=== PATIENT | male | born 1965 | race African-American/Black ===

== ENCOUNTER → 2017-01-02 | Outpatient (CLI) | payer OTHER ==
[~2017-01-02] MED LIST: FISHOIL PO; MULTTAB58 PO; NAPROXEN PO
[2017-01-02 13:12] LABS: BASO % 0.3 %; BASO ABS # 0.03 K/uL (0-0.2); COMPLETE YES; EOS % 1.4 %; HEMATOCRIT 44.7 % (42-52); IG% 0.3 %; LYMPH % 25.9 %; LYMPH ABS # 2.37 K/uL (1.2-3.4); MEAN CELL VOLUME 81.6 fL (80-100); MEAN CORPUSCULAR HEMOGLOBIN 28.8 pg (25-34); MEAN CORPUSCULAR HGB CONC 35.3 g/dl (32-36); MEAN PLATELET VOLUME 10.7 fL (7.4-10.4); MONO % 6.2 %; NEUT % 65.9 %; PLATELET COUNT 380 K/uL (130-400); RED BLOOD COUNT 5.48 M/uL (4.7-6.1); WHITE BLOOD COUNT 9.16 K/uL (4.8-10.8)
[2017-01-02 13:56] LABS: FERRITIN 31.4 ng/ml (8.0-388.0); RATIO 16.6 mcg/mg (0-30.0); THYROID STIMULATING HORMONE 1.12 uIu/ml (0.300-4.500)
[2017-01-06 18:17] LABS: ILGF1 Z SCORE MALE -1.5 SD (-2.0 - +2.0)
== END | disposition home or self-care (01) ==
LOC: C.LAB1850 12:05
PROVIDERS: ATTEND Internal Medicine Endocrinology, Diabetes & Metabolism
DX: R73.03 Prediabetes (principal); M79.1 Myalgia; R20.2 Paresthesia of skin

== ENCOUNTER → 2017-02-13 | Outpatient (CLI) | payer OTHER ==
[2017-02-13 10:38] LABS: ESTIMATED AVERAGE GLUCOSE 123 mg/dl; HA1C FLAG Normal (Normal)
== END | disposition home or self-care (01) ==
LOC: C.LAB1850 09:29
PROVIDERS: ATTEND Internal Medicine Endocrinology, Diabetes & Metabolism
DX: R73.03 Prediabetes (principal)

== ENCOUNTER → 2017-02-16 | Outpatient (CLI) | payer OTHER ==
[~2017-02-16] VITALS: Ht 190.5 cm; Wt 140.1 kg
[2017-02-16 17:29] VITALS: BP 149/91; PULSE 92; Ht 190.5 cm; Wt 140.1 kg
== END | disposition home or self-care (01) ==
LOC: C.NEUR 15:16
PROVIDERS: ATTEND Internal Medicine Pulmonary Disease
DX: R06.83 Snoring (principal); R06.81 Apnea, not elsewhere classified; R53.83 Other fatigue; E66.9 Obesity, unspecified

== ENCOUNTER → 2017-03-06 | Outpatient (CLI) | payer OTHER ==
--- NOTE | 2017-03-07 05:40 | SPLIT NIGHT TECHNICIAN REPORT ---
[facility] Split Night Polysomnogram - Production Grader Report Study date: 03/06/2017 Referring Physician: Shravan Shay M.D. Name: BARRIE PRAJAPATI Production Grader: LORI Raymond. Date of : 1965 Height: 51 years, Height 6' 3" Sex: Male Weight: 308 lbs Age: 51 Neck Circum: 17 inches BMI: Medications: 38.49 Celebrex 100 mg, Metformin 1000 mg, Trulicity 0.75 mg/0.5 ml,Victoza 18mg/3ml Patient History 51 yr. old male here for a modified split night sleep study if AHI >15. Patient complains of apneas and snoring, non-refreshing sleep, and falls asleep at inappropriate times. Parameters Monitored NPSG: E1-M2, E2-M1, Fp1-M2, Fp2-M1, F3-M2, F4-M2, F4-M1, C3-M2, C4-M2, C4-M1, O1-M2, O2-M2, O2-M1, T3-M2, T4-M1, P3-M2, P4-M1, CHIN1, CHIN2, HR, EKG, Legs, PFLOW, SNOR, FLOW, CFLOW, Tidal Volume, THOR, ABDO, SpO2, PLTH, CPRESS, ETCO2 Wave, ETCO2, pH SLEEP SUMMARY DATA DIAGNOSTIC TREATMENT Lights Out: 10:33:37 PM 1:29:37 AM Lights On: 1:26:07 AM 5:28:07 AM Total Recording Time (TRT): 172.5 min. 238.0 min. Total Sleep Time (TST): 124.5 min. 189.0 min. NREM Time: 104.0 min. 139.0 min. REM Time: 20.5 min. 50.0 min. Sleep Period Time (SPT): 128.5 min. 230.0 min. Sleep Efficiency (SE): 72 % 79 % Sleep Latency: 44.0 min. 8.5 min. Arousal Index: 7.2 2.9 PAP Treatment Levels: 5, 6, 7, 8 * Optimal Pressure(s) SLEEP STAGING DATA DIAGNOSTIC TREATMENT Duration (min) TST % Duration (min) TST % Stage Wake: 48.0 min. -- 49.0 min. -- WASO: 4.0 min. -- 41.0 min. -- NREM: 104.0 min. 84 % 139.0 min. 74 % Stage N1: 10.0 min. 8 % 6.5 min. 3 % Stage N2: 80.0 min. 64 % 112.5 min. 60 % Stage N3: 14.0 min. 11 % 20.0 min. 11 % REM: 20.5 min. 16 % 50.0 min. 26 % POSITIONAL DATA Event Count Index Event Count Index Supine: 0 0.0 0 0.0 Supine NREM: 0 0.0 0 0.0 Supine REM: N/A N/A N/A N/A Non-Supine: 65 31.5 13 4.6 Non-Supine NREM: 45 26.1 11 5.5 Non-Supine REM: 20 58.5 2 2.4 AROUSAL SUMMARY DATA: Event Count Index Event Count Index Apnea Arousals: 0 0.0 0 0.0 Hypopnea Arousals: 3 1.4 2 0.6 Snore Arousals: 4 1.9 3 1.0 PLM Arousals: 4 1.9 0 0.0 Non-Specific Arousals: 3 1.4 1 0.3 Total Arousals: 15 7.2 9 2.9 MYOCLONUS (PLM) Event Count Index Event Count Index PLM: 17 8.2 9 2.9 PLM AROUSAL: 4 1.9 0 0.0 PLM W/O AROUSAL 17 8.2 9 2.9 PLM W/RESP EVENT 0 0.0 1 0.0 MYOCLONUS (PLM) Event Count Index Event Count Index LM: 1 14.9 28 8.9 LM AROUSAL: 1 0.5 4 1.3 LM W/O AROUSAL LM W/RESP EVENT LM NON SPECIFIC 35 16.9 30 9.5 HEART RATE DATA DIAGNOSTIC TREATMENT Sleep (bpm): 84 72 REM (bpm): 87 91 NREM (bpm): 88 91 Tachycardia Count: 0 0 Tachycardia Duration: 0.00 0 Bradycardia Count: 0 0 Bradycardia Duration: 0.00 0 DIAGNOSTIC PORTION TREATMENT PORTION RESPIRATORY DATA Event Count Index Event Count Index AHI: -- 31.3 -- 4.1 RDI: -- 31.3 -- 4 Obstructive Apnea: 0 0.0 0 0.0 Central Apnea: 0 0.0 0 0.0 Mixed Apnea: 0 0.0 0 0.0 Hypopnea: 65 31.3 13 4.1 RERA: 0 0.0 0 0.0 Total Apneas: 0 0.0 0 0.0 RESPIRATORY DATA REM NREM SLEEP REM NREM SLEEP Supine Position: Obstructive Apneas: N/A 0 0 N/A 0 0 Central Apneas: N/A 0 0 N/A 0 0 Mixed Apneas: N/A 0 0 N/A 0 0 Hypopneas: N/A 0 0 N/A 0 0 RERA N/A 0 0 N/A 0 0 Total Supine Events: N/A 0 0 N/A 0 0 Supine AHI: N/A 0.0 0.0 N/A 0.0 0.0 Supine RDI: N/A 0.0 0.0 N/A 0.0 0.0 REM NREM SLEEP REM NREM SLEEP Non-Supine Position: Obstructive Apneas: 0 0 0 0 0 0 Central Apneas: 0 0 0 0 0 0 Mixed Apneas: 0 0 0 0 0 0 Hypopneas: 20 45 65 2 11 13 RERA 0 0 0 0 0 0 Total Supine Events: 20 45 65 2 11 13 Supine AHI: 58.5 26.1 31.5 2.4 5.5 4.6 Supine RDI: 58.5 26.1 31.5 2.4 5.5 4.6 OXYGEN DESTAURATION DATA: Event Count Index Event Count Index REM Desaturations: 15 43.9 2 2.4 NREM Desaturations: 49 28.3 11 4.7 SNORE DATA DIAGNOSTIC TREATMENT Snore Time: 42.7 1:38:07 AM Snore TST%: 17 18 Snore Arousal Count: 4 3 Snore Arousal Index: 1.9 1.0 Desaturation Event Summary: Minimum %SpO2 Event Count Mean/Min/Max Duration(sec.) Desaturation Index % Time In Bed > 90 94 25.0 / 6.5 / 60.0 25.6 53.6 86 - 90 59 25.2 / 8.0 / 59.3 20.3 42.4 81 - 85 2 14.9 / 11.0 / 18.8 7.7 3.8 76 - 80 0 N/A 0.0 0.2 71 - 75 0 N/A 0.0 0.0 66 - 70 0 N/A 0.0 0.0 61 - 65 0 N/A 0.0 0.0 56 - 60 0 N/A 0.0 0.0 51 - 55 0 N/A 0.0 0.0 < 50 0 N/A 0.0 0.0 OXYGEN SATURATION DATA DIAGNOSTIC TREATMENT SpO2 Mean Sleep: 88 % 91 % SpO2 Mean REM: 87 % 91 % SpO2 Mean NREM: 88 % 91 % SpO2 Minimum Sleep: 79 % 86 % SpO2 Minimum REM: 79 % 87 % SpO2 Minimum NREM: 79 % 86 % Time Below 90% (TST): 93.5 18.2 Time Below 88% (TST): 42.6 0.3 Total REM NREM Awake <50% 0.0 min. 0.0 min. 0.0 min. 0.0 min. 51 - 60% 0.0 min. 0.0 min. 0.0 min. 0.0 min. 61 - 70% 0.0 min. 0.0 min. 0.0 min. 0.0 min. 71 - 80% 0.7 min. 0.3 min. 0.4 min. 0.0 min. 81 - 90% 189.8 min. 30.7 min. 130.4 min. 28.7 min. 91 - 100% 219.9 min. 39.4 min. 112.3 min. 68.3 min. Average 90 90 90 92 Minimum SpO2 79 79 79 84 Desaturation Event Index 18.0 14.5 14.8 28.5 # Desat. Events below 89% 83 15 52 16 Time(%) with Saturation below 89% 18.3 3.2 14.0 1.0 Time(min.) with Saturation below 89% 75.1 13.2 57.6 4.2 Recording Production Grader Comments: Mr. Prajapati slept in the right, left, and supine positions. Cardiac arrhythmia and PLMs noted. No bruxism noted. Snoring was noted and scored as a 5 on a scale of 0 through 5. (0=no snoring, 5=snoring loud enough to be heard through a closed door or down the [address]) At 1;29 am, Mr. Prajapati met specific Split-Night criteria during the diagnostic portion of this study. CPAP was initiated at +5 CMH2O and up-titrated to an optimal level of +8 CMH2O Cflex 2 , which nearly eliminated all respiratory events and snoring. A large quattro air, was used during titration. Mr. Prajapati did not wake to use the restroom during the night. Mr. Prajapati stated, "I think I sleot better with the mask, it just took some time to get used to it". The final report will be interpreted and signed by a sleep physician. The completed physician report will then be placed in the patient medical record. Therapy Event: Therapy (cm H20) 0 5 6 7 8 Total Time at Pressure (min.) 172.5 66.1 97.2 27.3 47.4 TST at Pressure (min.) 124.5 19.1 95.7 26.8 47.4 # Periods 1 1 1 1 1 Sleep Onset (min.) 44.0 8.5 0.0 0.0 0.0 REM Onset (min.) 118.5 N/A 6.9 18.7 0.0 Sleep Efficiency % 72 28 98 98 100 Wakefulness (%) 27.8 71.1 1.5 1.8 0.0 Wakefulness (min.) 48.0 47.0 1.5 0.5 0.0 NREM 1 (%) 5.8 3.8 2.1 5.5 1.1 NREM 1 (min.) 10.0 2.5 2.0 1.5 0.5 NREM 2 (%) 46.4 25.1 56.8 59.4 51.7 NREM 2 (min.) 80.0 16.6 55.2 16.2 24.5 NREM 3 (%) 8.1 0.0 11.3 0.0 19.0 NREM 3 (min.) 14.0 0.0 11.0 0.0 9.0 REM (%) 11.9 0.0 28.3 33.3 28.3 REM (min.) 20.5 0.0 27.5 9.1 13.4 # Arousals 15 1 4 3 1 Arousal Index 7.2 3.1 2.5 6.7 1.3 # Snore 1,375 96 605 204 206 Snore Index 662.7 301.5 379.5 456.2 260.7 AHI 31.3 9.4 3.1 11.2 0.0 AHI Supine 0.0 N/A 0.0 0.0 N/A AHI Non-Supine 31.5 9.4 3.7 13.6 0.0 NREM AHI 26.0 9.4 4.4 10.1 0.0 REM AHI 58.5 N/A 0.0 13.2 0.0 RDI 31.3 9.4 3.1 11.2 0.0 # Obstructive 0 0 0 0 0 # Central Ap 0 0 0 0 0 # Mixed 0 0 0 0 0 # Hypopneas 65 3 5 5 0 RERAS 0 0 0 0 0 Total Respiratory Events 65 3 5 5 0 Time Below SpO2 89.00% (min.) 66.6 0.2 3.6 0.5 0.0 Mean NREM SpO2 (%) 88 91 91 91 93 Mean REM SpO2 (%) 87 N/A 91 91 92 Mean Sleep SpO2 (%) 88 91 91 91 93 Min NREM SpO2 (%) 79 88 86 89 92 Min REM SpO2 (%) 79 N/A 88 87 91 Position Supine (min.) 0.6 0.0 14.1 4.7 0.0 Position Non-supine (min.) 123.9 19.1 81.5 22.1 47.4 LM Index Sleep 23.1 15.7 10.7 24.6 5.1 LM Index NREM 20.8 15.7 9.7 27.1 5.3 LM Index REM 35.1 N/A 13.1 19.8 4.5 Mean Heart Rate (bpm) 84 72 74 70 70 Min Heart Rate (bpm) 51 65 62 62 62
--- NOTE | 2017-03-08 09:18 | POLYSOMNOGRAPH REPORT ---
CLINICAL DATA: A 51-year-old male with BMI of 38.5 referred by myself and Dr. Brennan with complaints of apnea, snoring, nonrefreshing sleep and falling asleep at inappropriate times. This was a split night sleep study. SLEEP ARCHITECTURE: For the diagnostic portion of the study, total sleep period was 128.5 minutes. Total sleep time was 124.5 minutes divided between 104 minutes of non-REM sleep and 20.5 minutes of REM sleep. Sleep latency was delayed at 44 minutes. Sleep efficiency was 72%. Arousal index was 7.2. Sleep consisted of stage N1 8%, N2 64%, N3 11%, REM 16%. For the treatment portion of the study, total sleep period was 230 minutes. Total sleep time was 189 minutes divided between 139 minutes of non-REM sleep and 50 minutes of REM sleep. Sleep latency was 8.5 minutes. Sleep efficiency was 79%. Arousal index was 2.9. Sleep consisted of stage N1 3%, N2 60%, N3 11%, REM 26%. AROUSAL DATA: Prior to treatment 15 arousals were recorded for an index of 7.2 per hour. During treatment, 9 arousals recorded for an index 2.9 per hour. PLM DATA: Prior to treatment, 35 limb movements during sleep were noted for an index of 16.9 per hour. During treatment, 30 limb movements during sleep were noted for an index of 9.5 per hour. EKG: Heart rates ranged from 72 to 91 beats per minute. Occasional PVCs were noted. RESPIRATORY DATA: Severe sleep apnea was documented prior to treatment. The diagnostic AHI was 31.3. There were 65 hypopneic episodes recorded. The mean AHI during treatment was 4.1. There were 13 hypopneic episodes recorded. OXIMETRY DATA: Oxygen adam prior to treatment was 79%. Mean saturation for the treatment was 91%. SHIPS EQUIPMENT ENGINEER'S COMMENTS AND TREATMENT SUMMARY: The patient slept in the right, left, and supine positions. Snoring was severe, rated 5 on a scale of 1-5. At 1:29 a.m., patient met split night criteria. The patient used a large Quattro Air face mask. He was started on CPAP and titrated up to an optimal level of 8 cm of water pressure, C-Flex 2. At this final pressure setting the patient slept for 47.4 minutes with an AHI of 0. IMPRESSION: Severe obstructive sleep apnea/hypopnea with diagnostic AHI of 31.5 with nocturnal hypoxemia corrected with CPAP 8 cm of water pressure, C-Flex setting 2, large Quattro Air facemask. RECOMMENDATIONS: The patient should be started on the above noted treatment regimen and seen back in followup to document efficacy and compliance. MTDD
== END | disposition home or self-care (01) ==
LOC: C.NEUR 21:00
PROVIDERS: ATTEND Internal Medicine Pulmonary Disease
DX: G47.33 Obstructive sleep apnea (adult) (pediatric) (principal)

== ENCOUNTER → 2017-03-27 | Outpatient (CLI) | payer OTHER ==
[~2017-03-27] VITALS: Ht 190.5 cm; Wt 138.8 kg
[2017-03-27 16:05] VITALS: BP 116/82; PULSE 112; BMI 38.2
[2017-03-27 16:06] VITALS: BP 116/82; PULSE 112; Ht 190.5 cm; Wt 138.8 kg
== END | disposition home or self-care (01) ==
LOC: C.NEUR 15:42
PROVIDERS: ATTEND Internal Medicine Pulmonary Disease
DX: G47.30 Sleep apnea, unspecified (principal)

== ENCOUNTER → 2017-06-19 | Outpatient (CLI) | payer OTHER ==
--- NOTE | 2017-06-19 11:09 | DIAGNOSTIC IMAGING REPORT ---
CHEST 2 VIEWS ROUTINE CLINICAL HISTORY: 51 years-old Male presenting with anterior chest wall pain. TECHNIQUE: PA and lateral views of the chest were obtained. COMPARISON: 11/14/2012. FINDINGS: Cardiomediastinal silhouette normal. Persistent elevation of the right hemidiaphragm. Minimal bandlike opacity at the right lung base. No other focal infiltrate. No large effusion or pneumothorax. Osseous structures normal. Upper abdomen normal. IMPRESSION: 1. Persistent elevation of the right hemidiaphragm with minimal right basilar subsegmental atelectasis. Otherwise no acute cardiopulmonary disease. Electronically signed by: Humphrey Kimball M.D. 06/19/2017 11:08 AM Dictated Date/Time: 06/19/2017 11:06 AM
== END | disposition home or self-care (01) ==
LOC: C.RAD1850 10:21
PROVIDERS: ATTEND Family Medicine
DX: R07.89 Other chest pain (principal); J98.6 Disorders of diaphragm

== ENCOUNTER → 2017-06-19 | Outpatient (CLI) | payer OTHER ==
[~2017-06-19] VITALS: Ht 190.5 cm; Wt 134.4 kg
[2017-06-19 14:39] VITALS: BP 126/89; PULSE 88; Ht 190.5 cm; Wt 134.4 kg
== END | disposition home or self-care (01) ==
LOC: C.NEUR 12:46
PROVIDERS: ATTEND Physician Assistant Medical
DX: G47.30 Sleep apnea, unspecified (principal); R53.83 Other fatigue; E66.9 Obesity, unspecified

== ENCOUNTER → 2017-06-25 | Outpatient (CLI) | payer OTHER ==
--- NOTE | 2017-06-25 16:11 | DIAGNOSTIC IMAGING REPORT ---
LEFT KNEE 3 VIEWS, RIGHT KNEE 3 VIEWS CLINICAL HISTORY: CHRONIC KNEE PAIN COMPARISON STUDY: Bilateral knees 06/07/2006. FINDINGS: No fracture or dislocation within the right or left knee. No significant knee effusions. There are severe bilateral tricompartmental osteoarthritis. This is demonstrated by cartilage space narrowing and large marginal osteophytes. No significant soft tissue swelling. No radiopaque foreign bodies. IMPRESSION: Progression of the bilateral severe tricompartmental osteoarthritis. No fractures. Electronically signed by: Leno Bradley M.D. 06/25/2017 4:09 PM Dictated Date/Time: 06/25/2017 4:07 PM
== END | disposition home or self-care (01) ==
LOC: C.RAD1850 15:49
PROVIDERS: ATTEND Internal Medicine
DX: M17.0 Bilateral primary osteoarthritis of knee (principal)

== ENCOUNTER → 2017-06-27 | Outpatient (CLI) | payer OTHER ==
[2017-06-27 17:24] LABS: ALT/SGPT 30 U/L (12-78); BLOOD UREA NITROGEN 14 mg/dl (7-18); BUN/CREATININE RATIO 15.4 (10-20); CARBON DIOXIDE 27 mmol/L (21-32); CHLORIDE 110 mmol/L (98-107); CREATININE 0.89 mg/dl (0.60-1.40); GLUCOSE 87 mg/dl (70-99); SODIUM 141 mmol/L (136-145)
[2017-06-27 17:26] LABS: ALB/GLOB RATIO 0.9 (0.9-2); ALKALINE PHOSPHATASE 107 U/L (45-117); AST/SGOT 16 U/L (15-37); CHOLESTEROL 141 mg/dl (0-200); CHOLESTEROL/HDL RATIO 2.8; HDL CHOLESTEROL 50 mg/dl; LDL CHOLESTEROL CALCULATED 75 mg/dl; TRIGLYCERIDES 80 mg/dl (0-150); VERY LOW DENSITY LIPOPROT CALC 16 mg/dl
[2017-06-28 07:12] LABS: ESTIMATED AVERAGE GLUCOSE 114 mg/dl; HA1C FLAG Normal (Normal)
== END ==
LOC: C.LAB1850 15:35
PROVIDERS: ATTEND Internal Medicine
DX: Z00.00 Encounter for general adult medical examination without abnormal findings (principal); R73.03 Prediabetes

== ENCOUNTER → 2017-10-02 | Outpatient (CLI) | payer OTHER ==
[~2017-10-02] VITALS: Ht 190.5 cm; Wt 134.7 kg
[2017-10-02 15:46] VITALS: BP 134/80; PULSE 51; Ht 190.5 cm; Wt 134.7 kg
== END | disposition home or self-care (01) ==
LOC: C.NEUR 15:23
PROVIDERS: ATTEND Physician Assistant Medical
DX: G47.30 Sleep apnea, unspecified (principal); E66.9 Obesity, unspecified

== ENCOUNTER 2017-12-04 11:04 | Emergency (ER) | payer SELFPAY ==
[~2017-12-04] VITALS: Ht 190.5 cm; Wt 136.7 kg
[2017-12-04 11:08] VITALS: TEMP 37; Ht 190.5 cm; Wt 136.7 kg
[2017-12-04] MEDS ORDERED: METF-384 PO (11:40)
[2017-12-04] MEDS ORDERED: DULA1INJ INJ (11:40)
--- NOTE | 2017-12-04 11:58 | EMERGENCY ROOM VISIT NOTE ---
History First contact with patient: 11:27 Chief Complaint: FLU LIKE SX Stated Complaint: COUGHING AND ACHE History of Present Illness The patient is a 52 year old male who presents to the Emergency Room with complaints of cold-like symptoms. The patient states he has been sick for 8-9 days, and has been using OTC medications including Tylenol, ibuprofen, DayQuil, and NyQuil. He states he was feeling better after the first few days, then began feeling worse. He complains of cough, fatigue, weakness, runny nose, subjective fever. He denies any sore throat, abdominal pain, nausea, vomiting, dyspnea, wheezing, productive cough, diarrhea, constipation, decreased appetite. He denies any hemoptysis. He states his symptoms now are better than they were when he was initially sick. He did not receive an influenza vaccination this year. He denies any objective fever, but states he has felt feverish intermittently. Review of Systems A complete 10 point review of systems was reviewed with the patient with pertinent positives and negatives as per history of present illness. All else were negative. Past Medical/Surgical History Diabetes Social History Smoking Status: Never Smoker Alcohol Use: none Drug Use: none Housing Status: lives with roommate Occupation Status: employed Current/Historical Medications Scheduled Dulaglutide (Trulicity), 1 DOSE INJ WK Metformin Hcl (Glucophage), 1,000 MG PO BID Scheduled PRN Benzonatate (Tessalon Perles), 200 MG PO TID PRN for wh Physical Exam Vital Signs Date Time Temp Pulse Resp B/P (MAP) Pulse Ox O2 Delivery O2 Flow Rate FiO2 12/04/17 12:37 70 22 142/89 94 12/04/17 11:08 37.0 83 18 161/113 96 Room Air Physical Exam VITALS: Vitals are noted on the nurse's note and reviewed by myself. Vital signs stable. GENERAL: This is an obese male, in no acute distress, nondiaphoretic, well- developed well-nourished. SKIN: The skin was without rashes, erythema, edema, or bruising. There is no tenting of the skin. Capillary reflex less than 2 seconds. HEAD: Normocephalic atraumatic. EARS: External auditory canals clear, tympanic membranes pearly pandya without erythema or effusion bilaterally. EYES: Pupils equal round and reactive to light and accommodation. Conjunctivae without injection, sclerae without icterus. Extraocular movements intact. NOSE: Patent, turbinates without inflammation or discharge. No sinus tenderness. MOUTH: Mucous membranes moist. Tonsils are not enlarged. Pharynx without erythema or exudate. Uvula midline. Airway patent. Tongue does not deviate. NECK: Supple without nuchal rigidity. No lymphadenopathy. No thyromegaly. Cervical spine is nontender. No JVD. HEART: Regular rate and rhythm without murmurs gallops or rubs. LUNGS: Clear to auscultation bilaterally without wheezes, rales or rhonchi. No dullness to percussion. No retractions or accessory muscle use. ABDOMEN: Positive bowel sounds x 4. Normal tympanic percussion. Soft, nontender, without masses or organomegaly. Corea sign negative. No guarding or rebound tenderness. MUSCULOSKELETAL: No muscle atrophy, erythema, or edema noted. Full range of motion without joint tenderness in all extremities. No tenderness to palpation. Normal gait. Strength 5/5 throughout. NEURO: Patient was alert and oriented to person place and time. Normal sensation to light and sharp touch. Deep tendon reflexes 2+ throughout. No focal neurological deficits. Medical Decision & Procedures ER Provider Diagnostic Interpretation: CHEST 2 VIEWS ROUTINE CLINICAL HISTORY: Cough. COMPARISON STUDY: Chest radiograph June 19, 2017. FINDINGS: Moderate elevation of the right hemidiaphragm is unchanged. There is no pneumothorax or pleural effusion. There is no consolidation. Pulmonary vascularity is normal. Cardiac size is normal. Mediastinal contours are unremarkable. IMPRESSION: 1. No acute cardiopulmonary findings. 2. No change in moderate elevation of the right hemidiaphragm. Electronically signed by: Segundo Stuart M.D. 12/04/2017 12:09 PM Dictated Date/Time: 12/04/2017 12:08 PM ED Course The patient was seen and evaluated as above. Chest x-ray performed and reviewed by myself and radiologist. Discharge instructions reviewed, the patient was discharged home in good condition. Medical Decision This is a 52-year-old male patient presents to the emergency department complaining of 8-9 days of cough. He states overall, he was initially complaining of cold-like symptoms, but states they have improved significantly. He does not have a documented fever, but has complained of fatigue, weakness, and runny nose. His symptoms are consistent with influenza-like illness, however given the history of 8-9 days, I suspect he is on the tail end of the illness. He states his biggest complaint is the lingering cough. Chest x-ray was performed due to the ongoing cough, and was negative for pneumonia. The patient will be given Tessalon Perles for the coughing. I encouraged him to continue to use outpatient treatment for his symptoms, return to the emergency department for worsening complaints. The patient was in agreement assessment and plan, and all questions were answered to the patient's satisfaction. Differential diagnosis includes influenza, bronchitis, pneumonia, upper respiratory infection, tracheobronchitis, gastroenteritis, strep pharyngitis, acute pharyngitis, Lyme disease, malignancy, and others Medication Reconcilliation Current Medication List: was personally reviewed by me Blood Pressure Screening Patient's blood pressure: Elevated blood pressure Blood pressure disposition: Elevated BP felt to be situational Impression Primary Impression: Influenza-like symptoms Departure Information Dispostion Home / Self-Care Condition GOOD Prescriptions Benzonatate (Tessalon Perles) 200 Mg Cap 200 MG PO TID Y for wh for 10 Days, #30 CAP Prov: Zakia Montilla PA-C 12/04/17 Referrals Feliciano Sunshine M.D. (PCP) Patient Instructions ED URI Viral, My [facility] Additional Instructions You were seen and evaluated in the emergency department today for an upper respiratory infection. I do feel that based on your symptoms, and the duration of illness, this is likely viral in nature. As discussed, antibiotics will not treat viral illness. You have been given benzonatate (Tessalon Pearles) to be used for coughing. These should be taken 1 capsule up to 3 times per day as needed for coughing. Do not take this medication more than prescribed. You may use this medication in addition to OTC cough medications. Drink warm tea with honey and lemon, as this will also help to soothe the throat. Gargle with salt water frequently. As discussed, you should take OTC Mucinex and/or Sudafed for your symptoms. Please do not exceed the recommended daily dosages. Ibuprofen(Motrin, Advil) may be used for fever or pain. Use 600mg every six hours as needed. Take with food. Avoid using more than 2400mg in a 24 hour period. Do not use 2400mg per day for more than three consecutive days without physician direction. Prolonged inappropriate use can lead to stomach upset or ulcers. This medication will help with the swelling in your sinuses. (AND/OR) Acetaminophen(Tylenol) may be used for fever or pain. Use 1000mg every six hours as needed. Avoid using more than 3000mg in a 24 hour period. For congestion, you may use Flonase OTC. You may want to consider zinc, echinacea, and vitamin C to help boost your immunity. Please get plenty of rest and drink plenty of fluids. Please return or follow-up with your PCP in 1 week if you are not experiencing any improvement in your symptoms. Return to the emergency department for coughing up blood, difficulty breathing, chest pain, worsening symptoms, or for other concerns.
--- NOTE | 2017-12-04 12:10 | DIAGNOSTIC IMAGING REPORT ---
CHEST 2 VIEWS ROUTINE CLINICAL HISTORY: Cough. COMPARISON STUDY: Chest radiograph June 19, 2017. FINDINGS: Moderate elevation of the right hemidiaphragm is unchanged. There is no pneumothorax or pleural effusion. There is no consolidation. Pulmonary vascularity is normal. Cardiac size is normal. Mediastinal contours are unremarkable. IMPRESSION: 1. No acute cardiopulmonary findings. 2. No change in moderate elevation of the right hemidiaphragm. Electronically signed by: Segundo Stuart M.D. 12/04/2017 12:09 PM Dictated Date/Time: 12/04/2017 12:08 PM
[2017-12-04] MEDS ORDERED: BENZ1CAP90 PO (12:14)
[2017-12-04 12:37] VITALS: BP 142/89; PULSE 70; O2SAT 94
== END 2017-12-04 12:38 | disposition home or self-care (01) ==
LOC: C.EDB 11:04
DX: R05 Cough (principal); R53.83 Other fatigue; R53.1 Weakness; R50.9 Fever, unspecified; R09.89 Other specified symptoms and signs involving the circulatory and respiratory systems; E11.9 Type 2 diabetes mellitus without complications; Z79.84 Long term (current) use of oral hypoglycemic drugs; Z79.899 Other long term (current) drug therapy

== ENCOUNTER → 2018-01-01 | Outpatient (CLI) | payer OTHER ==
[~2018-01-01] VITALS: Ht 190.5 cm; Wt 140.6 kg
[~2018-01-01] MED LIST changes: +DULA1INJ INJ; -FISHOIL PO; +LIRA18IN SC; +MECL-91 PO; +METF-384 PO; -MULTTAB58 PO; -NAPROXEN PO
[2018-01-01 15:41] VITALS: BP 151/91; PULSE 81; Ht 190.5 cm; Wt 140.6 kg
== END ==
LOC: C.NEUR 15:13
PROVIDERS: ATTEND Internal Medicine Pulmonary Disease
DX: G47.30 Sleep apnea, unspecified (principal); R53.83 Other fatigue; E66.9 Obesity, unspecified

== ENCOUNTER 2018-03-03 19:45 | Emergency (ER) | payer OTHER ==
[~2018-03-03] VITALS: Ht 190.5 cm; Wt 137.6 kg
[~2018-03-03 19:45] MED LIST changes: -LIRA18IN SC; -MECL-91 PO
[2018-03-03 19:55] VITALS: TEMP 36.8
[2018-03-03] MEDS ORDERED: LIRA18IN SC (20:17)
[2018-03-03] MEDS ORDERED: MECLIZINE HCL 25 MG TAB PO STA (20:23)
[2018-03-03 20:29] VITALS: Ht 190.5 cm; Wt 137.6 kg
[2018-03-03 20:38] VITALS: O2SAT 97
[2018-03-03 20:51] LABS: BASO % 0.3 %; BASO ABS # 0.02 K/uL (0-0.2); EOS % 3.7 %; EOS ABS # 0.28 K/uL (0-0.5); HEMATOCRIT 44.2 % (42-52); HEMOGLOBIN 15.7 g/dL (14.0-18.0); IG# 0.02 K/uL (0.00-0.02); LYMPH % 29.9 %; LYMPH ABS # 2.26 K/uL (1.2-3.4); MEAN CELL VOLUME 82.2 fL (80-100); MEAN CORPUSCULAR HEMOGLOBIN 29.2 pg (25-34); MEAN CORPUSCULAR HGB CONC 35.5 g/dl (32-36); MEAN PLATELET VOLUME 10.2 fL (7.4-10.4); MONO % 4.6 %; MONO ABS # 0.35 K/uL (0.11-0.59); NEUT % 61.2 %; NEUT ABS # 4.64 K/uL (1.4-6.5); PLATELET COUNT 363 K/uL (130-400); RED CELL DISTRIBUTION WIDTH CV 13.9 % (11.5-14.5); RED CELL DISTRIBUTION WIDTH SD 41.7 fL (36.4-46.3); WHITE BLOOD COUNT 7.57 K/uL (4.8-10.8)
[2018-03-03 21:07] LABS: ALBUMIN 3.5 gm/dl (3.4-5.0); ALT/SGPT 38 U/L (12-78); AST/SGOT 21 U/L (15-37); BLOOD UREA NITROGEN 10 mg/dl (7-18); CALCIUM 8.8 mg/dl (8.5-10.1); CARBON DIOXIDE 28 mmol/L (21-32); CREATININE 0.82 mg/dl (0.60-1.40); GLUCOSE 85 mg/dl (70-99); POTASSIUM 4.1 mmol/L (3.5-5.1); SODIUM 139 mmol/L (136-145)
[2018-03-03 21:17] LABS: ALKALINE PHOSPHATASE 108 U/L (45-117); TOTAL PROTEIN 7.8 gm/dl (6.4-8.2)
--- NOTE | 2018-03-03 21:17 | DIAGNOSTIC IMAGING REPORT ---
SINGLE VIEW CHEST CLINICAL HISTORY: Generalized weakness. FINDINGS: An AP, portable, upright chest radiograph is compared to study dated 12/04/2017. The cardiomediastinal silhouette is unremarkable. There is chronic elevation of the right hemidiaphragm with right basilar atelectasis. The lungs are otherwise clear. No large pleural effusion or pneumothorax is seen. The bony thorax is grossly intact. IMPRESSION: No acute cardiopulmonary abnormality. Electronically signed by: Chuck Davis M.D. 03/03/2018 9:16 PM Dictated Date/Time: 03/03/2018 9:15 PM
--- NOTE | 2018-03-03 21:26 | DIAGNOSTIC IMAGING REPORT ---
CT SCAN OF THE BRAIN WITHOUT IV CONTRAST CLINICAL HISTORY: Generalized weakness. COMPARISON STUDY: CT of the brain dated 12/03/2007. TECHNIQUE: Unenhanced axial CT scan of the brain is performed from the vertex to the skull base. A dose lowering technique was utilized adhering to the principles of ALARA. CT DOSE: 614.27 mGy.cm FINDINGS: Brain parenchyma: A 3.9 x 2.3 cm arachnoid cyst is again seen in the anterior left temporal fossa. This causes minimal mass effect on the left temporal lobe. The brain parenchyma is otherwise normal in appearance. There is no hemorrhage, midline shift, or evidence of acute territorial ischemia by CT criteria. Willard-white matter is preserved. No extra-axial fluid collection is seen. Ventricles, sulci, cisterns: Normal in configuration. Intracranial vasculature: The visualized intracranial vasculature at the skull base is normal in appearance. Calvarium: Unremarkable. Sinuses and mastoids: The visualized paranasal sinuses are clear. The mastoid air cells are well pneumatized. Orbits: The bony orbits are grossly intact. IMPRESSION: 1. There is no hemorrhage, mass effect, or evidence of acute territorial ischemia by CT criteria. 2. An arachnoid cyst is again noted in the left temporal fossa, similar in appearance to the 2007 examination. Electronically signed by: Chuck Davis M.D. 03/03/2018 9:24 PM Dictated Date/Time: 03/03/2018 9:21 PM
[2018-03-03] MEDS ORDERED: MECL-91 PO (22:57)
[2018-03-03 23:52] VITALS: BP 134/90; PULSE 66; O2SAT 98
--- NOTE | 2018-03-04 00:19 | EMERGENCY ROOM VISIT NOTE ---
History Report prepared by All: Lupillo Mcclain Under the Supervision of: Dr. Chris Sun D.O. First contact with patient: 20:17 Chief Complaint: DIZZY Stated Complaint: DIZZY Nursing Triage Summary: Dizzy x 2 days. Pt denies any other sx. History of Present Illness The patient is a 52 year old male who presents to the Emergency Room with complaints of persistent dizziness that began yesterday. The patient states that his dizziness is improved by laying still, and worsened by moving his head. He is nauseous, but has not vomited. The patient denies any weakness in his arms/legs, ringing in his ears, or recorded fevers. Patient denies any exertional chest pain or shortness of breath. He also denies change in vision, chest pain, shortness of breath, diarrhea, pain with urination, and melena. The patient is a pre-diabetic, but has no stroke history. Source of History: patient Onset: Yesterday Position: head Quality: other (Dizziness) Timing: other (Persistent) Modifying Factors (Worsening): movement (ofhead) Modifying Factors (Relieving): other (Laying still) Associated Symptoms: + nausea, No headache, No vomiting Review of Systems See HPI for pertinent positives & negatives. A total of 10 systems reviewed and were otherwise negative. Past Medical & Surgical Patient is pre-diabetic Family History Patient reports no known family medical history. Social History Smoking Status: Never Smoker Alcohol Use: none Drug Use: none Housing Status: lives with roommate Occupation Status: employed Current/Historical Medications Scheduled Liraglutide (Victoza), 1.8 ML SC DAILY Meclizine HCl (Meclizine 25), 25 MG PO TID Metformin Hcl (Glucophage), 1,000 MG PO BID Allergies Coded Allergies: No Known Allergies (Unverified , 03/03/18) Physical Exam Vital Signs Date Time Temp Pulse Resp B/P (MAP) Pulse Ox O2 Delivery O2 Flow Rate FiO2 03/03/18 23:52 66 134/90 98 Room Air 03/03/18 21:58 75 16 145/96 98 Room Air 03/03/18 20:38 70 16 153/113 99 Room Air 73 162/116 82 157/114 03/03/18 20:38 97 Room Air 03/03/18 20:30 Room Air 03/03/18 20:14 78 03/03/18 19:55 36.8 76 20 154/102 97 Room Air Physical Exam GENERAL: Sitting up in bed, alert, well appearing, well nourished, no distress, non-toxic EYE EXAM: normal conjunctiva. PERRL and EOM's intact. OROPHARYNX: no exudate, no erythema, lips, buccal mucosa, and tongue normal and mucous membranes are moist NECK: supple, no nuchal rigidity, no adenopathy, non-tender LUNGS: Clear to auscultation. Normal chest wall mechanics HEART: no murmurs, S1 normal and S2 normal ABDOMEN: abdomen soft, non-tender, normo-active bowel sounds, no masses, no rebound or guarding. BACK: Back is symmetrical on inspection and there is no deformity, no midline tenderness, no CVA tenderness. SKIN: no rashes and no bruising UPPER EXTREMITIES: upper extremities are grossly normal. LOWER EXTREMITIES: No pitting edema. NEURO EXAM: Normal sensorium, cranial nerves II-XII intact, normal speech, no weakness of arms, no weakness of legs. No drift. Finger to nose intact. Gross sensation intact. Medical Decision & Procedures ER Provider Diagnostic Interpretation: Radiology results as stated below per my review and the radiologist's interpretation: SINGLE VIEW CHEST CLINICAL HISTORY: Generalized weakness. FINDINGS: An AP, portable, upright chest radiograph is compared to study dated 12/04/2017. The cardiomediastinal silhouette is unremarkable. There is chronic elevation of the right hemidiaphragm with right basilar atelectasis. The lungs are otherwise clear. No large pleural effusion or pneumothorax is seen. The bony thorax is grossly intact. IMPRESSION: No acute cardiopulmonary abnormality. Electronically signed by: Chuck Davis M.D. 03/03/2018 9:16 PM Dictated Date/Time: 03/03/2018 9:[address] SCAN OF THE BRAIN WITHOUT IV CONTRAST CLINICAL HISTORY: Generalized weakness. COMPARISON STUDY: CT of the brain dated 12/03/2007. TECHNIQUE: Unenhanced axial CT scan of the brain is performed from the vertex to the skull base. A dose lowering technique was utilized adhering to the principles of ALARA. CT DOSE: 614.27 mGy.cm FINDINGS: Brain parenchyma: A 3.9 x 2.3 cm arachnoid cyst is again seen in the anterior left temporal fossa. This causes minimal mass effect on the left temporal lobe. The brain parenchyma is otherwise normal in appearance. There is no hemorrhage, midline shift, or evidence of acute territorial ischemia by CT criteria. Willard-white matter is preserved. No extra-axial fluid collection is seen. Ventricles, sulci, cisterns: Normal in configuration. Intracranial vasculature: The visualized intracranial vasculature at the skull base is normal in appearance. Calvarium: Unremarkable. Sinuses and mastoids: The visualized paranasal sinuses are clear. The mastoid air cells are well pneumatized. Orbits: The bony orbits are grossly intact. IMPRESSION: 1. There is no hemorrhage, mass effect, or evidence of acute territorial ischemia by CT criteria. 2. An arachnoid cyst is again noted in the left temporal fossa, similar in appearance to the 2008 examination. Electronically signed by: Chuck Davis M.D. 03/03/2018 9:24 PM Dictated Date/Time: 03/03/2018 9:21 PM Laboratory Results 03/03/18 20:37 Red Blood Count 5.38, Mean Corpuscular Volume 82.2, Mean Corpuscular Hemoglobin 29.2, Mean Corpuscular Hemoglobin Concent 35.5, Mean Platelet Volume 10.2, Neutrophils (%) (Auto) 61.2, Lymphocytes (%) (Auto) 29.9, Monocytes (%) (Auto) 4.6, Eosinophils (%) (Auto) 3.7, Basophils (%) (Auto) 0.3, Neutrophils # (Auto) 4.64, Lymphocytes # (Auto) 2.26, Monocytes # (Auto) 0.35, Eosinophils # (Auto) 0.28, Basophils # (Auto) 0.02 03/03/18 20:37 Test 03/03/18 20:34 03/03/18 20:37 03/03/18 21:57 Bedside Glucose 83 mg/dl (70-99) White Blood Count 7.57 K/uL (4.8-10.8) Red Blood Count 5.38 M/uL (4.7-6.1) Hemoglobin 15.7 g/dL (14.0-18.0) Hematocrit 44.2 % (42-52) Mean Corpuscular Volume 82.2 fL (80-100) Mean Corpuscular Hemoglobin 29.2 pg (25-34) Mean Corpuscular Hemoglobin Concent 35.5 g/dl (32-36) Platelet Count 363 K/uL (130-400) Mean Platelet Volume 10.2 fL (7.4-10.4) Neutrophils (%) (Auto) 61.2 % Lymphocytes (%) (Auto) 29.9 % Monocytes (%) (Auto) 4.6 % Eosinophils (%) (Auto) 3.7 % Basophils (%) (Auto) 0.3 % Neutrophils # (Auto) 4.64 K/uL (1.4-6.5) Lymphocytes # (Auto) 2.26 K/uL (1.2-3.4) Monocytes # (Auto) 0.35 K/uL (0.11-0.59) Eosinophils # (Auto) 0.28 K/uL (0-0.5) Basophils # (Auto) 0.02 K/uL (0-0.2) RDW Standard Deviation 41.7 fL (36.4-46.3) RDW Coefficient of Variation 13.9 % (11.5-14.5) Immature Granulocyte % (Auto) 0.3 % Immature Granulocyte # (Auto) 0.02 K/uL (0.00-0.02) Anion Gap 5.0 mmol/L (3-11) Est Creatinine Clear Calc Drug Dose 161.2 ml/min Estimated GFR () 119.5 Estimated GFR (Non- 103.1 BUN/Creatinine Ratio 12.0 (10-20) Calcium Level 8.8 mg/dl (8.5-10.1) Total Bilirubin 0.5 mg/dl (0.2-1) Direct Bilirubin 0.2 mg/dl (0-0.2) Aspartate Amino Transf (AST/SGOT) 21 U/L (15-37) Alanine Aminotransferase (ALT/SGPT) 38 U/L (12-78) Alkaline Phosphatase 108 U/L (45-117) Troponin I < 0.015 ng/ml (0-0.045) Total Protein 7.8 gm/dl (6.4-8.2) Albumin 3.5 gm/dl (3.4-5.0) Thyroid Stimulating Hormone (TSH) 0.763 uIu/ml (0.300-4.500) Urine Color YELLOW Urine Appearance CLEAR (CLEAR) Urine pH 7.5 (4.5-7.5) Urine Specific [place] 1.015 (1.000-1.030) Urine Protein NEG (NEG) Urine Glucose (UA) NEG (NEG) Urine Ketones NEG (NEG) Urine Occult Blood NEG (NEG) Urine Nitrite NEG (NEG) Urine Bilirubin NEG (NEG) Urine Urobilinogen NEG (NEG) Urine Leukocyte Esterase NEG (NEG) Laboratory results per my review. Medications Administered Medications (Trade) Dose Ordered Sig/Celi Route Start Time Stop Time Status Last Admin Dose Admin Meclizine HCl (Antivert Tab) 25 mg NOW STAT PO 03/03/18 20:23 03/03/18 20:25 DC 03/03/18 20:36 25 MG ECG Per My Interpretation Indication: other Rate (beats per minute): 65 Rhythm: sinus rhythm Findings: ST depression (Lateral and inferior ), other (brianne axis) Comparison ECG Date: 11/14/2012 Change: ST Depressions are worsened. ED Course ED COURSE: Vital signs were reviewed and showed hypertensive vitals. The patients medical record was reviewed The above diagnostic studies were performed and reviewed. ED treatments and interventions as stated above. 2018: The patient was evaluated in room B9. A complete history and physical examination was performed. 2022: Ordered Antivert 25 mg PO. 2252: I discussed the case with Dr. Franco - Cardiology. 2305: Upon reevaluation, the patient is resting in bed.I discussed my findings with the patient and he understands and agrees with the treatment plan. Based on the patients age, coexisting illnesses, exam and lab findings the decision to treat as an outpatient was made. The patient remained stable while under my care. The patient appeared well at the time of discharge. Medical Decision Differential diagnosis includes etiologies such as benign positional vertigo, dehydration, hypovolemia, anemia, tumor, infection, hypoglycemia, electrolyte abnormalities, cardiac sources, intracerebral event, toxicologic, neurologic, as well as others were entertained. Patient is a 52-year-old male who presents the ER for dizziness. He notes it has been present for the past 24 hours. It is only present with movement and twisting turning of his head and changing positions. He denies any history of exertional chest pain or shortness of breath. CBC along with BMP, LFTs, bilirubin and troponin were negative. TSH is normal. UA was negative. Patient is completely neurologically intact with a negative CT head. He was given Antivert and his symptoms improved significantly. His EKG did show new and worsening ST depressions in the inferior and lateral. His troponin was negative. He has no exertional chest pain or shortness of breath. Last EKG to compare to was 2012. I discussed with cardiology. They recommended discharging him and having him follow-up as an outpatient. Medication Reconcilliation Current Medication List: was personally reviewed by me Blood Pressure Screening Patient's blood pressure: Elevated blood pressure Blood pressure disposition: Elevated BP felt to be situational Consults Time Called: 2249 Consulting Physician: Dr. Franco - Cardiology Returned Call: 2252 I discussed the case with Dr. Franco - Cardiology. Impression Primary Impression: Vertigo Additional Impression: Acute electrocardiogram changes Scribe Attestation The scribe's documentation has been prepared under my direction and personally reviewed by me in its entirety. I confirm that the note above accurately reflects all work, treatment, procedures, and medical decision making performed by me. Departure Information Dispostion Home / Self-Care Prescriptions Meclizine HCl (Meclizine 25) 25 Mg Tab 25 MG PO TID for dizzy for 7 Days Prov: Chris Sun, DO 03/03/18 Referrals No Doctor, Assigned (PCP) Forms HOME CARE DOCUMENTATION FORM, IMPORTANT VISIT INFORMATION Patient Instructions My [facility] Additional Instructions Please follow up with your primary care doctor with in the next 24 hours. Any worsening of your symptoms, please return to the ED immediately. This includes any fevers greater than 100.4, worsening pain, chest pain, shortness breath, persistent nausea, vomiting, unable to eat or drink, or any other concerning signs or symptoms from your standpoint. Please take Antivert as prescribed. Please follow-up with cardiology as listed below. Please give their office a call first thing tomorrow morning to set up appointment as your EKG did have new changes from your previous. If you have any exertional chest pain or shortness of breath you need to return immediately to the ER. Problem Qualifiers
== END 2018-03-04 00:06 | disposition home or self-care (01) ==
LOC: C.EDB 19:47
DX: R42 Dizziness and giddiness (principal); R73.03 Prediabetes; Z79.84 Long term (current) use of oral hypoglycemic drugs; Z79.899 Other long term (current) drug therapy

== ENCOUNTER → 2018-03-26 | Outpatient (CLI) | payer OTHER ==
[~2018-03-26] VITALS: Ht 190.5 cm; Wt 135.9 kg
[~2018-03-26] MED LIST changes: -DULA1INJ INJ; +LIRA18IN SC; +MECL-91 PO
[2018-03-26 12:22] VITALS: BP 131/91; PULSE 83; Ht 190.5 cm; Wt 135.9 kg
== END | disposition home or self-care (01) ==
LOC: C.NEUR 11:51
PROVIDERS: ATTEND Physician Assistant Medical
DX: G47.30 Sleep apnea, unspecified (principal); F51.12 Insufficient sleep syndrome; E66.9 Obesity, unspecified; R53.83 Other fatigue

== ENCOUNTER 2024-06-26 15:32 | Inpatient (IN) ==
--- NOTE | 2024-06-26 16:30 | Emergency Department Note ---
Impression & Plan NSTEMI (non-ST elevated myocardial infarction), Chest pain ED Provider Note NAME: BARRIE CAMPOVERDE AGE: 58 SEX: M : 1965 ARRIVES VIA: Ambulance INFORMANT: Patient, ED PROVIDER(S): Viridiana Camarena MD CHIEF COMPLAINT: Chest pain HPI: This is a 58-year-old male presenting for chest pain. Patient notes he began having midsternal chest pain at 1 PM at work. He notes it was a crushing sensation. He complained of shortness of breath. He then was given aspirin which improved his symptoms but he began having right-sided neck pain. He was given nitroglycerin as well. He then had headache as well. He notes that the symptoms are much more mild now. His chest pain is coming down now is a 4/10. Still comfortable but not as crushing. He is not diaphoretic. No shortness of breath currently. No pleurisy. No leg swelling. ROS: See above HPI for pertinent positives & negatives. A total of 10 systems reviewed and were otherwise negative. PAST MEDICAL HISTORY: See Below PAST SURGICAL HISTORY: See Below FAMILY HISTORY: See Below SOCIAL HISTORY: See Below HOME MEDICATIONS: See Below ALLERGIES: See Below VITALS: See Below PHYSICAL EXAMINATION: General: resting comfortably in no acute distress Head: Normocephalic and atraumatic Eyes: Normal inspection, extraocular muscles intact Ear, nose, throat: Normal external exam Neck: Normal range of motion Respiratory: lungs clear to auscultation bilaterally Cardiovascular: Regular rate/rhythm, no murmur GI: soft, nontender, no guarding or rebound Extremities: nontender, moves all extremities Neuro: The patient awake and alert, appropriately conversive, no focal deficits, symmetric faces Skin: Warm, dry, and intact MEDICAL DECISION MAKING: This is a 58-year-old male presenting for chest pain. Consider ACS, PE, dissection. Patient has normal physical/neurologic exam. -ECG independently interpreted by me with normal sinus rhythm, rate of 65, normal axis, normal CT, normal QRS, normal QTc, no ST segment elevations consistent with STEMI criteria -With patient story, high concern for ACS clinically. -Blood work is revealing of a mildly elevated troponin to 23. Otherwise no significant abnormalities noted on blood work. -Chest Xray independently interpreted by me showing an elevated right hemidiaphragm, no pneumothorax, focal opacity, or pleural effusions. -Patient will require admission for NSTEMI at this time. Patient was given aspirin previously. Differential diagnosis: ACS, PE, dissection, gastritis ER treatment provided: See below Diagnostics interpreted by me: ECG: See above Cardiac Monitoring: An order was placed for continuous cardiac monitoring. The monitor shows a rate of 64 with sinus rhythm. Laboratory studies: As stated above and show below. Imaging studies: See below. Past Med/Surg History Problem List (Updated 06/26/24 @ 21:41 by Viridiana Camarena MD) NSTEMI (non-ST elevated myocardial infarction) (Acute) Chest pain (Acute) Medical History BPH (benign prostatic hyperplasia) CAD (coronary artery disease) LINDA (obstructive sleep apnea) Abnormal stress echocardiogram Hypercholesterolemia PVCs (premature ventricular contractions) MDD (major depressive disorder) HTN (hypertension) Nocturnal hypoxemia Obesity Severe obstructive sleep apnea DM (diabetes mellitus), type 2 Nasal polyposis Arthritis Surgical History History of tonsillectomy History of knee surgery Family History Mother Arthritis Rheumatoid arthritis Aunt Breast cancer Family/Other Obstructive sleep apnea Social History Smoking Status: Never smoker Hx Alcohol Use: No marital status: Single Current Living Situation: Alone current occupational status: employed Feels Safe at Home: Yes Dental Care, Regularly: No Physical Activity Frequency: 3-4 Times per Week Allergies Allergies Allergy/AdvReac Type Severity Reaction Status Date / Time No Known Allergies Allergy Verified 12/10/23 14:36 Home Meds Home Medications Medication Instructions Recorded Confirmed aspirin 81 mg tablet,delayed 81 mg PO HS 08/31/18 06/26/24 release atorvastatin 40 mg tablet (Lipitor) 40 mg PO HS 08/31/18 06/26/24 meloxicam 15 mg tablet 15 mg PO HS 08/31/18 06/26/24 metformin 1,000 mg tablet 1,000 mg PO BID 08/31/18 06/26/24 metoprolol succinate 25 mg 25 mg PO HS 08/31/18 06/26/24 tablet,extended release 24 hr omega 9-wdu-dwu-fish oil 1,000 mg 1,000 mg PO HS 08/31/18 06/26/24 (120 mg-180 mg) capsule (Fish Oil) ezetimibe 10 mg tablet 10 mg PO DAILY 06/26/24 06/26/24 fluticasone propionate 50 2 spray intranasal DAILY PRN 06/26/24 06/26/24 mcg/actuation nasal allergies spray,suspension lisinopril 5 mg tablet 5 mg PO DAILY 06/26/24 06/26/24 tirzepatide 10 mg/0.5 mL 10 mg subcut WK 06/26/24 06/26/24 subcutaneous pen injector (Rocky) tizanidine 4 mg tablet 4 mg PO Q6H PRN Muscle Spasm 06/26/24 06/26/24 trazodone 50 mg tablet 50 mg PO HS 06/26/24 06/26/24 Previous Rx's Medication Instructions Recorded CPAP Machine #1 ea 11/03/19 lidocaine 5 % topical patch 1 patch topical DAILY PRN pain #15 06/13/20 (Lidoderm) ea Results & Data (ED) Vital Signs Vital Signs - 24 hr 06/26/24 15:32 06/26/24 15:45 06/26/24 15:51 Temperature 36.8 C Temperature Source Oral Pulse Rate 68 75 60 Pulse Rate from SpO2 Sensor 62 Pulse Rhythm Regular Respiratory Rate 15 26 H Respiratory Effort / Characteristics Non-Labored Respiratory Depth Normal Respiratory Pattern Regular Blood Pressure 147/89 H Blood Pressure Mean 108 Pulse Oximetry 97 94 Oxygen Delivery Method Room Air Sepsis Recent Fever Within 48 Hours No Sepsis New/Unexplained Change in Mental Status N/A Sepsis Action Taken by Nursing No Action Required 06/26/24 16:06 06/26/24 16:13 06/26/24 16:30 Temperature Temperature Source Pulse Rate 73 68 67 Pulse Rate from SpO2 Sensor 68 Pulse Rhythm Regular Respiratory Rate 18 15 17 Respiratory Effort / Characteristics Respiratory Depth Respiratory Pattern Blood Pressure 128/100 Blood Pressure Mean 108 Pulse Oximetry 97 95 Oxygen Delivery Method Room Air Sepsis Recent Fever Within 48 Hours Sepsis New/Unexplained Change in Mental Status Sepsis Action Taken by Nursing 06/26/24 17:30 Temperature Temperature Source Pulse Rate 65 Pulse Rate from SpO2 Sensor 65 Pulse Rhythm Respiratory Rate 20 Respiratory Effort / Characteristics Respiratory Depth Respiratory Pattern Blood Pressure 132/98 Blood Pressure Mean 107 Pulse Oximetry 96 Oxygen Delivery Method Sepsis Recent Fever Within 48 Hours Sepsis New/Unexplained Change in Mental Status Sepsis Action Taken by Nursing Laboratory Data 06/26/24 15:50 06/26/24 15:50 Lab Results 06/26/24 Range/Units 15:50 WBC 7.18 (4.8-10.8) K/ul RBC 5.34 (4.70-6.10) M/uL Hgb 15.4 (14.0-18.0) g/dl Hct 44.4 (42.0-52.0) % MCV 83.1 (80.0-100.0) fL MCH 28.8 (25.0-34.0) pg MCHC 34.7 (32.0-36.0) g/dL RDW Std Deviation 40.0 (36.4-46.3) fL RDW Coeff of Georgina 13.2 (11.5-14.5) % Plt Count 311 (130-400) K/uL MPV 10.3 (9.4-12.4) fL Immature Gran % (Auto) 0.6 % Neut % (Auto) 63.5 % Lymph % (Auto) 23.7 % [place] % (Auto) 6.8 % Eos % (Auto) 4.6 % Baso % (Auto) 0.8 % Neut # (Auto) 4.56 (1.40-6.50) K/uL Lymph # (Auto) 1.70 (1.20-3.40) K/uL [place] # (Auto) 0.49 (0.11-0.59) K/uL Eos # (Auto) 0.33 (0.00-0.50) K/uL Baso # (Auto) 0.06 (0.00-0.20) K/uL Immature Gran # (Auto) 0.04 (0.01-0.20) K/uL APTT 26 (21-31) Seconds PTT Ratio 1.0 Sodium 134 L (136-145) mmol/L Potassium 4.1 (3.5-5.1) mmol/L Chloride 103 (98-107) mmol/L Carbon Dioxide 24 (21-32) mmol/L Anion Gap 7 (3-11) BUN 20 (6-23) mg/dl Creatinine 0.67 (0.6-1.4) mg/dl Est Cr Clr Drug Dosing 175.5 ml/min Est GFR ( Amer) 124.5 ml/min Est GFR (Non-Af Amer) 107.4 ml/min BUN/Creatinine Ratio 29.9 H (10-20) Glucose 99 (70-99(Fasting)) mg/dl Calcium 9.2 (8.6-10.3) mg/dl Total Bilirubin 0.3 (0.2-1.0) mg/dl AST 22 (13-39) U/L ALT 26 (7-52) U/L Alkaline Phosphatase 76 (34-104) U/L Troponin I High Sens 23.1 H (0-20) pg/ml Total Protein 7.3 (6.0-8.3) gm/dl Albumin 4.3 (3.4-5.0) gm/dl Globulin 3.0 (2.5-4.0) gm/dl Albumin/Globulin Ratio 1.4 (0.9-2) Lipase 44 (11-82) U/L Administered Medications Heparin Sodium/Dextrose (Heparin Sodium/Dextrose) 25,000 units in 500 mls @ 20 mls/hr IV .Q24H [facility]; Protocol Stop: 07/26/24 19:59 Last Admin: 06/26/24 20:45 Dose: 1,000 units/hr, 20 mls/hr Documented By: ANGELES Co-signed By: KAVITHA Imaging Data Radiologist's Impression: Chest X-Ray 06/26/24 16:13 XR chest 1V portable HISTORY: Chest pain, nonspecific COMPARISON: Chest 06/13/2020. FINDINGS: No pneumothorax. No pleural effusions. There is chronic elevation of the right hemidiaphragm with a few right basilar linear densities favoring subsegmental atelectasis. This is similar to the prior study. Otherwise, the lungs are clear. The heart is normal in size. No evidence for pulmonary edema. No acute fractures. IMPRESSION: No significant change compared to the prior study. No acute process. ACT 112: Negative or not required by law. Electronically signed by: Leno Bradley M.D. 06/26/2024 4:58 PM Discharge Plan Visit Data Chief Complaint: Chest Pain Stated Complaint: Chest Pain ED Provider: Viridiana Camarena Discharge Problem: NSTEMI (non-ST elevated myocardial infarction), Chest pain Patient Disposition: Admitted As Inpatient Discharge Instructions Interventions: ED Discharge Assessment Last Done: 06/26/24 20:47
[2024-06-26 16:32] LABS: Basophils # (auto) 0.06 K/uL (0.00-0.20); Basophils % (auto) 0.8 %; Eosinophils # (auto) 0.33 K/uL (0.00-0.50); Eosinophils % (auto) 4.6 %; Hematocrit (blood only) 44.4 % (42.0-52.0); Hemoglobin 15.4 g/dl (14.0-18.0); Immature Granulocytes # (auto) 0.04 K/uL (0.01-0.20); Immature Granulocytes % (auto) 0.6 %; Lymphocytes % (auto) 23.7 %; Mean Corpuscular Hemoglobin 28.8 pg (25.0-34.0); Mean Corpuscular Hgb Conc 34.7 g/dL (32.0-36.0); Mean Corpuscular Volume 83.1 fL (80.0-100.0); Mean Platelet Volume 10.3 fL (9.4-12.4); Monocytes # (auto) 0.49 K/uL (0.11-0.59); Monocytes % (auto) 6.8 %; Neutrophils # (auto) 4.56 K/uL (1.40-6.50); Neutrophils % (auto) 63.5 %; Platelet Count 311 K/uL (130-400); RDW Coefficient of Variation 13.2 % (11.5-14.5); Red Blood Count 5.34 M/uL (4.70-6.10); White Blood Count 7.18 K/ul (4.8-10.8)
[2024-06-26 16:50] LABS: Albumin Globulin Ratio 1.4 (0.9-2); Albumin Level 4.3 gm/dl (3.4-5.0); BUN Creatinine Ratio 29.9 (10-20); Bilirubin,Total 0.3 mg/dl (0.2-1.0); Calcium 9.2 mg/dl (8.6-10.3); Creatinine Clr Calc Pharmacy 175.5 ml/min; Est GFR (African American) 124.5 ml/min; Est GFR (Non-African American) 107.4 ml/min; Potassium 4.1 mmol/L (3.5-5.1); Total Protein 7.3 gm/dl (6.0-8.3)
[2024-06-26 16:56] LABS: Troponin I High Sensitivity 23.1 pg/ml (0-20)
--- NOTE | 2024-06-26 17:00 | XRay Report ---
XR chest 1V portable HISTORY: Chest pain, nonspecific COMPARISON: Chest 06/13/2020. FINDINGS: No pneumothorax. No pleural effusions. There is chronic elevation of the right hemidiaphrag m with a few right basilar linear densities favoring subsegmental atelectasis. This is similar to the prior study. Otherwise, the lungs are clear. The heart is normal in size. No evidence for pulmonary edema. No acute fractures. IMPRESSION: No significant change compared to the prior study. No acute process. ACT 112: Negative or not required by law. Electronically signed by: Leno Bradley M.D. 06/26/2024 4:58 PM
--- NOTE | 2024-06-26 17:17 | Electrocardiogram Report ---
Test Reason : Blood Pressure : */* mmHG Vent. Rate : 65 BPM Atrial Rate : 65 BPM P-R Int : 184 ms QRS Dur : 96 ms QT Int : 374 ms P-R-T Axes : 69 -27 -8 degrees QTcB Int : 388 ms Normal sinus rhythm with sinus arrhythmia Diffuse Minor Nonspecific T wave abnormality Abnormal ECG When compared with ECG of 13-Jun-2020 20:01, QT has shortened Confirmed by Prashant Gonzalez ([id number]) on 06/26/2024 5:16:34 PM Referred By: Confirmed By: Prashant Gonzalez
--- NOTE | 2024-06-26 17:46 | History & Physical Report ---
Date of Service June 26, 2024 Assessment & Plan (1) NSTEMI (non-ST elevated myocardial infarction): Plan: This is a 58-year-old male with PMH of non-obstructive CAD, type 2 diabetes, hypertension, obesity, depression, anxiety, HLD, generalized anxiety disorder, LINDA, BPH and other medical problems listed below who presents from home after developing sudden onset chest pain this afternoon. Risk factors include DM II, HTN, obesity, HLD H/o abnormal stress in 2018 with diagnostic cardiac cath demonstrating moderate non obstructive CAD within the LAD, medically managed recommended EKG with normal sinus rhythm with sinus arrhythmia. Diffuse minor nonspecific T wave abnormality CXR with no significant change compared to the prior study. No acute process Initial troponin 23.1 -> 64.3 Check 2D echo Started on low dose IV heparin Continue aspirin, beta [place], statin NPO @ midnight, repeat EKG in am, trend troponin Cardiology consulted (2) DM (diabetes mellitus), type 2: Plan: A1c 5.9 in 04/28 Hold home metformin SSI while in-patient BSG AC HS (3) HTN (hypertension): Plan: Normotensive. Continue Toprol (4) Severe obstructive sleep apnea: Plan: CPAP HS DVT Ppx: SQ heparin Code status: FULL PCP: Jerardo Dispo: observation telemetry Patient seen in collaboration with Dr. Paige. Please see addendum. I spent a total of 75 minutes coordinating, documenting, and providing care for this patient excluding time spent in the performance of separately billed services. History of Present Illness Chief Complaint: Chest pain Primary Care Provider: Humphrey Kurtz MD This is a 58-year-old male with PMH of non-obstructive CAD, type 2 diabetes, hypertension, obesity, depression, anxiety, HLD, generalized anxiety disorder, LINDA, BPH and other medical problems listed below who presents from home after developing sudden onset chest pain this afternoon. Woke up in normal state of health and went to work as usual. Ate lunch inside the facility and then walked out to his car without issue. When walking back from your car to the building, developed sudden, severe "grabbing" chest pressure that was substernal and radiated up right side of neck with an associated headache, SOB. No nausea. Pain lasted for 30 minutes. Was given aspirin and brought in per EMS. By the time of arrival here, pain is a 3-4/10. No history of recent chest pain. Per outpatient cards note, does have history of an abnormal stress echo (03/21/18) leading to diagnostic cardiac catheterization (05/07/18, [facility], Dr. Stark) demonstrating moderate non obstructive CAD within the LAD. Medical management and risk factor optimization therefore recommended. Allergies Allergy/AdvReac Type Severity Reaction Status Date / Time No Known Allergies Allergy Verified 12/10/23 14:36 Home Medications Medication Instructions Recorded Confirmed Type aspirin 81 mg tablet,delayed 81 mg PO HS 08/31/18 06/26/24 History release atorvastatin 40 mg tablet (Lipitor) 40 mg PO HS 08/31/18 06/26/24 History meloxicam 15 mg tablet 15 mg PO HS 08/31/18 06/26/24 History metformin 1,000 mg tablet 1,000 mg PO BID 08/31/18 06/26/24 History metoprolol succinate 25 mg 25 mg PO HS 08/31/18 06/26/24 History tablet,extended release 24 hr omega 7-bck-nqf-fish oil 1,000 mg 1,000 mg PO HS 08/31/18 06/26/24 History (120 mg-180 mg) capsule (Fish Oil) CPAP Machine #1 ea 11/03/19 06/26/24 Rx lidocaine 5 % topical patch 1 patch topical DAILY PRN pain #15 06/13/20 06/26/24 Rx (Lidoderm) ea ezetimibe 10 mg tablet 10 mg PO DAILY 06/26/24 06/26/24 History fluticasone propionate 50 2 spray intranasal DAILY PRN 06/26/24 06/26/24 History mcg/actuation nasal allergies spray,suspension lisinopril 5 mg tablet 5 mg PO DAILY 06/26/24 06/26/24 History tirzepatide 10 mg/0.5 mL 10 mg subcut WK 06/26/24 06/26/24 History subcutaneous pen injector (Mounjaro) tizanidine 4 mg tablet 4 mg PO Q6H PRN Muscle Spasm 06/26/24 06/26/24 History trazodone 50 mg tablet 50 mg PO HS 06/26/24 06/26/24 History Past Med/Surg History Problem List (Updated 06/26/24 @ 19:47 by Val Schreiber PA-C) NSTEMI (non-ST elevated myocardial infarction) Chest pain Medical History BPH (benign prostatic hyperplasia) CAD (coronary artery disease) LINDA (obstructive sleep apnea) Abnormal stress echocardiogram Hypercholesterolemia PVCs (premature ventricular contractions) MDD (major depressive disorder) HTN (hypertension) Nocturnal hypoxemia Obesity Severe obstructive sleep apnea DM (diabetes mellitus), type 2 Nasal polyposis Arthritis Surgical History History of tonsillectomy History of knee surgery Family History Mother Arthritis Rheumatoid arthritis Aunt Breast cancer Family/Other Obstructive sleep apnea Social History Smoking Status: Never smoker Hx Alcohol Use: No marital status: Single Current Living Situation: Alone current occupational status: employed Feels Safe at Home: Yes Dental Care, Regularly: No Physical Activity Frequency: 3-4 Times per Week Review of Systems Review of Systems: At least ten systems reviewed and negative except as noted in the HPI. Physical Exam Physical Exam: General Appearance: WD/WN, vitals as above, NAD, sitting up in bed, pleasant, conversing easily, obese Head: normocephalic, atraumatic Eyes: normal inspection, PERRL, conjunctivae normal, anicteric sclerae ENT: external ear and nose normal, oropharynx normal Neck: normal visual inspection, trachea midline, no thyromegaly Respiratory: normal respiratory effort, lungs clear to auscultation, no wheeze, rales, rhonchi. No accessory muscle use Cardiovascular: regular rate, rhythm, normal peripheral pulses, no BLE edema. Vessels: no JVD Chest: normal inspection of chest Abdomen/GI: normal bowel sounds, soft, nontender, no hepatosplenomegaly Extremities/Musculoskeletal: no cyanosis or clubbing, extremities motor strength 5/5 Neurologic: PERRL, EOMI, accommodation nl, no face palsy, no dysarthria, CN's II-XI intact bilaterally and moves all extremities Psychiatric: A+Ox3, euthymic affect Skin: no rashes, normal color, warm/dry Results & Data Results & Data Vital Signs (Past 12 Hours) Vital Signs Temp Pulse Resp BP Pulse Ox O2 Del Method 06/26/24 16:30 67 17 128/100 95 06/26/24 16:13 68 15 97 Room Air 06/26/24 16:06 73 18 06/26/24 15:51 60 26 H 94 06/26/24 15:45 75 06/26/24 15:32 36.8 C 68 15 147/89 H 97 Room Air Laboratory Results Short CBC 06/26/24 Range/Units 15:50 WBC 7.18 (4.8-10.8) K/ul Hgb 15.4 (14.0-18.0) g/dl Hct 44.4 (42.0-52.0) % Plt Count 311 (130-400) K/uL BMP 06/26/24 15:50 Sodium 134 L Potassium 4.1 Chloride 103 Carbon Dioxide 24 BUN 20 Creatinine 0.67 Glucose 99 Calcium 9.2 Liver Function 06/26/24 Range/Units 15:50 Total Bilirubin 0.3 (0.2-1.0) mg/dl AST 22 (13-39) U/L ALT 26 (7-52) U/L Alkaline Phosphatase 76 (34-104) U/L Albumin 4.3 (3.4-5.0) gm/dl Diagnostic Findings Chest X-Ray 06/26/24 16:13 XR chest 1V portable HISTORY: Chest pain, nonspecific COMPARISON: Chest 06/13/2020. FINDINGS: No pneumothorax. No pleural effusions. There is chronic elevation of the right hemidiaphragm with a few right basilar linear densities favoring subsegmental atelectasis. This is similar to the prior study. Otherwise, the lungs are clear. The heart is normal in size. No evidence for pulmonary edema. No acute fractures. IMPRESSION: No significant change compared to the prior study. No acute process. ACT 112: Negative or not required by law. Electronically signed by: Leno Bradley M.D. 06/26/2024 4:58 PM Code Status & VTE Plan VTE Prophylaxis Plan VTE Prophylaxis will be ordered: Yes Supervising Physician Co-Signing Physician Notes 58-year-old male with PMH of nonobstructive CAD, T2DM, HTN, obesity, depression, anxiety, HLD, general anxiety disorder, LINDA, BPH presented to the ED after an episode of chest pain at work. Patient reports having lunch and while returning back to work/he was walking, he developed crushing chest pain/pressure-like sensation. 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 Then he was sent to the ED for further evaluation. Patient did note some discomfort radiating back to neck and head and also noted associated shortness of breath during the event. Patient still have some chest pain at bedside examination. But it has been much more improved. Patient denies any retrosternal burning sensation, denies use of N SAIDs. Does have h/o GERD but reports under control. Patient denies fever, sore throat, cough, palpitation, acute changes in bowel or bladder or appetite habit. Patient denies family history of ID or stroke. Labs fairly WNL, troponin minimally elevated, second troponin up trended. Chest x-ray with no acute finding. EKG with normal sinus rhythm, no acute ST or T changes eloped noted. Chest pain rule out ACS, trend troponin, get echo, cardiology consult, telemetry monitoring, low-dose heparin drip. NPO midnight. On examination: GENERAL: Alert and oriented x3. NAD, on RA. HEENT: No pallor, no icterus. Pupils equal, round and reactive to light. Oral mucosa moist. NECK: No JVD, no neck masses. HEART: S1 and S2 heard. Regular rate and rhythm. No murmur, no gallop. RESPIRATORY SYSTEM: Normal AP diameter. No accessory muscle use. No wheezing, no crackles. ABDOMEN: Soft, bowel sounds present, nontender, no distention. CENTRAL NERVOUS SYSTEM: No facial droop. Speech is clear. Obeys simple commands. Moves extremities. EXTREMITIES: No edema, no erythema seen. I have seen and examined the patient and have discussed the case with the provider above. I agree with the assessment and plan as stated.
[2024-06-26] MEDS ORDERED: NITROGLYCERIN SL 0.4 MG/TAB TAB SL PRN (18:29)
[2024-06-26] MEDS ORDERED: GLUCOSE 10 TAB/TUBE PO PRN (18:30)
[2024-06-26] MEDS ORDERED: DEXTROSE 50% 50 ML SYRINGE IV PRN (18:30)
[2024-06-26] MEDS ORDERED: GLUCAGON FOR INJ 1 MG VIAL SQ PRN (18:30)
[2024-06-26] MEDS ORDERED: CARBOHYDRATES FOR HYPOGLYCEMIA PO PRN (18:30)
[2024-06-26] MEDS ORDERED: GLUCOSE 40% GEL 15 GM TUBE PO PRN (18:30)
[2024-06-26] MEDS ORDERED: LIDOCAINE 5% 1 PATCH TD PRN (18:33)
[2024-06-26] MEDS ORDERED: FLUTICASONE PROPIONATE NA SPR 16 GM BTL NAE PRN (18:33)
[2024-06-26] MEDS ORDERED: tiZANidine HCL 4 MG TABLET PO PRN (18:33)
[2024-06-26] MEDS ORDERED: Heparin IV Adult Wt-Based Low-Dose *NO* INITIAL Bolus Protocol IV STA (19:31)
[2024-06-26 20:12] LABS: Partial Thromboplastin Time 26 Seconds (21-31)
[2024-06-26] MEDS: HEPARIN SODIUM/DEXTROSE 25,000 UNITS/500 ML BAG IV SCH (20:45)
[2024-06-26] MEDS: INSULIN ASPART PER UNIT CHARGE SC SCH (21:43)
[2024-06-26] MEDS: ATORVASTATIN 40 MG TAB PO SCH (22:29)
[2024-06-26] MEDS: METOPROLOL SUCC 25MG EXT REL TAB PO SCH (22:30)
[2024-06-26] MEDS: traZODone HCL 50 MG TAB PO SCH (22:30)
[2024-06-27] MEDS ORDERED: ONDANSETRON INJ 2 MG/ML 2 ML VIAL IV PRN (00:09)
[2024-06-27] MEDS ORDERED: POLYETHYLENE (MIRALAX) 17 GM PACK PO PRN (00:09)
[2024-06-27] MEDS: HEPARIN SOD 5,000 UNIT/0.5 ML VIAL SQ SCH (00:53)
--- OUTSIDE RECORDS SUMMARY | 2024-06-27 02:59 | External Medical Summary | Summary of Care ---
Author Name Unknown Organization [facility] Address [address] [place] [address] Phone [phone] Care Team Providers Care Tap Grinder Name Role Phone Humphrey Kurtz MD Primary Care Provider + Reason for Visit * Reason Onset Date Comments Order Request 06/04/2024 Encounter Details Date Type Department Care Team (Late st Contact Info) Description 06/04/2024 Telephone Family Practice [facility] [address] [facility] [address] Humphrey Kurtz MD [address] [place] [address] Order Request Allergies No known active allergiesdocumented as of this encounter (statuses as of 06/17/2024) Medications Medication Sig Dispensed Refills Start Date End Date Status Blood Glucose Monitoring Suppl (D-CARE GLUCOMETER) w/Device KITIndications:Type 2 diabetes mellitus with hemoglobin A1c goal of less than 7.0% ([facility]) Use as directed. 1 Kit 9 Active Blood Pressure KITIndications:HTN, goal below 130/80 Use daily for blood pressure readings 1 Kit 9 Active Indomethacin 50 MG CapsuleIndications:Pain of toe of right foot Take 1 Cap by mouth 3 times a day as needed for Pain. with food 40 Cap 1 0 Active meclizine (ANTIVERT) 25 MG TabletIndications:Benign paroxysmal positional vertigo, unspecified laterality Take 1 Tab by mouth 3 times a day as needed for Dizziness. 30 Tab 2 0 Active Refresh 1.4-0.6 % Ophthalmic Solution (polyvinyl alcohol-povidone PF) 1 Drop as needed. Active OneTouch Delica Lancets FineIndications:Type 2 diabetes mellitus with hemoglobin A1c goal of less than 7.0% ([facility]) CHECK BLOOD SUGAR 3 TIMES DAILY. 100 Each 6 1 Active Insulin Pen Needle 32G X 6 MMIndications:Type 2 diabetes mellitus with hemoglobin A1c goal of less than 7.0% ([facility]) Use with Victoza once daily. 100 Each 3 2 Active Aspirin Low Dose 81 MG Oral Tablet Delayed Release (aspirin enteric coated)Indications:DM type 2 nursing care encounter ([facility]) TAKE 1 TABLET BY MOUTH EVERY DAY 90 Tablet 3 2 Active Magnesium Oxide 400 MG Oral Capsule Take by mouth 1 Capsule in the morning. 30 Capsule 6 2 Active Riboflavin 400 MG Oral Tablet Take by mouth 1 Tablet in the morning. 30 Tablet 6 2 Active Ibuprofen 800 MG Oral Tablet (Motrin)Indications:Bila teral occipital neuralgia Take by mouth 1 Tablet in the morning AND 1 Tablet at noon AND 1 Tablet before bedtime. with food for pain. 30 Tablet 1 2 Active Additional Information Patient taking differently:800 mg [id number] PRN, Pain, Breakthrough, Fever >38C(100.5F), with food for pain, Reported on 11/28/2023 Levalbuterol Tartrate 45 MCG/ACT Inhalation Aerosol (Xopenex HFA)Indications:Mild intermittent asthma without complication Inhale 1 Puff by mouth every 4 hours as needed for Wheezing. 15 g 12 3 Active FreeStyle Yuval 3 SensorIndications:Type 2 diabetes mellitus with hemoglobin A1c goal of less than 7.0% ([facility]) Use as directed. Change every 14 days. Use to read blood glucose. DX: E11.9. 6 Each 3 3 Active Metoprolol Succinate ER 25 MG Oral Tablet Extended Release 24 Hour (toPROL XL)Indications:PVC's (premature ventricular contractions) Take 1 Tablet by mouth in the morning. 90 Tablet 3 3 Active traZODone HCl 50 MG Oral Tablet (Desyrel)Indications:Ins omnia, unspecified type TAKE 1 TABLET BY MOUTH EVERYDAY AT BEDTIME 90 Tablet 3 3 Active Mounjaro 10 MG/0.5ML Subcutaneous Solution Pen-injector (Tirzepatide)Indications :Type 2 diabetes mellitus with hemoglobin A1c goal of less than 7.0% (HCC),Type 2 diabetes mellitus with diabetic cataract, unspecified whether care home insulin use (HCC) Inject 10 mg under the skin once a week. 2 mL 11 4 025 Active Ezetimibe 10 MG Oral Tablet (Zetia)Indications:Pure hypercholesterolemia TAKE 1 TABLET BY MOUTH EVERY DAY IN THE MORNING 90 Tablet 3 4 Active tiZANidine HCl 4 MG Oral Tablet (Zanaflex)Indications:Sp asm of muscle Take 1 Tablet by mouth every 6 hours as needed for Muscle spasms. 30 Tablet 3 4 Active Lastacaft 0.25 % Ophthalmic Solution (Alcaftadine)Indications :Allergic conjunctivitis, bilateral Instill 1 Drop into eye in the morning. 3 mL 3 4 Active Clotrimazole-Betamethaso ne 1-0.05 % External Cream (Lotrisone)Indications:T inea pedis, unspecified laterality APPLY TO AFFECTED AREA TOPICALLY TWICE A DAY FOR 28 DAYS (4 WEEKS) OR UNTIL HEALED 45 g 1 4 Active Lisinopril 5 MG Oral Tablet (Prinivil)Indications:HT N, goal below 130/80 TAKE 1 TABLET BY MOUTH EVERY DAY IN THE MORNING 30 Tablet 4 Active Tamsulosin HCl 0.4 MG Oral Capsule (Flomax)Indications:BPH with obstruction/lower urinary tract symptoms TAKE 1 CAPSULE BY MOUTH EVERY DAY 90 Capsule 3 4 Active Atorvastatin Calcium 40 MG Oral Tablet (Lipitor)Indications:Pur e hypercholesterolemia TAKE 1 TABLET BY MOUTH EVERY DAY 90 Tablet 4 4 Active B-12 1000 MCG Oral Tablet Take 1,000 mcg by mouth in the morning. 90 Tablet 3 4 Active metFORMIN HCl 1000 MG Oral Tablet (Glucophage)Indications: Type 2 diabetes mellitus with hemoglobin A1c goal of less than 7.0% (HCC) Take 1 Tablet by mouth 2 times a day with morning and evening meals. 180 Tablet 3 4 Active OneTouch Verio In Vitro Strip (Glucose Blood)Indications:Type 2 diabetes mellitus with hemoglobin A1c goal of less than 7.0% (HCC) TEST 3 TIMES A DAY DIRECTED E11.9 300 Strip 3 4 Active OneTouch Verio In Vitro Strip (Glucose Blood)Indications:Type 2 diabetes mellitus with hemoglobin A1c goal of less than 7.0% (HCC) TEST 3 TIMES A DAY DIRECTED 300 Strip 3 4 024 Discontin ued(Refil l) documented as of this encounter (statuses as of 06/17/2024) Active Problems Problem Noted Date Diagnosed Date Type 2 diabetes mellitus with diabetic cataract 07/17/2022 Benign prostatic hyperplasia with lower urinary tract symptoms 03/25/2022 Age-related nuclear cataract, bilateral 03/25/20 Recurrent major depressive disorder, in full rem ission 03/25/2022 LINDA (obstructive sleep apnea) 01/17/2022 MARU (generalized anxiety disorder) 11/11/2019 Ophthalmoplegic migraine, not intractable 2019 Coronary artery disease invo lving [place] coronary artery of [place] heart without angina pectoris 05/20/2018 Abnormal stress echocardiogram 04/17/2018 Benign paroxysmal vertigo 03/13/2018 PVC's (premature ventricular contractions) 03/13 Pure hypercholesterolemia 03/13/2018 Primary osteoarthritis of both knees 03/13/2018 Type 2 diabetes mellitus wit h hemoglobin A1c goal of less than 7.0% 03/01/2018 HTN, goal below 130/80 03/13/2000 Other specified disease of hair and hair follicl es 03/13/2000 documented as of this encounter (statuses as of 06/17/2024) Resolved Problems Problem Noted Date Diagnosed Date Resolved Date History of 2019 novel jaime virus disease (COVID-19) 03/09/2022 10/09/2023 Body mass index (BMI) of 40. 0 to 44.9 in adult 01/13/2019 11/11/2019 Overview: Per Obesity protocol #1 Obesity, Class I, BMI 30-34.9 04/22/2018 01/14/2019 Overview: Per Obesity protocol #1 Anxiety and depression 03/13/201811/11 Prediabetes 02/12/2018 03/28/2018 Overview: Per Prediabetes protocol #1 documented as of this encounter (statuses as of 06/17/2024) Immunizations Name Administration Dates Next Due COVID-19 mRNA, LNP-s, No Pre serve, 2-Dose Series (Pfizer) 03/03/2021,02/03/2021 Hepatitis B, 20+ yrs 09/17/2019,10/07/2018,04/22 Pneumococcal Conjugate Vacc, 13 Valent (Prevnar) 01/14/2018 Pneumococcal Polysaccharide PPV23 (Pneumovax) 09/17/2019 Seasonal Influenza, PF, 6 M & above, IM , (FluLaval or Fluzone) 07/17/2022,09/27/2021,07/06/2020,07/11,07/17/2018 TDAP (age 10 and older)(Boostrix) 03/05/2018 Zoster Vaccine Recombinant (Shingrix) 01/12/2020 ,11/11/2019 documented as of this encounter Social History Tobacco Use Types Packs/Day Years Used Date Smoking Tobacco: Never Smokeless Tobacco: Never Alcohol Use Standard Drinks/Week Comments No 0 (1 standard drink = 0.6 oz pur e alcohol) PHQ-2 Answer Date Recorded PHQ Adult Total Score 0 10/09/2023 Hunger Vital Sign Answer Date Recorded Within the past 12 months, y ou worried that your food would run out before you got the money to buy more. Never true 04/16/20 23 Within the past 12 months, t he food you bought just didn't last and you didn't have money to get more. Never true 04/16/2023 Sex and Gender Information Value Date Recorded Sex Assigned at Male 04/16/2023 4:32 PM EDT Gender Identity Male 04/16/2023 4:32 PM EDT Sexual Orientation Straight 04/16/2023 4: 32 PM EDT Job Start Date Occupation Industry Not on file Not on file Not on file documented as of this encounter Miscellaneous Notes * Addendum Note - Ignacia Fox LPN - 06/17/2024 11:09 AM EDTAddended by: IGNACIA FOX on: 06/17/2024 11:09 AM Modules accepted: Orders * Telephone Encounter - Ignacia Fox LPN - 06/17/2024 11:09 AM EDT DME pending if you agree * Telephone Encounter - Roxann Leiva OSA - 06/16/2024 4:15 PM EDT Pt requesting this script to be sent to [facility] as [facility] charges too much. * Telephone Encounter - Humphrey Kurtz MD - 06/04/2024 4:28 PM EDT Rx sent. * Telephone Encounter - Emely Chiu OSA - 06/04/2024 4:15 PM EDT Pt requesting a refill on the OneTouch Verio in Vitro Strip documented in this encounter Plan of Treatment Upcoming Encounters Date Type Department Care Team (Late st Contact Info) Description 06/23/2024 3:00 PM EDT Office Visit Orthopaedics [facility] [address] [address] Francesco Nguyen MD [address] [place] [address] 06/30/2024 3:00 PM EDT Office Visit [facility] [address] [address] [address] Francesco Nguyen MD [address] [place] [address] 07/28/2024 7:00 AM EDT Office Visit Pharmacy, [facility] [address] [facility] [place] [address] Pharmacist1, [facility] [address] [facility] [place] [address] 12/23/2024 5:40 PM EST Office Visit Family [facility] [address] [place] [address] Humphrey Kurtz MD [address] [place] [address] 06/08/2025 3:30 PM EDT Office Visit Ophthalmology, [facility] [address] [address] Jin Cantu DO [address] [place] [address] Scheduled Procedures Name Priority Associated Diagnoses Date/Ti me COLONOSCOPY FLEXIBLE PROXIMA L DIAGNOSTIC Recall Encounter for screening colonoscopy Health Maintenance Due Date Last Done Comments Hepatitis C Screening 1985 Cologuard 2012 Fecal Occult Blood Test 2012 Sigmoidoscopy 2012 Diabetic Foot Exam 10/04/2022 10/04/2021, 0 04/20/2020, 04/28/2019, Additional history exists COVID-19 Vaccine (2022- season) 2023 03/03/2021, 02/03/2021 Influenza Vaccine (FLU shot) (#1) 2024 07/17/2022, 09/27/2021, 07/06/2020, Additional history exists Depression Monitoring 10/09/2024 10/09/2023 HbA1c 10/23/2024 04/23/2024, 04/05, 01/17/2024, Additional history exists Albumin/Creatinine Ratio 04/23/20252 024, 04/16/2023, 03/21/2022, Additional history exists B-12 04/23/2025 04/23/2024, 04/05, 04/12/2022, Additional history exists GFR 04/23/2025 04/23/2024, 04/05, 07/19/2022, Additional history exists Diabetic Eye Exam 06/02/2025 06/02/2024, , 06/29/2022, Additional history exists Colonoscopy 01/31/2028 01/30/2018, 01/30/2018 Colorectal Cancer Screening 01/31/2028 DTaP,Tdap,and Td Vaccines (2 - Td or Tdap) 03/05/2028 03/05/2018, 03/05/2018 Pneumococcal Vaccine: Pediatrics (0 to 5 Years) and At-Risk Patients (6 to 64 Years) (3 of 3 - PPSV23 or PCV20) 2032 09/17/2019, 01/14/2018 Hepatitis B Vaccine Completed 09/17/2019, 10/07/2018, 04/22/2018 Zoster Vaccines Completed 01/12/2020, 11/11/2019 HPV (Gardasil) Vaccine Aged Out No lo nger eligible based on patient's age to complete this topic MENINGOCOCCAL (MENACTRA/MENVEO) Aged Out No longer eligible based on patient's age to complete this topic documented as of this encounter Medical Devices Not on filedocumented as of this encounter Visit Diagnoses Diagnosis Type 2 diabetes mellitus with hemoglobin A1c goal of less than 7.0% (HCC) documented in this encounter Additional Health Concerns Infection Onset Date Last Indicated Resolved Time COVID-19 (confirmed) 03/07/2022 03/07/2022 documented as of this encounter Care Teams Tap Grinder Relationship Specialty Start Date End Date Humphrey Kurtz MD [address] [place] [id number] PCP - General Family Medicine 10/09/23 documented as of this encounter
--- OUTSIDE RECORDS SUMMARY | 2024-06-27 02:59 | External Medical Summary | Summary of Care ---
Author Name Unknown Organization [facility] Address [address] [place] [address] Phone [phone] Care Team Providers Care Special Effects Artist Name Role Phone Humphrey Santacruz MD Primary Care Provider + Reason for Visit * Reason Onset Date Comments Order Request 06/04/2024 Encounter Details Date Type Department Care Team (Late st Contact Info) Description 06/04/2024 Telephone Family Practice [facility] [address] [facility] [place] [address] Humphrey Santacruz MD [address] [place] [address] Order Request Allergies No known active allergiesdocumented as of this encounter (statuses as of 06/17/2024) Medications Medication Sig Dispensed Refills Start Date End Date Status Blood Glucose Monitoring Suppl (D-CARE GLUCOMETER) w/Device KITIndications:Type 2 diabetes mellitus with hemoglobin A1c goal of less than 7.0% ([facility]) Use as directed. 1 Kit 9 Active [...] hemoglobin A1c goal of less than 7.0% ([facility]) CHECK BLOOD SUGAR 3 TIMES DAILY. 100 Each 6 1 Active Insulin Pen Needle 32G X 6 MMIndications:Type 2 diabetes mellitus with hemoglobin A1c goal of less than 7.0% ([facility]) Use with Victoza once daily. 100 Each 3 2 Active Aspirin Low Dose 81 MG Oral Tablet Delayed Release (aspirin enteric coated)Indications:DM type 2 nursing care encounter ([facility]) TAKE 1 TABLET BY MOUTH EVERY DAY [...] Active Additional Information Patient taking differently:800 mg [id number] PRN, Pain, Breakthrough, Fever >38C(100.5F), with food for pain, Reported on 11/28/2023 Levalbuterol Tartrate 45 MCG/ACT Inhalation Aerosol (Xopenex HFA)Indications:Mild intermittent asthma without complication Inhale 1 Puff by mouth every 4 hours as needed for Wheezing. 15 g 12 3 Active FreeStyle Yuval 3 SensorIndications:Type 2 diabetes mellitus with hemoglobin A1c goal of less than 7.0% ([facility]) Use as directed. Change every 14 days. [...] diabetes mellitus with diabetic cataract, unspecified whether senior care insulin use (HCC) Inject 10 mg under [...] intractable 2019 Coronary artery disease invo lving [place] coronary artery of [place] heart without angina pectoris 05/20/2018 Abnormal stress [...] as of this encounter Miscellaneous Notes * Telephone Encounter - Dana Mcghee RN - 06/17/2024 3:47 PM EDT Order faxed to [facility] * Addendum Note - Humphrey Santacruz MD - 06/17/2024 1:15 PM EDTAddended by: HUMPHREY SANTACRUZ on: 06/17/2024 01:15 PM Modules accepted: Orders * Telephone Encounter - Humphrey Santacruz MD - 06/17/2024 1:15 PM EDT Signed-please print/ fax. I'm not sure if [facility] does test strips, but we can try. Notify patient. * Addendum Note - Ignacia Rush LPN - 06/17/2024 11:09 AM EDTAddended by: IGNACIA RUSH on: 06/17/2024 11:09 AM Modules accepted: Orders * Telephone Encounter - Ignacia Rush LPN - 06/17/2024 11:09 AM EDT DME pending if you agree * Telephone Encounter - Roxann Leiva OSA - 06/16/2024 4:15 PM EDT [facility] charges too much. * Telephone Encounter - Humphrey Santacruz MD - 06/04/2024 4:28 PM EDT Rx sent. * Telephone Encounter - Emely Chiu OSA - 06/04/2024 4:15 PM EDT Pt requesting a refill on the OneTouch Verio in Vitro Strip documented in this encounter Plan of Treatment Upcoming Encounters Date Type Department Care Team (Late st Contact Info) Description 06/23/2024 3:00 PM EDT Office Visit Orthopaedics [facility] [address] [place] [address] Francesco Nguyen MD [address] [place] [address] 06/30/2024 3:00 PM EDT Office Visit [facility] [address] [place] [address] Francesco Nguyen MD [address] [place] [address] 07/28/2024 7:00 AM EDT Office Visit Pharmacy, [facility] [address] [facility] [place] [address] Pharmacist1, [facility] [address] [facility] [place] [address] 12/23/2024 5:40 PM EST Office Visit Family Practice [facility] [address] [place] [address] Humphrey Santacruz MD [address] [place] [address] 06/08/2025 3:30 PM EDT Office Visit Ophthalmology, [facility] [address] [place] [address] Jin Cantu DO [address] [place] [address] Scheduled Procedures Name Priority Associated Diagnoses Date/Ti me COLONOSCOPY FLEXIBLE PROXIMA L DIAGNOSTIC Recall Encounter for screening colonoscopy Health Maintenance Due Date Last Done Comments Hepatitis C Screening 1985 Cologuard 2012 Fecal Occult Blood Test 2012 Sigmoidoscopy 2012 Diabetic Foot Exam 10/04/2022 10/04/2021, 0 04/20/2020, 04/28/2019, Additional history exists COVID-19 Vaccine ( - season) 2023 03/03/2021, 02/03/2021 Influenza Vaccine (FLU [...] documented as of this encounter Care Teams Special Effects Artist Relationship Specialty Start Date End Date Humphrey Santacruz MD [address] [place] [address] PCP - General Family Medicine 10/09/23 documented as of this encounter
--- OUTSIDE RECORDS SUMMARY | 2024-06-27 02:59 | External Medical Summary | Summary of Care ---
Author Name Unknown Organization [facility] Address [address] [place] [address] Phone [phone] Care Team Providers Care Emergency Services Professional Name Role Phone Humphrey Kurtz MD Primary Care Provider + Reason for Visit * Reason Comments Follow Up Bilateral knee Knee Pain * Evaluate & Treat - Unlimited Visits (Within 10 days (routine)) - Authorized Specialty Diagnoses / Procedures Referred By Nakia jones Referred To Contact Sports Medicine / Orthopedics Diagnoses Arthralgia of both knees Humphrey Kurtz MD [address] [place] [address] Francesco Nguyen MD [address] [place] [address] Referral ID Status Reason Start Date Expiration Date Visits Requested Visits Authorized [id number] Authorized Specialty Services Required 04/22/2024 [id number] Encounter Details Date Type Department Care Team (Latest Contact Info) Description 06/23/2024 3:00 PM EDT Office Visit Orthopaedics [facility] [address] [place] [address] Francesco Nguyen MD [address] [place] [address] Primary osteoarthritis of both knees* Allergies No known active allergiesdocumented as of this encounter (statuses as of 06/23/2024) Medications Medication Sig Dispensed Refills Start Date End Date Status Blood Glucose Monitoring Suppl (D-CARE GLUCOMETER) w/Device KITIndications:Type 2 diabetes mellitus with hemoglobin A1c goal of less than 7.0% ([facility]) Use as directed. 1 Kit 9 Active [...] hemoglobin A1c goal of less than 7.0% ([facility]) CHECK BLOOD SUGAR 3 TIMES DAILY. 100 Each 6 1 Active Insulin Pen Needle 32G X 6 MMIndications:Type 2 diabetes mellitus with hemoglobin A1c goal of less than 7.0% ([facility]) Use with Victoza once daily. 100 Each 3 2 Active Aspirin Low Dose 81 MG Oral Tablet Delayed Release (aspirin enteric coated)Indications:DM type 2 nursing care encounter ([facility]) TAKE 1 TABLET BY MOUTH EVERY DAY 90 Tablet 3 2 Active Magnesium Oxide 400 MG Oral Capsule Take by mouth 1 Capsule in the morning. 30 Capsule 6 2 Active Riboflavin 400 MG Oral Tablet Take by mouth 1 Tablet in the morning. 30 Tablet 6 2 Active Ibuprofen 800 MG Oral Tablet (Motrin)Indications:Bilat eral occipital neuralgia Take by mouth 1 Tablet in the morning AND 1 Tablet at noon AND 1 Tablet before bedtime. with food for pain. 30 Tablet 1 2 Active Additional Information Patient taking differently:800 mg [id number] PRN, Pain, Breakthrough, Fever >38C(100.5F), with food for pain, Reported on 11/28/2023 Levalbuterol Tartrate 45 MCG/ACT Inhalation Aerosol (Xopenex HFA)Indications:Mild intermittent asthma without complication Inhale 1 Puff by mouth every 4 hours as needed for Wheezing. 15 g 12 3 Active FreeStyle Yuval 3 SensorIndications:Type 2 diabetes mellitus with hemoglobin A1c goal of less than 7.0% ([facility]) Use as directed. Change every 14 days. Use to read blood glucose. DX: E11.9. 6 Each 3 3 Active Metoprolol Succinate ER 25 MG Oral Tablet Extended Release 24 Hour (toPROL XL)Indications:PVC's (premature ventricular contractions) Take 1 Tablet by mouth in the morning. 90 Tablet 3 3 Active traZODone HCl 50 MG Oral Tablet (Desyrel)Indications:Inso mnia, unspecified type TAKE 1 TABLET BY MOUTH EVERYDAY AT BEDTIME 90 Tablet 3 3 Active Mounjaro 10 MG/0.5ML Subcutaneous Solution Pen-injector (Tirzepatide)Indications: Type 2 diabetes mellitus with hemoglobin A1c goal of less than 7.0% ([facility]),Type 2 diabetes mellitus with diabetic cataract, unspecified whether predatory animal exterminator insulin use ([facility]) Inject 10 mg under the skin once a week. 2 mL 11 4 01/17/20 25 Active Ezetimibe 10 MG Oral Tablet (Zetia)Indications:Pure hypercholesterolemia TAKE 1 TABLET BY MOUTH EVERY DAY IN THE MORNING 90 Tablet 3 4 Active tiZANidine HCl 4 MG Oral Tablet (Zanaflex)Indications:Spa sm of muscle Take 1 Tablet by mouth every 6 hours as needed for Muscle spasms. 30 Tablet 3 4 Active Lastacaft 0.25 % Ophthalmic Solution (Alcaftadine)Indications: Allergic conjunctivitis, bilateral Instill 1 Drop into eye in the morning. 3 mL 3 4 Active Clotrimazole-Betamethason e 1-0.05 % External Cream (Lotrisone)Indications:Ti joana pedis, unspecified laterality APPLY TO AFFECTED AREA TOPICALLY TWICE A DAY FOR 28 DAYS (4 WEEKS) OR UNTIL HEALED 45 g 1 4 Active Lisinopril 5 MG Oral Tablet (Prinivil)Indications:HTN , goal below 130/80 TAKE 1 TABLET BY MOUTH EVERY DAY IN THE MORNING 30 Tablet 4 Active Tamsulosin HCl 0.4 MG Oral Capsule (Flomax)Indications:BPH with obstruction/lower urinary tract symptoms TAKE 1 CAPSULE BY MOUTH EVERY DAY 90 Capsule 3 4 Active Atorvastatin Calcium 40 MG Oral Tablet (Lipitor)Indications:Pure hypercholesterolemia TAKE 1 TABLET BY MOUTH EVERY DAY 90 Tablet 4 4 Active B-12 1000 MCG Oral Tablet Take 1,000 mcg by mouth in the morning. 90 Tablet 3 4 Active metFORMIN HCl 1000 MG Oral Tablet (Glucophage)Indications:T ype 2 diabetes mellitus with hemoglobin A1c goal of less than 7.0% (HCC) Take 1 Tablet by mouth 2 times a day with morning and evening meals. 180 Tablet 3 4 Active OneTouch Verio In Vitro Strip (Glucose Blood)Indications:Type 2 diabetes mellitus with hemoglobin A1c goal of less than 7.0% (HCC) TEST 3 TIMES A DAY DIRECTED E11.9 300 Strip 3 4 Active Hospital, Clinic, or Other Facility Administered Medication Ordered Dose Route Frequency Start Date End Date Status sodium hyaluronate (Gelsyn-3) 16.8 MG/2ML inj 16.8 mgIndications:Primary osteoarthritis of both knees 16.8 mg IX ONCE 06/23/2024 06/23/2024 Ended sodium hyaluronate (Gelsyn-3) 16.8 MG/2ML inj 16.8 mgIndications:Primary osteoarthritis of both knees 16.8 mg IX ONCE 06/23/2024 06/23/2024 Ended documented as of this encounter (statuses as of 06/23/2024) Active Problems Problem Noted Date Diagnosed Date Type 2 diabetes mellitus with diabetic cataract 07/17/2022 Benign prostatic hyperplasia with lower urinary tract symptoms 03/25/2022 Age-related nuclear cataract, bilateral 03/25/20 Recurrent major depressive disorder, in full rem ission 03/25/2022 LINDA (obstructive sleep apnea) 01/17/2022 MARU (generalized anxiety disorder) 11/11/2019 Ophthalmoplegic migraine, not intractable 2019 Coronary artery disease invo lving [place] coronary artery of [place] heart without angina pectoris 05/20/2018 Abnormal stress [...] as of this encounter (statuses as of 06/23/2024) Resolved Problems Problem Noted Date Diagnosed Date [...] as of this encounter (statuses as of 06/23/2024) Immunizations Name Administration Dates Next Due COVID-19 mRNA, LNP-s, No Pre serve, 2-Dose Series ([employer]) 03/03/2021,02/03/2021 Hepatitis B, 20+ yrs 09/17/2019,10/07/2018,04/22 Pneumococcal [...] on file documented as of this encounter Progress Notes * Francesco Nguyen MD - 06/23/2024 3:00 PM EDT PROCEDURE NOTE: KNEE INJECTION (Gelsyn #2) Laterality: Bilateral Time out: Prior to aspiration and injection, a time out was called to confirm the administration of appropriate medicine, patient name, procedure and confirm to the best of our ability and knowledge the presence of any necessary risks and benefits. Patient verbalized understanding. Ultrasound utilized to guide injection. During the procedure, the needle was visualized in plane and was advanced with continuous ultrasound guidance to the appropriate anatomical landmark as described in the procedure. Ultrasound required due to failed previous injection done without fluoroscopic or ultrasound guidance Sterile technique applied using gloves, chlorhexadine, and alcohol swabs. Ethyl chloride spray for local anesthetic. Knee injected at superior-lateral recess using 1.5 inch, 22 gauge needle. Knee then injected with Gelsyn. Patient tolerated procedure with no significant bleeding or adverse reaction. Patient instructed to call or return to clinic for fever, warmth, unusual redness at injection sitefor potential infection. Patient also advised regarding post-procedural pain. Francesco Nguyen MD Sports Medicine Primary Care Orthopaedics [address] [address] documented in this encounter Nursing Notes * Nikia Veloz LPN - 06/23/2024 2:07 PM EDT F/u Bilateral knee pain 4/10 today SECOND of a series Gelsyn injections Pt is unaccompanied today Elizabeth Misrty LPN documented in this encounter Plan of Treatment Upcoming Encounters Date Type Department Care Team (Late st Contact Info) Description 06/23/2024 3:30 PM EDT Imaging Radiology [address] [place] [address] Arrived 06/30/2024 3:00 PM EDT Office Visit Orthopaedics [facility] [address] [place] [address] Francesco Nguyen MD [address] [place] [address] 07/28/2024 7:00 AM EDT Office Visit Pharmacy, [facility] [address] [facility] [place] [address] Pharmacist1, [facility] [address] [facility] [place] [address] 12/23/2024 5:40 PM EST Office Visit Family Practice [facility] [address] [address] Humphrey Kurtz MD [address] [place] [address] 06/08/2025 3:30 PM EDT Office Visit Ophthalmology, [facility] [address] [place] [address] Jin Cantu DO [address] [place] [address] Scheduled Procedures Name Priority Associated Diagnoses Date/Ti me COLONOSCOPY FLEXIBLE PROXIMA L DIAGNOSTIC Recall Encounter for screening colonoscopy Health Maintenance Due Date Last Done Comments Hepatitis C Screening 1985 Cologuard 2012 Fecal Occult Blood Test 2012 Sigmoidoscopy 2012 Diabetic Foot Exam 10/04/2022 10/04/2021, 0 04/20/2020, 04/28/2019, Additional history exists COVID-19 Vaccine (3 - 2022- season) 2023 03/03/2021, 02/03/2021 Influenza Vaccine (FLU shot) (#1) 2024 07/17/2022, 09/27/2021, 07/06/2020, Additional history exists Depression Monitoring 10/09/2024 10/09/2023 HbA1c 10/23/2024 04/23/2024, 04/05, 01/17/2024, Additional history exists Albumin/Creatinine Ratio 04/23/2025 024, 04/16/2023, 03/21/2022, Additional history exists B-12 [...] Not on filedocumented as of this encounter Procedures Procedure Name Priority Date/Time Associated Diagnosis Comments POINT OF CARE US MAJOR JOINT INJECTION, ORTHO Routine 06/23/2024 10:15 PM EDT Primary osteoarthritis of both knees documented in this encounter Results * POINT OF CARE US MAJOR JOINT INJECTION, ORTHO (06/23/2024 10:15 PM EDT) Anatomical Region Laterality Modality Musculoskeletal Radiographic Sharon ging 06/23/2024 10:1 5 PM EDT Narrative 06/23/2024 2:41 PM EDT Patient Name: DANIEL PRAJAPATI : 1965 (58y) Male Performing Provider: Francesco Nguyen (digitally signed Jun 23, 2024 14:41 EDT) Attending: Francesco Nguyen (digitally signed Jun 23, 2024 14:41 EDT) [Impression] : PROCEDURE NOTE: KNEE INJECTION (Gelsyn #2) Laterality: Bilateral Time out: Prior to aspiration and injection, a time out was called to confirm the administration of appropriate medicine, patient name, procedure and confirm to the best of our ability and knowledge the presence of any necessary risks and benefits. Patient verbalized understanding. Ultrasound utilized to guide injection. During the procedure, the needle was visualized in plane and was advanced with continuous ultrasound guidance to the appropriate anatomical landmark as described in the procedure. Ultrasound required due to failed previous injection done without fluoroscopic or ultrasound guidance Sterile technique applied using gloves, chlorhexadine, and alcohol swabs. Ethyl chloride spray for local anesthetic. Knee injected at superior-lateral recess using 1.5 inch, 22 gauge needle. Knee then injected with Gelsyn. Patient tolerated procedure with no significant bleeding or adverse reaction. Patient instructed to call or return to clinic for fever, warmth, unusual redness at injection site for potential infection. Patient also advised regarding post-procedural pain. Procedure Note Francesco Nguyen MD - 06/23/2024 Patient Name: DANIEL PRAJAPATI : 1965 (58y) Male Performing Provider: Francesco Nguyen (digitally signed Jun 23, 2024 14:41EDT) Attending: Francesco Nguyen (digitally signed Jun 23, 2024 14:41 EDT) [Impression] : PROCEDURE NOTE: KNEE INJECTION (Gelsyn #2) Laterality: Bilateral Time out: Prior to aspiration and injection, a time out was called to confirm theadministration of appropriate medicine, patient name, procedure andconfirm to the best of our ability and knowledge the presence of anynecessary risks and benefits. Patient verbalized understanding. Ultrasound utilized to guide injection. During the procedure, the needle was visualized in plane and was advancedwith continuous ultrasound guidance to the appropriate anatomical landmarkas described in the procedure. Ultrasound required due to failed previous injection done withoutfluoroscopic or ultrasound guidance Sterile technique applied using gloves, chlorhexadine, and alcoholswabs. Ethyl chloride spray for local anesthetic. Knee injected at superior-lateral recess using 1.5 inch, 22 gauge needle.Knee then injected with Gelsyn. Patient tolerated procedure with no significant bleeding or adversereaction. Patient instructed to call or return to clinic for fever, warmth, unusualredness at injection site for potential infection. Patient also advisedregarding post- procedural pain. Francesco Nguyen MD RAD ULTRASO UND documented in this encounter Visit Diagnoses Diagnosis Primary osteoarthritis of both knees- Primary Primary localized osteoarthrosis, lower leg documented in this encounter Administered Medications Inactive Administered Medications - up to 3 most recent administrations Medication Order MAR Action Action Date Dose Rate Site sodium hyaluronate (Gelsyn-3) 16.8 MG/2ML inj 16.8 mg 16.8 mg, Intra-Articular, ONCE, On Sun06/23/24 at 1515, For 1 dose Given 06/23/2024 3:00 PM EDT 16.8 mg K nee Right sodium hyaluronate (Gelsyn-3) 16.8 MG/2ML inj 16.8 mg 16.8 mg, Intra-Articular, ONCE, On Sun06/23/24 at 1515, For 1 dose Given 06/23/2024 3:00 PM EDT 16.8 mg K nee Left documented in this encounter Additional Health Concerns Infection Onset Date Last Indicated Resolved Time COVID-19 (confirmed) 03/07/2022 03/07/2022 documented as of this encounter Care Teams Emergency Services Professional Relationship Specialty Start Date End Date Humphrey Kurtz MD [address] [place] [address] PCP - General Family Medicine 10/09/23 documented as of this encounter
--- OUTSIDE RECORDS SUMMARY | 2024-06-27 02:59 | External Medical Summary | Summary of Care ---
Author Name Unknown Organization [facility] Address [address] [place] [address] Phone [phone] Care Team Providers Care Real Estate Intern Name Role Phone Humphrey Santacruz MD Primary Care Provider + Reason for Visit * Reason Onset Date Comments Order Request 06/04/2024 Encounter Details Date Type Department Care Team (Late st Contact Info) Description 06/04/2024 Telephone Family Practice [facility] [address] [facility] [address] Humphrey Santacruz MD [address] [facility] [place] [address] Order Request Allergies No known active allergiesdocumented as of this encounter (statuses as of 06/17/2024) Medications Medication Sig Dispensed Refills Start Date End Date Status Blood Glucose Monitoring Suppl (D-CARE GLUCOMETER) w/Device KITIndications:Type 2 diabetes mellitus with hemoglobin A1c goal of less than 7.0% ([facility]) Use as directed. 1 Kit 9 Active [...] hemoglobin A1c goal of less than 7.0% ([facility]) CHECK BLOOD SUGAR 3 TIMES DAILY. 100 Each 6 1 Active Insulin Pen Needle 32G X 6 MMIndications:Type 2 diabetes mellitus with hemoglobin A1c goal of less than 7.0% ([facility]) Use with Victoza once daily. 100 Each 3 2 Active Aspirin Low Dose 81 MG Oral Tablet Delayed Release (aspirin enteric coated)Indications:DM type 2 nursing care encounter ([facility]) TAKE 1 TABLET BY MOUTH EVERY DAY [...] Active Additional Information Patient taking differently:800 mg [id number] PRN, Pain, Breakthrough, Fever >38C(100.5F), with food for pain, Reported on 11/28/2023 Levalbuterol Tartrate 45 MCG/ACT Inhalation Aerosol (Xopenex HFA)Indications:Mild intermittent asthma without complication Inhale 1 Puff by mouth every 4 hours as needed for Wheezing. 15 g 12 3 Active FreeStyle Yuval 3 SensorIndications:Type 2 diabetes mellitus with hemoglobin A1c goal of less than 7.0% ([facility]) Use as directed. Change every 14 days. [...] diabetes mellitus with diabetic cataract, unspecified whether assisted insulin use (HCC) Inject 10 mg under [...] intractable 2019 Coronary artery disease invo lving [place] coronary artery of [place] heart without angina pectoris 05/20/2018 Abnormal stress [...] encounter Miscellaneous Notes * Addendum Note - Humphrey Santacruz MD - 06/17/2024 1:15 PM EDTAddended by: HUMPHREY SANTACRUZ on: 06/17/2024 01:15 PM Modules accepted: Orders * Telephone Encounter - Humphrey Santacruz MD - 06/17/2024 1:15 PM EDT Signed-please print/ fax. I'm not sure if [employer] [facility] does test strips, but we can try. Notify patient. * Addendum Note - Ignacia Fox LPN - 06/17/2024 11:09 AM EDTAddended by: IGNACIA FOX on: 06/17/2024 11:09 AM Modules accepted: Orders * Telephone Encounter - Ignacia Fox LPN - 06/17/2024 11:09 AM EDT DME pending if you agree * Telephone Encounter - Roxann Leiva OSA - 06/16/2024 4:15 PM EDT Pt requesting this script to be [facility] to [email or web address] as [facility] pharmacy charges too [...] 06/23/2024 3:00 PM EDT Office Visit Orthopaedics [facility] [address] [place] [address] Francesco Nguyen MD [address] [place] [address] 06/30/2024 3:00 PM EDT Office Visit [facility] [address] [place] [address] [address] Francesco Nguyen MD [address] [place] [address] 07/28/2024 7:00 AM EDT Office Visit Pharmacy, [facility] [address] [facility] [place] [address] Pharmacist1, [facility] [address] [facility] [place] [address] 12/23/2024 5:40 PM EST Office Visit Family Practice [facility] [address] [place] [address] [address] Humphrey Santacruz MD [address] [place] [address] 06/08/2025 3:30 PM EDT Office Visit Ophthalmology, [place] [address] [place] [address] Jin Cantu DO [address] [place] [address] Scheduled Procedures Name Priority Associated Diagnoses Date/Ti me COLONOSCOPY FLEXIBLE PROXIMA L DIAGNOSTIC Recall Encounter for screening colonoscopy Health Maintenance Due Date Last Done Comments Hepatitis C Screening 1985 Cologuard 2012 Fecal Occult Blood Test 2012 Sigmoidoscopy 2012 Diabetic Foot Exam 10/04/2022 10/04/2021, 0 04/20/2020, 04/28/2019, Additional history exists COVID-19 Vaccine (3 - season) 2023 03/03/2021, 02/03/2021 Influenza Vaccine [...] documented as of this encounter Care Teams Real Estate Intern Relationship Specialty Start Date End Date Humphrey Santacruz MD [address] [place] [address] PCP - General Family Medicine 10/09/23 documented as of this encounter
--- OUTSIDE RECORDS SUMMARY | 2024-06-27 02:59 | External Medical Summary | Summary of Care ---
Author Name Unknown Organization [facility] Address [address] [place] [address] Phone [phone] Care Team Providers Care Batchmaker Name Role Phone Humphrey Kurtz MD Primary Care Provider + Encounter Details Date Type Department Care Team (Late st Contact Info) Description 06/23/2024 Telephone Family Practice [facility] [address] [facility] [place] [address] Humphrey Kurtz MD [address] [facility] [place] [address] Allergies No known active allergiesdocumented as of this encounter (statuses as of 06/23/2024) Medications Medication Sig Dispensed Refills Start Date End Date Status Blood Glucose Monitoring Suppl (D-CARE GLUCOMETER) w/Device KITIndications:Type 2 diabetes mellitus with hemoglobin A1c goal of less than 7.0% ([facility]) Use as directed. 1 Kit 9 Active [...] hemoglobin A1c goal of less than 7.0% ([facility]) CHECK BLOOD SUGAR 3 TIMES DAILY. 100 Each 6 1 Active Insulin Pen Needle 32G X 6 MMIndications:Type 2 diabetes mellitus with hemoglobin A1c goal of less than 7.0% ([facility]) Use with Victoza once daily. 100 Each 3 2 Active Aspirin Low Dose 81 MG Oral Tablet Delayed Release (aspirin enteric coated)Indications:DM type 2 nursing care encounter ([facility]) TAKE 1 TABLET BY MOUTH EVERY DAY [...] Active Additional Information Patient taking differently:800 mg [id number] PRN, Pain, Breakthrough, Fever >38C(100.5F), with food for pain, Reported on 11/28/2023 Levalbuterol Tartrate 45 MCG/ACT Inhalation Aerosol (Xopenex HFA)Indications:Mild intermittent asthma without complication Inhale 1 Puff by mouth every 4 hours as needed for Wheezing. 15 g 12 3 Active FreeStyle Yuval 3 SensorIndications:Type 2 diabetes mellitus with hemoglobin A1c goal of less than 7.0% ([facility]) Use as directed. Change every 14 days. [...] diabetes mellitus with diabetic cataract, unspecified whether exterminator insulin use (HCC) Inject 10 mg under [...] hemoglobin A1c goal of less than 7.0% ([facility]) TEST 3 TIMES A DAY DIRECTED E11.9 300 Strip 3 4 Active documented as of this encounter (statuses as [...] intractable 2019 Coronary artery disease invo lving [place] coronary artery of [place] heart without angina pectoris 05/20/2018 Abnormal stress [...] mRNA, LNP-s, No Pre serve, 2-Dose Series ([employer]) 03/03/2021,02/03/2021 Hepatitis B, 20+ yrs 09/17/2019,10/07/2018,04/22 Pneumococcal [...] encounter Miscellaneous Notes * Telephone Encounter - Sammi Baldwin LPN - 06/23/2024 3:07 PM EDT Pt came into clinic with concerns that his new pul referral needs faxed to Dr. Shravan Shay office [facility] Phone- [phone]. Faxed referral today. Pt made aware. documented in this encounter Plan of Treatment Upcoming Encounters Date Type Department Care Team (Late st Contact Info) Description 06/23/2024 3:30 PM EDT Imaging Radiology [place] [address] [place] [address] Arrived 06/30/2024 3:00 PM EDT Office Visit Orthopaedics [facility] [address] [place] [address] Francesco Nguyen MD [address] [place] [address] 07/28/2024 7:00 AM EDT Office Visit Pharmacy, [facility] [address] [facility] [place] [address] Pharmacist1, [facility] 200 [facility] [place] [address] 12/23/2024 5:40 PM EST Office Visit Family Practice [facility] [address] [place] [address] Humphrey Kurtz MD [address] [place] [address] 06/08/2025 3:30 PM EDT Office Visit Ophthalmology, [place] [address] [place] [address] Jin Cantu DO [address] [place] [address] Scheduled Procedures Name Priority Associated Diagnoses Date/Ti me COLONOSCOPY FLEXIBLE PROXIMA L DIAGNOSTIC Recall Encounter for screening colonoscopy Health Maintenance Due Date Last Done Comments Hepatitis C Screening 1985 Cologuard 2012 Fecal Occult Blood Test 2012 Sigmoidoscopy 2012 Diabetic Foot Exam 10/04/2022 10/04/2021, 0 04/20/2020, 04/28/2019, Additional history exists COVID-19 Vaccine ( season) 2023 03/03/2021, 02/03/2021 Influenza Vaccine (FLU [...] Not on filedocumented as of this encounter Additional Health Concerns Infection Onset Date Last Indicated Resolved Time COVID-19 (confirmed) 03/07/2022 03/07/2022 documented as of this encounter Care Teams Batchmaker Relationship Specialty Start Date End Date Humphrey Kurtz MD [address] [place] [address] PCP - General Family Medicine 10/09/23 documented as of this encounter
--- OUTSIDE RECORDS SUMMARY | 2024-06-27 02:59 | External Medical Summary | Summary of Care ---
Author Name Unknown Organization [facility] Address [address] [place] [address] Phone [phone] Care Team Providers Care Neon Installer Name Role Phone Humphrey Santacruz MD Primary Care Provider + Reason for Visit * Reason Onset Date Comments Order Request 06/04/2024 Encounter Details Date Type Department Care Team (Late st Contact Info) Description 06/04/[address] [facility] [address] [facility] [address] Humphrey Santacruz MD [address] [facility] [address] Order Request Allergies No known active allergiesdocumented as of this encounter (statuses as of 06/17/2024) Medications Medication Sig Dispensed Refills Start Date End Date Status Blood Glucose Monitoring Suppl (D-CARE GLUCOMETER) w/Device KITIndications:Type 2 diabetes mellitus with hemoglobin A1c goal of less than 7.0% ([facility]) Use as directed. 1 Kit [...] hemoglobin A1c goal of less than 7.0% ([facility]) CHECK BLOOD SUGAR 3 TIMES DAILY. 100 Each 6 1 Active Insulin Pen Needle 32G X 6 MMIndications:Type 2 diabetes mellitus with hemoglobin A1c goal of less than 7.0% ([facility]) Use with Victoza once daily. 100 Each 3 2 Active Aspirin Low Dose 81 MG Oral Tablet Delayed Release (aspirin enteric coated)Indications:DM type 2 nursing care encounter ([facility]) TAKE 1 TABLET BY MOUTH [...] Active Additional Information Patient taking differently:800 mg [id number] PRN, Pain, Breakthrough, Fever >38C(100.5F), with food for pain, Reported on 11/28/2023 Levalbuterol Tartrate 45 MCG/ACT Inhalation Aerosol (Xopenex HFA)Indications:Mild intermittent asthma without complication Inhale 1 Puff by mouth every 4 hours as needed for Wheezing. 15 g 12 3 Active FreeStyle Yuval 3 SensorIndications:Type 2 diabetes mellitus with hemoglobin A1c goal of less than 7.0% ([facility]) Use as directed. 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 I'm not sure if [employer] [facility] does test strips, but we can [...] requesting [facility] pharmacy charges too much. * Telephone [...] 06/23/2024 3:00 PM EDT Office Visit Orthopaedics [facility] [address] [place] [address] Francesco Nguyen MD [address] [place] [address] 06/30/2024 3:00 PM EDT Office Visit [facility] [address] [place] [address] [address] Francesco Nguyen MD [address] [place] [address] 07/28/2024 7:00 AM EDT Office Visit Pharmacy, [facility] [address] [facility] [place] [address] Pharmacist1, [facility] 200 [facility] [place] [address] 12/23/2024 5:40 PM EST Office Visit Family Practice [facility] [address] [place] [address] Humphrey Santacruz MD [address] [place] [address] 06/08/2025 3:30 PM EDT Office Visit Ophthalmology, [place] [address] [place] [address] Jni Cantu DO [address] [place] [address] Scheduled Procedures Name Priority Associated Diagnoses Date/Ti [...] documented as of this encounter Care Teams Neon Installer Relationship Specialty Start Date End Date Humphrey Santacruz MD [address] [place] [address] PCP - General Family Medicine 10/09/23 documented as of this encounter
--- OUTSIDE RECORDS SUMMARY | 2024-06-27 02:59 | External Medical Summary | Summary of Care ---
Author Name Unknown Organization [facility] Address [address] [place] [address] Phone [phone] Care Team Providers Care Edger Tailer Name Role Phone Humphrey Kurtz MD Primary Care Provider + Reason for Visit * Reason Comments Follow Up Bilateral knee Knee Pain * Evaluate & Treat - Unlimited Visits (Within 10 days (routine)) - Authorized Specialty Diagnoses / Procedures Referred By Nakia jones Referred To Contact Sports Medicine / Orthopedics Diagnoses Arthralgia of both knees Humphrey Kurtz MD [address] [place] [address] Francesco Nguyen MD [address] [place] [address] Referral ID Status Reason Start Date Expiration Date Visits Requested Visits Authorized [id number] Authorized Specialty Services Required 04/22/[phone] Encounter Details Date Type Department Care Team (Latest Contact Info) Description 06/23/2024 3:00 PM EDT Office Visit Orthopaedics [facility] [address] [place] [address] Francesco Nguyen MD [address] [place] [address] Primary osteoarthritis of both knees* Allergies No known active allergiesdocumented as of this encounter (statuses as of 06/23/2024) Medications Medication Sig Dispensed Refills Start Date End Date Status Blood Glucose Monitoring Suppl (D-CARE GLUCOMETER) w/Device KITIndications:Type 2 diabetes mellitus with hemoglobin A1c goal of less than 7.0% ([facility]) Use as directed. 1 Kit 9 [...] hemoglobin A1c goal of less than 7.0% ([facility]) CHECK BLOOD SUGAR 3 TIMES DAILY. 100 Each 6 1 Active Insulin Pen Needle 32G X 6 MMIndications:Type 2 diabetes mellitus with hemoglobin A1c goal of less than 7.0% ([facility]) Use with Victoza once daily. 100 Each 3 2 Active Aspirin Low Dose 81 MG Oral Tablet Delayed Release (aspirin enteric coated)Indications:DM type 2 nursing care encounter ([facility]) TAKE 1 TABLET BY MOUTH EVERY [...] Active Additional Information Patient taking differently:800 mg [id number] PRN, Pain, Breakthrough, Fever >38C(100.5F), with food for pain, Reported on 11/28/2023 Levalbuterol Tartrate 45 MCG/ACT Inhalation Aerosol (Xopenex HFA)Indications:Mild intermittent asthma without complication Inhale 1 Puff by mouth every 4 hours as needed for Wheezing. 15 g 12 3 Active FreeStyle Yuval 3 SensorIndications:Type 2 diabetes mellitus with hemoglobin A1c goal of less than 7.0% ([facility]) Use as directed. 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 artery of [place] heart without angina pectoris 05/20/2018 Abnormal stress [...] mRNA, LNP-s, No Pre serve, 2-Dose Series ([employer]) 03/03/2021,02/03/2021 Hepatitis B, 20+ yrs 09/17/2019,10/07/2018,04/22 Pneumococcal [...] Nguyen MD Sports Medicine Primary Care Orthopaedics [address] [address] documented in this encounter Nursing Notes * Nikia Veloz LPN - 06/23/2024 2:07 PM EDT F/u Bilateral knee pain 4/10 today SECOND of a series Gelsyn injections Pt is unaccompanied today Elizabeth Mistry LPN documented in this encounter Plan of Treatment Upcoming Encounters Date Type Department Care Team (Late st Contact Info) Description 06/23/2024 3:30 PM EDT Imaging Radiology [address] [place] [address] Arrived 06/30/2024 3:00 PM EDT Office Visit Orthopaedics [facility] [address] [place] [address] Francesco Nguyen MD [address] [place] [address] 07/28/2024 7:00 AM EDT Office Visit Pharmacy, [facility] 200 [facility] [place] [address] Pharmacist1, [facility] 200 [facility] [place] [address] 12/23/2024 5:40 PM EST Office Visit Family Practice [facility] [address] [address] Humphrey Kurtz MD [address] [place] [address] 06/08/2025 3:30 PM EDT Office Visit Ophthalmology, [place] [address] [place] [address] Jin Cantu DO [address] [place] [address] Scheduled Procedures Name Priority Associated Diagnoses Date/Ti [...] osteoarthrosis, lower leg documented in this encounter Additional Health Concerns Infection Onset Date Last Indicated Resolved Time COVID-19 (confirmed) 03/07/2022 03/07/2022 documented as of this encounter Care Teams Edger Tailer Relationship Specialty Start Date End Date Humphrey Kurtz MD 132 [facility] [place] [address] PCP - General Family Medicine 10/09/23 documented as of this encounter
--- OUTSIDE RECORDS SUMMARY | 2024-06-27 03:00 | External Medical Summary | Summary of Care ---
Author Name Unknown Organization [facility] Address [address] [place] [address] Phone [phone] Care Team Providers Care Grader Operator Name Role Phone Humphrey Kurtz MD Primary Care Provider + Reason for Visit * Reason Onset Date Comments Order Request 06/04/2024 Encounter Details Date Type Department Care Team (Late st Contact Info) Description 06/04/2024 Telephone Family Practice [facility] [email or web address] [facility] [place] [address] Humphrey Kurtz MD [email or web address] [place] [address] Order Request Allergies No known active allergiesdocumented as of this encounter (statuses as of 06/16/2024) Medications Medication Sig Dispensed Refills Start Date End Date Status Blood Glucose Monitoring Suppl (D-CARE GLUCOMETER) w/Device KITIndications:Type 2 diabetes mellitus with hemoglobin A1c goal of less than 7.0% ([facility]) Use as directed. 1 Kit [...] hemoglobin A1c goal of less than 7.0% ([facility]) CHECK BLOOD SUGAR 3 TIMES DAILY. 100 Each 6 1 Active Insulin Pen Needle 32G X 6 MMIndications:Type 2 diabetes mellitus with hemoglobin A1c goal of less than 7.0% ([facility]) Use with Victoza once daily. 100 Each 3 2 Active Aspirin Low Dose 81 MG Oral Tablet Delayed Release (aspirin enteric coated)Indications:DM type 2 nursing care encounter ([facility]) TAKE 1 TABLET BY MOUTH [...] Active Additional Information Patient taking differently:800 mg [id number] PRN, Pain, Breakthrough, Fever >38C(100.5F), with food for pain, Reported on 11/28/2023 Levalbuterol Tartrate 45 MCG/ACT Inhalation Aerosol (Xopenex HFA)Indications:Mild intermittent asthma without complication Inhale 1 Puff by mouth every 4 hours as needed for Wheezing. 15 g 12 3 Active FreeStyle Yuval 3 SensorIndications:Type 2 diabetes mellitus with hemoglobin A1c goal of less than 7.0% ([facility]) Use as directed. Change every [...] diabetes mellitus with diabetic cataract, unspecified whether snf insulin use (HCC) Inject 10 mg under [...] as of this encounter (statuses as of 06/16/2024) Active Problems Problem Noted Date Diagnosed Date Type 2 diabetes mellitus with diabetic cataract 07/17/2022 Benign prostatic hyperplasia with lower urinary tract symptoms 03/25/2022 Age-related nuclear cataract, bilateral 03/25/20 Recurrent major depressive disorder, in full rem ission 03/25/2022 LINDA (obstructive sleep apnea) 01/17/2022 MARU (generalized anxiety disorder) 11/11/2019 Ophthalmoplegic migraine, not intractable 2019 Coronary artery disease invo lving [place] coronary artery of [place] heart without angina pectoris 05/20/2018 Abnormal stress [...] as of this encounter (statuses as of 06/16/2024) Resolved Problems Problem Noted Date Diagnosed Date [...] as of this encounter (statuses as of 06/16/2024) Immunizations Name Administration Dates Next Due COVID-19 [...] encounter Miscellaneous Notes * Telephone Encounter - Gerald LeivaLINDA reis - 06/16/2024 4:15 PM EDT Pt [email or web address]. * Telephone Encounter [...] 06/23/2024 3:00 PM EDT Office Visit Orthopaedics [facility] [address] [place] [address] Francesco Nguyen MD [address] [place] [address] 06/30/2024 3:00 PM EDT Office Visit Orthopaedics [facility] [address] [place] [address] Francesco Nguyen MD [address] [place] [address] 07/28/2024 7:00 AM EDT Office Visit Pharmacy, [facility] [address] [place] [address] Pharmacist1, [facility] [address] [facility] [place] [address] 12/23/2024 5:40 PM EST Office Visit Family Practice [facility] [address] [place] [address] Humphrey Kurtz MD [address] [place] [address] 06/08/2025 3:30 PM EDT Office Visit Ophthalmology, [place] [address] [place] [address] Jin Cantu DO [facility] [place] [address] Scheduled Procedures Name Priority Associated Diagnoses Date/Ti [...] documented as of this encounter Care Teams Grader Operator Relationship Specialty Start Date End Date Humphrey Kurtz MD [address] [place] [address] PCP - General Family Medicine 10/09/23 documented as of this encounter
--- OUTSIDE RECORDS SUMMARY | 2024-06-27 03:00 | External Medical Summary | Summary of Care ---
Author Name Unknown Organization [facility] Address [address] [place] [address] Phone [phone] Care Team Providers Care Offal Separator Name Role Phone Humphrey Kurtz MD Primary Care Provider + Reason for Visit * Reason Comments Outpatient Testing Encounter Details Date Type Department Care Team (Late st Contact Info) Description 06/09/2024 4:10 PM EDT Laboratory Laboratory, [facility] [address] [place] [id number] [facility] [address] [place] [address] [facility] Other*[id number]; Intestinal malabsorption, unspecified type Allergies No known active allergiesdocumented as of this encounter (statuses as of 06/09/2024) Medications Medication Sig Dispensed Refills Start Date [...] Active Additional Information Patient taking differently:800 mg [id number] PRN, Pain, Breakthrough, Fever >38C(100.5F), with food [...] goal of less than 7.0% ([facility]),Type 2 diabetes mellitus with diabetic cataract, unspecified whether oiling machine operator insulin use (HCC) Inject 10 mg under [...] of less than 7.0% ([facility]) Take 1 Tablet by mouth 2 times a day with morning and evening meals. 180 Tablet 3 4 Active OneTouch SynGen In Vitro Strip (Glucose Blood)Indications:Type 2 diabetes mellitus with hemoglobin A1c goal of less than 7.0% (HCC) TEST 3 TIMES A DAY DIRECTED E11.9 300 Strip 3 4 Active Hospital, Clinic, or Other Facility Administered Medication Ordered Dose Route Frequency Start Date End Date Status sodium hyaluronate (Gelsyn-3) 16.8 MG/2ML inj 16.8 mgIndications:Primary osteoarthritis of right knee 16.8 mg IX ONCE 06/09/2024 06/10/2024 Active sodium hyaluronate (Gelsyn-3) 16.8 MG/2ML inj 16.8 mgIndications:Primary osteoarthritis of left knee 16.8 mg IX ONCE 06/09/2024 06/10/20 24 Active documented as of this encounter (statuses as of 06/09/2024) Active Problems Problem Noted Date Diagnosed Date Type 2 diabetes mellitus with diabetic cataract 07/17/2022 Benign prostatic hyperplasia with lower urinary tract symptoms 03/25/2022 Age-related nuclear cataract, bilateral 03/25/20 22 Recurrent major depressive disorder, in full rem ission 03/25/2022 LINDA (obstructive sleep apnea) 01/17/2022 MARU (generalized anxiety disorder) 11/11/2019 Ophthalmoplegic migraine, not intractable 2019 Coronary artery disease invo lving [place] coronary artery of [place] heart without angina pectoris 05/20/2018 Abnormal stress [...] as of this encounter (statuses as of 06/09/2024) Resolved Problems Problem Noted Date Diagnosed Date [...] as of this encounter (statuses as of 06/09/2024) Immunizations Name Administration Dates Next Due COVID-19 mRNA, LNP-s, No Pre serve, 2-Dose Series ([employer]) 03/03/2021,02/03/2021 Hepatitis B, 20+ yrs 09/17/2019,10/07/2018,04/22 Pneumococcal [...] on file documented as of this encounter Plan of Treatment Upcoming Encounters Date Type Department Care Team (Late st Contact Info) Description 06/23/2024 3:00 PM EDT Office Visit Orthopaedics [facility] [address] [place] [address] Francesco Nguyen MD [address] [place] [address] 06/30/2024 3:00 PM EDT Office Visit [facility] [address] [place] [address] Francesco Nguyen MD [address] [place] [address] 07/28/2024 7:00 AM EDT Office Visit Pharmacy, [facility] [address] [facility] [place] [address] Pharmacist1, [facility] [address] [facility] [place] [address] 12/23/2024 5:40 PM EST Office Visit Family Practice [facility] [address] [place] [address] Humphrey Kurtz MD [address] [place] [address] 06/08/2025 3:30 PM EDT Office Visit Ophthalmology, [facility] [address] [place] [address] Jin Cantu DO [address] [place] [address] Pending Results Name Type Priority Associated Diagnoses Date /Time MYCODE SUBSEQUENT ADULT Lab Routine [facility] Other*[id number] 06/09/2024 3:44 PM EDT AMYLASE Lab Routine Intestinal malabsorption, unspecified type 06/09/2024 3:44 PM EDT LIPASE Lab Routine Intestinal malabsorption, unspecified type 06/09/2024 3:44 PM EDT MYCODE SST1 Lab Routine [facility] Other*[id number] 06/09/2024 3:44 PM EDT MYCODE SST2 Lab Routine [facility] Other*[id number] 06/09/2024 3:44 PM EDT Scheduled Procedures Name Priority Associated Diagnoses Date/Ti [...] as of this encounter Visit Diagnoses Diagnosis [facility] [employer] Other*[id number] Intestinal malabsorption, unspecified type documented in this encounter Additional Health Concerns Infection Onset Date Last Indicated Resolved Time COVID-19 (confirmed) 03/07/2022 03/07/2022 documented as of this encounter Care Teams Offal Separator Relationship Specialty Start Date End Date Humphrey Kurtz MD [address] [place] [address] PCP - General Family Medicine 10/09/23 documented as of this encounter
--- OUTSIDE RECORDS SUMMARY | 2024-06-27 03:00 | External Medical Summary | Summary of Care ---
Author Name Unknown Organization [facility] Address [address] [place] [address] Phone [phone] Care Team Providers Care Undercollar Baster Name Role Phone Humphrey Kurtz MD Primary Care Provider + Reason for Visit * Reason Onset Date Comments Order Request 06/04/2024 Encounter Details Date Type Department Care Team (Late st Contact Info) Description 06/04/2024 Telephone Family Practice [facility] [address] [facility] [address] Humphrey Kurtz MD [address] [employer] [place] [address] Order Request Allergies No known active allergiesdocumented as of this encounter (statuses as of 06/17/2024) Medications Medication Sig Dispensed Refills Start Date End Date Status Blood Glucose Monitoring Suppl (D-CARE GLUCOMETER) w/Device KITIndications:Type 2 diabetes mellitus with hemoglobin A1c goal of less than 7.0% ([facility]) Use as directed. 1 Kit [...] goal of less than 7.0% ([facility]) CHECK BLOOD SUGAR 3 TIMES DAILY. 100 Each 6 1 Active Insulin Pen Needle 32G X 6 MMIndications:Type 2 diabetes mellitus with hemoglobin A1c goal of less than 7.0% ([facility]) Use with Victoza once daily. 100 Each 3 2 Active Aspirin Low Dose 81 MG Oral Tablet Delayed Release (aspirin enteric coated)Indications:DM type 2 nursing care encounter ([facility]) TAKE 1 TABLET BY MOUTH [...] Active Additional Information Patient taking differently:800 mg QvvlC0Y PRN, Pain, Breakthrough, Fever >38C(100.5F), with food for pain, Reported on 11/28/2023 Levalbuterol Tartrate 45 MCG/ACT Inhalation Aerosol (Xopenex HFA)Indications:Mild intermittent asthma without complication Inhale 1 Puff by mouth every 4 hours as needed for Wheezing. 15 g 12 3 Active FreeStyle Yuval 3 SensorIndications:Type 2 diabetes mellitus with hemoglobin A1c goal of less than 7.0% ([facility]) Use as directed. Change every [...] intractable 2019 Coronary artery disease invo lving [place] coronary artery of [place] heart without angina pectoris 05/20/2018 Abnormal stress [...] [facility] too much. * [...] 06/23/2024 3:00 PM EDT Office Visit Orthopaedics [facility] [address] [place] [address] Francesco Nguyen MD [address] [place] [address] 06/30/2024 3:00 PM EDT Office Visit Orthopaedics [facility] [address] [place] [address] Francesco Nguyen MD [address] [place] [address] 07/28/2024 7:00 AM EDT Office Visit Pharmacy, [facility] [address] [place] [address] Pharmacist1, [facility] [address] [facility] [place] [address] 12/23/2024 5:40 PM EST Office Visit Family Practice [facility] [address] [place] [address] Humphrey Kurtz MD [address] [place] [address] 06/08/2025 3:30 PM EDT Office Visit Ophthalmology, [facility] [address] [place] [address] [facility] [place] [address] Scheduled Procedures Name Priority Associated Diagnoses Date/Ti [...] documented as of this encounter Care Teams Undercollar Baster Relationship Specialty Start Date End Date Humphrey Kurtz MD [address] [place] [address] PCP - General Family Medicine 10/09/23 documented as of this encounter
--- OUTSIDE RECORDS SUMMARY | 2024-06-27 03:00 | External Medical Summary | Summary of Care ---
Author Name Unknown Organization [facility] Address [address] [place] [address] Phone [phone] Care Team Providers Care Cognos Administrator Name Role Phone Humphrey Kurtz MD Primary Care Provider + Reason for Visit * Reason Comments Follow Up Pt is here for Start of GELSYN PATRICIA * Evaluate & Treat - Unlimited Visits (Within 10 days (routine)) - Authorized Specialty Diagnoses / Procedures Referred By Nakia jonse Referred To Contact Sports Medicine / Orthopedics Diagnoses Arthralgia of both knees Humphrey Kurtz MD [address] [facility] [place] [address] Francesco Nguyen MD [address] [place] [address] Referral ID Status Reason Start Date Expiration Date Visits Requested Visits Authorized [id number] Authorized Specialty Services Required 04/22/2024 [id number] Encounter Details Date Type Department Care Team (Latest Contact Info) Description 06/09/2024 3:00 PM EDT Office Visit Orthopaedics [facility] [address] [place] [address] Francesco Nguyen MD [address] [place] [address] Primary osteoarthritis of right knee*; Primary osteoarthritis of left knee Allergies No known active allergiesdocumented as of this encounter (statuses as of 06/09/2024) Medications Medication Sig Dispensed Refills Start Date End Date Status Blood Glucose Monitoring Suppl (D-CARE GLUCOMETER) w/Device KITIndications:Type 2 diabetes mellitus with hemoglobin A1c goal of less than 7.0% ([facility]) Use as directed. 1 Kit 9 [...] goal of less than 7.0% ([facility]) CHECK BLOOD SUGAR 3 TIMES DAILY. 100 Each 6 1 Active Insulin Pen Needle 32G X 6 MMIndications:Type 2 diabetes mellitus with hemoglobin A1c goal of less than 7.0% ([facility]) Use with Victoza once daily. 100 Each 3 2 Active Aspirin Low Dose 81 MG Oral Tablet Delayed Release (aspirin enteric coated)Indications:DM type 2 nursing care encounter ([facility]) TAKE 1 TABLET BY MOUTH EVERY [...] Active Additional Information Patient taking differently:800 mg HstmV3U PRN, Pain, Breakthrough, Fever >38C(100.5F), with food for pain, Reported on 11/28/2023 Levalbuterol Tartrate 45 MCG/ACT Inhalation Aerosol (Xopenex HFA)Indications:Mild intermittent asthma without complication Inhale 1 Puff by mouth every 4 hours as needed for Wheezing. 15 g 12 3 Active FreeStyle Yuval 3 SensorIndications:Type 2 diabetes mellitus with hemoglobin A1c goal of less than 7.0% ([facility]) Use as directed. 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 Presents to start viscosupplementation series for bilateral knee arthritis. PROCEDURE NOTE: KNEE ASPIRATION/INJECTION (Gelsyn #1) Laterality: Right Time out: Prior to aspiration and injection, [...] Ethyl chloride spray for local anesthetic. Knee aspirated at superior-lateral recess using 1.5 inch, 18 gauge needle. 2 mL of straw-colored fluid aspirated. Knee then injected with Gelsyn. Patient tolerated procedure with no significant bleeding or adverse reaction. Patient instructed to call or return to clinic for fever, warmth, unusual redness at injection sitefor potential infection. Patient also advised regarding post-procedural pain. PROCEDURE NOTE: KNEE INJECTION (Gelsyn #1) Laterality: Left Time out: Prior to aspiration and injection, [...] Francesco Nguyen MD Sports Medicine Primary Care [facility] [address] [facility] [place] [address] documented in this encounter Nursing Notes * Keyana Silva CMA - 06/09/2024 3:08 PM EDT Pt is here for Start of GELSYN PATRICIA documented in this encounter Plan of Treatment Upcoming Encounters Date Type Department Care Team (Late st Contact Info) Description 06/23/2024 3:00 PM EDT Office Visit [facility] [address] [place] [address] Francesco Nguyen MD [address] [place] [address] 06/30/2024 3:00 PM EDT Office [facility] [place] [address] Francesco Nguyen MD [address] [place] [address] 07/28/2024 7:00 AM EDT Office Visit Pharmacy, [facility] [place] [address] [facility] [address] [place], [place] [address] Pharmacist1, [facility] [address] [place] [address] 12/23/2024 5:40 PM EST Office Visit Family [facility] [address] [place] [address] Humphrey Kurtz MD [address] [place] [address] 06/08/2025 3:30 PM EDT Office Visit Ophthalmology, [facility] [address] [place] [address] Jin Cantu [facility] [place] [address] Scheduled Procedures Name Priority Associated Diagnoses Date/Ti [...] CARE US MAJOR JOINT INJECTION, ORTHO Routine 06/09/2024 11:23 PM EDT Primary osteoarthritis of right knee Primary osteoarthritis of left knee documented in this encounter Results * POINT OF CARE US MAJOR JOINT INJECTION, ORTHO (06/09/2024 11:23 PM EDT) Anatomical Region Laterality Modality Musculoskeletal Radiographic Sharon ging 06/09/2024 11:2 3 PM EDT Narrative 06/09/2024 3:34 PM EDT Patient Name: DANIEL RODRIGUEZ : 1965 (58y) Male Performing Provider: Francesco Nguyen (digitally signed Jun 09, 2024 15:34 EDT) Attending: Francesco Nguyen (digitally signed Jun 09, 2024 15:34 EDT) [Impression] : PROCEDURE NOTE: KNEE ASPIRATION/INJECTION (Gelsyn #1) Laterality: Right Time out: Prior to aspiration and injection, [...] Ethyl chloride spray for local anesthetic. Knee aspirated at superior-lateral recess using 1.5 inch, 18 gauge needle. 2 mL of straw-colored fluid aspirated. Knee then injected with Gelsyn. Patient tolerated procedure with no significant bleeding or adverse reaction. Patient instructed to call or return to clinic for fever, warmth, unusual redness at injection site for potential infection. Patient also advised regarding post-procedural pain. PROCEDURE NOTE: KNEE INJECTION (Gelsyn #1) Laterality: Left Time out: Prior to aspiration and injection, [...] pain. Procedure Note Francesco Nguyen MD - 06/09/2024 Patient Name: DANIEL RODRIGUEZ : 1965 (58y) Male Performing Provider: Francesco Nguyen (digitally signed Jun 09, 2024 15:34EDT) Attending: Francesco Nguyen (digitally signed Jun 09, 2024 15:34 EDT) [Impression] : PROCEDURE NOTE: KNEE ASPIRATION/INJECTION (Gelsyn #1) Laterality: Right Time out: Prior to aspiration and injection, [...] Ethyl chloride spray for local anesthetic. Knee aspirated at superior-lateral recess using 1.5 inch, 18 gauge needle.2 mL of straw-colored fluid aspirated. Knee then injected with Gelsyn. Patient tolerated procedure with no significant bleeding or adversereaction. Patient instructed to call or return to clinic for fever, warmth, unusualredness at injection site for potential infection. Patient also advisedregarding post- procedural pain. PROCEDURE NOTE: KNEE INJECTION (Gelsyn #1) Laterality: Left Time out: Prior to aspiration and injection, [...] advisedregarding post- procedural pain. Francesco Nguyen MD [facility] documented in this encounter Visit Diagnoses Diagnosis Primary osteoarthritis of right knee- Primary Primary localized osteoarthrosis, lower leg Primary osteoarthritis of left knee Primary localized osteoarthrosis, lower leg documented in this encounter Administered Medications Inactive Administered Medications - up to 3 most recent administrations Medication Order MAR Action Action Date Dose Rate Site sodium hyaluronate (Gelsyn-3) 16.8 MG/2ML inj 16.8 mg 16.8 mg, Intra-Articular, ONCE, On Sun06/09/24 at 1615, For 1 dose Given 06/09/2024 4:10 PM EDT 16.8 mg Knee Right sodium hyaluronate (Gelsyn-3) 16.8 MG/2ML inj 16.8 mg 16.8 mg, Intra-Articular, ONCE, On Sun06/09/24 at 1615, For 1 dose Given 06/09/2024 4:10 PM EDT 16.8 mg Knee Left documented in this encounter Additional Health Concerns Infection Onset Date Last Indicated Resolved Time COVID-19 (confirmed) 03/07/2022 03/07/2022 documented as of this encounter Care Teams Cognos Administrator Relationship Specialty Start Date End Date Humphrey Kurtz MD [address] [facility] [place] [address] PCP - General Family Medicine 10/09/23 documented as of this encounter
--- OUTSIDE RECORDS SUMMARY | 2024-06-27 03:01 | External Medical Summary | Summary of Care ---
Author Name Unknown Organization [facility] Address [address] [place] [address] Phone [phone] Care Team Providers Care Holter Scanning Technician Name Role Phone Humphrey Kurtz MD Primary Care Provider + Reason for Visit * Reason Comments NEW PATIENT * Evaluate & Treat - Unlimited Visits (Within 24 hrs (call dept; emergent)) - Authorized Specialty Diagnoses / Procedures Referred By Nakia jones Referred To Contact Optometry Diagnoses Redness of eye, left Acute conjunctivitis of left eye, unspecified acute conjunctivitis type Janae Bo MD [address] [place] [address] Referral ID Status Reason Start Date Expiration Date Visits Requested Visits Authorized [id number] Authorized Specialty Services Required 11/28/[id number] Encounter Details Date Type Department Care Team (Late st Contact Info) Description 06/02/2024 3:00 PM EDT Office Visit Ophthalmology, [place] [id number] Humphrey Rm MD [place] [address] Encounter for ophthalmic examination and evaluation*; Type 2 diabetes mellitus with hemoglobin A1c goal of less than 8.0% (HCC); Meibomian gland disease, unspecified laterality; Presbyopia; Senile incipient cataract of both eyes Allergies No known active allergiesdocumented as of this encounter (statuses as of 06/02/2024) Medications Medication Sig Dispensed Refills Start Date End Date Status Blood Glucose Monitoring Suppl (D-CARE GLUCOMETER) w/Device KITIndications:Type 2 diabetes mellitus with hemoglobin A1c goal of less than 7.0% ([facility]) Use as directed. 1 Kit 9 Active [...] hemoglobin A1c goal of less than 7.0% ([facility]) CHECK BLOOD SUGAR 3 TIMES DAILY. 100 Each 6 1 Active Insulin Pen Needle 32G X 6 MMIndications:Type 2 diabetes mellitus with hemoglobin A1c goal of less than 7.0% ([facility]) Use with Victoza once daily. 100 Each 3 2 Active Aspirin Low Dose 81 MG Oral Tablet Delayed Release (aspirin enteric coated)Indications:DM type 2 nursing care encounter ([facility]) TAKE 1 TABLET BY MOUTH EVERY DAY [...] Active Additional Information Patient taking differently:800 mg [id number] PRN, Pain, Breakthrough, Fever >38C(100.5F), with food for pain, Reported on 11/28/2023 Levalbuterol Tartrate 45 MCG/ACT Inhalation Aerosol (Xopenex HFA)Indications:Mild intermittent asthma without complication Inhale 1 Puff by mouth every 4 hours as needed for Wheezing. 15 g 12 3 Active FreeStyle Yuval 3 SensorIndications:Type 2 diabetes mellitus with hemoglobin A1c goal of less than 7.0% ([facility]) Use as directed. Change every 14 days. [...] hemoglobin A1c goal of less than 7.0% ([facility]),Type 2 diabetes mellitus with diabetic cataract, unspecified whether [facility] insulin use ([facility]) Inject 10 mg under the skin once a week. 2 mL 11 4 01/17/20 25 Active OneTouch Verio In Vitro Strip (Glucose Blood)Indications:Type 2 diabetes mellitus with hemoglobin A1c goal of less than 7.0% ([facility]) TEST 3 TIMES A DAY DIRECTED 300 Strip 3 4 Active Ezetimibe 10 MG Oral Tablet (Zetia)Indications:Pure [...] evening meals. 180 Tablet 3 4 Active documented as of this encounter (statuses as of 06/02/2024) Active Problems Problem Noted Date Diagnosed Date Type 2 diabetes mellitus with diabetic cataract 07/17/2022 Benign prostatic hyperplasia with lower urinary tract symptoms 03/25/2022 Age-related nuclear cataract, bilateral 03/25/20 22 Recurrent major depressive disorder, in full rem ission 03/25/2022 LINDA (obstructive sleep apnea) 01/17/2022 MARU (generalized anxiety disorder) 11/11/2019 Ophthalmoplegic migraine, not intractable 2019 Coronary artery disease invo lving alut[place] coronary artery of [place] heart without angina pectoris 05/20/2018 Abnormal stress [...] as of this encounter (statuses as of 06/02/2024) Resolved Problems Problem Noted Date Diagnosed Date [...] as of this encounter (statuses as of 06/02/2024) Immunizations Name Administration Dates Next Due COVID-19 mRNA, LNP-s, No Pre serve, 2-Dose Series ([employer]) 03/03/2021,02/03/2021 Hepatitis B, 20+ yrs 09/17/2019,10/07/2018,04/22 Pneumococcal [...] as of this encounter Progress Notes * Humphrey Rm MD - 06/02/2024 3:37 PM EDT [facility] DEPARTMENT OF OPHTHALMOLOGY DIABETIC EYE EXAM PATIENT NAME: Daniel Prajapati (58 year old male) PRIMARY CARE PHYSICIAN: Humphrey Kurtz MD CC: here for diabetic eye exam HPI: DM for 6 years Last FBS: 103 now Lab Results Component Value Date/Time HEMOGLOBIN A1C - [facility] 5.9 (H) 04/23/2024 07:23 AM HEMOGLOBIN A1C - [facility] 6.2 (H) 08/18/2020 11:02 AM HEMOGLOBIN A1C POCT - [facility] 5.7 (H) 04/21/2024 11:06 AM POH: see below Past Medical History: Diagnosis Date Abnormal stress echocardiogram 04/17/2018 Age-related nuclear cataract, bilateral 03/25/2022 Benign paroxysmal vertigo 03/13/2018 Benign prostatic hyperplasia with lower urinary tract symptoms 03/25/2022 Coronary artery disease involving alutiiq coronary artery of alutiiq heart without angina pectoris 05/20/2018 MARU (generalized anxiety disorder) 11/11/2019 History of 2019 novel coronavirus disease (COVID-19) 03/09/2022 HTN, goal below 130/80 03/13/2000 NONE Ophthalmoplegic migraine, not intractable 11/11/2019 LINDA (obstructive sleep apnea) 01/17/2022 Primary osteoarthritis of both knees 03/13/2018 Pure hypercholesterolemia 03/13/2018 PVC's (premature ventricular contractions) 03/13/2018 Recurrent major depressive disorder, in full remission ([facility]) 03/25/2022 Type 2 diabetes mellitus with hemoglobin A1c goal of less than 7.0% ([facility]) 03/01/2018 Past Surgical History: Procedure Laterality Date COLONOSCOPY, DIAGNOSTIC (RECTUM) 01/30/2018 diverticulosis, repeat 10 yrs/COLONOSCOPY FLEXIBLE PROXIMAL DIAGNOSTIC performed by Margarita Jack DO at [facility]: Current Outpatient Medications Medication Sig Dispense Refill Blood Glucose Monitoring Suppl (D-CARE GLUCOMETER) w/Device KIT Use as directed. 1 Kit 0 Blood Pressure KIT Use daily for blood pressure readings 1 Kit 0 Indomethacin 50 MG Capsule Take 1 Cap by mouth 3 times a day as needed for Pain. with food 40 Cap 1 meclizine (ANTIVERT) 25 MG Tablet Take 1 Tab by mouth 3 times a day as needed for Dizziness. 30 Tab2 Refresh 1.4-0.6 % Ophthalmic Solution (polyvinyl alcohol-povidone PF) 1 Drop as needed. OneTouch DelActive Scaler Lancets Fine CHECK BLOOD SUGAR 3 TIMES DAILY. 100 Each 6 Insulin Pen Needle 32G X 6 MM Use with Victoza once daily. 100 Each 3 Aspirin Low Dose 81 MG Oral Tablet Delayed Release (aspirin enteric coated) TAKE 1 TABLET BY MOUTH EVERY DAY 90 Tablet 3 Magnesium Oxide 400 MG Oral Capsule Take by mouth 1 Capsule in the morning. 30 Capsule 6 Riboflavin 400 MG Oral Tablet Take by mouth 1 Tablet in the morning. 30 Tablet 6 Ibuprofen 800 MG Oral Tablet (Motrin) Take by mouth 1 Tablet in the morning AND 1 Tablet at noon AND 1 Tablet before bedtime. with food for pain. (Patient taking differently: Take 1 Tablet by mouth every 8 hours as needed for Pain, Breakthrough or Fever >38C(100.5F). with food for pain) 30 Tablet 1 Levalbuterol Tartrate 45 MCG/ACT Inhalation Aerosol (Xopenex HFA) Inhale 1 Puff by mouth every 4 hours as needed for Wheezing. 15 g 12 FreeStyle Yuval 3 Sensor Use as directed. Change every 14 days. Use to read blood glucose. DX: E11.9. 6 Each 3 Metoprolol Succinate ER 25 MG Oral Tablet Extended Release 24 Hour (toPROL XL) Take 1 Tablet by mouth in the morning. 90 Tablet 3 traZODone HCl 50 MG Oral Tablet (Desyrel) TAKE 1 TABLET BY MOUTH EVERYDAY AT BEDTIME 90 Tablet 3 Mounjaro 10 MG/0.5ML Subcutaneous Solution Pen-injector (Tirzepatide) Inject 10 mg under the skin once a week. 2 mL 11 OneTouch Verio In Vitro Strip (Glucose Blood) TEST 3 TIMES A DAY DIRECTED 300 Strip 3 Ezetimibe 10 MG Oral Tablet (Zetia) TAKE 1 TABLET BY MOUTH EVERY DAY IN THE MORNING 90 Tablet 3 tiZANidine HCl 4 MG Oral Tablet (Zanaflex) Take 1 Tablet by mouth every 6 hours as needed for Muscle spasms. 30 Tablet 3 Lastacaft 0.25 % Ophthalmic Solution (Alcaftadine) Instill 1 Drop into eye in the morning. 3 mL 3 Clotrimazole-Betamethasone 1-0.05 % External Cream (Lotrisone) APPLY TO AFFECTED AREA TOPICALLY TWICE A DAY FOR 28 DAYS (4 WEEKS) OR UNTIL HEALED 45 g 1 Lisinopril 5 MG Oral Tablet (Prinivil) TAKE 1 TABLET BY MOUTH EVERY DAY IN THE MORNING 30 Tablet 0 Tamsulosin HCl 0.4 MG Oral Capsule (Flomax) TAKE 1 CAPSULE BY MOUTH EVERY DAY 90 Capsule 3 Atorvastatin Calcium 40 MG Oral Tablet (Lipitor) TAKE 1 TABLET BY MOUTH EVERY DAY 90 Tablet 4 B-12 1000 MCG Oral Tablet Take 1,000 mcg by mouth in the morning. 90 Tablet 3 metFORMIN HCl 1000 MG Oral Tablet (Glucophage) Take 1 Tablet by mouth 2 times a day with morning and evening meals. 180 Tablet 3 No current facility-administered medications for this visit. ALLERGIES: Review of patient's allergies indicates: No Known Allergies EXAM VA cc OD (D) 20/20-2; VA cc OD (N) 20/20 VA cc OS (D) 20/20; VA cc OS (N) 20/30 PC OD: sph -0.75 cyl +0.50 axis 031 PC OS: sph -1.00 cyl +1.00 axis 173 Add OD +2.25 Add OS +2.25 Auto OD: sph -0.75 cyl +1.00 axis 027 Auto OS: sph -0.75 cyl +0.75 axis 164 MR OD: sph -0.75 cyl +1.00 axis 30 20/20 MR OS: sph -1.00 cyl +0.75 axis 180 20/20 Add OD +2.25 Add OS +2.25 EXTERNAL: CVF: Full OU Lids: minimal MGD Conjunctiva: WNL OU Pupils: PERRL; no APD EOM: Full SLIT LAMP Cornea: clear OU Tear Film: WNL OU A/C: D/Q OU Lens: trace NS OD; trace NS OS Iris: WNL OU TA OD: 12; OS: 12; 3:37 PM DILATED EXAM: Dilated with Mydriacyl 1% and Mydfrin 2.5%; advised re driving Lens used: 28 D and 90 D Vitreous: clear OU C/D: 0.2 OD; 0.2 OS Macula: WNL OD; WNL OS Periphery: WNL OD; WNL OS ASSESSMENT/PLAN DM 2 - controlled - no diabetic retinopathy --pt advised to tightly control blood sugars Mild MGD --tears PRN Incipient cataracts OU - watch Presbyopia - Rx glasses - pt advised of possible initial distortion RTC: 1 y Humphrey Rm MD 06/02/2024 3:37 PM documented in this encounter Nursing Notes * Olena Moran TECH - 06/02/2024 3:13 PM EDT VA cc OD (D) 20/20-2; VA cc OD (N) 20/20 VA cc OS (D) 20/20; VA cc OS (N) 20/30 PC OD: sph -0.75 cyl +0.50 axis 031 PC OS: sph -1.00 cyl +1.00 axis 173 Add OD +2.25 Add OS +2.25 Auto OD: sph -0.75 cyl +1.00 axis 027 Auto OS: sph -0.75 cyl +0.75 axis 164 Hemoglobin AIC Results: Lab Results Component Value Date/Time HEMOGLOBIN A1C - [facility] 5.9 (H) 04/23/2024 07:23 AM HEMOGLOBIN A1C - [facility] 6.2 (H) 08/18/2020 11:02 AM HEMOGLOBIN A1C - [facility] 6.1 (H) 04/24/2019 11:57 AM HEMOGLOBIN A1C - [facility] 6.2 (H) 10/14/2018 04:19 PM HEMOGLOBIN A1C POCT - [facility] 5.7 (H) 04/21/2024 11:06 AM HEMOGLOBIN A1C POCT - [facility] 5.7 (H) 01/17/2024 08:45 AM HEMOGLOBIN A1C POCT - [facility] 5.6 10/15/2023 09:40 AM Patient cautioned that effects of dilation may last 2-7 hours dependent upon individual reaction. It was discussed that driving while dilated is not recommended. documented in this encounter Plan of Treatment Upcoming Encounters Date Type Department Care Team (Late st Contact Info) Description 06/09/2024 3:00 PM EDT Office Visit [facility] [address] [place] [address] Francesco Nguyen MD [address] [place] [address] 06/23/2024 3:00 PM EDT Office Visit [facility] [address] [place] [address] Francesco Nguyen MD [address] [place] [address] 06/30/2024 3:00 PM EDT Office Visit Orthopaedics [facility] [address] [place] [address] Francesco Nguyen MD [address] [place] [address] 07/28/2024 7:00 AM EDT Office Visit Pharmacy, [facility] [address] [facility] [place] [address] Pharmacist1, [facility] [address] [facility] [place] [address] 12/23/2024 5:40 PM EST Office Visit Family Practice [facility] [address] [place] [address] Humphrey Kurtz MD [address] [place] [address] 06/08/2025 3:30 PM EDT Office Visit Ophthalmology, [place] [address] [place] [address] Jin Cantu DO [address] [place] [address] Scheduled Orders Name Type Priority Associated Diagnoses Orde r Schedule DETERMINATION OF REFRACTIVE STATE Procedures Routine Presbyopia Ordered: 06/02/2024 Scheduled Procedures Name Priority Associated Diagnoses Date/Ti [...] 10/07/2018, 04/22/2018 Zoster Vaccines Completed 01/12/2020, 11/11/2019 *BASELINE EKG FOR HTN Completed 03/14/2023 , 02/15/2022, 08/17/2020, Additional history exists HPV (Gardasil) Vaccine Aged Out No lo nger eligible based on patient's age to complete this topic MENINGOCOCCAL (MENACTRA/MENVEO) Aged Out No longer eligible based on patient's age to complete this topic documented as of this encounter Medical Devices Not on filedocumented as of this encounter Visit Diagnoses Diagnosis Encounter for ophthalmic examination and evaluation- Primary Examination of eyes and vision Type 2 diabetes mellitus with hemoglobin A1c goal of less than 8.0% (HCC) Meibomian gland disease, unspecified laterality Presbyopia Senile incipient cataract of both eyes documented in this encounter Additional Health Concerns Infection Onset Date Last Indicated Resolved Time COVID-19 (confirmed) 03/07/2022 03/07/2022 documented as of this encounter Care Teams Holter Scanning Technician Relationship Specialty Start Date End Date Humphrey Kurtz MD [address] [place] [address] PCP - General Family Medicine 10/09/23 documented as of this encounter
--- OUTSIDE RECORDS SUMMARY | 2024-06-27 03:01 | External Medical Summary | Summary of Care ---
Author Name Unknown Organization [facility] Address [address] [place] [address] Phone [phone] Care Team Providers Care Telephone Lines Repairer Name Role Phone Humphrey Kurtz MD Primary Care Provider + Encounter Details Date Type Department Care Team (Late st Contact Info) Description 05/02/2024 Orders Only PATIENT PORTAL DO NOT DELETE THIS DEPT USED BY [place] [id number] Allergies No known active allergiesdocumented as of this encounter (statuses as of 05/02/2024) Medications Medication Sig Dispensed Refills Start Date End Date Status Blood Glucose Monitoring Suppl (D-CARE GLUCOMETER) w/Device KITIndications:Type 2 diabetes mellitus with hemoglobin A1c goal of less than 7.0% ([facility]) Use as directed. 1 Kit [...] hemoglobin A1c goal of less than 7.0% ([facility]) CHECK BLOOD SUGAR 3 TIMES DAILY. 100 Each 6 1 Active Insulin Pen Needle 32G X 6 MMIndications:Type 2 diabetes mellitus with hemoglobin A1c goal of less than 7.0% ([facility]) Use with Victoza once daily. 100 Each 3 2 Active Aspirin Low Dose 81 MG Oral Tablet Delayed Release (aspirin enteric coated)Indications:DM type 2 nursing care encounter ([facility]) TAKE 1 TABLET BY MOUTH [...] Active Additional Information Patient taking differently:800 mg [id number] PRN, Pain, Breakthrough, Fever >38C(100.5F), with food for pain, Reported on 11/28/2023 Levalbuterol Tartrate 45 MCG/ACT Inhalation Aerosol (Xopenex HFA)Indications:Mild intermittent asthma without complication Inhale 1 Puff by mouth every 4 hours as needed for Wheezing. 15 g 12 3 Active FreeStyle Yuval 3 SensorIndications:Type 2 diabetes mellitus with hemoglobin A1c goal of less than 7.0% ([facility]) Use as directed. Change every [...] AT BEDTIME 90 Tablet 3 3 Active metFORMIN HCl 1000 MG Oral Tablet (Glucophage)Indications:T ype 2 diabetes mellitus with hemoglobin A1c goal of less than 7.0% (HCC) TAKE 1 TABLET BY MOUTH 2 TIMES A DAY WITH MORNING AND EVENING MEALS 180 Tablet 3 4 Active Mounjaro 10 MG/0.5ML Subcutaneous Solution Pen-injector (Tirzepatide)Indications: Type 2 diabetes mellitus with hemoglobin A1c goal of less than 7.0% (HCC),Type 2 diabetes mellitus with diabetic cataract, unspecified whether [facility] insulin use (HCC) Inject 10 mg under the skin once a week. 2 mL 11 4 01/17/20 25 Active OneTouch Verio In Vitro Strip (Glucose Blood)Indications:Type 2 diabetes mellitus with hemoglobin A1c goal of less than 7.0% ([facility]) TEST 3 TIMES A DAY DIRECTED 300 [...] the morning. 90 Tablet 3 4 Active documented as of this encounter (statuses as of 05/02/2024) Active Problems Problem Noted Date Diagnosed Date Type 2 diabetes mellitus with diabetic cataract 07/17/2022 Benign prostatic hyperplasia with lower urinary tract symptoms 03/25/2022 Age-related nuclear cataract, bilateral 03/25/20 Recurrent major depressive disorder, in full rem ission 03/25/2022 LINDA (obstructive sleep apnea) 01/17/2022 MARU (generalized anxiety disorder) 11/11/2019 Ophthalmoplegic migraine, not intractable 2019 Coronary artery disease invo lving [place] coronary artery of [place] heart without angina pectoris 05/20/2018 Abnormal stress [...] as of this encounter (statuses as of 05/02/2024) Resolved Problems Problem Noted Date Diagnosed Date [...] as of this encounter (statuses as of 05/02/2024) Immunizations Name Administration Dates Next Due COVID-19 mRNA, LNP-s, No Pre serve, 2-Dose Series ([employer]) 03/03/2021,02/03/2021 Hepatitis B, 20+ yrs 09/17/2019,10/07/2018,06/18 /2018 Pneumococcal Conjugate Vacc, 13 Valent (Prevnar) 01/14/2018 [...] EDT Office Visit Ophthalmology, [place] [address] Humphrey Rm MD [address] [place] [address] 06/09/2024 3:00 PM EDT Office Visit Orthopaedics [facility] [address] [place] [address] Francesco Nguyen MD [address] [place] [address] 06/23/2024 3:00 PM EDT Office Visit Orthopaedics [facility] [address] [place] [address] Francesco Nguyen MD [address] [place] [address] 06/30/2024 3:00 PM EDT Office Visit Orthopaedics [facility] [address] [place] [address] Francesco Nguyen MD [address] [place] [address] 07/28/2024 7:00 AM EDT Office Visit Pharmacy, [facility] [address] [facility] [place] [address] Pharmacist1, [facility] [address] [facility] [place] [address] 12/23/2024 5:40 PM EST Office Visit Family Practice [facility] [address] [place] [address] Humphrey Kurtz MD [address] [place] [address] Scheduled Procedures Name Priority Associated Diagnoses Date/Ti me COLONOSCOPY FLEXIBLE PROXIMA L DIAGNOSTIC Recall Encounter for screening colonoscopy Health Maintenance Due Date Last Done Comments Hepatitis C Screening 1985 Cologuard 2012 Fecal Occult Blood Test 2012 Sigmoidoscopy 2012 Diabetic Foot Exam 10/04/2022 10/04/2021, 0 04/20/2020, 04/28/2019, Additional history exists Diabetic Eye Exam 06/29/2023 06/29/2022, , 06/29/2022, Additional history exists COVID-19 Vaccine ( season) 2023 03/03/2021, 02/03/2021 Influenza Vaccine (FLU shot) (Season Ended) 2024 07/17/2022, 09/27/2021, 07/06/2020, Additional history exists Depression Monitoring 10/09/2024 10/09/2023 HbA1c 10/23/2024 04/23/2024, 04/05, 01/17/2024, Additional history exists Albumin/Creatinine Ratio 04/23/2025 024, 04/16/2023, 03/21/2022, Additional history exists B-12 04/23/2025 04/23/2024, 04/05, 04/12/2022, Additional history exists GFR 04/23/2025 04/23/2024, 04/05, 07/19/2022, Additional history exists Colonoscopy 01/31/2028 01/30/2018, 01/30/2018 Colorectal Cancer Screening 01/31/2028 DTaP,Tdap,and Td Vaccines (2 - Td or Tdap) 03/05/2028 03/05/2018, 03/05/2018 Pneumococcal Vaccine: Pediatrics (0 to 5 Years) and At-Risk Patients (6 to 64 Years) (3 of 3 - PPSV23 or PCV20) 2032 09/17/2019, 01/14/2018 Hepatitis B Completed 09/17/2019, 01/2018, 04/22/2018 Zoster Vaccines Completed 01/12/2020, 11/11/2019 GARDASIL-HPV IMMUNIZATION SERIES Aged Out No longer eligible based on patient's age to complete this topic MENINGOCOCCAL (MENACTRA/MENVEO) Aged Out No longer eligible based on patient's age to complete this topic documented as of this encounter Medical Devices Not on filedocumented as of this encounter Additional Health Concerns Infection Onset Date Last Indicated Resolved Time COVID-19 (confirmed) 03/07/2022 03/07/2022 documented as of this encounter Care Teams Telephone Lines Repairer Relationship Specialty Start Date End Date Humphrey Kurtz MD [address] [place] [address] PCP - General Family Medicine 10/09/23 documented as of this encounter
--- OUTSIDE RECORDS SUMMARY | 2024-06-27 03:01 | External Medical Summary | Summary of Care ---
Author Name Unknown Organization [facility] Address [address] [place] [address] Phone [phone] Care Team Providers Care Preparing Box Tender Name Role Phone Humphrey Santacruz MD Primary Care Provider + Reason for Visit * Reason Onset Date Comments Medication Refill 05/09/2024 Encounter Details Date Type Department Care Team (Late st Contact Info) Description 05/09/2024 Refill Family Practice [facility] [address] [place] [address] Humphrey Santacruz MD [address] [place] [address] Type 2 diabetes mellitus with hemoglobin A1c goal of less than 7.0% (HCC) Allergies No known active allergiesdocumented as of this encounter (statuses as of 05/09/2024) Medications Medication Sig Dispensed Refills Start Date End Date Status Blood Glucose Monitoring Suppl (D-CARE GLUCOMETER) w/Device KITIndications:Type 2 diabetes mellitus with hemoglobin A1c goal of less than 7.0% (HCC) Use as directed. 1 Kit 9 Active [...] than 7.0% ([facility]) CHECK BLOOD SUGAR 3 TIMES DAILY. 100 Each 6 1 Active Insulin Pen Needle 32G X 6 MMIndications:Type 2 diabetes mellitus with hemoglobin A1c goal of less than 7.0% ([facility]) Use with Victoza once daily. 100 Each 3 2 Active Aspirin Low Dose 81 MG Oral Tablet Delayed Release (aspirin enteric coated)Indications:DM type 2 nursing care encounter ([facility]) TAKE 1 TABLET BY MOUTH EVERY DAY [...] Active Additional Information Patient taking differently:800 mg [id number] PRN, Pain, Breakthrough, Fever >38C(100.5F), with food for pain, Reported on 11/28/2023 Levalbuterol Tartrate 45 MCG/ACT Inhalation Aerosol (Xopenex HFA)Indications:Mild intermittent asthma without complication Inhale 1 Puff by mouth every 4 hours as needed for Wheezing. 15 g 12 3 Active FreeStyle Yuval 3 SensorIndications:Type 2 diabetes mellitus with hemoglobin A1c goal of less than 7.0% ([facility]) Use as directed. Change every 14 days. [...] than 7.0% ([facility]),Type 2 diabetes mellitus with diabetic cataract, unspecified whether nursing home insulin use ([facility]) Inject 10 mg under the skin once a week. 2 mL 11 4 025 Active OneTouch Verio In Vitro Strip (Glucose Blood)Indications:Type 2 diabetes mellitus with hemoglobin A1c goal of less than 7.0% ([facility]) TEST 3 TIMES A DAY DIRECTED 300 [...] evening meals. 180 Tablet 3 4 Active metFORMIN HCl 1000 MG Oral Tablet (Glucophage)Indications: Type 2 diabetes mellitus with hemoglobin A1c goal of less than 7.0% (HCC) TAKE 1 TABLET BY MOUTH 2 TIMES A DAY WITH MORNING AND EVENING MEALS 180 Tablet 3 4 024 Discontin ued(Refil l) documented as of this encounter (statuses as of 05/09/2024) Active Problems Problem Noted Date Diagnosed Date Type 2 diabetes mellitus with diabetic cataract 07/17/2022 Benign prostatic hyperplasia with lower urinary tract symptoms 03/25/2022 Age-related nuclear cataract, bilateral 03/25/20 22 Recurrent major depressive disorder, in full rem ission 03/25/2022 LINDA (obstructive sleep apnea) 01/17/2022 MARU (generalized anxiety disorder) 11/11/2019 Ophthalmoplegic migraine, not intractable 2019 Coronary artery disease invo lving [place] coronary artery of [place] heart without angina pectoris 05/20/2018 Abnormal stress [...] as of this encounter (statuses as of 05/09/2024) Resolved Problems Problem Noted Date Diagnosed Date [...] as of this encounter (statuses as of 05/09/2024) Immunizations Name Administration Dates Next Due COVID-19 [...] encounter Miscellaneous Notes * Telephone Encounter - Humphrey Santacruz MD - 05/09/2024 5:05 PM EDTSigned Prescriptions: Disp Refills metFORMIN HCl 1000 MG Oral Tablet (Glucoph*180 Ta*3 Sig: Take 1 Tablet by mouth 2 times a day with morning and evening meals. Authorizing Provider: HUMPHREY SANTACRUZ * Telephone Encounter - Sammi Baldwin LPN - 05/09/2024 3:04 PM EDTPending Prescriptions: Disp Refills metFORMIN HCl 1000 MG Oral Tablet (Glucoph*180 Ta*3 Sig: Take 1 Tablet by mouth 2 times a day with morning and evening meals. * Telephone Encounter - Tiffani Goodson OSA - 05/09/2024 2:44 PM EDT Did you pend patient's preferred pharmacy and medication before forwarding?yes Pharmacy: [id number] [address] [place] [address] Pending Prescriptions: Disp Refills metFORMIN HCl 1000 MG Oral Tablet (Glucop*180 Ta*3 Sig: Take 1 Tablet by mouth 2 times a day with morning and evening meals. Last Visit: 04/22/2024 (in office), 03/22/2020 (telemedicine) Next Visit: 12/23/2024 If no future appointments scheduled, and last appointment is greater than a year ago, please schedule patient for a follow-up appointment Last date the medication was ordered: 12.28.23 Is this request for a controlled substance?No 90 day refill request Urine Drug Screen:No results found for this or any previous visit. Patient Phone Numbers Labs: Lab Results Component Value Date/Time CREAT 0.8 04/23/2024 07:23 AM CREAT 0.8 08/18/2020 11:02 AM POTASSIUM 4.5 04/23/2024 07:23 AM POTASSIUM 4.5 08/18/2020 11:02 AM TSH 1.41 01/19/2020 05:10 PM LDLCALC 86 04/23/2024 07:23 AM LDLCALC 55 08/18/2020 11:02 AM LDLDIRECT 100 08/06/2023 12:16 PM LDLDIRECT NOT APPLICABLE 08/18/2020 11:02 AM ALT 24 04/23/2024 07:23 AM ALT 37 08/18/2020 11:02 AM HGBA1C 5.9 (H) 04/23/2024 07:23 AM HGBA1C 5.7 (H) 04/21/2024 11:06 AM HGBA1C 6.2 (H) 08/18/2020 11:02 AM documented in this encounter Plan of Treatment Upcoming Encounters Date Type Department Care Team (Late st Contact Info) Description 06/02/2024 3:00 PM EDT Office Visit Ophthalmology, [place] [address] [place] [address] Humphrey Rm MD [address] [place] [address] 06/09/2024 3:00 PM EDT Office Visit [facility] [address] [place] [address] Francesco Nguyen MD [address] [place] [address] 06/23/2024 3:00 PM EDT Office Visit [facility] [address] [place] [address] Francesco Nguyen MD [address] [place] [address] 06/30/2024 3:00 PM EDT Office Visit Orthopaedics [facility] [address] [place] [address] Francesco Nguyen MD [address] [place] [address] 07/28/2024 7:00 AM EDT Office Visit Pharmacy, [facility] [address] [facility] [place] [address] Pharmacist1, [facility] [address] [facility] [place] [address] 12/23/2024 5:40 PM EST Office Visit Family Practice [facility] [address] [place] [address] Humphrey Santacruz MD [address] [place] [address] Scheduled Procedures Name Priority Associated Diagnoses Date/Ti [...] documented as of this encounter Care Teams Preparing Box Tender Relationship Specialty Start Date End Date Humphrey Santacruz MD [address] [place] [address] PCP - General Family Medicine 10/09/23 documented as of this encounter
--- OUTSIDE RECORDS SUMMARY | 2024-06-27 03:01 | External Medical Summary | Summary of Care ---
Author Name Unknown Organization [facility] Address [address] [place] [address] Phone [phone] Care Team Providers Care Daycare Teacher Name Role Phone Humphrey Kurtz MD Primary [...] knees Humphrey Kurtz MD [address] [facility] [place] [address] Francesco Nguyen MD [address] [place] [address] Referral ID Status Reason Start Date Expiration Date Visits Requested Visits Authorized [id number] Authorized Specialty Services Required 04/22/[phone] Encounter Details Date Type Department Care Team (Latest Contact Info) Description 06/09/2024 3:00 PM EDT Office Visit Orthopaedics [facility] [address] [place] [address] Francesco Nguyen MD [address] [place] [address] Primary osteoarthritis of right knee*; Primary osteoarthritis of left knee Allergies No known active allergiesdocumented as of this encounter (statuses as of 06/09/2024) Medications Medication Sig Dispensed Refills Start Date End Date Status Blood Glucose Monitoring Suppl (D-CARE GLUCOMETER) w/Device KITIndications:Type 2 diabetes mellitus with hemoglobin A1c goal of less than 7.0% ([facility]) Use as directed. 1 Kit 9 [...] hemoglobin A1c goal of less than 7.0% ([facility]) CHECK BLOOD SUGAR 3 TIMES DAILY. 100 Each 6 1 Active Insulin Pen Needle 32G X 6 MMIndications:Type 2 diabetes mellitus with hemoglobin A1c goal of less than 7.0% ([facility]) Use with Victoza once daily. 100 Each 3 2 Active Aspirin Low Dose 81 MG Oral Tablet Delayed Release (aspirin enteric coated)Indications:DM type 2 nursing care encounter ([facility]) TAKE 1 TABLET BY MOUTH EVERY [...] Active Additional Information Patient taking differently:800 mg [id number] PRN, Pain, Breakthrough, Fever >38C(100.5F), with food for pain, Reported on 11/28/2023 Levalbuterol Tartrate 45 MCG/ACT Inhalation Aerosol (Xopenex HFA)Indications:Mild intermittent asthma without complication Inhale 1 Puff by mouth every 4 hours as needed for Wheezing. 15 g 12 3 Active FreeStyle Yuval 3 SensorIndications:Type 2 diabetes mellitus with hemoglobin A1c goal of less than 7.0% ([facility]) Use as directed. Change every 14 [...] hemoglobin A1c goal of less than 7.0% ([facility]),Type 2 diabetes mellitus with diabetic cataract, unspecified whether tank terminal gauger insulin use ([facility]) Inject 10 mg under the skin [...] intractable 2019 Coronary artery disease invo lving [place] coronary artery of [place] heart without angina pectoris 05/20/2018 Abnormal stress [...] mRNA, LNP-s, No Pre serve, 2-Dose Series ([employer]) 03/03/2021,02/03/2021 Hepatitis B, 20+ yrs 09/17/2019,10/07/2018,04/22 Pneumococcal [...] Nguyen MD Sports Medicine Primary Care Orthopaedics [facility] [address] [facility] [place] [address] documented in this encounter Nursing Notes * Keyana Silva CMA - 06/09/2024 3:08 PM EDT Pt is here for Start of GELSYN PATRICIA documented in this encounter Plan of Treatment Upcoming Encounters Date Type Department Care Team (Late st Contact Info) Description 06/09/2024 4:10 PM EDT Laboratory Laboratory, [facility] 132 [facility] [place] [phone] [facility] 132 [facility] [place] [address] [employer] Other*[id number]; Intestinal malabsorption, unspecified type 06/23/2024 3:00 PM EDT Office Visit Orthopaedics [facility] [address] [facility] [place] [address] Francesco Nguyen MD [address] [place] [address] 06/30/2024 3:00 PM EDT Office Visit Orthopaedics [facility] [address] [place] [address] Francesco Nguyen MD [address] [place] [address] 07/28/2024 7:00 AM EDT Office Visit Pharmacy, [facility] 200 [facility] [place] [address] Pharmacist1, [facility] 200 [facility] [place] [address] 12/23/2024 5:40 PM EST Office Visit Family Practice [facility] [address] [place] [address] Humphrey Kurtz MD [address] [place] [address] 06/08/2025 3:30 PM EDT Office Visit Ophthalmology, [place] [address] [place] [address] Jin Cantu DO [address] [place] [address] Scheduled Procedures Name Priority Associated Diagnoses Date/Ti [...] 06/09/2024 3:34 PM EDT Patient Name: DANIEL PRAJAPATI : [...] Nguyen MD - 06/09/2024 Patient Name: DANIEL PRAJAPATI : 1965 (58y) [...] left knee Primary localized osteoarthrosis, lower leg [employer] Other*[id number] Intestinal malabsorption, unspecified type documented in this encounter Additional Health Concerns Infection Onset Date Last Indicated Resolved Time COVID-19 (confirmed) 03/07/2022 03/07/2022 documented as of this encounter Care Teams Daycare Teacher Relationship Specialty Start Date End Date Humphrey Kurtz MD [address] [facility] [place] [address] PCP - General Family Medicine 10/09/23 documented as of this encounter
--- OUTSIDE RECORDS SUMMARY | 2024-06-27 03:01 | External Medical Summary | Summary of Care ---
Author Name Unknown Organization [facility] Address [address] [place] [address] Phone [phone] Care Team Providers Care Learning And Development Associate Name Role Phone Humphrey Kurtz MD Primary Care Provider + Encounter Details Date Type Department Care Team (Late st Contact Info) Description 06/04/2024 Telephone Family Practice [facility] [address] [facility] [place] [address] Humphrey Kurtz MD [address] [address] Allergies No known active allergiesdocumented as of this encounter (statuses as of 06/04/2024) Medications Medication Sig Dispensed Refills Start Date End Date Status Blood Glucose Monitoring Suppl (D-CARE GLUCOMETER) w/Device KITIndications:Type 2 diabetes mellitus with hemoglobin A1c goal of less than 7.0% ([facility]) Use as directed. 1 Kit 9 Active [...] A1c goal of less than 7.0% ([facility]) CHECK BLOOD SUGAR 3 TIMES DAILY. 100 Each 6 1 Active Insulin Pen Needle 32G X 6 MMIndications:Type 2 diabetes mellitus with hemoglobin A1c goal of less than 7.0% ([facility]) Use with Victoza once daily. 100 Each 3 2 Active Aspirin Low Dose 81 MG Oral Tablet Delayed Release (aspirin enteric coated)Indications:DM type 2 nursing care encounter ([facility]) TAKE 1 TABLET BY MOUTH EVERY DAY [...] Active Additional Information Patient taking differently:800 mg [id number] PRN, Pain, Breakthrough, Fever >38C(100.5F), with food for pain, Reported on 11/28/2023 Levalbuterol Tartrate 45 MCG/ACT Inhalation Aerosol (Xopenex HFA)Indications:Mild intermittent asthma without complication Inhale 1 Puff by mouth every 4 hours as needed for Wheezing. 15 g 12 3 Active FreeStyle Yuavl 3 SensorIndications:Type 2 diabetes mellitus with hemoglobin A1c goal of less than 7.0% ([facility]) Use as directed. Change every 14 days. [...] diabetes mellitus with diabetic cataract, unspecified whether jail insulin use (HCC) Inject 10 mg under [...] as of this encounter (statuses as of 06/04/2024) Active Problems Problem Noted Date Diagnosed Date Type 2 diabetes mellitus with diabetic cataract 07/17/2022 Benign prostatic hyperplasia with lower urinary tract symptoms 03/25/2022 Age-related nuclear cataract, bilateral 03/25/20 22 Recurrent major depressive disorder, in full rem ission 03/25/2022 LINDA (obstructive sleep apnea) 01/17/2022 MARU (generalized anxiety disorder) 11/11/2019 Ophthalmoplegic migraine, not intractable 2019 Coronary artery disease invo lving [place] coronary artery of [place] heart without angina pectoris 05/20/2018 Abnormal stress [...] as of this encounter (statuses as of 06/04/2024) Resolved Problems Problem Noted Date Diagnosed Date [...] as of this encounter (statuses as of 06/04/2024) Immunizations Name Administration Dates Next Due COVID-19 [...] Miscellaneous Notes * Telephone Encounter - Humphrey Kurtz MD - 06/04/2024 4:28 PM EDT Rx sent. * Telephone Encounter - Emely Chiu OSA - 06/04/2024 4:15 PM EDT Pt requesting a refill on the OneTouch Verio in Vitro Strip documented in this encounter Plan of Treatment Upcoming Encounters Date Type Department Care Team (Late st Contact Info) Description 06/09/2024 3:00 PM EDT Office Visit Orthopaedics [facility] [address] [place] [address] Francesco Nguyen MD [address] [place] [address] 06/23/2024 3:00 PM EDT Office Visit [facility] [address] [place] [address] Francesco Nguyen MD [address] [place] [address] 06/30/2024 3:00 PM EDT Office Visit [facility] [address] [place] [address] Francesco Nguyen MD [address] [place] [address] 07/28/2024 7:00 AM EDT Office Visit Pharmacy, [facility] [place] [address] [place] [address] Pharmacist1, [facility] [address] [facility] [place] [address] 12/23/2024 5:40 PM EST Office Visit Family Practice [facility] [address] [place] [address] Humphrey Kurtz MD [address] [place] [address] 06/08/2025 3:30 PM EDT Office Visit Ophthalmology, [place] [address] Jin Cantu DO [address] [place] [address] Scheduled Procedures Name Priority Associated Diagnoses Date/Ti [...] - PPSV23 or PCV20) 2032 09/17/2019, 01/14/2018 HIV Screening Completed 03/05/2018 Hepatitis B Vaccine Completed 09/17/2019, 10/07/2018, 04/22/2018 [...] documented as of this encounter Care Teams Learning And Development Associate Relationship Specialty Start Date End Date Humphrey Kurtz MD [address] [place] [address] PCP - General Family Medicine 10/09/23 documented as of this encounter
--- OUTSIDE RECORDS SUMMARY | 2024-06-27 03:01 | External Medical Summary ---
Author Name Unknown Address Unknown Organization K01:[facility] [address] [place] [address] Laboratory Report Ordering Provider Test Date Status MARISSA KWAN 06/09/2024 15:44:39 Final Observation Date Value Abnormality Reference (Units ) Status Amylase 06/09/2024 15:44:39 69 28-100 (U/ L) Final Performing Location [facility] - [address] [place] [address]
--- OUTSIDE RECORDS SUMMARY | 2024-06-27 03:01 | External Medical Summary | Summary of Care ---
Author Name Unknown Organization [facility] Address [address] [place] [address] Phone [phone] Care Team Providers Care Propulsion Systems Engineer Name Role Phone Humphrey Kurtz MD Primary Care Provider + Reason for Visit * Reason Onset Date Comments Med Request 04/30/2024 Encounter Details Date Type Department Care Team (Late st Contact Info) Description 04/30/2024 Telephone Orthopaedics [facility] [address] [facility] [place] [address] Marcial Jaramillo MD [address] [facility] [place] [address] Med Request Allergies No known active allergiesdocumented as of this encounter (statuses as of 05/05/2024) Medications Medication Sig Dispensed Refills Start Date End Date Status Blood Glucose Monitoring Suppl (D-CARE GLUCOMETER) w/Device KITIndications:Type 2 diabetes mellitus with hemoglobin A1c goal of less than 7.0% ([facility]) Use as directed. 1 Kit 9 Active [...] A1c goal of less than 7.0% ([facility]) CHECK BLOOD SUGAR 3 TIMES DAILY. 100 Each 6 1 Active Insulin Pen Needle 32G X 6 MMIndications:Type 2 diabetes mellitus with hemoglobin A1c goal of less than 7.0% ([facility]) Use with Victoza once daily. 100 Each 3 2 Active Aspirin Low Dose 81 MG Oral Tablet Delayed Release (aspirin enteric coated)Indications:DM type 2 nursing care encounter ([facility]) TAKE 1 TABLET BY MOUTH EVERY DAY [...] Active Additional Information Patient taking differently:800 mg [id number] PRN, Pain, Breakthrough, Fever >38C(100.5F), with food for pain, Reported on 11/28/2023 Levalbuterol Tartrate 45 MCG/ACT Inhalation Aerosol (Xopenex HFA)Indications:Mild intermittent asthma without complication Inhale 1 Puff by mouth every 4 hours as needed for Wheezing. 15 g 12 3 Active FreeStyle Yuval 3 SensorIndications:Type 2 diabetes mellitus with hemoglobin A1c goal of less than 7.0% ([facility]) Use as directed. Change every 14 days. [...] A1c goal of less than 7.0% ([facility]) TAKE 1 TABLET BY MOUTH 2 TIMES A DAY WITH MORNING AND EVENING MEALS 180 Tablet 3 4 Active Mounjaro 10 MG/0.5ML Subcutaneous Solution Pen-injector (Tirzepatide)Indications: Type 2 diabetes mellitus with hemoglobin A1c goal of less than 7.0% (HCC),Type 2 diabetes mellitus with diabetic cataract, unspecified whether filler leaf cutter long insulin use ([facility]) Inject 10 mg under the skin once a week. 2 mL 11 4 01/17/20 25 Active OneTouch Verio In Vitro Strip (Glucose Blood)Indications:Type 2 diabetes mellitus with hemoglobin A1c goal of less than 7.0% ([facility]) TEST 3 TIMES A DAY DIRECTED 300 [...] as of this encounter (statuses as of 05/05/2024) Active Problems Problem Noted Date Diagnosed Date Type 2 diabetes mellitus with diabetic cataract 07/17/2022 Benign prostatic hyperplasia with lower urinary tract symptoms 03/25/2022 Age-related nuclear cataract, bilateral 03/25/20 Recurrent major depressive disorder, in full rem ission 03/25/2022 LINDA (obstructive sleep apnea) 01/17/2022 MARU (generalized anxiety disorder) 11/11/2019 Ophthalmoplegic migraine, not intractable 2019 Coronary artery disease invo lving [place] coronary artery of [place] heart without angina pectoris 05/20/2018 Abnormal stress [...] as of this encounter (statuses as of 05/05/2024) Resolved Problems Problem Noted Date Diagnosed Date [...] as of this encounter (statuses as of 05/05/2024) Immunizations Name Administration Dates Next Due COVID-19 [...] encounter Miscellaneous Notes * Telephone Encounter - Tigist George OSA - 05/05/2024 5:51 AM EDT SEE REFERRAL MESSAGE * Telephone Encounter - Bridgette Chapa MED ASSIST - 04/30/2024 9:11 AM EDT Orthopaedics Pre-Cert Request Medication/Disease State Information: Medication: Hyaluronate- Gelsyn-3 ([id number]): inject 16.8 mg (2 mL) once weekly for 3 weeks (total of 6 injections). Route to [id number] Is there radiological proof(x-ray, cat scan, mri of osteoarthritis? yesIf yes, date of scan: Has the patient tried physical therapy?yes Has the patient tried tylenol or NSAIDs?yes Has the patient failed corticosteroid injections of the knee?yes Has the patient tried weight loss?no Has the patient tried knee bracing?yes Has the patient tried a home exercise program?no Diagnosis (including ICD-10): Bilateral Osteoarthritis of Knee- M17.0 Medication(s) Tried/Failed/Contraindicated: See corresponding visit note(s) for additional supporting clinical information. Office Information: Prescriber: marcial jaramillo documented in this encounter Plan of Treatment Upcoming Encounters Date Type Department Care Team (Late st Contact Info) Description 06/02/2024 3:00 PM EDT Office Visit Ophthalmology, [place] [address] [place] [address] Humphrey Rm MD [address] [place] [address] 06/09/2024 3:00 PM EDT Office Visit [facility] [address] [place] [address] Marcial Jaramillo MD [address] [place] [address] 06/23/2024 3:00 PM EDT Office Visit [facility] [address] [place] [address] Marcial Jaramillo MD [address] [place] [address] 06/30/2024 3:00 PM EDT Office Visit Orthopaedics [facility] [address] [place] [address] Marcial Jaramillo MD [address] [place] [address] 07/28/2024 7:00 AM EDT Office Visit Pharmacy, [facility] 200 [facility] [place] [address] Pharmacist1, [facility] [address] [facility] [place] [address] 12/23/2024 5:40 PM EST Office Visit Family Practice [facility] [address] [place] [address] Humphrey Kurtz MD [address] [place] [address] Scheduled Procedures Name Priority Associated Diagnoses Date/Ti [...] documented as of this encounter Care Teams Propulsion Systems Engineer Relationship Specialty Start Date End Date Humphrey Kurtz MD [address] [place] [address] PCP - General Family Medicine 10/09/23 documented as of this encounter
--- OUTSIDE RECORDS SUMMARY | 2024-06-27 03:01 | External Medical Summary ---
Author Name Unknown Address Unknown Organization K01:[facility] - [address] [facility] [address] Laboratory Report Ordering Provider Test Date Status HARRY NUNN 06/09/2024 15:44:39 Final Observation Date Value Abnormality Reference (Units ) Status MYCODE SPECIMEN-SST 06/09/2024 15:44:39 Freezing of extracted DNA, whole blood and/or serum. Final Performing Location [facility] - [address] [facility] [address]
--- OUTSIDE RECORDS SUMMARY | 2024-06-27 03:01 | External Medical Summary ---
Author Name Unknown Address Unknown Organization K01:LABORATORY [facility] [place] - [address] [place] [address] Laboratory Report Ordering Provider Test Date Status MARISSA KWAN 06/09/2024 15:44:39 Final Observation Date Value Abnormality Reference (Units ) Status Lipase 06/09/2024 15:44:39 28 13-60 (U/L ) Final Performing Location LABORATORY [facility] - [address] [place] [address]
--- OUTSIDE RECORDS SUMMARY | 2024-06-27 03:01 | External Medical Summary | Summary of Care ---
Author Name Unknown Organization [facility] Address [address] [place] [address] Phone [phone] Care Team Providers Care Tumble Tailstock Turret Lathe Operator Name Role Phone Humphrey Kurtz MD Primary Care Provider + Reason for Visit * Reason Onset Date Comments Appointment 06/02/2024 Encounter Details Date Type Department Care Team (Late st Contact Info) Description 06/02/2024 Telephone [facility]mology[facility] [address] [place] [address] Humphrey Rm MD [address] [place], [place] [id number] Appointment Allergies No known active allergiesdocumented as of this encounter (statuses as of 06/03/2024) Medications Medication Sig Dispensed Refills Start Date End Date Status Blood Glucose Monitoring Suppl (D-CARE GLUCOMETER) w/Device KITIndications:Type 2 diabetes mellitus with hemoglobin A1c goal of less than 7.0% ([facility]) Use as directed. 1 Kit [...] hemoglobin A1c goal of less than 7.0% ([facility]) CHECK BLOOD SUGAR 3 TIMES DAILY. 100 Each 6 1 Active Insulin Pen Needle 32G X 6 MMIndications:Type 2 diabetes mellitus with hemoglobin A1c goal of less than 7.0% ([facility]) Use with Victoza once daily. 100 Each 3 2 Active Aspirin Low Dose 81 MG Oral Tablet Delayed Release (aspirin enteric coated)Indications:DM type 2 nursing care encounter ([facility]) TAKE 1 TABLET BY MOUTH [...] Active Additional Information Patient taking differently:800 mg [id number] PRN, Pain, Breakthrough, Fever >38C(100.5F), with food for pain, Reported on 11/28/2023 Levalbuterol Tartrate 45 MCG/ACT Inhalation Aerosol (Xopenex HFA)Indications:Mild intermittent asthma without complication Inhale 1 Puff by mouth every 4 hours as needed for Wheezing. 15 g 12 3 Active FreeStyle Yuval 3 SensorIndications:Type 2 diabetes mellitus with hemoglobin A1c goal of less than 7.0% ([facility]) Use as directed. Change every [...] diabetes mellitus with diabetic cataract, unspecified whether buttermaker helper insulin use (HCC) Inject 10 mg under [...] as of this encounter (statuses as of 06/03/2024) Active Problems Problem Noted Date Diagnosed Date Type 2 diabetes mellitus with diabetic cataract 07/17/2022 Benign prostatic hyperplasia with lower urinary tract symptoms 03/25/2022 Age-related nuclear cataract, bilateral 03/25/20 22 Recurrent major depressive disorder, in full rem ission 03/25/2022 LINDA (obstructive sleep apnea) 01/17/2022 MARU (generalized anxiety disorder) 11/11/2019 Ophthalmoplegic migraine, not intractable 2019 Coronary artery disease invo [place]ving [place] coronary artery of [place] heart without angina pectoris 05/20/2018 Abnormal stress [...] as of this encounter (statuses as of 06/03/2024) Resolved Problems Problem Noted Date Diagnosed Date [...] as of this encounter (statuses as of 06/03/2024) Immunizations Name Administration Dates Next Due COVID-19 [...] encounter Miscellaneous Notes * Telephone Encounter - Kena Tony OSA - 06/02/2024 8:49 AM EDT Pt is being seen in clinic 06.02.[address] Rm as a new pt. His appt notes say CATARACT EVAL. I called to get him rescheduled with the correct provider for cataracts and he told me he does not have cataracts and that this is just for a new pt exam. documented in this encounter Plan of Treatment Upcoming Encounters Date Type Department Care Team (Late st Contact Info) Description 06/09/2024 3:00 PM EDT Office Visit Orthopaedics [facility] [address] [place] [address] Francesco Nguyen MD [address] [place] [address] 06/23/2024 3:00 PM EDT Office Visit [facility] [address] [place] [address] Francesco Nguyen MD [address] [place] [address] 06/30/2024 3:00 PM EDT Office Visit [facility] [address] [place] [address] Francesco Nguyen MD [address] [place] [address] 07/28/2024 7:00 AM EDT Office Visit Pharmacy, [facility] [address] [facility] [place] [address] Pharmacist1, [facility] [address] [facility] [place] [address] 12/23/2024 5:40 PM EST Office Visit Family Practice [facility] [address] [place] [address] Humphrey Kurtz MD [address] [place] [address] 06/08/2025 3:30 PM EDT Office Visit Ophthalmology, [place] [address] [place] [address] [place] [address] Jin Cantu, DO [address] [place] [address] Scheduled Procedures Name Priority Associated Diagnoses Date/Ti [...] documented as of this encounter Care Teams Tumble Tailstock Turret Lathe Operator Relationship Specialty Start Date End Date Humphrey Kurtz MD [address] [place] [address] PCP - General Family Medicine 10/09/23 documented as of this encounter
--- OUTSIDE RECORDS SUMMARY | 2024-06-27 03:01 | External Medical Summary | Summary of Care ---
Author Name Unknown Organization [facility] Address [address] [place] [address] Phone [phone] Care Team Providers Care Bridal Service Sales And Management Name Role Phone Humphrey Kurtz MD Primary Care Provider + Reason for Visit * Reason Onset Date Comments Appointment 06/09/2024 Encounter Details Date Type Department Care Team (Late st Contact Info) Description 06/09/2024 Telephone Orthopaedics [facility] [address] [facility] [place] [address] Francesco Nguyen MD [address] [facility] [address] Appointment Allergies No known active allergiesdocumented as of this encounter (statuses as of 06/09/2024) Medications Medication Sig Dispensed Refills Start Date End Date Status Blood Glucose Monitoring Suppl (D-CARE GLUCOMETER) w/Device KITIndications:Type 2 diabetes mellitus with hemoglobin A1c goal of less than 7.0% ([facility]) Use as directed. 1 Kit 9 [...] goal of less than 7.0% ([facility]) CHECK BLOOD SUGAR 3 TIMES DAILY. 100 Each 6 1 Active Insulin Pen Needle 32G X 6 MMIndications:Type 2 diabetes mellitus with hemoglobin A1c goal of less than 7.0% ([facility]) Use with Victoza once daily. 100 Each 3 2 Active Aspirin Low Dose 81 MG Oral Tablet Delayed Release (aspirin enteric coated)Indications:DM type 2 nursing care encounter ([facility]) TAKE 1 TABLET BY MOUTH EVERY [...] Active Additional Information Patient taking differently:800 mg [id number] PRN, Pain, Breakthrough, Fever >38C(100.5F), with food for pain, Reported on 11/28/2023 Levalbuterol Tartrate 45 MCG/ACT Inhalation Aerosol (Xopenex HFA)Indications:Mild intermittent asthma without complication Inhale 1 Puff by mouth every 4 hours as needed for Wheezing. 15 g 12 3 Active FreeStyle Yuval 3 SensorIndications:Type 2 diabetes mellitus with hemoglobin A1c goal of less than 7.0% ([facility]) Use as directed. Change every 14 [...] diabetes mellitus with diabetic cataract, unspecified whether long goods drier insulin use (HCC) Inject 10 mg under [...] goal of less than 7.0% ([facility]) TEST 3 TIMES A DAY DIRECTED E11.9 [...] intractable 2019 Coronary artery disease invo lving [place] coronary artery of [place] heart without angina pectoris 05/20/2018 Abnormal stress [...] encounter Miscellaneous Notes * Telephone Encounter - Merari Holt OSA - 06/09/2024 3:32 PM EDT Patient checked out with me at his appt at [facility]. I informed him that it is best to keep his injection appts as is, as we may have to push him out further. He was agreeable to this. documented in this encounter Plan of Treatment Upcoming Encounters Date Type Department Care Team (Late st Contact Info) Description 06/09/2024 4:10 PM EDT Laboratory Laboratory, [facility] [address] [place] [phone] Pauly Sorenson [facility] [address] [place] [address] [employer] Other*[id number]; Intestinal malabsorption, unspecified type 06/23/2024 3:00 PM EDT Office Visit Orthopaedics [facility] [address] [place] [address] Francesco Nguyen MD [address] [place] [address] 06/30/2024 3:00 PM EDT [facility] [address] [place] [address] Francesco Nguyen MD [address] [place] [address] 07/28/2024 7:00 AM EDT Office Visit Pharmacy, [facility] [address] [facility] [place] [address] Pharmacist1, [facility] [address] [facility] [place] [address] 12/23/2024 5:40 PM EST Office Visit Family Practice [facility] [address] [place] [address] Humphrey Kurtz MD [address] [place] [address] 06/08/2025 3:30 PM EDT Office Visit Ophthalmology, [place] [address] [place] [address] Jin Cantu DO [address] [facility] [place] [address] Scheduled Procedures Name Priority Associated Diagnoses Date/Ti [...] documented as of this encounter Care Teams Bridal Service Sales And Management Relationship Specialty Start Date End Date Humphrey Kurtz MD [address] [place] [address] PCP - General Family Medicine 10/09/23 documented as of this encounter
--- OUTSIDE RECORDS SUMMARY | 2024-06-27 03:01 | External Medical Summary ---
Author Name Unknown Address Unknown Organization K01:LABORATORY [facility] [place] - [address] [facility] [address] Laboratory Report Ordering Provider Test Date Status HARRY NUNN 06/09/2024 15:44:39 Final Observation Date Value Abnormality Reference (Units ) Status MYCODE SPECIMEN-SST 06/09/2024 15:44:39 Freezing of extracted DNA, whole blood and/or serum. Final Performing Location LABORATORY C - [address] [facility] [address]
--- OUTSIDE RECORDS SUMMARY | 2024-06-27 03:02 | External Medical Summary ---
Author Name Unknown Address Unknown Organization K01:LABORATORY [facility] [place] - [address] [place] [address] Laboratory Report Ordering Provider Test Date Status NEETA ZARATE 04/23/2024 07:27:18 Final Normal: <30 mg/g creatinine< br/>High: 30-300 mg/g creatinine
Very High: >300 mg/g creatinine
Nephrotic: >2200 mg/g creatinine Observation Date Value Abnormality Reference (Units ) Status Albumin, Urine 04/23/2024 07:27:18 <1.20 (mg/dL) Final Creatinine, Urine 04/23/2024 07:27:18 87 (mg/dL) Final Albumin/Creatinine [Mass Ratio] in Urine 04/23/2024 07:27:18 <14 <30 (mg/g Creat) Final Performing Location LABORATORY [facility] [place] - [address] [place] [address]
--- OUTSIDE RECORDS SUMMARY | 2024-06-27 03:02 | External Medical Summary ---
Author Name Unknown Address Unknown Organization K0G[facility] [address] [place] [address] Laboratory Report Ordering Provider Test Date Status NEETA ZARATE 04/23/2024 07:23:00 Final Observation Date Value Abnormality Reference (Units ) Status BUN 04/23/2024 07:23:00 14 6-20 (mg/dL) Final Creatinine 04/23/2024 07:23:00 0.8 0.6-1.2 (mg/dL) Final Glomerular filtration rate/1.73 sq M.predicted [Volume Rate/Area] in Serum, Plasma or Blood by Creatinine-based formula (CKD-EPI) 04/23/2024 07:23:00 >90 >=60 (mL/min) Final eGFR is calculated based on the CKD-EPI 2020 equation Sodium 04/23/2024 07:23:00 140 135-146 (m mol/L) Final Potassium 04/23/2024 07:23:00 4.5 3.5-5.1 (m mol/L) Final Cl 04/23/2024 07:23:00 105 98-107 (mm ol/L) Final CO2 04/23/2024 07:23:00 26 22-32 (mmo l/L) Final Anion gap 04/23/2024 07:23:00 9 7-15 (mmol /L) Final Glucose 04/23/2024 07:23:00 109 70-120 (mg /dL) Final Calcium 04/23/2024 07:23:00 9.3 8.4-10.2 ( mg/dL) Final Performing Location LABORATORY [facility] 0 - [address] [place] [address]
--- OUTSIDE RECORDS SUMMARY | 2024-06-27 03:02 | External Medical Summary | Summary of Care ---
Author Name Unknown Organization [facility] Address [address] [place] [address] Phone [phone] Care Team Providers Care Agronomy Advisor Name Role Phone Humphrey Santacruz MD Primary Care Provider + Reason for Visit * Reason Onset Date Comments eRx-Medication Refill Status Check 04/21/2024 Encounter Details Date Type Department Care Team (Late st Contact Info) Description 04/21/2024 Refill Family Practice [facility] [address] [place] [address] Humphrey Santacruz MD [address] [place] [address] BPH with obstruction/lower urinary tract symptoms; HTN, goal below 130/80 Allergies No known active allergiesdocumented as of this encounter (statuses as of 04/24/2024) Medications Medication Sig Dispensed Refills Start Date End Date Status Blood Glucose Monitoring Suppl (D-CARE GLUCOMETER) w/Device KITIndications:Type 2 diabetes mellitus with hemoglobin A1c goal of less than 7.0% ([facility]) Use as directed. 1 Kit 07/30/20 19 Active Blood Pressure KITIndications:HTN, goal below 130/80 Use daily for blood pressure readings 1 Kit 09/03/20 19 Active Indomethacin 50 MG CapsuleIndications:Pain of toe of right foot Take 1 Cap by mouth 3 times a day as needed for Pain. with food 40 Cap 1 11/11/19 20 Active meclizine (ANTIVERT) 25 MG TabletIndications:[place] paroxysmal positional vertigo, unspecified laterality Take 1 Tab by mouth 3 times a day as needed for Dizziness. 30 Tab 2 03/25/20 Active Refresh 1.4-0.6 % Ophthalmic Solution (polyvinyl alcohol-povidone PF) 1 Drop as needed. Active OneTouch Delica Lancets FineIndications:Type 2 diabetes mellitus with hemoglobin A1c goal of less than 7.0% ([facility]) CHECK BLOOD SUGAR 3 TIMES DAILY. 100 Each 05/17/20 21 Active Insulin Pen Needle 32G X 6 MMIndications:Type 2 diabetes mellitus with hemoglobin A1c goal of less than 7.0% ([facility]) Use with Victoza once daily. 100 Each 3 01/04/20 22 Active Aspirin Low Dose 81 MG Oral Tablet Delayed Release (aspirin enteric coated)Indications:DM type 2 nursing care encounter ([facility]) TAKE 1 TABLET BY MOUTH EVERY DAY 90 Tablet 3 03/30/20 22 Active Magnesium Oxide 400 MG Oral Capsule Take by mouth 1 Capsule in the morning. 30 Capsule 6 04/24/20 22 Active Riboflavin 400 MG Oral Tablet Take by mouth 1 Tablet in the morning. 30 Tablet 6 04/24/20 22 Active Ibuprofen 800 MG Oral Tablet (Motrin)Indications:[place] ateral occipital neuralgia Take by mouth 1 Tablet in the morning AND 1 Tablet at noon AND 1 Tablet before bedtime. with food for pain. 30 Tablet 1 07/17/20 22 Active Additional Information Patient taking differently:800 mg [id number] PRN, Pain, Breakthrough, Fever >38C(100.5F), with food for pain, Reported on 11/28/2023 Levalbuterol Tartrate 45 MCG/ACT Inhalation Aerosol (Xopenex HFA)Indications:Mild intermittent asthma without complication Inhale 1 Puff by mouth every 4 hours as needed for Wheezing. 15 g 12 06/11/20 23 Active FreeStyle Yuval 3 SensorIndications:Type 2 diabetes mellitus with hemoglobin A1c goal of less than 7.0% ([facility]) Use as directed. Change every 14 days. Use to read blood glucose. DX: E11.9. 6 Each 3 07/16/20 23 Active Metoprolol Succinate ER 25 MG Oral Tablet Extended Release 24 Hour (toPROL XL)Indications:PVC's (premature ventricular contractions) Take 1 Tablet by mouth in the morning. 90 Tablet 3 10/09/20 23 Active traZODone HCl 50 MG Oral Tablet (Desyrel)Indications:In somnia, unspecified type TAKE 1 TABLET BY MOUTH EVERYDAY AT BEDTIME 90 Tablet 3 11/01/20 23 Active metFORMIN HCl 1000 MG Oral Tablet (Glucophage)Indications :Type 2 diabetes mellitus with hemoglobin A1c goal of less than 7.0% (HCC) TAKE 1 TABLET BY MOUTH 2 TIMES A DAY WITH MORNING AND EVENING MEALS 180 Tablet 3 12/28/19 24 Active Mounjaro 10 MG/0.5ML Subcutaneous Solution Pen-injector (Tirzepatide)Indication s:Type 2 diabetes mellitus with hemoglobin A1c goal of less than 7.0% (HCC),Type 2 diabetes mellitus with diabetic cataract, unspecified whether fci insulin use (HCC) Inject 10 mg under the skin once a week. 2 mL 11 01/17/20 24 025 Active OneTouch Verio In Vitro Strip (Glucose Blood)Indications:Type 2 diabetes mellitus with hemoglobin A1c goal of less than 7.0% ([facility]) TEST 3 TIMES A DAY DIRECTED 300 Strip 3 02/16/20 24 Active Ezetimibe 10 MG Oral Tablet (Zetia)Indications:Pure hypercholesterolemia TAKE 1 TABLET BY MOUTH EVERY DAY IN THE MORNING 90 Tablet 3 03/06/20 24 Active tiZANidine HCl 4 MG Oral Tablet (Zanaflex)Indications:S pasm of muscle Take 1 Tablet by mouth every 6 hours as needed for Muscle spasms. 30 Tablet 3 03/11/20 24 Active Lastacaft 0.25 % Ophthalmic Solution (Alcaftadine)Indication s:Allergic conjunctivitis, bilateral Instill 1 Drop into eye in the morning. 3 mL 3 03/12/20 24 Active Clotrimazole-Betamethas one 1-0.05 % External Cream (Lotrisone)Indications: Tinea pedis, unspecified laterality APPLY TO AFFECTED AREA TOPICALLY TWICE A DAY FOR 28 DAYS (4 WEEKS) OR UNTIL HEALED 45 g 1 04/15/20 24 Active Lisinopril 5 MG Oral Tablet (Prinivil)Indications:H TN, goal below 130/80 TAKE 1 TABLET BY MOUTH EVERY DAY IN THE MORNING 30 Tablet 04/15/20 24 Active Tamsulosin HCl 0.4 MG Oral Capsule (Flomax)Indications:BPH with obstruction/lower urinary tract symptoms TAKE 1 CAPSULE BY MOUTH EVERY DAY 90 Capsule 3 04/22/20 24 Active Atorvastatin Calcium 40 MG Oral Tablet (Lipitor)Indications:Pu re hypercholesterolemia TAKE 1 TABLET BY MOUTH EVERY DAY 90 Tablet 4 04/21/20 24 Active Tamsulosin HCl 0.4 MG Oral Capsule (Flomax)Indications:BPH with obstruction/lower urinary tract symptoms TAKE 1 CAPSULE BY MOUTH EVERY DAY 90 Capsule 3 09/09/20 23 024 Discontinued documented as of this encounter (statuses as of 04/24/2024) Active Problems Problem Noted Date Diagnosed Date Type 2 diabetes mellitus with diabetic cataract 07/17/2022 Benign prostatic hyperplasia with lower urinary tract symptoms 03/25/2022 Age-related nuclear cataract, bilateral 03/25/20 Recurrent major depressive disorder, in full rem ission 03/25/2022 LINDA (obstructive sleep apnea) 01/17/2022 MARU (generalized anxiety disorder) 11/11/2019 Ophthalmoplegic migraine, not intractable 2019 Coronary artery disease invo [place]ving [place] coronary artery of [place] heart without angina pectoris 05/20/2018 Abnormal stress [...] as of this encounter (statuses as of 04/24/2024) Resolved Problems Problem Noted Date Diagnosed Date [...] as of this encounter (statuses as of 04/24/2024) Immunizations Name Administration Dates Next Due COVID-19 [...] encounter Miscellaneous Notes * Telephone Encounter - Kiya Wilson PHARM Tech - 04/24/2024 5:07 PM EDT Pt calling to request B-12 1000 MCG Oral Tablet Lisinopril 5 MG Oral Tablet (Prinivil) Lastacaft 0.25 % Ophthalmic Solution (Alcaftadine) Mounjaro 10 MG/0.5ML Subcutaneous Solution Pen-injector (Tirzepatide) . Informed pt that RX is available at their pharmacy. Pt verbalized understanding and stated they will check with their pharmacy regarding this medication. Thank you, Kiya Wilson [facility] Operations Dispatcher Retail Team Leader [facility] ([facility]) 04/24/2024,5:07 PM * Telephone Encounter - Humphrey Santacruz MD - 04/23/2024 10:53 PM EDT Signed Prescriptions: Disp Refills Tamsulosin HCl 0.4 MG Oral Capsule (Flomax)90 Cap*3 Sig: TAKE 1 CAPSULE BY MOUTH EVERY DAY Authorizing Provider: HUMPHREY SANTACRUZ Ordering User: IVLLA MENDOZA Refused Prescriptions: Disp Refills Ciprofloxacin HCl 0.3 % Ophthalmic Solutio*5 mL 0 Sig: INSTILL 1 DROP INTO THE LEFT EYE IN THE MORNING A ND 1 DROP AT NOON AND 1 DROP IN THE EVENING AND 1 DROP BEFORE BEDTIME. DO ALL THIS FOR 10 DAYS. Refused By: HUMPHREY SANTACRUZ Reason for Refusal: Not indicated Lisinopril 5 MG Oral Tablet (Prinivil) 30 Tab*0 Sig: TAKE 1 TABLET BY MOUTH EVERY DAY IN THE MORNING Refused By: VILLA MENDOZA Reason for Refusal: Duplicate Request * Telephone Encounter - [place] [facility] - 04/22/2024 1:56 PM EDT Pending Prescriptions: Disp Refills Ciprofloxacin HCl 0.3 % Ophthalmic Solutio*5 mL 0 Sig: INSTILL 1 DROP INTO THE LEFT EYE IN THE MORNING AND 1 DROP AT NOON AND 1 DROP IN THE EVENING AND 1 DROP BEFORE BEDTIME. DO ALL THIS FOR 10 DAYS.Signed Prescriptions: Disp Refills Tamsulosin HCl 0.4 MG Oral Capsule (Flomax)90 Cap*3 Sig: TAKE 1 CAPSULE BY MOUTH EVERY DAYAuthorizing Provider: HUMPHREY SANTACRUZ User: VILLA MENDOZA Prescriptions: Disp Refills Lisinopril 5 MG Oral Tablet (Prinivil) 30 Tab*0 Sig: TAKE 1 TABLET BY MOUTH EVERY DAY IN THE MORNINGRefused By: VILLA MENDOZA for Refusal: Duplicate Request documented in this encounter Plan of Treatment Upcoming Encounters Date Type Department Care Team (Late st Contact Info) Description 07/28/2024 7:00 AM EDT Office Visit Pharm[facility], [facility] [address] [facility] [address] Pharmacist1, [facility] [address] [facility] [place] [place] [address] 12/23/2024 5:40 PM EST Office Visit Family Practice [facility] [address] [place] [address] Humphrey Santacruz MD [address] [place] [address] Scheduled Procedures Name Priority Associated Diagnoses Date/Ti me COLONOSCOPY FLEXIBLE PROXIMA L DIAGNOSTIC Recall Encounter for screening colonoscopy Health Maintenance Due Date Last Done Comments Hepatitis C Screening 1985 Cologuard 2012 Fecal Occult Blood Test 2012 Sigmoidoscopy 2012 Diabetic Foot Exam 10/04/2022 10/04/2021, 0 04/20/2020, 04/28/2019, Additional history exists Diabetic Eye Exam 06/29/2023 06/29/2022, , 06/29/2022, Additional history exists COVID-19 Vaccine (3 - [...] 2032 09/17/2019, 01/14/2018 Hepatitis B Completed 09/17/2019, 1201/2018, 04/22/2018 Zoster Vaccines Completed 01/12/2020, 11/11/2019 GARDASIL-HPV IMMUNIZATION SERIES Aged Out No longer eligible based on patient's age to complete this topic MENINGOCOCCAL (MENACTRA/MENVEO) Aged Out No longer eligible based on patient's age to complete this topic documented as of this encounter Medical Devices Not on filedocumented as of this encounter Visit Diagnoses Diagnosis BPH with obstruction/lower urinary tract symptoms Hypertrophy of prostate with urinary obstruction and other lower urinary tract symptoms (LUTS) HTN, goal below 130/80 Unspecified essential hypertension documented in this encounter Additional Health Concerns Infection Onset Date Last Indicated Resolved Time COVID-19 (confirmed) 03/07/2022 03/07/2022 documented as of this encounter Care Teams Agronomy Advisor Relationship Specialty Start Date End Date Humphrey Santacruz MD [address] [place] [address] PCP - General Family Medicine 10/09/23 documented as of this encounter
--- OUTSIDE RECORDS SUMMARY | 2024-06-27 03:02 | External Medical Summary | Summary of Care ---
Author Name Unknown Organization [facility] Address [address] [place] [address] Phone [phone] Care Team Providers Care Director Of Elementary Education Name Role Phone Humphrey Kurtz MD Primary Care Provider + Reason for Visit * Reason Comments Outpatient Testing Encounter Details Date Type Department Care Team (Late st Contact Info) Description 04/23/2024 7:10 AM EDT Laboratory Laboratory, [facility] [address] [place] [phone] [facility] [address] [place] [address] Type 2 diabetes mellitus with diabetic cataract, unspecified whether nursing home insulin use (HCC); Encounter for long-term (current) use of medications; Screening for prostate cancer Allergies No known active allergiesdocumented as of this encounter (statuses as of 04/23/2024) Medications Medication Sig Dispensed Refills Start Date End Date Status Blood Glucose Monitoring Suppl (D-CARE GLUCOMETER) w/Device KITIndications:Type 2 diabetes mellitus with hemoglobin A1c goal of less than 7.0% ([facility]) Use as directed. 1 Kit [...] hemoglobin A1c goal of less than 7.0% ([facility]) CHECK BLOOD SUGAR 3 TIMES DAILY. 100 Each 6 1 Active Insulin Pen Needle 32G X 6 MMIndications:Type 2 diabetes mellitus with hemoglobin A1c goal of less than 7.0% ([facility]) Use with Victoza once daily. 100 Each 3 2 Active Aspirin Low Dose 81 MG Oral Tablet Delayed Release (aspirin enteric coated)Indications:DM type 2 nursing care encounter ([facility]) TAKE 1 TABLET BY MOUTH [...] Active Additional Information Patient taking differently:800 mg [id number] PRN, Pain, Breakthrough, Fever >38C(100.5F), with food for pain, Reported on 11/28/2023 Levalbuterol Tartrate 45 MCG/ACT Inhalation Aerosol (Xopenex HFA)Indications:Mild intermittent asthma without complication Inhale 1 Puff by mouth every 4 hours as needed for Wheezing. 15 g 12 3 Active FreeStyle Yuval 3 SensorIndications:Type 2 diabetes mellitus with hemoglobin A1c goal of less than 7.0% ([facility]) Use as directed. Change every [...] mellitus with diabetic cataract, unspecified whether long term care social worker insulin use (HCC) Inject 10 mg under [...] EVERY DAY 90 Tablet 4 4 Active documented as of this encounter (statuses as of 04/23/2024) Active Problems Problem Noted Date Diagnosed Date Type 2 diabetes mellitus with diabetic cataract 07/17/2022 Benign prostatic hyperplasia with lower urinary tract symptoms 03/25/2022 Age-related nuclear cataract, bilateral 03/25/20 22 Recurrent major depressive disorder, in full rem ission 03/25/2022 LINDA (obstructive sleep apnea) 01/17/2022 MARU (generalized anxiety disorder) 11/11/2019 Ophthalmoplegic migraine, not intractable 2019 Coronary artery disease invo lving [place] coronary artery of [place] heart without angina pectoris 05/20/2018 Abnormal stress [...] as of this encounter (statuses as of 04/23/2024) Resolved Problems Problem Noted Date Diagnosed Date [...] as of this encounter (statuses as of 04/23/2024) Immunizations Name Administration Dates Next Due COVID-19 [...] 07/28/2024 7:00 AM EDT Office Visit Pharmacy, State J[facility] Kumar [address] [place] [id number] Pharmacist1, [facility] [address] [place] [id number] 12/23/2024 5:40 PM EST Office Visit Family Practice [facility] [address] [facility] [place] [address] Humphrey Kurtz MD [address] [place] [address] Pending Results Name Type Priority Associated Diagnoses Date /Time HEMOGLOBIN A1C Lab Routine Type 2 diabetes mellitus with diabetic cataract, unspecified whether long term care social worker insulin use (HCC) 04/23/2024 7:23 AM EDT BASIC METABOLIC PANEL Lab Routine Type 2 diabetes mellitus with diabetic cataract, unspecified whether long term care social worker insulin use (HCC) 04/23/2024 7:23 AM EDT LIPID PANEL WITH DIRECT LDL IF TG IS HIGH Lab Routine Type 2 diabetes mellitus with diabetic cataract, unspecified whether nursing home insulin use (HCC) 04/23/2024 7:23 AM EDT HEPATIC FUNCTION PANEL Lab Routine Type 2 diabetes mellitus with diabetic cataract, unspecified whether long term care social worker insulin use (HCC) 04/23/2024 7:23 AM EDT VITAMIN B12 Lab Routine Encounter for long-term (current) use of medications 04/23/2024 7:23 AM EDT PSA Lab Routine Screening for prostate cancer 04/23/2024 7:23 AM EDT ALBUMIN / CREATININE RATIO, URINE Lab Routine Type 2 diabetes mellitus with diabetic cataract, unspecified whether long term care social worker insulin use (HCC) 04/23/2024 7:27 AM EDT Scheduled Procedures Name Priority Associated Diagnoses [...] COVID-19 Vaccine ( season) 2023 03/03/2021, 02/03/2021 Albumin/Creatinine Ratio 04/16/2024 023, 03/21/2022, 09/27/2021, Additional history exists B-12 04/17/2024 04/17/2023, 06/2022, 08/18/2020, Additional history exists GFR 04/17/2024 04/17/2023, 07/06, 03/20/2022, Additional history exists Influenza Vaccine (FLU shot) (Season Ended) 2024 07/17/2022, 09/27/2021, 07/06/2020, Additional history exists Depression Monitoring 10/09/2024 10/09/2023 HbA1c 10/21/2024 04/21/2024, 01/03, 10/15/2023, Additional history exists Colonoscopy 01/31/2028 01/30/2018, 01/30/2018 [...] Diagnoses Diagnosis Type 2 diabetes mellitus with diabetic cataract, unspecified whether nursing home insulin use (HCC) Encounter for long-term (current) use of medications Encounter for long-term (current) use of other medications Screening for prostate cancer Special screening for malignant neoplasm of prostate documented in this encounter Additional Health Concerns Infection Onset Date Last Indicated Resolved Time COVID-19 (confirmed) 03/07/2022 03/07/2022 documented as of this encounter Care Teams Director Of Elementary Education Relationship Specialty Start Date End Date Humphrey Kurtz MD [address] [place] [id number] PCP - General Family Medicine 10/09/23 documented as of this encounter
--- OUTSIDE RECORDS SUMMARY | 2024-06-27 03:02 | External Medical Summary | Summary of Care ---
Author Name Unknown Organization [facility] Address [address] [place] [address] Phone [phone] Care Team Providers Care Fermentologist Name Role Phone Humphrey Kurtz MD Primary Care Provider + Reason for Visit * Reason Onset Date Comments Medication Question 04/22/2024 Encounter Details Date Type Department Care Team (Late st Contact Info) Description 04/22/2024 Telephone Family Practice [facility] [address] [place] [address] Humphrey Kurtz MD [address] [place] [address] Medication Question Allergies No known active allergiesdocumented as of this encounter (statuses as of 04/23/2024) Medications Medication Sig Dispensed Refills Start Date End Date Status Blood Glucose Monitoring Suppl (D-CARE GLUCOMETER) w/Device KITIndications:Type 2 diabetes mellitus with hemoglobin A1c goal of less than 7.0% ([facility]) Use as directed. 1 Kit [...] goal of less than 7.0% ([facility]) CHECK BLOOD SUGAR 3 TIMES DAILY. 100 Each 6 1 Active Insulin Pen Needle 32G X 6 MMIndications:Type 2 diabetes mellitus with hemoglobin A1c goal of less than 7.0% ([facility]) Use with Victoza once daily. 100 Each 3 2 Active Aspirin Low Dose 81 MG Oral Tablet Delayed Release (aspirin enteric coated)Indications:DM type 2 nursing care encounter ([facility]) TAKE 1 TABLET BY MOUTH [...] Active Additional Information Patient taking differently:800 mg [id number] PRN, Pain, Breakthrough, Fever >38C(100.5F), with food for pain, Reported on 11/28/2023 Levalbuterol Tartrate 45 MCG/ACT Inhalation Aerosol (Xopenex HFA)Indications:Mild intermittent asthma without complication Inhale 1 Puff by mouth every 4 hours as needed for Wheezing. 15 g 12 3 Active FreeStyle Yuval 3 SensorIndications:Type 2 diabetes mellitus with hemoglobin A1c goal of less than 7.0% ([facility]) Use as directed. Change every [...] goal of less than 7.0% ([facility]) TAKE 1 TABLET BY MOUTH 2 TIMES A DAY WITH MORNING AND EVENING MEALS 180 Tablet 3 4 Active Mounjaro 10 MG/0.5ML Subcutaneous Solution Pen-injector (Tirzepatide)Indications: Type 2 diabetes mellitus with hemoglobin A1c goal of less than 7.0% ([facility]),Type 2 diabetes mellitus with diabetic cataract, unspecified whether jail insulin use ([facility]) Inject 10 mg under the skin once a week. 2 mL 11 4 01/17/20 25 Active OneTouch Verio In Vitro Strip (Glucose Blood)Indications:Type 2 diabetes mellitus with hemoglobin A1c goal of less than 7.0% ([facility]) TEST 3 TIMES A DAY DIRECTED [...] intractable 2019 Coronary artery disease invo lving [place] coronary artery of [place] heart without angina pectoris 05/20/2018 Abnormal stress [...] mRNA, LNP-s, No Pre serve, 2-Dose Series ([employer]) 03/03/2021,02/03/2021 Hepatitis B, 20+ yrs 09/17/2019,10/07/2018,04/22 Pneumococcal [...] encounter Miscellaneous Notes * Telephone Encounter - Jerome Waters RPh - 04/23/2024 9:23 AM EDT Images from the original note were not included. Patient Phone Numbers [employer] [phone] Sent the above coupon to patient to try. Called patient at 9:27 AM, 10:36 AM, 11:25 AM, 1:07 PM and no answer and voicemail full. Jerome Villa RPh, [facility] Clinical Pharmacist [facility] 04/23/2024, 9:26 AM * Telephone Encounter - Carrol Frazier OSA - 04/22/2024 6:25 PM EDT Pt has question concerning Trav Barakat 3, says insurance is not covering it and wants to see ifthere is a way to send it somewhere else or get it covered. documented in this encounter Plan of Treatment Upcoming Encounters Date Type Department Care Team (Late st Contact Info) Description 07/28/2024 7:00 AM EDT Office Visit Pharmacy, [facility] [address] [facility] [place] [address] Pharmac[address], [facility] [address] [facility] [place] [id number] 12/23/2024 5:40 PM EST Office Visit Family Practice [facility] [address] [place] [address] Humphrey Kurtz MD [address] [place] [address] Scheduled Procedures Name Priority Associated Diagnoses Date/Ti [...] COVID-19 Vaccine ( season) 2023 03/03/2021, 02/03/2021 B-12 04/17/2024 04/23/2024, 04/05, 04/12/2022, Additional history exists Influenza Vaccine (FLU shot) (Season Ended) 2024 07/17/2022, 09/27/2021, 07/06/2020, Additional history exists Depression Monitoring 10/09/2024 10/09/2023 HbA1c 10/23/2024 04/23/2024, 04/05, 01/17/2024, Additional history exists Albumin/Creatinine Ratio 04/23/2025 024, 04/16/2023, 03/21/2022, Additional history exists GFR 04/23/2025 04/23/2024, 04/05, [...] documented as of this encounter Care Teams Fermentologist Relationship Specialty Start Date End Date Humphrey Kurtz MD [address] [place] [id number] PCP - General Family Medicine 10/09/23 documented as of this encounter
--- OUTSIDE RECORDS SUMMARY | 2024-06-27 03:02 | External Medical Summary | Summary of Care ---
Author Name Unknown Organization [facility] Address [address] [place] [address] Phone [phone] Care Team Providers Care Music Critic Name Role Phone Humphrey Kurtz MD Primary Care Provider + Reason for Visit * Reason Comments Outpatient Testing Encounter Details Date Type Department Care Team (Late st Contact Info) Description 04/23/2024 7:10 AM EDT Laboratory Laboratory, [facility] [address] [place] [phone] [facility] [address] [place] [address] Type 2 diabetes mellitus with diabetic cataract, unspecified whether fpc insulin use (HCC); Encounter for long-term (current) use of medications; Screening for prostate cancer Allergies No known active allergiesdocumented as of this encounter (statuses as of 04/23/2024) Medications Medication Sig Dispensed Refills Start Date End Date Status Blood Glucose Monitoring Suppl (D-CARE GLUCOMETER) w/Device KITIndications:Type 2 diabetes mellitus with hemoglobin A1c goal of less than 7.0% ([facility]) Use as directed. 1 Kit [...] goal of less than 7.0% ([facility]) CHECK BLOOD SUGAR 3 TIMES DAILY. 100 Each 6 1 Active Insulin Pen Needle 32G X 6 MMIndications:Type 2 diabetes mellitus with hemoglobin A1c goal of less than 7.0% ([facility]) Use with Victoza once daily. 100 Each 3 2 Active Aspirin Low Dose 81 MG Oral Tablet Delayed Release (aspirin enteric coated)Indications:DM type 2 nursing care encounter ([facility]) TAKE 1 TABLET BY MOUTH [...] Active Additional Information Patient taking differently:800 mg [id number] PRN, Pain, Breakthrough, Fever >38C(100.5F), with food for pain, Reported on 11/28/2023 Levalbuterol Tartrate 45 MCG/ACT Inhalation Aerosol (Xopenex HFA)Indications:Mild intermittent asthma without complication Inhale 1 Puff by mouth every 4 hours as needed for Wheezing. 15 g 12 3 Active FreeStyle Yuval 3 SensorIndications:Type 2 diabetes mellitus with hemoglobin A1c goal of less than 7.0% ([facility]) Use as directed. Change every [...] mellitus with diabetic cataract, unspecified whether buttermaker insulin use (HCC) Inject 10 mg under [...] intractable 2019 Coronary artery disease invo lving [place] coronary artery of [place] heart without angina pectoris 05/20/2018 Abnormal stress [...] State Jana Kumar [address] [place] [address] Pharmacist1, [facility] [address] [place] [id number] 12/23/2024 5:40 PM EST Office Visit Family Practice [facility] [address] [facility] [place] [address] Humphrey Kurtz MD [address] [place] [address] Pending Results Name Type Priority Associated Diagnoses Date /Time HEMOGLOBIN A1C Lab Routine Type 2 diabetes mellitus with diabetic cataract, unspecified whether buttermaker insulin use (HCC) 04/23/2024 7:23 AM EDT BASIC METABOLIC PANEL Lab Routine Type 2 diabetes mellitus with diabetic cataract, unspecified whether buttermaker insulin use (HCC) 04/23/2024 7:23 AM EDT LIPID PANEL WITH DIRECT LDL IF TG IS HIGH Lab Routine Type 2 diabetes mellitus with diabetic cataract, unspecified whether fpc insulin use (HCC) 04/23/2024 7:23 AM EDT HEPATIC FUNCTION PANEL Lab Routine Type 2 diabetes mellitus with diabetic cataract, unspecified whether buttermaker insulin use (HCC) 04/23/2024 7:23 AM EDT VITAMIN B12 Lab Routine Encounter for long-term (current) use of medications 04/23/2024 7:23 AM EDT PSA Lab Routine Screening for prostate cancer 04/23/2024 7:23 AM EDT ALBUMIN / CREATININE RATIO, URINE Lab Routine Type 2 diabetes mellitus with diabetic cataract, unspecified whether buttermaker insulin use (HCC) 04/23/2024 7:27 AM EDT [...] diabetes mellitus with diabetic cataract, unspecified whether fpc insulin use (HCC) Encounter for long-term (current) use of medications Encounter for long-term (current) use of other medications Screening for prostate cancer Special screening for malignant neoplasm of prostate documented in this encounter Additional Health Concerns Infection Onset Date Last Indicated Resolved Time COVID-19 (confirmed) 03/07/2022 03/07/2022 documented as of this encounter Care Teams Music Critic Relationship Specialty Start Date End Date Humphrey Kurtz MD [address] [place] [id number] PCP - General Family Medicine 10/09/23 documented as of this encounter
--- OUTSIDE RECORDS SUMMARY | 2024-06-27 03:02 | External Medical Summary | Summary of Care ---
Author Name Unknown Organization [facility] Address [address] [place] [address] Phone [phone] Care Team Providers Care Fur Grader Name Role Phone Humphrey Kurtz MD Primary Care Provider + Reason for Referral * Evaluate & Treat - Unlimited Visits (Within 10 days (routine)) - Authorized Specialty Diagnoses / Procedures Referred By Contac t Referred To Contact Physical Therapy / Physical Medicine And Rehab Diagnoses Primary osteoarthritis of both knees Francesco Nguyen MD [address] [place] [address] Referral ID Status Reason Start Date Expiration Date Visits Requested Visits Authorized [id number] Authorized Specialty Services Required 04/30/[phone] Question Answer Referral Priority Within 10 days (routine) Where should this appointment be scheduled? [facility] Comments Chronic BL knee pain 04/30/2022: Bilateral knee x-ray IMPRESSION Severe bilateral knee arthrosis with particularly prominent tricompartmental osteophytes and numerous joint bodies bilaterally, some of which are thought to be within a popliteal cyst on the left. Small amount of suprapatellar joint effusion, right worse than left. Reason for Visit * Reason Comments Follow Up Bilateral knee pain * Evaluate & Treat - Unlimited Visits (Within 10 days (routine)) - Authorized Specialty Diagnoses / Procedures Referred By Contac t Referred To Contact Sports Medicine / Orthopedics Diagnoses Arthralgia of both knees Humphrey Kurtz MD [address] [place] [address] Francesco Nguyen MD [address] [place] [address] Referral ID Status Reason Start Date Expiration Date Visits Requested Visits Authorized [id number] Authorized Specialty Services Required 04/22/[phone] Encounter Details Date Type Department Care Team (Latest Contact Info) Description 04/30/2024 8:45 AM EDT Office Visit Orthopaedics [facility] [address] [place] [address] Francesco Nguyen MD [address] [place] [address] Primary osteoarthritis of both knees*; Chronic pain of both knees Allergies No known active allergiesdocumented as of this encounter (statuses as of 04/30/2024) Medications Medication Sig Dispensed Refills Start Date End Date Status Blood Glucose Monitoring Suppl (D-CARE GLUCOMETER) w/Device KITIndications:Type 2 diabetes mellitus with hemoglobin A1c goal of less than 7.0% ([facility]) Use as directed. 1 Kit [...] goal of less than 7.0% ([facility]) CHECK BLOOD SUGAR 3 TIMES DAILY. 100 Each 6 1 Active Insulin Pen Needle 32G X 6 MMIndications:Type 2 diabetes mellitus with hemoglobin A1c goal of less than 7.0% ([facility]) Use with Victoza once daily. 100 Each 3 2 Active Aspirin Low Dose 81 MG Oral Tablet Delayed Release (aspirin enteric coated)Indications:DM type 2 nursing care encounter (HCC) TAKE 1 TABLET BY MOUTH EVERY DAY [...] Active Additional Information Patient taking differently:800 mg [id number] PRN, Pain, Breakthrough, Fever >38C(100.5F), with food for pain, Reported on 11/28/2023 Levalbuterol Tartrate 45 MCG/ACT Inhalation Aerosol (Xopenex HFA)Indications:Mild intermittent asthma without complication Inhale 1 Puff by mouth every 4 hours as needed for Wheezing. 15 g 12 3 Active FreeStyle Yuval 3 SensorIndications:Type 2 diabetes mellitus with hemoglobin A1c goal of less than 7.0% ([facility]) Use as directed. Change every [...] goal of less than 7.0% ([facility]) TAKE 1 TABLET BY MOUTH 2 TIMES A DAY WITH MORNING AND EVENING MEALS 180 Tablet 3 4 Active Mounjaro 10 MG/0.5ML Subcutaneous Solution Pen-injector (Tirzepatide)Indications: Type 2 diabetes mellitus with hemoglobin A1c goal of less than 7.0% ([facility]),Type 2 diabetes mellitus with diabetic cataract, unspecified whether group home insulin use ([facility]) Inject 10 mg under the skin once a week. 2 mL 11 4 01/17/20 25 Active OneTouch Verio In Vitro Strip (Glucose Blood)Indications:Type 2 diabetes mellitus with hemoglobin A1c goal of less than 7.0% ([facility]) TEST 3 TIMES A DAY [...] as of this encounter (statuses as of 04/30/2024) Active Problems Problem Noted Date Diagnosed Date Type 2 diabetes mellitus with diabetic cataract 07/17/2022 Benign prostatic hyperplasia with lower urinary tract symptoms 03/25/2022 Age-related nuclear cataract, bilateral 03/25/20 Recurrent major depressive disorder, in full rem ission 03/25/2022 LINDA (obstructive sleep apnea) 01/17/2022 MARU (generalized anxiety disorder) 11/11/2019 Ophthalmoplegic migraine, not intractable 2019 Coronary artery disease invo lving havasupai coronary artery of havasupai heart without angina pectoris 05/20/2018 Abnormal stress [...] as of this encounter (statuses as of 04/30/2024) Resolved Problems Problem Noted Date Diagnosed Date Resolved Date History of 2018 novel jaime virus disease (COVID-19) 03/09/2022 10/09/2023 Body mass index (BMI) of 40. 0 to 44.9 in adult 01/13/2019 11/11/2019 Overview: Per Obesity protocol #1 Obesity, Class I, BMI 30-34.9 04/22/2018 01/14/2019 Overview: Per Obesity protocol #1 Anxiety and depression 03/13/201811/11 Prediabetes 02/12/2018 03/28/2018 Overview: Per Prediabetes protocol #1 documented as of this encounter (statuses as of 04/30/2024) Immunizations Name Administration Dates Next Due COVID-19 mRNA, LNP-s, No Pre serve, 2-Dose Series (Rewardix) 03/03/2021,02/03/2021 Hepatitis B, 20+ yrs 09/17/2019,10/07/2018,04/22 Pneumococcal [...] Progress Notes * Francesco Nguyen MD - 04/30/2024 8:34 AM EDT Daniel Prajapati [id number] Daniel Prajapati is a 55 year old male who presents for f/u to [facility] for left greater than right knee injury/pain. Daniel Prajapati is here unaccompanied I saw him originally for this on 03/12/2018 Most recent full visit was on 04/09/2023 Quality: reviewed and agree with Nursing Notes for HPI elements History: History on 12/27/2020 - patient with severe bilateral knee DJD. Presents requesting hyaluronic acidinjections. He has had these in the past most recently on 10/27/2019 where he had Synvisc-One injections bilateral knees. He has also had steroid injections in the past but those are further remote then the hyaluronic acid injection. No locking or instability. No swelling, erythema, or warmth. No fevers chills or sweats. Additional history 06/27/2021 He was seen for procedure only visit on 02/21/2021 where he received bilateral intra-articular steroid injections. Presents today hoping to have repeat hyaluronic acid injections Additional history 09/27/2021: Reports no improvement with bilateral Durolane injections performed on 06/27/2021 Additional history on 10/19/2021: Does report benefit from the bilateral steroid injections performed on 09/27/2021 is wondering how soon he can have repeat injections. Additional history on 04/25/2022: since that time he was seen most recently on 01/18/2022 for completion of bilateral hyaluronic acidinjection series F/u B/L knee pain 05/14 today left is worse than right Patient is diabetic 5.7 last A1C on 04/05/22 Additional history on 07/17/2022 Presents today hoping of bilateral hyaluronic acid injection series Additional history 10/16/2022: Most recent visit on 08/01/2022 for completion of Gelsyn (viscosupplementation) this did help. He would like to repeat the series. However it is too soon. He also did not end up going to therapy. Additional history 02/12/2023: Presents for chronic bilateral knee pain. Would like to have bilateral viscosupplementation again if possible. Additional history 04/09/2023: Seen most recently on 03/05/2023 for completion of BL gelsyn Has not seen substantial benefit yet, also has not yet started physical therapy Since that visit: Bilateral knee Xray bilateral knee 04/25/22 Pt is Diabetic; A1C 5.9 on 04/23/24 Pt c/o 8/10 pain today bilateral knee; Pt would like new xrays but denies any significant or recent injuries to bilateral knee Pt would like gel injections if possible Pt stated he attended PT in 2021 but not sure where he attended PT ROS: ROS per HPI otherwise non-contributory Past Medical History: Diagnosis Date Abnormal stress echocardiogram 04/17/2018 Age-related nuclear cataract, bilateral 03/25/2022 Benign paroxysmal vertigo 03/13/2018 Benign prostatic hyperplasia with lower urinary tract symptoms 03/25/2022 Coronary artery disease involving havasupai coronary artery of havasupai heart without angina pectoris 05/20/2018 MARU (generalized anxiety disorder) 11/11/2019 History of 2019 novel coronavirus disease (COVID-19) 03/09/2022 HTN, goal below 130/80 03/13/2000 NONE Ophthalmoplegic migraine, not intractable 11/11/2019 LINDA (obstructive sleep apnea) 01/17/2022 Primary osteoarthritis of both knees 03/13/2018 Pure hypercholesterolemia 03/13/2018 PVC's (premature ventricular contractions) 03/13/2018 Recurrent major depressive disorder, in full remission ([facility]) 03/25/2022 Type 2 diabetes mellitus with hemoglobin A1c goal of less than 7.0% ([facility]) 03/01/2018 Family History Problem Relation Name Age of Onset Rheum arthritis Mother 2018. 78 No Known Problems Father . no cancers. 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 Comment: works for [employer] Social Needs Financial resource strain: Not on file Food insecurity Worry: Never true Inability: Never true Transportation needs Medical: Not on file Non-medical: Not on file Tobacco Use Smoking status: Never Smoker Smokeless tobacco: Never Used Substance and Sexual Activity Alcohol use: No Drug use: No Sexual activity: Yes Partners: Female Lifestyle Physical activity Days per week: Not on file Minutes per session: Not on file Stress: Not on file Relationships Social connections Talks on phone: Not on file Gets together: Not on file Attends rastafarian service: Not on file Active member of club or organization: Not on file Attends meetings of clubs or organizations: Not on file Relationship status: Not on file Intimate partner violence Fear of current or ex partner: Not on file Emotionally abused: Not on file Physically abused: Not on file Forced sexual activity: Not on file Other Topics Concern Not on file Social History Narrative from the [place] 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 Awaiting formal radiology interpretation. 04/30/2022: Bilateral knee x-ray IMPRESSION Severe bilateral knee arthrosis with particularly prominent tricompartmental osteophytes and numerous joint bodies bilaterally, some of which are thought to be within a popliteal cyst on the left. Small amount of suprapatellar joint effusion, right worse than left. 10/27/2019: Right femur two view, knee for x-ray each side IMPRESSION Benign right proximal femur shaft intraosseous lesion, given stability. Advanced OA at bilateral knee joints. Assessment and Plan: 1) bilateral knee pain Severe bilateral DJD BL Hyaluronic acid injection dates: Synvisc 1 on 10/27/2019, Durolane on 12/27/2020 and 06/27/2021 Denies any significant benefit from most Durolane injections Bilateral gelsyn injections were completed on 01/18/2022, 08/01/2022, 03/05/2023. He ends up reporting that he did see significant benefit from the injection series completed on 03/05/2023. He would like to repeat this series but insurance requires an authorization. I also going to try them with ultrasound guidance. He is to be scheduled for this series starting in 4-5 weeks BL Intra-articular steroid injection dates: 02/21/2021, 09/27/2021, and 04/25/2022 have provided benefit At this time he does not want repeat the steroid injections because they have caused increases in his blood sugar. Although he does admit they help. Have also discussed that repetitive steroid injections with time can speed up the arthritic process In the past I have also recommended he try Voltaren gel I have placed Physical therapy referral numerous times. He did attend the most recent time I referred him however he missed a visit in reportedly was told he would have to start over. He would like to go to physical therapy. Referral placed again today. We have discussed referral to Surgical colleague multiple times. He is not yet ready to take that step. We also discussed that just because he has a consultation does not mean he has to commit to surgery. He will let me know when he desires surgical consultation. Francesco Nguyen MD Primary Care Sports [facility] [address] [place] [address] documented in this encounter Nursing Notes * Nikia Veloz LPN - 04/30/2024 8:42 AM EDT F/u Bilateral knee Xray bilateral knee 04/25/22 Pt is Diabetic; A1C 5.9 on 04/23/24 Pt c/o 8/10 pain today bilateral knee; Pt would like new xrays but denies any significant or recent injuries to bilateral knee Pt would like gel injections if possible Pt stated he attended PT in 2021 but not sure where he attended PT Elizabeth Mistry LPN documented in this encounter Plan of Treatment Upcoming Encounters Date Type Department Care Team (Late st Contact Info) Description 06/02/2024 3:00 PM EDT Office Visit Ophthalmology, [place] [address] [place] [address] Humphrey Rm MD [address] [place] [address] 06/09/2024 3:00 PM EDT Office Visit [facility] [address] [place] [address] Francesco Nguyen MD [address] [facility] [place] [address] 06/23/2024 3:00 PM EDT Office Visit [facility] [address] [facility] [place] [address] Francesco Nguyen MD [address] [place] [address] 06/30/2024 3:00 PM EDT Office Visit Orthopaedics [facility] [address] [place] [address] Francesco Nguyen MD [address] [place] [address] 07/28/2024 7:00 AM EDT Office Visit Pharmacy, [facility] [address] [facility] [place] [address] Pharmacist1, [facility] [address] [facility] [place] [address] 12/23/2024 5:40 PM EST Office Visit Family Practice [facility] [address] [place] [address] Humphrey Kurtz MD [address] [place] [address] Pending Results Name Type Priority Associated Diagnoses Date /Time XR KNEE 4 OR MORE VIEWS Medical Imaging Routine Chronic pain of both knees 04/30/2024 9:03 AM EDT Scheduled Procedures Name Priority Associated Diagnoses Date/Ti me COLONOSCOPY FLEXIBLE PROXIMA L DIAGNOSTIC Recall Encounter for screening colonoscopy Scheduled Referrals Name Type Priority Associated Diagnoses Orde r Schedule PHYSICAL THERAPY REFERRAL OP Referral Within 10 days (routine) Primary osteoarthritis of both knees Ordered: 04/30/2024 Health Maintenance Due Date Last Done Comments [...] as of this encounter Visit Diagnoses Diagnosis Primary osteoarthritis of both knees- Primary Primary localized osteoarthrosis, lower leg Chronic pain of both knees documented in this encounter Additional Health Concerns Infection Onset Date Last Indicated Resolved Time COVID-19 (confirmed) 03/07/2022 03/07/2022 documented as of this encounter Care Teams Fur Grader Relationship Specialty Start Date End Date Humphrey Kurtz MD [address] [place] [address] PCP - General Family Medicine 10/09/23 documented as of this encounter
--- OUTSIDE RECORDS SUMMARY | 2024-06-27 03:02 | External Medical Summary | Summary of Care ---
Author Name Unknown Organization [facility] Address [address] [place] [address] Phone [phone] Care Team Providers Care Credit Manager Name Role Phone Humphrey Kurtz MD Primary Care Provider + Reason for Visit * Reason Onset Date Comments Med Request 04/30/2024 Encounter Details Date Type Department Care Team (Late st Contact Info) Description 04/30/2024 Telephone Orthopaedics [facility] [address] [facility] [place] [address] Marcial Jaramillo MD [address] [facility] [address] Med Request Allergies No known active allergiesdocumented [...] Active Additional Information Patient taking differently:800 mg [id number] PRN, Pain, Breakthrough, Fever >38C(100.5F), with food [...] cataract, unspecified whether nursing home insulin use ([facility]) Inject 10 [...] intractable 2019 Coronary artery disease invo lving ione coronary artery of ione heart without angina pectoris 05/20/2018 Abnormal stress [...] encounter Miscellaneous Notes * Telephone Encounter - Bridgette Chapa, MED ASSIST - 04/30/2024 9:11 AM EDT Orthopaedics Pre-Cert Request Medication/Disease State Information: Medication: Hyaluronate- Gelsyn-3 ([id number]): inject 16.8 mg (2 mL) once weekly for 3 weeks (total of 6 injections). Route to [id number] Is there radiological proof(x-ray, cat scan, mri [...] 06/02/2024 3:00 PM EDT Office Visit Ophthalmology, [place] [address] [place] [address] Humphrey Rm MD [address] [facility] [place] [address] 06/09/2024 3:00 PM EDT Office Visit [facility] [address] [place] [address] Marcial Jaramillo MD [address] [place] [address] 06/23/2024 3:00 PM EDT Office Visit [facility] [address] [place] [address] Marcial Jaramillo MD [address] [place] [address] 06/30/2024 3:00 PM EDT Office Visit [facility] [address] [place] [address] Marcial Jaramillo MD [address] [place] [address] 07/28/2024 7:00 AM EDT Office Visit Pharmacy, [facility] [place] [address] [facility] [address] [place] [address] Pharmacist1, [facility] [address] [place] [address] 12/23/2024 5:40 PM EST Office Visit Family [facility] [address] [place] [address] Humphrey Kurtz MD [address] [place] [address] Scheduled Procedures Name Priority Associated Diagnoses Date/Ti [...] documented as of this encounter Care Teams Credit Manager Relationship Specialty Start Date End Date Humphrey Kurtz MD [address] [place] [address] PCP - General Family Medicine 10/09/23 documented as of this encounter
--- OUTSIDE RECORDS SUMMARY | 2024-06-27 03:02 | External Medical Summary ---
Author Name Unknown Address Unknown Organization K01[place] [place] [address] [place] [facility] [address] Laboratory Report Ordering Provider Test Date Status NEETA ZARATE 04/23/2024 07:23:00 Final Observation Date Value Abnormality Reference (Units ) Status HbA1C 04/23/2024 07:23:00 5.9 Above high normal 4. 0-5.6 (%) Final The use of HbA1c to monitor glycemic status is based on normal hemoglobin and HbA composition. This test should not be used in patients with abnormal hemoglobin that affects the half life of the red blood cell or the in vivo glycation rates. Glucose, estimated average 04/23/2024 07:23:00 123 <126 (mg/dL) Final Performing Location [facility] [place] [address] [facility] [address]
--- OUTSIDE RECORDS SUMMARY | 2024-06-27 03:02 | External Medical Summary | Summary of Care ---
Author Name Unknown Organization [facility] Address [address] [place] [address] Phone [phone] Care Team Providers Care Wafer Production Worker Name Role Phone Humphrey Kurtz MD Primary Care Provider + Encounter Details Date Type Department Care Team (Late st Contact Info) Description 04/23/2024 Telephone Family Practice [facility] [address] [place] [address] Humphrey Kurtz MD [address] [place] [address] Allergies No known active allergiesdocumented as of [...] Active Additional Information Patient taking differently:800 mg [id number] PRN, Pain, Breakthrough, Fever >38C(100.5F), with food [...] of less than 7.0% ([facility]) TAKE 1 TABLET BY MOUTH 2 TIMES A DAY WITH MORNING AND EVENING MEALS 180 Tablet 3 4 Active Mounjaro 10 MG/0.5ML Subcutaneous Solution Pen-injector (Tirzepatide)Indications: Type 2 diabetes mellitus with hemoglobin A1c goal of less than 7.0% ([facility]),Type 2 diabetes mellitus with diabetic cataract, unspecified whether fund accounting manager insulin use ([facility]) Inject 10 mg under the skin once a week. 2 mL 11 4 01/17/20 25 Active OneTouch Verio In Vitro Strip (Glucose Blood)Indications:Type 2 diabetes mellitus with hemoglobin A1c goal of less than 7.0% ([facility]) TEST 3 TIMES A DAY [...] intractable 2019 Coronary artery disease invo lving [place] coronary artery of [place] heart without angina pectoris 05/20/2018 Abnormal stress [...] mRNA, LNP-s, No Pre serve, 2-Dose Series (SkillPixels) 03/03/2021,02/03/2021 Hepatitis B, 20+ yrs 09/17/2019,10/07/2018,04/22 Pneumococcal [...] money to buy more. Never true 04/16/20 Within the past 12 months, t he [...] Telephone Encounter - Humphrey Kurtz MD - 04/23/2024 10:43 PM EDT B12 po ordered documented in this encounter Plan of Treatment Upcoming Encounters Date Type Department Care Team (Late st Contact Info) Description 07/28/2024 7:00 AM EDT Office Visit Pharmacy, [place] [facility] [address] [place], [place] [phone] Pharmacist1, [facility] [address] [place], [place] [address] 12/23/2024 5:40 PM EST Office Visit Family [facility] [address] [place] [address] Humphrey Kurtz MD [address] [place] [address] Scheduled Orders Name Type Priority Associated Diagnoses Orde r Schedule VITAMIN B12 Lab Routine B12 deficiency Expected: 10/23/2024 (Approximate), Expires: 04/23/2025 Scheduled Procedures Name Priority Associated Diagnoses Date/Ti [...] as of this encounter Visit Diagnoses Diagnosis B12 deficiency- Primary Other B-complex deficiencies documented in this encounter Additional Health Concerns Infection Onset Date Last Indicated Resolved Time COVID-19 (confirmed) 03/07/2022 03/07/2022 documented as of this encounter Care Teams Wafer Production Worker Relationship Specialty Start Date End Date Humphrey Kurtz MD [address] [place] [address] PCP - General Family Medicine 10/09/23 documented as of this encounter
--- OUTSIDE RECORDS SUMMARY | 2024-06-27 03:02 | External Medical Summary ---
Author Name Unknown Address Unknown Organization K0G:[facility] [place] [facility] - [address] [place] [address] Laboratory Report Ordering Provider Test Date Status NEETA ZARATE 04/23/2024 07:23:00 Final Observation Date Value Abnormality Reference (Units ) Status Albumin 04/23/2024 07:23:00 4.2 3.8-5.0 (g/dL) Final AST (Aspartate aminotransferase) 04/23/2024 07:23:00 19 10-50 (U/L) Final Alk Phos 04/23/2024 07:23:00 90 35-130 (U/L) Final ALT (Alanine aminotransferase) 04/23/2024 07:23:00 24 10-50 (U/L) Final Bilirubin, Total 04/23/2024 07:23:00 0.4 <=1.2 (mg/dL) Final Bilirubin, Direct 04/23/2024 07:23:00 <0.2 0.0-0.3 (mg/dL) Final Protein 04/23/2024 07:23:00 6.7 6.0-8.3 (g/dL) Final Performing Location [facility] [place] [facility] - [address] [place] [address]
--- OUTSIDE RECORDS SUMMARY | 2024-06-27 03:03 | External Medical Summary | Summary of Care ---
Author Name Unknown Organization [facility] Address [address] [place] [address] Phone [phone] Care Team Providers Care Real Estate Services Coordinator Name Role Phone Humphrey Kurtz MD Primary Care Provider + Reason for Visit * Reason Comments Eye Problem Eyes red, painful fo r one day, a little drainage fro L eye since Sunday morning Encounter Details Date Type Department Care Team (Late st Contact Info) Description 03/12/2024 1:20 PM EDT Office Visit Family Practice [facility] [address] [place] [address] Megan Mckenzie, [address] [place] [address] Allergic conjunctivitis, bilateral* Allergies No known active allergiesdocumented as of this encounter (statuses as of 03/12/2024) Medications Medication Sig Dispensed Refills Start Date End Date Status Blood Glucose Monitoring Suppl (D-CARE GLUCOMETER) w/Device KITIndications:Type 2 diabetes mellitus with hemoglobin A1c goal of less than 7.0% ([facility]) Use as directed. 1 Kit 0 9 Active Blood Pressure KITIndications:HTN, goal below 130/80 Use daily for blood pressure readings 1 Kit 0 9 Active Indomethacin 50 MG CapsuleIndications:Pain of [...] (polyvinyl alcohol-povidone PF) 1 Drop as needed. 0 Active OneTouch Delica Lancets FineIndications:Type 2 diabetes [...] Active Additional Information Patient taking differently:800 mg [id number] PRN, Pain, Breakthrough, Fever >38C(100.5F), with food for pain, Reported on 11/28/2023 Atorvastatin Calcium 40 MG Oral Tablet (Lipitor)Indications:Pure hypercholesterolemia TAKE 1 TABLET BY MOUTH EVERY DAY 90 Tablet 4 3 Active Levalbuterol Tartrate 45 MCG/ACT Inhalation Aerosol (Xopenex [...] DX: E11.9. 6 Each 3 3 Active Lisinopril 5 MG Oral Tablet (Prinivil)Indications:HTN , goal below 130/80 TAKE 1 TABLET BY MOUTH EVERY DAY IN THE MORNING 90 Tablet 1 3 Active Tamsulosin HCl 0.4 MG Oral Capsule (Flomax)Indications:BPH with obstruction/lower urinary tract symptoms TAKE 1 CAPSULE BY MOUTH EVERY DAY 90 Capsule 3 3 Active Metoprolol Succinate ER 25 [...] diabetes mellitus with diabetic cataract, unspecified whether lobsterman insulin use ([facility]) Inject 10 mg under the skin once a week. 2 mL 11 4 01/17/20 25 Active OneTouch Verio In Vitro Strip (Glucose Blood)Indications:Type 2 diabetes mellitus with hemoglobin A1c goal of less than 7.0% ([facility]) TEST 3 TIMES A DAY DIRECTED 300 [...] the morning. 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 05/20/2018 Abnormal stress [...] as of this encounter (statuses as of 03/12/2024) Resolved Problems Problem Noted Date Diagnosed Date [...] as of this encounter (statuses as of 03/12/2024) Immunizations Name Administration Dates Next Due COVID-19 mRNA, LNP-s, No Pre serve, 2-Dose Series ([employer]) 03/03/2021,02/03/2021 Hepatitis B, 20+ yrs 09/17/2019,10/07/2018,04/22 Pneumococcal [...] on file documented as of this encounter Last Filed Vital Signs Vital Sign Reading Time Taken Comments Blood Pressure 110/64 03/12/2024 1:32 PM EDT Pulse 96 03/12/2024 1:32 PM EDT Temperature 37.4 C (99.3 F) 03/12/2024 1:32 PM ED T Respiratory Rate 16 03/12/2024 1:32 PM EDT Oxygen Saturation - - Inhaled Oxygen Concentration - - Weight 120.2 kg (265 lb) 03/12/2024 1:32 PM EDT Height - - Body Mass Index 33.12 08/06/2023 3:34 PM EDT documented in this encounter Progress Notes * Megan Mckenzie DO - 03/12/2024 1:39 PM EDT Subjective: Daniel Prajapati is a 58 year old male. Chief Complaint Patient presents with Eye Problem Eyes red, painful for one day, a little drainage fro L eye since Sunday morning HPI: Pt w/redness of both eyes for 4 days. Was painful initially, better now. Still has redness. Itchiness has improved. No change in vision. No drainage or matting of the eye. No known contacts. No known chemical sx. Did have a sore throat last night. Feels better today. No nasal congestion, PND, etc. PHM: Patient Active Problem List Diagnosis Code HTN, goal below 130/80 I10 Other specified disease of hair and hair follicles L67.8, L73.8 Type 2 diabetes mellitus with hemoglobin A1c goal of less than 7.0% ([facility]) E11.9 Benign paroxysmal vertigo H81.10 PVC's (premature ventricular contractions) I49.3 Pure hypercholesterolemia E78.00 Primary osteoarthritis of both knees M17.0 Abnormal stress echocardiogram R94.39 Coronary artery disease involving solomon coronary artery of solomon heart without angina pectoris I25.10 MARU (generalized anxiety disorder) F41.1 Ophthalmoplegic migraine, not intractable G43.B0 LINDA (obstructive sleep apnea) G47.33 Benign prostatic hyperplasia with lower urinary tract symptoms N40.1 Age-related nuclear cataract, bilateral H25.13 Recurrent major depressive disorder, in full remission ([facility]) F33.42 Type 2 diabetes mellitus with diabetic cataract ([facility]) E11.36 Current Outpatient Medications Medication Sig Dispense Refill [...] alcohol-povidone PF) 1 Drop as needed. OneTouch Delica Lancets Fine CHECK BLOOD SUGAR 3 TIMES [...] with food for pain) 30 Tablet 1 Atorvastatin Calcium 40 MG Oral Tablet (Lipitor) TAKE 1 TABLET BY MOUTH EVERY DAY 90 Tablet 4 Levalbuterol Tartrate 45 MCG/ACT Inhalation Aerosol (Xopenex HFA) Inhale 1 Puff by mouth every 4 hours as needed for Wheezing. 15 g 12 FreeStyle Yuval 3 Sensor Use as directed. Change every 14 days. Use to read blood glucose. DX: E11.9. 6 Each 3 Lisinopril 5 MG Oral Tablet (Prinivil) TAKE 1 TABLET BY MOUTH EVERY DAY IN THE MORNING 90 Tablet 1 Tamsulosin HCl 0.4 MG Oral Capsule (Flomax) TAKE 1 CAPSULE BY MOUTH EVERY DAY 90 Capsule 3 Metoprolol Succinate ER 25 MG Oral Tablet Extended Release 24 Hour (toPROL XL) Take 1 Tablet by mouth in the morning. 90 Tablet 3 traZODone HCl 50 MG Oral Tablet (Desyrel) TAKE 1 TABLET BY MOUTH EVERYDAY AT BEDTIME 90 Tablet 3 metFORMIN HCl 1000 MG Oral Tablet (Glucophage) TAKE 1 TABLET BY MOUTH 2 TIMES A DAY WITH MORNING AND EVENING MEALS 180 Tablet 3 Mounjaro 10 MG/0.5ML Subcutaneous Solution Pen-injector (Tirzepatide) Inject 10 mg under the skin once a week. 2 mL 11 ChupaMobileTouch Verio In Vitro Strip (Glucose Blood) TEST 3 TIMES A DAY DIRECTED 300 Strip 3 Ezetimibe 10 MG Oral Tablet (Zetia) TAKE 1 TABLET BY MOUTH EVERY DAY IN THE MORNING 90 Tablet 3 tiZANidine HCl 4 MG Oral Tablet (Zanaflex) Take 1 Tablet by mouth every 6 hours as needed for Muscle spasms. 30 Tablet 3 No current facility-administered medications for this visit. Past Medical History: Diagnosis Date Abnormal stress echocardiogram 04/17/2018 Age-related nuclear cataract, bilateral 03/25/2022 Benign paroxysmal vertigo 03/13/2018 Benign prostatic hyperplasia with lower urinary tract symptoms 03/25/2022 Coronary artery disease involving solomon coronary artery of solomon heart without angina pectoris 05/20/2018 MARU (generalized anxiety disorder) 11/11/2019 History of 2019 novel coronavirus disease (COVID-19) 03/09/2022 HTN, goal below 130/80 03/13/2000 NONE Ophthalmoplegic migraine, not intractable 11/11/2019 LINDA (obstructive sleep apnea) 01/17/2022 Primary osteoarthritis of both knees 03/13/2018 Pure hypercholesterolemia 03/13/2018 PVC's (premature ventricular contractions) 03/13/2018 Recurrent major depressive disorder, in full remission ([facility]) 03/25/2022 Type 2 diabetes mellitus with hemoglobin A1c goal of less than 7.0% ([facility]) 03/01/2018 Past Surgical History: Procedure Laterality Date COLONOSCOPY, DIAGNOSTIC (RECTUM) 01/30/2018 diverticulosis, repeat 10 yrs/COLONOSCOPY FLEXIBLE PROXIMAL DIAGNOSTIC performed by Margarita Jack DO at [facility] Review of patient's allergies indicates: No Known Allergies Objective: BP 110/64 (BP Site: Left Arm, BP Position: Sitting, BP Cuff Size: Large) | Pulse 96 | Temp 37.4 C(99.3 F) (Tympanic) | Resp 16 | Wt 120.2 kg (265 lb) | BMI 33.12 kg/m | BSA 2.52 m Review of Systems: As per HPI, all other ROS neg. Physical Exam: General: alert, healthy, and no distress Head: Normocephalic, No masses, lesions, tenderness or abnormalities Eyes: + injection b/l sclera, PERRL, no drainage, no sig conjunctival erythema Ears: External ears normal, Canals clear, TM's Normal Nose: no mucosal erythema, no mucosal edema, no purulent discharge Oropharynx: no exudate, no erythema, lips, buccal mucosa, and tongue normal, and mucous membranes are moist Neck: supple, no adenopathy, thyroid normal size, non-tender, without nodularity Allergic conjunctivitis, bilateral (Primary) - [place]aft 0.25 % Ophthalmic Solution (Alcaftadine); Instill 1 Drop into eye in the morning. Follow up: as needed. Megan Mckenzie DO documented in this encounter Plan of Treatment Upcoming Encounters Date Type Department Care Team (Late st Contact Info) Description 04/21/2024 3:30 PM EDT Office Visit Pharmacy, [facility] [place] [address] [facility] [place] [place] [address] Pharmac[address], [facility] [address] [facility] [place] [address] 04/22/2024 5:40 PM EDT Office Visit Family Practice [facility] [address] [place] [address] Humphrey Kurtz MD [address] [place] [address] Scheduled Procedures Name Priority Associated Diagnoses Date/Ti [...] ( season) 2023 03/03/2021, 02/03/2021 Albumin/Creatinine Ratio 04/16/20242 023, 03/21/2022, 09/27/2021, Additional history exists B-12 04/17/2024 04/17/2023, 0606/2022, 08/18/2020, Additional history exists GFR 04/17/2024 04/17/2023, 07/06, 03/20/2022, Additional history exists Influenza Vaccine (FLU shot) (Season Ended) 2024 07/17/2022, 09/27/2021, 07/06/2020, Additional history exists HbA1c 07/19/2024 01/17/2024, 10/05, 07/16/2023, Additional history exists Colonoscopy 01/31/2028 01/30/2018, 01/30/2018 [...] as of this encounter Visit Diagnoses Diagnosis Allergic conjunctivitis, bilateral- Primary Other chronic allergic conjunctivitis documented in this encounter Additional Health Concerns Infection Onset Date Last Indicated Resolved Time COVID-19 (confirmed) 03/07/2022 03/07/2022 documented as of this encounter Care Teams Real Estate Services Coordinator Relationship Specialty Start Date End Date Humphrey Kurtz MD [address] [facility] [place] [address] PCP - General Family Medicine 10/09/23 documented as of this encounter"
--- OUTSIDE RECORDS SUMMARY | 2024-06-27 03:03 | External Medical Summary | Summary of Care ---
Author Name Unknown Organization [facility] Address [address] [place] [address] Phone [phone] Care Team Providers Care Event Lighting Specialist Name Role Phone Humphrey Kurtz MD Primary Care Provider + Reason for Visit * Reason Comments eRx-Medication Refill Encounter Details Date Type Department Care Team (Late st Contact Info) Description 04/21/2024 Refill Cardiology, [facility] [address] [place] [address] Mary Carmen Tabor PA-C [address] [place] [address] Pure hypercholesterolemia Allergies No known active allergiesdocumented as of this encounter (statuses as of 04/21/2024) Medications Medication Sig Dispensed Refills Start Date End Date Status Blood Glucose Monitoring Suppl (D-CARE GLUCOMETER) w/Device KITIndications:Type 2 diabetes mellitus with hemoglobin A1c goal of less than 7.0% ([facility]) Use as directed. 1 Kit 07/30/20 19 Active Blood Pressure KITIndications:HTN, goal below 130/80 Use daily for blood pressure readings 1 Kit 09/03/20 19 Active Indomethacin 50 MG CapsuleIndications:Pain of toe of right foot Take 1 Cap by mouth 3 times a day as needed for Pain. with food 40 Cap 1 11/11/19 20 Active meclizine (ANTIVERT) 25 MG TabletIndications:Benig n paroxysmal positional vertigo, unspecified laterality Take 1 Tab by mouth 3 times a day as needed for Dizziness. 30 Tab 2 03/25/20 Active Refresh 1.4-0.6 % Ophthalmic Solution (polyvinyl alcohol-povidone PF) 1 Drop as needed. Active OneTouch Delica Lancets FineIndications:Type 2 diabetes mellitus with hemoglobin A1c goal of less than 7.0% ([facility]) CHECK BLOOD SUGAR 3 TIMES DAILY. 100 Each 05/17/20 21 Active Insulin Pen Needle 32G X 6 MMIndications:Type 2 diabetes mellitus with hemoglobin A1c goal of less than 7.0% ([facility]) Use with Victoza once daily. 100 Each 3 01/04/20 22 Active Aspirin Low Dose 81 MG Oral Tablet Delayed Release (aspirin enteric coated)Indications:DM type 2 nursing care encounter ([facility]) TAKE 1 TABLET BY MOUTH EVERY [...] Active Additional Information Patient taking differently:800 mg [id number] PRN, Pain, Breakthrough, Fever >38C(100.5F), with food for pain, Reported on 11/28/2023 Levalbuterol Tartrate 45 MCG/ACT Inhalation Aerosol (Xopenex HFA)Indications:Mild intermittent asthma without complication Inhale 1 Puff by mouth every 4 hours as needed for Wheezing. 15 g 12 06/11/20 23 Active FreeStyle Yuval 3 SensorIndications:Type 2 diabetes mellitus with hemoglobin A1c goal of less than 7.0% ([facility]) Use as directed. Change every 14 days. Use to read blood glucose. DX: E11.9. 6 Each 07/16/20 23 Active Tamsulosin HCl 0.4 MG Oral Capsule (Flomax)Indications:BPH with obstruction/lower urinary tract symptoms TAKE 1 CAPSULE BY MOUTH EVERY DAY 90 Capsule 3 09/09/20 23 Active Metoprolol Succinate ER 25 MG [...] diabetic cataract, unspecified whether fci insulin use ([facility]) Inject 10 mg under the skin once a week. 2 mL 11 01/17/20 24 025 Active OneTouch Verio In Vitro Strip (Glucose Blood)Indications:Type 2 diabetes mellitus with hemoglobin A1c goal of less than 7.0% ([facility]) TEST 3 TIMES A DAY DIRECTED [...] THE MORNING 30 Tablet 04/15/20 24 Active Atorvastatin Calcium 40 MG Oral Tablet (Lipitor)Indications:Pu re hypercholesterolemia TAKE 1 TABLET BY MOUTH EVERY DAY 90 Tablet 4 04/21/20 24 Active Atorvastatin Calcium 40 MG Oral Tablet (Lipitor)Indications:Pu re hypercholesterolemia TAKE 1 TABLET BY MOUTH EVERY DAY 90 Tablet 4 03/27/20 23 024 Discontinued documented as of this encounter (statuses as of 04/21/2024) Active Problems Problem Noted Date Diagnosed Date Type 2 diabetes mellitus with diabetic cataract 07/17/2022 Benign prostatic hyperplasia with lower urinary tract symptoms 03/25/2022 Age-related nuclear cataract, bilateral 03/25/20 22 Recurrent major depressive disorder, in full rem ission 03/25/2022 LINDA (obstructive sleep apnea) 01/17/2022 MARU (generalized anxiety disorder) 11/11/2019 Ophthalmoplegic migraine, not intractable 2019 Coronary artery disease invo lving [place] coronary artery of [place] heart without angina pectoris 05/20/2018 Abnormal stress [...] as of this encounter (statuses as of 04/21/2024) Resolved Problems Problem Noted Date Diagnosed Date [...] as of this encounter (statuses as of 04/21/2024) Immunizations Name Administration Dates Next Due COVID-19 [...] encounter Miscellaneous Notes * Telephone Encounter - Elpidio Castellanos RN - 04/21/2024 1:47 PM EDTPending Prescriptions: Disp Refills Atorvastatin Calcium 40 MG Oral Tablet [Ph*90 Tab*4 Sig: TAKE 1 TABLET BY MOUTH EVERY DAY * Telephone Encounter - Elpidio Castellanos RN - 04/21/2024 1:46 PM EDT Pending Prescriptions: Disp Refills Atorvastatin Calcium 40 MG Oral Tablet (L*90 Tab*4 Sig: TAKE 1 TABLET BY MOUTH EVERY DAY Last Visit: 03/14/2023 (in office), Visit date not found (telemedicine) Next Visit: Visit date not found Last medication order date: 03/27/2023 Have you choosen a preferred pharm?? yes Patient Active Problem List Diagnosis HTN, goal below 130/80 Other specified disease of hair and hair follicles Type 2 diabetes mellitus with hemoglobin A1c goal of less than 7.0% ([facility]) Benign paroxysmal vertigo PVC's (premature ventricular contractions) Pure hypercholesterolemia Primary osteoarthritis of both knees Abnormal stress echocardiogram Coronary artery disease involving [place] coronary artery of [place] heart without angina pectoris MARU (generalized anxiety disorder) Ophthalmoplegic migraine, not intractable LINDA (obstructive sleep apnea) Benign prostatic hyperplasia with lower urinary tract symptoms Age-related nuclear cataract, bilateral Recurrent major depressive disorder, in full remission ([facility]) Type 2 diabetes mellitus with diabetic cataract ([facility]) Labs: Lab Results Component Value Date/Time CREATININE - [facility] 0.8 04/17/2023 04:52 PM CREATININE - [facility] 0.8 08/18/2020 11:02 AM CREATININE, RANDOM URINE - [facility] 21 04/16/2023 05:09 PM CREATININE, RANDOM URINE - [facility] 79 08/18/2020 11:02 AM Lab Results Component Value Date/Time POTASSIUM - [facility] 4.3 04/17/2023 04:52 PM POTASSIUM - [facility] 4.5 08/18/2020 11:02 AM Lab Results Component Value Date/Time TSH - [facility] 1.41 01/19/2020 05:10 PM Lab Results Component Value Date/Time LDL CHOLESTEROL (CALCULATED) - [facility] 82 03/19/2023 04:43 PM LDL CHOLESTEROL (CALCULATED) - [facility] 83 03/20/2022 11:54 AM LDL CHOLESTEROL (CALCULATED) - [facility] 55 08/18/2020 11:02 AM LDL CHOLESTEROL (CALCULATED) - [facility] 72 01/14/2020 01:12 PM LDL CHOLESTEROL (DIRECT MEASURE) - [facility] 100 08/06/2023 12:16 PM LDL CHOLESTEROL (DIRECT MEASURE) - [facility] NOT APPLICABLE 08/18/2020 11:02 AM LDL CHOLESTEROL (DIRECT MEASURE) - [facility] NOT APPLICABLE 01/14/2020 01:12 PM Lab Results Component Value Date/Time ALT - [facility] 29 04/17/2023 04:52 PM ALT - [facility] 37 08/18/2020 11:02 AM Hemoglobin AIC Results: Lab Results Component Value Date/Time HEMOGLOBIN A1C - [facility] 6.2 (H) 08/18/2020 11:02 AM HEMOGLOBIN A1C - [facility] 6.1 (H) 04/24/2019 11:57 AM HEMOGLOBIN A1C - [facility] 6.2 (H) 10/14/2018 04:19 PM HEMOGLOBIN A1C POCT - [facility] 5.7 (H) 04/21/2024 11:06 AM HEMOGLOBIN A1C POCT - [facility] 5.7 (H) 01/17/2024 08:45 AM HEMOGLOBIN A1C POCT - [facility] 5.6 10/15/2023 09:40 AM documented in this encounter Plan of Treatment Upcoming Encounters Date Type Department Care Team (Late st Contact Info) Description 04/22/2024 5:40 PM EDT Office Visit Family Practice [facility] [address] [place] [id number] Humphrey Kurtz MD [address] [place] [address] 07/28/2024 7:00 AM EDT Office Visit Pharmacy, Marita Enriquez [place] [address] [place] [address] Pharmacist1, [facility] [address] [place] [address] Scheduled Procedures Name Priority Associated Diagnoses Date/Ti [...] as of this encounter Visit Diagnoses Diagnosis Pure hypercholesterolemia documented in this encounter Additional Health Concerns Infection Onset Date Last Indicated Resolved Time COVID-19 (confirmed) 03/07/2022 03/07/2022 documented as of this encounter Care Teams Event Lighting Specialist Relationship Specialty Start Date End Date Humphrey Kurtz MD [address] [place] [address] PCP - General Family Medicine 10/09/23 documented as of this encounter
--- OUTSIDE RECORDS SUMMARY | 2024-06-27 03:03 | External Medical Summary ---
Author Name Unknown Address Unknown Organization K09:[facility] [place] [place] [address] Laboratory Report Ordering Provider Test Date Status MORRO WYNN V 04/21/2024 11:06:00 Final Observation Date Value Abnormality Reference (Units ) Status HbA1C 04/21/2024 11:06:00 5.7 Above high normal 4. 0-5.6 (%) Final Performing Location [facility] [place] [place] [address]
--- OUTSIDE RECORDS SUMMARY | 2024-06-27 03:03 | External Medical Summary | Summary of Care ---
Author Name Unknown Organization [facility] Address [address] [place] [address] Phone [phone] Care Team Providers Care Stage Driver Name Role Phone Humphrey Kurtz MD Primary Care Provider + Reason for Visit * Reason Onset Date Comments Advice 03/11/2024 Red and itchy ey es Encounter Details Date Type Department Care Team (Late st Contact Info) Description 03/11/2024 Telephone Family Practice [facility] [address] [place] [address] Humphrey Kurtz MD [address] [place] [address] Advice (Red and itchy eyes) Allergies No known active allergiesdocumented as of this encounter (statuses as of 03/12/2024) Medications Medication Sig Dispensed Refills Start Date End Date Status Blood Glucose Monitoring Suppl (D-CARE GLUCOMETER) w/Device KITIndications:Type 2 diabetes mellitus with hemoglobin A1c goal of less than 7.0% ([facility]) Use as directed. 1 Kit 0 9 [...] hemoglobin A1c goal of less than 7.0% ([facility]) CHECK BLOOD SUGAR 3 TIMES DAILY. 100 Each 6 1 Active Insulin Pen Needle 32G X 6 MMIndications:Type 2 diabetes mellitus with hemoglobin A1c goal of less than 7.0% ([facility]) Use with Victoza once daily. 100 Each 3 2 Active Aspirin Low Dose 81 MG Oral Tablet Delayed Release (aspirin enteric coated)Indications:DM type 2 nursing care encounter ([facility]) TAKE 1 TABLET BY MOUTH EVERY DAY [...] Active Additional Information Patient taking differently:800 mg [id number] PRN, Pain, Breakthrough, Fever >38C(100.5F), with food [...] hemoglobin A1c goal of less than 7.0% ([facility]) Use as directed. Change every 14 days. [...] diabetes mellitus with diabetic cataract, unspecified whether long-term insulin use (HCC) Inject 10 mg under [...] THE MORNING 90 Tablet 3 4 Active documented as [...] intractable 2019 Coronary artery disease invo lving council coronary artery of council heart without angina pectoris 05/20/2018 Abnormal stress [...] mRNA, LNP-s, No Pre serve, 2-Dose Series (Trulia) 03/03/2021,02/03/2021 Hepatitis B, 20+ yrs 09/17/2019,10/07/2018,04/22 Pneumococcal [...] encounter Miscellaneous Notes * Telephone Encounter - Kayli Humphrey LPN - 03/12/2024 7:25 AM EDT Called pt, aware to keep appt with Dr. Mckenzie, per Dr. Kurtz. * Telephone Encounter - Humphrey Kurtz MD - 03/11/2024 8:22 PM EDT Please let him know to keep appt w/Dr Mckenzie for exam--may be allergies, but want to see w/her. * Telephone Encounter - Regino Tavarez RN - 03/11/2024 7:16 PM EDT Please see previous message and also refill encounter from yesterday. Patient cancelled appointmentwith Dr. Munguia and is now scheduled with Dr. Lynnette Mckenzie. FYI. * Telephone Encounter - Machelle Fierro OSA - 03/11/2024 11:27 AM EDT Pt called in stating that he is suffering from red and itchy eyes. I had him scheduled for an appt tomorrow with Dr. Munguia which he stated was ok, the last minute he changed his mind because he doesn't know he and only wants to see Dr. Kurtz. I stated to the pt that there were no openings for Dr. Kurtz and he then proceeded to tell me to send a message requesting medication for his eye from Dr. Kurtz. documented in this encounter Plan of Treatment Upcoming Encounters Date Type Department Care Team (Late st Contact Info) Description 03/12/2024 1:20 PM EDT Office Visit [facility] [address] [place] [address] Megan Mckenzie DO [address] [place] [address] 04/21/2024 3:30 PM EDT Office Visit Pharmacy, [facility] [address] [facility] [place] [address] Pharmacist1, [facility] [address] [facility] [place] [address] 04/22/2024 5:40 PM EDT Office Visit [facility] [address] [place] [address] Humphrey Kurtz MD [address] [place] [address] Scheduled Procedures Name Priority Associated Diagnoses Date/Ti [...] (3 - 2022- season) 2023 03/03/2021, 02/03/2021 Albumin/Creatinine Ratio 04/16/2024 023, 03/21/2022, 09/27/2021, Additional history exists B-12 04/17/2024 04/17/2023, 06/0 06/2022, 08/18/2020, Additional history exists GFR 04/17/2024 [...] documented as of this encounter Care Teams Stage Driver Relationship Specialty Start Date End Date Humphrey Kurtz MD [address] [place] [address] PCP - General Family Medicine 10/09/23 documented as of this encounter
--- OUTSIDE RECORDS SUMMARY | 2024-06-27 03:03 | External Medical Summary | Summary of Care ---
Author Name Unknown Organization [facility] Address [address] [place] [address] Phone [phone] Care Team Providers Care Meat Sales And Storage Manager Name Role Phone Humphrey Kurtz MD Primary Care Provider + Reason for Visit * Reason Comments Diabetes Follow-Up Dosage Adjustment In Person (Anticoag Cl inic) Encounter Details Date Type Department Care Team (Late st Contact Info) Description 04/21/2024 11:30 AM EDT Office Visit Pharmacy, [facility] [place] [address] [facility] [place] [address] Pharmacist1, [facility] [address] [place] [address] Type 2 diabetes mellitus with hemoglobin A1c goal of less than 7.0% (HCC)*; Type 2 diabetes mellitus with diabetic cataract, unspecified whether group home insulin use (HCC) Allergies No known active allergiesdocumented as [...] Active Additional Information Patient taking differently:800 mg PbkuU1T PRN, Pain, Breakthrough, Fever >38C(100.5F), with food for pain, Reported on 11/28/2023 Atorvastatin Calcium 40 MG Oral Tablet (Lipitor)Indications:Pure hypercholesterolemia TAKE 1 TABLET BY MOUTH EVERY DAY 90 Tablet 4 3 Active Levalbuterol Tartrate 45 MCG/ACT Inhalation Aerosol (Xopenex HFA)Indications:Mild intermittent asthma without complication Inhale 1 Puff by mouth every 4 hours as needed for Wheezing. 15 g 12 3 Active FreeStyle Akash 3 SensorIndications:Type 2 diabetes mellitus with hemoglobin A1c goal of less than 7.0% ([facility]) Use as directed. Change every 14 days. Use to read blood glucose. DX: E11.9. 6 Each 3 3 Active Tamsulosin HCl 0.4 MG Oral [...] less than 7.0% ([facility]) TAKE 1 TABLET BY MOUTH 2 TIMES A DAY WITH MORNING AND EVENING MEALS 180 Tablet 3 4 Active Mounjaro 10 MG/0.5ML Subcutaneous Solution Pen-injector (Tirzepatide)Indications: Type 2 diabetes mellitus with hemoglobin A1c goal of less than 7.0% ([facility]),Type 2 diabetes mellitus with diabetic cataract, unspecified whether termite control technician insulin use ([facility]) Inject 10 mg under the skin once a week. 2 mL 11 4 01/17/20 25 Active OneTouch Verio In Vitro Strip (Glucose Blood)Indications:Type 2 diabetes mellitus with hemoglobin A1c goal of less than 7.0% ([facility]) TEST 3 TIMES A DAY [...] IN THE MORNING 30 Tablet 4 Active documented as of this encounter [...] intractable 2019 Coronary artery disease invo lving [place] coronary artery of [place] heart without angina pectoris 05/20/2018 Abnormal stress [...] as of this encounter Progress Notes * Jerome Waters, [facility] - 04/21/2024 11:42 AM EDT Images from the original note were not included. Medication Therapy Disease [facility] - Diabetes Management Progress Note Daniel Prajapati, identified by name and date of , is a 58 year old male being seen for diabetes management/education. Patient presents for return diabetic visit. DIABETES: Current diabetic medications: Metformin HCl 1000 mg BID INCREASE: Mounjaro 10 mg injection weekly Medication Injection Site: Abdomen Lifestyle: Diet: unchanged History of Treatment Barriers: Lifestyle: None Therapy considerations: None Medication: None Glucose Review/SMBG: Readings obtained from patient device Hypoglycemia: Does your blood sugar go below 70 mg/dL? Yes, when he fasts all day long. Hyperglycemia symptoms present: none Goal <7 Recent Labs Units 01/17/24 0845 10/15/23 0940 07/16/23 0927 HEMOGLOBIN A1C POCT - [facility] % 5.7* 5.6 5.6 Recent Labs Units 04/17/23 1652 07/19/22 0918 03/20/22 1154 ESTIMATED GLOMERULAR FILTRATION RATE - [facility] mL/min >90 >90 >90 CREATININE - [facility] mg/dL 0.8 0.8 0.7 Lab Results Component Value Date/Time CREATININE - [facility] 0.8 04/17/2023 04:52 PM CREATININE - [facility] 0.8 07/19/2022 09:18 AM CREATININE - [facility] 0.7 03/20/2022 11:54 AM CREATININE - [facility] 0.8 08/18/2020 11:02 AM CREATININE - [facility] 0.8 01/14/2020 01:12 PM CREATININE - [facility] 0.8 09/08/2019 01:57 PM CREATININE, RANDOM URINE - [facility] 21 04/16/2023 05:09 PM CREATININE, RANDOM URINE - [facility] 194 03/21/2022 04:55 PM CREATININE, RANDOM URINE - [facility] 47 09/27/2021 04:51 PM CREATININE, RANDOM URINE - [facility] 79 08/18/2020 11:02 AM CREATININE, RANDOM URINE - [facility] 163 01/12/2020 05:30 PM CREATININE, RANDOM URINE - [facility] 190 02/21/2018 10:30 AM HYPERTENSION: Patient on ACEi/ARB: yes, Lisinopril 5mg daily BP Readings from Last 3 Encounters: 03/12/24 110/64 11/28/23 104/72 10/09/23 120/76 Blood pressure at goal: yes HYPERLIPIDEMIA: Patient is taking moderate or high intensity statin: yes, Atorvastatin 40mg daily, Zetia 10mg daily HEALTH MAINTENANCE REVIEW: Health Maintenance Due Topic Date Due Hepatitis C Screening Never done Diabetic Foot Exam 10/04/2022 Diabetic Eye Exam 06/29/2023 COVID-19 Vaccine ( season) 2023 Albumin/Creatinine Ratio 04/16/2024 GFR 04/17/2024 B-12 04/17/2024 ASSESSMENT & PLAN: ICD-10-CM 1. Type 2 diabetes mellitus with hemoglobin A1c goal of less than 7.0% ([facility]) E11.9 2. Type 2 diabetes mellitus with diabetic cataract, unspecified whether group home insulin use ([facility])E11.36 BG Readings - Blood sugars controlled. A1C 5.7 today Medications - Reviewed current regimen, patient is adherent to regimen. Has been without Mounjaro for 2 weeks. Diet, Exercise, Lifestyle - No significant lifestyle changes since last visit. Discussed with patient today. Patient is agreeable to wear akash CGM. Patient aware to contact clinic if any hypoglycemia before next visit. MEDICATION CHANGES: no change Diabetic Medications: Metformin HCl 1000 mg BID Mounjaro 10 mg injection weekly HEALTH MAINTENANCE INTERVENTIONS: Labs: Ordered & Scheduled: BMP/CMP, Urine Microalbumin, Vitamin B12, and Lipid Panel Immunizations: Up to Date Foot Exam: needs completed Eye Exam: needs completed Annual Wellness Visit: N/A FOLLOW UP: Return to clinic in 3 months 07/28/2024 Jerome Villa RPh, [facility] Clinical Pharmacist - Bicycle Subassembler Medication Therapy Management Clinic 04/21/2024, 11:43 AM documented in this encounter Plan of Treatment Upcoming Encounters Date Type Department Care Team (Late st Contact Info) Description 04/22/2024 5:40 PM EDT Office Visit Family Practice [facility] [address] [place] [address] Humphrey Kurtz MD [address] [place] [address] 07/28/2024 7:00 AM EDT Office Visit Pharmacy, [facility] [place] [address] [facility] [place] [place] [address] Pharmacist1, [facility] [address] [facility] [place] [address] Scheduled Procedures Name Priority Associated Diagnoses Date/Ti me COLONOSCOPY FLEXIBLE PROXIMA L DIAGNOSTIC Recall Encounter for screening colonoscopy Health Maintenance Due Date Last Done Comments Hepatitis C Screening 1985 Cologuard 2012 Fecal Occult Blood Test 2012 Sigmoidoscopy 2012 Diabetic Foot Exam 10/04/2022 10/04/2021, 0 04/20/2020, 04/28/2019, Additional history exists Diabetic Eye Exam 06/29/2023 06/29/2022, , 06/29/2022, Additional history exists COVID-19 Vaccine ( - 2022- season) 2023 03/03/2021, 02/03/2021 Albumin/Creatinine [...] Procedure Name Priority Date/Time Associated Diagnosis Comments HEMOGLOBIN A1C, POINT OF CARE Routine 04/21/2024 11:06 AM EDT Type 2 diabetes mellitus with hemoglobin A1c goal of less than 7.0% (HCC) Type 2 diabetes mellitus with diabetic cataract, unspecified whether termite control technician insulin use (HCC) documented in this encounter Results * (ABNORMAL) HEMOGLOBIN A1C, POINT OF CARE (04/21/2024 11:06 AM EDT) Hemoglobin A1c 5.7(H) 4.0 - 5.6 % 04/21/2024 12:04 PM EDT [facility] 56-02 Blood 04/21/2024 11:0 6 AM EDT 04/21/2024 12:04 PM EDT Jerome Allen V, [facility] LAB POINT OF CARE TE ST DOCKED DEVICE UNSOLICITED RESULTS [facility] [address] [place] [id number] documented in this encounter Visit Diagnoses Diagnosis Type 2 diabetes mellitus with diabetic cataract, unspecified whether termite control technician insulin use (HCC) documented in this encounter Additional Health Concerns Infection Onset Date Last Indicated Resolved Time COVID-19 (confirmed) 03/07/2022 03/07/2022 documented as of this encounter Care Teams Meat Sales And Storage Manager Relationship Specialty Start Date End Date Humphrey Kurtz MD [address] [place] [address] PCP - General Family Medicine 10/09/23 documented as of this encounter
--- OUTSIDE RECORDS SUMMARY | 2024-06-27 03:03 | External Medical Summary ---
Author Name Unknown Address Unknown Organization [id number]:LABORATORY [facility] [address] [place] [address] Laboratory Report Ordering Provider Test Date Status NEETA ZARATE 04/23/2024 07:23:00 Final Observation Date Value Abnormality Reference (Units ) Status Vitamin B12 04/23/2024 07:23:00 [phone] (pg/mL) Final Performing Location [facility] - [address] [place] [address]
--- OUTSIDE RECORDS SUMMARY | 2024-06-27 03:03 | External Medical Summary ---
Author Name Unknown Address Unknown Organization [id number]:[facility]AT[facility] - [address] [place] [address] Laboratory Report Ordering Provider Test Date Status NEETA ZARATE 04/23/2024 07:23:00 Final Observation Date Value Abnormality Reference (Units ) Status PSA 04/23/2024 07:23:00 0.35 <3.10 (ng/ mL) Final Performing Location [facility] - [address] [place] [address]
--- OUTSIDE RECORDS SUMMARY | 2024-06-27 03:03 | External Medical Summary | Summary of Care ---
Author Name Unknown Organization [facility] Address [address] [place] [address] Phone [phone] Care Team Providers Care Gauge Operator Name Role Phone Humphrey Kurtz MD Primary Care Provider + Reason for Referral * Evaluate & Treat - Unlimited Visits (Within 10 days (routine)) - Authorized Specialty Diagnoses / Procedures Referred By Contac t Referred To Contact Ophthalmology Diagnoses Type 2 diabetes mellitus with diabetic cataract, unspecified whether prison insulin use (HCC) Humphrey Kurtz MD [address] [place] [address] Referral ID Status Reason Start Date Expiration Date Visits Requested Visits Authorized [id number] Authorized Specialty Services Required 04/22/2024 [id number] Question Answer Referral Priority Within 10 days (routine) Where should this appointment be scheduled? [facility] Referring for: Ophthalmology Conditions Ophthalmology Conditions Other Ophthalmology (comment) Comments Patient requests ophtho for DM ck. * Evaluate & Treat - Unlimited Visits (Within 30 days (routine)) - Authorized Specialty Diagnoses / Procedures Referred By Contact Referred To Contact Cardiovascular Medicine / Cardiology Diagnoses 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 Humphrey Kurtz MD [address] [place] [address] Referral ID Status Reason Start Date Expiration Date Visits Requested Visits Authorized [id number] Authorized Specialty Services Required 04/22/2024 [id number] Question Answer Referral Priority Within 30 days (routine) Where should this appointment be scheduled? [facility] To which of the following clinics are you referring your patient? [facility] * Evaluate & Treat - Unlimited Visits (Within 10 days (routine)) - Authorized Specialty Diagnoses / Procedures Referred By Contac t Referred To Contact Pulmonary Diseases / Pulmonary Diagnoses LINDA (obstructive sleep apnea) Humphrey Kurtz MD [address] [place] [address] Shravan Shay MD [address] [address] Referral ID Status Reason Start Date Expiration Date Visits Requested Visits Authorized [id number] Authorized Specialty Services Required 04/22/2024 [id number] Question Answer Referral Priority Within 10 days (routine) Where should this appointment be scheduled? External - [facility] Primary Reason for Referral? Sleep Disorders - for CPAP f/u * Evaluate & Treat - Unlimited Visits (Within 10 days (routine)) - Authorized Specialty Diagnoses / Procedures Referred By Contac t Referred To Contact Sports Medicine / Orthopedics Diagnoses Arthralgia of both knees Humphrey Kurtz MD [address] [place] [address] Francesco Nguyen MD [address] [place] [address] Referral ID Status Reason Start Date Expiration Date Visits Requested Visits Authorized [id number] Authorized Specialty Services Required 04/22/2024 [id number] Question Answer Referral Priority Within 10 days (routine) Where should this appointment be scheduled? [facility] What body part is the patient being seen for? Thigh/Knee What condition is the patient being seen for? 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 100 Each 6 1 Active Insulin Pen Needle 32G X 6 MMIndications:Type 2 diabetes mellitus with hemoglobin A1c goal of less than 7.0% (HCC) Use with Victoza once daily. 100 Each [...] Active Additional Information Patient taking differently:800 mg [id number] PRN, Pain, Breakthrough, Fever >38C(100.5F), with food [...] diabetes mellitus with diabetic cataract, unspecified whether prison insulin use ([facility]) [...] as of this encounter (statuses as of 04/22/2024) Active Problems Problem Noted Date Diagnosed Date Type 2 diabetes mellitus with diabetic cataract 07/17/2022 Benign prostatic hyperplasia with lower urinary tract symptoms 03/25/2022 Age-related nuclear cataract, bilateral 03/25/20 22 Recurrent major depressive disorder, in full rem ission 03/25/2022 LINDA (obstructive sleep apnea) 01/17/2022 MARU (generalized anxiety disorder) 11/11/2019 Ophthalmoplegic migraine, not intractable 2019 Coronary artery disease invo lving false pass coronary artery of false pass heart without angina pectoris 05/20/2018 Abnormal stress [...] as of this encounter (statuses as of 04/22/2024) Resolved Problems Problem Noted Date Diagnosed Date [...] as of this encounter (statuses as of 04/22/2024) Immunizations Name Administration Dates Next Due COVID-19 mRNA, LNP-s, No Pre serve, 2-Dose Series (Hyginex) 03/03/2021,02/03/2021 Hepatitis B, 20+ yrs 09/17/2019,10/07/2018,04/22 Pneumococcal Conjugate Vacc, 13 Valent (Prevnar) 01/14/2018 Pneumococcal Polysaccharide PPV23 (Pneumovax) 09/17/2019 Seasonal Influenza, PF, 6 M & above, IM , (FluLaval or Fluzone) 07/17/2022,09/27/2021,07/06/2020,07/11,07/17/2018 TDAP (age 10 and older)(Boostrix) 03/05/2018 Zoster Vaccine Recombinant (Shingrix) 01/12/2020 ,11/11/2019 documented as of this encounter Social History Tobacco Use Types Packs/Day Years Used Date Smoking Tobacco: Never Smokeless Tobacco: Never Tobacco Cessation:Counseling Given: Not Answered Alcohol Use Standard Drinks/Week Comments No 0 [...] Sign Reading Time Taken Comments Blood Pressure 136/86 04/22/2024 5:43 PM EDT Pulse 63 04/22/2024 5:43 PM EDT Temperature - - Respiratory Rate 16 04/22/2024 5:43 PM EDT Oxygen Saturation 97% 04/22/2024 5:43 PM EDT Inhaled Oxygen Concentration - - Weight 122.9 kg (271 lb) 04/22/2024 5:43 PM EDT Height - - Body Mass Index 33.87 08/06/2023 3:34 PM EDT documented in this encounter Progress Notes * Humphrey Kurtz MD - 04/22/2024 6:19 PM EDT SUBJECTIVE: Daniel Prajapati is a 58 year old male here for Return Visit (6 month return) . Here for DM f/u Due for labs. A1c done-5.7 yesterday No polyuria/dipsia. Requests referral for Ophthalmology for diabetes I checking Yani. Requests ophthalmology ratherthan optometry. Request follow-up for Dr. Acosta for sleep apnea, Dr. Nguyen for his bilateral knee pain injections and Cardiology. No fever, chills, chest pain, shortness of breath, headache, nausea, vomit, diarrhea, constipation or vision changes Physical: BP 136/86 | Pulse 63 | Resp 16 | Wt 122.9 kg (271 lb) | SpO2 97% | BMI 33.87 kg/m | BSA 2.55 m General-No apparent Distress Head, Eyes, Ears, Nose, Throat--Normocephalic, atraumatic Neck-Supple Lymph-no lymphadenopathy Lungs-Clear to Auscultation bilaterally Cardiovascular--Regular rate & Rhythm, +s1, s2, no murmur Abdomen-soft, nontender, nondistended + bowel sounds Extremities--no edema Neuro-alert & oriented x3 (E11.36) Type 2 diabetes mellitus with diabetic cataract, unspecified whether marine oil [employer] superintendent insulin use(HCC) (primary encounter diagnosis) Plan: ADULT/PEDS OPHTHALMOLOGY/OPTOMETRY REFERRAL OP, HEMOGLOBIN A1C Labs reviewed/ordered -shots UTD--flu & COVID this fall Colon due 2027 PSA ordered (M25.561, M25.562) Arthralgia of both knees Plan: SPORTS MEDICINE REFERRAL OP (G47.33) LINDA (obstructive sleep apnea) Plan: PULMONARY REFERRAL OP (I25.10) 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 As such, there may be misspellings, word substitutions, or other variations that should not change the essence of the clinical content of this encounter note.If there is need for further clarification, please direct questions to the provider listed above.) Humphrey Kurtz MD documented in this encounter Nursing Notes * Ignacia Rush LPN - 04/22/2024 5:43 PM EDT The patient has been properly identified by confirmation of name and date of . Chief Complaint Patient presents with Return Visit 6 month return documented in this encounter Plan of Treatment Upcoming Encounters Date Type Department Care Team (Late st Contact Info) Description 07/28/2024 7:00 AM EDT Office Visit Pharmacy, [facility] [place] [address] [place] [address] Pharmacist1, [facility] [address] [place] [address] 12/23/2024 5:40 PM EST Office Visit Family [facility] [address] [place] [address] Humphrey Kurtz MD [address] [place] [address] Scheduled Orders Name Type Priority Associated Diagnoses Orde r Schedule PSA Lab Routine Screening for prostate cancer Expected: 04/22/2024 (Approximate), Expires: 04/22/2025 HEMOGLOBIN A1C Lab Routine Type 2 diabetes mellitus with diabetic cataract, unspecified whether marine oil terminal superintendent insulin use (HCC) Expected: 10/22/2024 (Approximate), Expires: 04/22/2025 Scheduled Procedures Name Priority Associated Diagnoses Date/Ti me COLONOSCOPY FLEXIBLE PROXIMA L DIAGNOSTIC Recall Encounter for screening colonoscopy Scheduled Referrals Name Type Priority Associated Diagnoses Orde r Schedule SPORTS MEDICINE REFERRAL OP Referral Within 10 days (routine) Arthralgia of both knees Ordered: 04/22/2024 PULMONARY REFERRAL OP Referral Within 10 days (routine) LINDA (obstructive sleep apnea) Ordered: 04/22/2024 CARDIOLOGY REFERRAL OP Referral Within 30 days (routine) 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 Ordered: 04/22/2024 ADULT/PEDS OPHTHALMOLOGY/OPTOME TRY REFERRAL OP Referral Within 10 days (routine) Type 2 diabetes mellitus with diabetic cataract, unspecified whether prison insulin use (HCC) Ordered: 04/22/2024 Health Maintenance Due Date Last Done Comments [...] diabetes mellitus with diabetic cataract, unspecified whether marine oil terminal superintendent insulin use (HCC)- Primary Arthralgia of both knees LINDA (obstructive sleep apnea) Obstructive sleep apnea (adult) (pediatric) 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 Screening for prostate cancer Special screening for malignant neoplasm of prostate documented in this encounter Additional Health Concerns Infection Onset Date Last Indicated Resolved Time COVID-19 (confirmed) 03/07/2022 03/07/2022 documented as of this encounter Care Teams Gauge Operator Relationship Specialty Start Date End Date Humphrey Kurtz MD [address] [place] [address] PCP - General Family Medicine 10/09/23 documented as of this encounter"
--- OUTSIDE RECORDS SUMMARY | 2024-06-27 03:03 | External Medical Summary ---
Author Name Unknown Address Unknown Organization K01:[facility] - [address] [facility] [address] Laboratory Report Ordering Provider Test Date Status DARYL ZARATEBg 04/23/2024 07:23:00 Final Observation Date Value Abnormality Reference (Units ) Status Triglyceride 04/23/2024 07:23:00 44 <=174 ( mg/dL) Final Triglyceride Reference Range s (mg/dL):
<150 Acceptable
150-174 Borderline high
175-499 High
>=500 Very high Cholesterol 04/23/2024 07:23:00 146 <200 (mg /dL) Final Total Cholesterol Reference Ranges (mg/dL):
<200 Desirable
200-239 Borderline high
>=240 High HDL 04/23/2024 07:23:00 51 >39 (mg/dL ) Final HDL Cholesterol Reference Ra nges (mg/dL):
>=60 High (Desirable)
<50 Low (Undesirable) For Females
<40 Low (Undesirable) For Males NON-HDL CHOLESTEROL 04/23/2024 07:23:00 95 <=159 (mg/dL) Final Non-HDL Cholesterol Referenc e Range (mg/dL):
<100 Target level for high risk ASCVD patient
<130 Optimal for general population
130-159 Near optimal for general population
160-189 Borderline High
190-219 High
>=220 Very High LDL, (calculated) 04/23/2024 07:23:00 86 <= 129 (mg/dL) Final LDL Cholesterol Reference Ra nges (mg/dL):
<70 Target level for high risk ASCVD patient
<100 Optimal for general population
100-129 Near optimal for general population
130-159 Borderline high
160-189 High
>=190 Very high Performing Location [facility] - [address] [facility] [address]
--- OUTSIDE RECORDS SUMMARY | 2024-06-27 03:03 | External Medical Summary | Summary of Care ---
Author Name Unknown Organization [facility] Address [address] [place] [address] Phone [phone] Care Team Providers Care Food Chemist Name Role Phone Humphrey Santacruz MD Primary Care Provider + Reason for Visit * Reason Onset Date Comments Medication Refill 03/10/2024 Encounter Details Date Type Department Care Team (Late st Contact Info) Description 03/10/2024 Refill Family Practice [facility] [address] [place] [address] uHmphrey Santacruz MD [address] [place] [address] Spasm of muscle Allergies No known active allergiesdocumented as of this encounter (statuses as of 03/11/2024) Medications Medication Sig Dispensed Refills Start Date End Date Status Blood Glucose Monitoring Suppl (D-CARE GLUCOMETER) w/Device KITIndications:Type 2 diabetes mellitus with hemoglobin A1c goal of less than 7.0% ([facility]) Use as directed. 1 Kit 0 9 [...] Active Additional Information Patient taking differently:800 mg [id number] PRN, Pain, Breakthrough, Fever >38C(100.5F), with food for pain, Reported on 11/28/2023 Atorvastatin Calcium 40 MG Oral Tablet (Lipitor)Indications:Pur [...] 3 Active Lisinopril 5 MG Oral Tablet (Prinivil)Indications:HT [...] mellitus with diabetic cataract, unspecified whether senior living insulin use (HCC) Inject 10 mg under [...] Muscle spasms. 30 Tablet 3 4 Active tiZANidine HCl 4 MG Oral Tablet (Zanaflex)Indications:Sp asm of muscle TAKE 1 TABLET BY MOUTH EVERY 6 HOURS NEEDED FOR MUSCLE SPASMS. 30 Tablet 0 4 024 Discontin ued(Refil l) documented as of this encounter (statuses as of 03/11/2024) Active Problems Problem Noted Date Diagnosed Date Type 2 diabetes mellitus with diabetic cataract 07/17/2022 Benign prostatic hyperplasia with lower urinary tract symptoms 03/25/2022 Age-related nuclear cataract, bilateral 03/25/20 Recurrent major depressive disorder, in full rem ission 03/25/2022 LINDA (obstructive sleep apnea) 01/17/2022 MARU (generalized anxiety disorder) 11/11/2019 Ophthalmoplegic migraine, not intractable 2019 Coronary artery disease invo lving augustine coronary artery of augustine heart without angina pectoris 05/20/2018 Abnormal stress [...] as of this encounter (statuses as of 03/11/2024) Resolved Problems Problem Noted Date Diagnosed Date [...] as of this encounter (statuses as of 03/11/2024) Immunizations Name Administration Dates Next Due COVID-19 mRNA, LNP-s, No Pre serve, 2-Dose Series (F2G) 03/03/2021,02/03/2021 Hepatitis B, 20+ yrs 09/17/2019,10/07/2018,04/22 Pneumococcal [...] Telephone Encounter - Humphrey Santacruz MD - 03/11/2024 9:46 PM EDTSigned Prescriptions: Disp Refills tiZANidine HCl 4 MG Oral Tablet (Zanaflex) 30 Tab*3 Sig: Take 1 Tablet by mouth every 6 hours as needed for Muscle spasms. Authorizing Provider: HUMPHREY SANTACRUZ * Telephone Encounter - Sammi Baldwin LPN - 03/11/2024 1:42 PM EDTPending Prescriptions: Disp Refills tiZANidine HCl 4 MG Oral Tablet (Zanaflex) 30 Tab*0 Sig: Take 1 Tablet by mouth every 6 hours as needed for Muscle spasms. * Telephone Encounter - Sammi Baldwin LPN - 03/11/2024 1:41 PM EDT Did you pend patient's preferred pharmacy and medication before forwarding?yes Pharmacy: [id number] [address] [facility] Pending Prescriptions: Disp Refills tiZANidine HCl 4 MG Oral Tablet (Zanaflex)30 Tab*0 Sig: Take 1 Tablet by mouth every 6 hours as needed for Muscle spasms. Last Visit: 10/09/2023 (in office), 03/22/2020 (telemedicine) Next Visit: 04/22/2024 If no future appointments scheduled, and last appointment is greater than a year ago, please schedule patient for a follow-up appointment Last date the medication was ordered: 11/23/2023 Is this request for a controlled substance?No Urine Drug Screen:No results found for this or any previous visit. Patient Phone Numbers [employer] [phone] Labs: Lab Results Component Value Date/Time CREAT 0.8 04/17/2023 04:52 PM CREAT 0.8 08/18/2020 11:02 AM POTASSIUM 4.3 04/17/2023 04:52 PM POTASSIUM 4.5 08/18/2020 11:02 AM TSH 1.41 01/19/2020 05:10 PM LDLCALC 82 03/19/2023 04:43 PM LDLCALC 55 08/18/2020 11:02 AM LDLDIRECT 100 08/06/2023 12:16 PM LDLDIRECT NOT APPLICABLE 08/18/2020 11:02 AM ALT 29 04/17/2023 04:52 PM ALT 37 08/18/2020 11:02 AM HGBA1C 5.7 (H) 01/17/2024 08:45 AM HGBA1C 6.2 (H) 08/18/2020 11:02 AM * Telephone Encounter - Jean Coburn - 03/11/2024 1:36 PM EDTPending Prescriptions: Disp Refills tiZANidine HCl 4 MG Oral Tablet (Zanaflex) 30 Tab*0 Sig: Take 1Tablet by mouth every 6 hours as needed for Muscle spasms. documented in this encounter Plan of Treatment Upcoming Encounters Date Type Department Care Team (Late st Contact Info) Description 03/12/2024 1:20 PM EDT Office Visit [facility] [address] [place] [address] Megan Mckenzie DO [address] [place] [address] 04/21/2024 3:30 PM EDT Office Visit Pharmacy, [facility] [address] [address] Pharmacist1, [facility] [address] [place] [address] 04/22/2024 5:40 PM EDT Office Visit [facility] [address] [place] [address] Humphrey Santacruz MD [address] [place] [address] Scheduled Procedures Name Priority Associated Diagnoses Date/Ti [...] as of this encounter Visit Diagnoses Diagnosis Spasm of muscle documented in this encounter Additional Health Concerns Infection Onset Date Last Indicated Resolved Time COVID-19 (confirmed) 03/07/2022 03/07/2022 documented as of this encounter Care Teams Food Chemist Relationship Specialty Start Date End Date Humphrey Santacruz MD [address] [place] [address] PCP - General Family Medicine 10/09/23 documented as of this encounter
--- OUTSIDE RECORDS SUMMARY | 2024-06-27 03:03 | External Medical Summary | Summary of Care ---
Author Name Unknown Organization [facility] Address [address] [place] [address] Phone [phone] Care Team Providers Care Fresh Foods Cake Decorator Name Role Phone Humphrey Santacruz MD Primary Care Provider + Reason for Visit * Reason Comments eRx-Medication Refill Encounter Details Date Type Department Care Team (Late st Contact Info) Description 04/13/2024 Refill Family Practice [facility] [address] [place] [address] Humphrey Santacruz MD [address] [place] [address] HTN, goal below 130/80 Allergies No known active allergiesdocumented as of this encounter (statuses as of 04/19/2024) Medications Medication Sig Dispensed Refills Start Date End Date Status Blood Glucose Monitoring Suppl (D-CARE GLUCOMETER) w/Device KITIndications:Type 2 diabetes mellitus with hemoglobin A1c goal of less than 7.0% ([facility]) Use as directed. 1 Kit 07/30/20 19 [...] hemoglobin A1c goal of less than 7.0% ([facility]) CHECK BLOOD SUGAR 3 TIMES DAILY. 100 Each 05/17/20 21 Active Insulin Pen Needle 32G X 6 MMIndications:Type 2 diabetes mellitus with hemoglobin A1c goal of less than 7.0% ([facility]) Use with Victoza once daily. 100 Each 3 01/04/20 22 Active Aspirin Low Dose 81 MG Oral Tablet Delayed Release (aspirin enteric coated)Indications:DM type 2 nursing care encounter ([facility]) TAKE 1 TABLET BY MOUTH EVERY DAY [...] Active Additional Information Patient taking differently:800 mg [id number] PRN, Pain, Breakthrough, Fever >38C(100.5F), with food for pain, Reported on 11/28/2023 Atorvastatin Calcium 40 MG Oral Tablet (Lipitor)Indications:Pu re hypercholesterolemia TAKE 1 TABLET BY MOUTH EVERY DAY 90 Tablet 4 03/27/20 23 Active Levalbuterol Tartrate 45 MCG/ACT Inhalation Aerosol (Xopenex HFA)Indications:Mild intermittent asthma without complication Inhale 1 Puff by mouth every 4 hours as needed for Wheezing. 15 g 12 06/11/20 23 Active FreeStyle Yuval 3 SensorIndications:Type 2 diabetes mellitus with hemoglobin A1c goal of less than 7.0% ([facility]) Use as directed. Change every 14 days. Use to read blood glucose. DX: E11.9. 6 Each 3 07/16/20 23 Active Tamsulosin HCl 0.4 MG [...] morning. 3 mL 3 03/12/20 24 Active Lisinopril 5 MG Oral Tablet (Prinivil)Indications:H TN, goal below 130/80 TAKE 1 TABLET BY MOUTH EVERY DAY IN THE MORNING 30 Tablet 04/15/20 24 Active Lisinopril 5 MG Oral Tablet (Prinivil)Indications:H TN, goal below 130/80 TAKE 1 TABLET BY MOUTH EVERY DAY IN THE MORNING 90 Tablet 1 08/28/20 23 024 Discontinued documented as of this encounter (statuses as of 04/19/2024) Active Problems Problem Noted Date Diagnosed Date Type 2 diabetes mellitus with diabetic cataract 07/17/2022 Benign prostatic hyperplasia with lower urinary tract symptoms 03/25/2022 Age-related nuclear cataract, bilateral 03/25/20 22 Recurrent major depressive disorder, in full rem ission 03/25/2022 LINDA (obstructive sleep apnea) 01/17/2022 MARU (generalized anxiety disorder) 11/11/2019 Ophthalmoplegic migraine, not intractable 2019 Coronary artery disease invo lving [place] coronary artery of [place] heart without angina pectoris 05/20/2018 [...] as of this encounter (statuses as of 04/19/2024) Resolved Problems Problem Noted Date Diagnosed Date [...] as of this encounter (statuses as of 04/19/2024) Immunizations Name Administration Dates Next Due COVID-19 mRNA, LNP-s, No Pre serve, 2-Dose Series ([employer]) 03/03/2021,02/03/2021 Hepatitis B, 20+ yrs 09/17/2019,10/07/2018,04/22 Pneumococcal [...] encounter Miscellaneous Notes * Telephone Encounter - Lazara Devine soil fertility extension specialist - 04/19/2024 10:28 AM EDT Received message from [facility] regarding patient needing labs. Call Placed, Unable to reach pt, as therewas no answer and no VM available to leave message. Sent the patient a MyG message to advise. Thank you for your assistance Lazara Devine Mill Helper II [facility] 04/19/2024,10:29 AM * Telephone Encounter - Alannah Lazo [facility] - 04/15/2024 6:54 AM EDTSigned Prescriptions: Disp Refills Lisinopril 5 MG Oral Tablet (Prinivil) 30 Tab*0 Sig: TAKE 1 TABLET BY MOUTH EVERY DAY IN THE MORNING Authorizing Provider: HUMPHREY SANTACRUZ Ordering User: ALANNAH LAZO * Telephone Encounter - Alannah Lazo RPh - 04/15/2024 6:53 AM EDT Provided 30 days supply with 0 refill(s) until upcoming appointment. Per refill protocol patient should have routine labs on file within past year. Reviewed AMP report, Care Gaps/Health Maintenance, medications list, and for any routine labs typically ordered for this patient. Lab orders placed. Please contact patient to advise of labs ordered for blood draw AND URINE specimen (patient will have to be able to void to provide sample). Recommend patient to fast if able for labs. Patient may still have water and regular medications. Advise to obtain labs before his scheduled office visit 04/22/2024. Thank you, Alannah Lazo, PharmD Clinical Pharmacist [facility] [phone] 04/15/2024, 6:54 AM documented in this encounter Plan of Treatment Upcoming Encounters Date Type Department Care Team (Late st Contact Info) Description 04/21/2024 11:30 AM EDT Office Visit Pharmacy, [facility] [address] [place] [address] Pharmacist1, [facility] [address] [place] [address] 04/22/2024 5:40 PM EDT Office Visit [facility] [address] [place] [address] Humphrey Santacruz MD [address] [place] [address] Scheduled Procedures Name Priority Associated Diagnoses Date/Ti [...] 07/19/2024 01/17/2024, 10/05, 07/16/2023, Additional history exists Depression Monitoring 10/09/2024 10/09/2023 Colonoscopy 01/31/2028 01/30/2018, 01/30/2018 Colorectal Cancer Screening [...] as of this encounter Visit Diagnoses Diagnosis HTN, goal below 130/80 Unspecified essential hypertension documented in this encounter Additional Health Concerns Infection Onset Date Last Indicated Resolved Time COVID-19 (confirmed) 03/07/2022 03/07/2022 documented as of this encounter Care Teams Fresh Foods Cake Decorator Relationship Specialty Start Date End Date Humphrey Santacruz MD [address] [place] [address] PCP - General Family Medicine 10/09/23 documented as of this encounter
--- OUTSIDE RECORDS SUMMARY | 2024-06-27 03:03 | External Medical Summary | Summary of Care ---
Author Name Unknown Organization [facility] Address [address] [place] [address] Phone [phone] Care Team Providers Care Flatwork Presser Name Role Phone Humphrey Kurtz MD Primary Care Provider + Reason for Visit * Reason Comments Diabetes Follow-Up Dosage Adjustment In Person (Anticoag Cl inic) Encounter Details Date Type Department Care Team (Late st Contact Info) Description 04/21/2024 11:30 AM EDT [facility] [place] [address] [facility] [place] [address] Pharmacist1, [facility] [address] [facility] [place] [address] Type 2 diabetes mellitus with hemoglobin A1c goal of less than 7.0% (HCC)*; Type 2 diabetes mellitus with diabetic cataract, unspecified whether fci insulin use (HCC) Allergies No known active [...] A1c goal of less than 7.0% ([facility]) CHECK BLOOD SUGAR 3 TIMES DAILY. 100 Each 6 1 Active Insulin Pen Needle 32G X 6 MMIndications:Type 2 diabetes mellitus with hemoglobin A1c goal of less than 7.0% ([facility]) Use with Victoza once daily. 100 Each 3 2 Active Aspirin Low Dose 81 MG Oral Tablet Delayed Release (aspirin enteric coated)Indications:DM type 2 nursing care encounter ([facility]) TAKE 1 TABLET BY MOUTH EVERY DAY [...] Active Additional Information Patient taking differently:800 mg [id number] PRN, Pain, Breakthrough, Fever >38C(100.5F), with food [...] A1c goal of less than 7.0% ([facility]) Use as directed. Change every 14 days. [...] A1c goal of less than 7.0% ([facility]) TAKE 1 TABLET BY MOUTH 2 TIMES A DAY WITH MORNING AND EVENING MEALS 180 Tablet 3 4 Active Mounjaro 10 MG/0.5ML Subcutaneous Solution Pen-injector (Tirzepatide)Indications: Type 2 diabetes mellitus with hemoglobin A1c goal of less than 7.0% ([facility]),Type 2 diabetes mellitus with diabetic cataract, unspecified whether superintendent [employer] insulin use ([facility]) Inject 10 mg under the skin once a week. 2 mL 11 4 01/17/20 25 Active OneTouch Verio In Vitro Strip (Glucose Blood)Indications:Type 2 diabetes mellitus with hemoglobin A1c goal of less than 7.0% ([facility]) TEST 3 TIMES A DAY DIRECTED 300 [...] 2019 Coronary artery disease invo lving [place] coronary artery of [place] heart without angina pectoris 05/20/2018 Abnormal stress [...] this encounter Progress Notes * Jerome Waters, [facility] - 04/21/2024 11:42 AM EDT Images from [...] A1c goal of less than 7.0% ([facility]) E11.9 2. Type 2 diabetes mellitus with diabetic cataract, unspecified whether fci insulin use ([facility])E11.36 BG Readings - Blood sugars controlled. A1C [...] Jerome Villa RPh, HIRA Clinical Pharmacist - Transmission Operator [facility] 04/21/2024, 11:43 AM documented in this encounter Plan of Treatment Upcoming Encounters Date Type Department Care Team (Late st Contact Info) Description 04/22/2024 5:40 PM EDT Office Visit [facility] [address] [place] [address] Humphrey Kurtz MD [address] [address] [address] 07/28/2024 7:00 AM EDT Office Visit Pharmacy, [facility] [place] [address] [facility] [place] [address] Pharmacist1, [facility] [address] [facility] [place] [address] Scheduled Procedures Name Priority Associated Diagnoses Date/Ti [...] diabetes mellitus with diabetic cataract, unspecified whether superintendent [employer] insulin use (HCC) documented in this encounter Results * (ABNORMAL) HEMOGLOBIN A1C, POINT OF CARE (04/21/2024 11:06 AM EDT) Hemoglobin A1c 5.7(H) 4.0 - 5.6 % 04/21/2024 12:04 PM EDT [facility] 56-02 Blood 04/21/2024 11:0 6 AM EDT 04/21/2024 12:04 PM EDT Jerome Allen V, [facility] LAB POINT OF CARE TE ST DOCKED DEVICE UNSOLICITED RESULTS [facility] [address] [place] [id number] documented in this encounter Visit Diagnoses Diagnosis Type 2 diabetes mellitus with diabetic cataract, unspecified whether superintendent marine [employer] insulin use (HCC) documented in this encounter Additional Health Concerns Infection Onset Date Last Indicated Resolved Time COVID-19 (confirmed) 03/07/2022 03/07/2022 documented as of this encounter Care Teams Flatwork Presser Relationship Specialty Start Date End Date Humphrey Kurtz MD [address] [place] [address] PCP - General Family Medicine 10/09/23 documented as of this encounter
--- OUTSIDE RECORDS SUMMARY | 2024-06-27 03:04 | External Medical Summary | Summary of Care ---
Author Name Unknown Organization [facility] Address [address] [place] [address] Phone [phone] Care Team Providers Care Conveyancer Name Role Phone Humphrey Santacruz MD Primary Care Provider + Reason for Visit * Reason Comments eRx-Medication Refill Encounter Details Date Type Department Care Team (Late st Contact Info) Description 02/15/2024 Refill Family Practice [facility] [address] [place] [address] Jude Sigala, DO [address] [place] [address] Type 2 diabetes mellitus with hemoglobin A1c goal of less than 7.0% (HCC) Allergies No known active allergiesdocumented as of this encounter (statuses as of 02/16/2024) Medications Medication Sig Dispensed Refills Start Date End Date Status Blood Glucose Monitoring Suppl (D-CARE GLUCOMETER) w/Device KITIndications:Type 2 diabetes mellitus with hemoglobin A1c goal of less than 7.0% (HCC) Use as directed. 1 Kit 0 07/30/20 19 Active Blood Pressure KITIndications:HTN, goal below 130/80 Use daily for blood pressure readings 1 Kit 0 09/03/20 19 Active Indomethacin 50 MG CapsuleIndications:Pain [...] hemoglobin A1c goal of less than 7.0% ([facility]) CHECK BLOOD SUGAR 3 TIMES DAILY. 100 Each 05/17/20 21 Active Insulin Pen Needle 32G X 6 MMIndications:Type 2 diabetes mellitus with hemoglobin A1c goal of less than 7.0% ([facility]) Use with Victoza once daily. 100 Each 3 01/04/20 22 Active Aspirin Low Dose 81 MG Oral Tablet Delayed Release (aspirin enteric coated)Indications:DM type 2 nursing care encounter ([facility]) TAKE 1 TABLET BY MOUTH EVERY [...] Active Additional Information Patient taking differently:800 mg [id number] PRN, Pain, Breakthrough, Fever >38C(100.5F), with food for pain, Reported on 11/28/2023 Ezetimibe 10 MG Oral Tablet (Zetia)Indications:Pure hypercholesterolemia Take 1 Tablet by mouth in the morning. 90 Tablet 3 03/26/20 23 Active Atorvastatin Calcium 40 MG Oral Tablet [...] hemoglobin A1c goal of less than 7.0% ([facility]) Use as directed. Change every 14 days. Use to read blood glucose. DX: E11.9. 6 Each 3 07/16/20 23 Active Lisinopril 5 MG Oral Tablet (Prinivil)Indications:H TN, goal below 130/80 TAKE 1 TABLET BY MOUTH EVERY DAY IN THE MORNING 90 Tablet 1 08/28/20 23 Active Tamsulosin HCl 0.4 MG Oral [...] BEDTIME 90 Tablet 3 11/01/20 23 Active tiZANidine HCl 4 MG Oral Tablet (Zanaflex)Indications:S pasm of muscle TAKE 1 TABLET BY MOUTH EVERY 6 HOURS NEEDED FOR MUSCLE SPASMS. 30 Tablet 0 11/23/19 24 Active metFORMIN HCl 1000 MG Oral Tablet [...] diabetes mellitus with diabetic cataract, unspecified whether fdc insulin use (HCC) Inject 10 mg under the skin once a week. 2 mL 01/17/20 24 025 Active OneTouch Verio In Vitro Strip (Glucose Blood)Indications:Type 2 diabetes mellitus with hemoglobin A1c goal of less than 7.0% (HCC) TEST 3 TIMES A DAY DIRECTED 300 Strip 3 02/16/20 24 Active OneTouch Verio In Vitro Strip (Glucose Blood)Indications:Type 2 diabetes mellitus with hemoglobin A1c goal of less than 7.0% (HCC) TEST DIRECTED 3 TIMES A DAY 300 Strip 3 04/10/20 23 024 Discontinued documented as of this encounter (statuses as of 02/16/2024) Active Problems Problem Noted Date Diagnosed Date Type 2 diabetes mellitus with diabetic cataract 07/17/2022 Benign prostatic hyperplasia with lower urinary tract symptoms 03/25/2022 Age-related nuclear cataract, bilateral 03/25/20 22 Recurrent major depressive disorder, in full rem ission 03/25/2022 LINDA (obstructive sleep apnea) 01/17/2022 MARU (generalized anxiety disorder) 11/11/2019 Ophthalmoplegic migraine, not intractable 2019 Coronary artery disease invo lving [place] coronary artery of [place] heart without angina pectoris 05/20/2018 Abnormal stress [...] as of this encounter (statuses as of 02/16/2024) Resolved Problems Problem Noted Date Diagnosed Date [...] as of this encounter (statuses as of 02/16/2024) Immunizations Name Administration Dates Next Due COVID-19 mRNA, LNP-s, No Pre serve, 2-Dose Series ([employer]) 03/03/2021,02/03/2021 Hepatitis B, 20+ yrs 09/17/2019,10/07/2018,04/22 Pneumococcal [...] encounter Miscellaneous Notes * Telephone Encounter - Luke Frausto RP - 02/16/2024 12:29 PM EDT Signed Prescriptions: Disp Refills OneTouch Verio In Vitro Strip (Glucose Blo*300 St*3 Sig: TEST 3 TIMES A DAY DIRECTEDAuthorizing Provider: HUMPHREY SANTACRUZ User: LUKE FRAUSTO documented in this encounter Plan of Treatment Upcoming Encounters Date Type Department Care Team (Late st Contact Info) Description 04/21/2024 3:30 PM EDT Office Visit Pharmacy, [facility] [address] [place] [address] Pharmacist1, [facility] [address] [place] [address] 04/22/2024 5:40 PM EDT Office Visit Family Practice [facility] [address] [place] [address] Humphrey Santacruz MD [address] [place] [address] Scheduled Procedures Name Priority Associated Diagnoses Date/Ti [...] documented as of this encounter Care Teams Conveyancer Relationship Specialty Start Date End Date Humphrey Santacruz MD [address] [place] [address] PCP - General Family Medicine 10/09/23 documented as of this encounter
--- OUTSIDE RECORDS SUMMARY | 2024-06-27 03:04 | External Medical Summary | Summary of Care ---
Author Name Unknown Organization [facility] Address [address] [place] [address] Phone [phone] Care Team Providers Care Terra Cotta Roofer Helper Name Role Phone Humphrey Kurtz MD Primary Care Provider + Reason for Visit * Reason Comments eRx-Medication Refill Encounter Details Date Type Department Care Team (Late st Contact Info) Description 03/06/2024 Refill Cardiology, [facility] [address] [place] [address] Anselmo Gonzalez, DO [address] [place] [address] Pure hypercholesterolemia Allergies No known active allergiesdocumented as of this encounter (statuses as of 03/06/2024) Medications Medication Sig Dispensed Refills Start Date End Date Status Blood Glucose Monitoring Suppl (D-CARE GLUCOMETER) w/Device KITIndications:Type 2 diabetes mellitus with hemoglobin A1c goal of less than 7.0% ([facility]) Use as directed. 1 Kit 0 07/30/20 [...] goal of less than 7.0% ([facility]) CHECK BLOOD SUGAR 3 TIMES DAILY. 100 Each 05/17/20 21 Active Insulin Pen Needle 32G X 6 MMIndications:Type 2 diabetes mellitus with hemoglobin A1c goal of less than 7.0% ([facility]) Use with Victoza once daily. 100 Each 3 01/04/20 22 Active Aspirin Low Dose 81 MG Oral Tablet Delayed Release (aspirin enteric coated)Indications:DM type 2 nursing care encounter ([facility]) TAKE 1 TABLET BY MOUTH [...] Active Additional Information Patient taking differently:800 mg [id number] PRN, Pain, Breakthrough, Fever >38C(100.5F), with food [...] goal of less than 7.0% ([facility]) Use as directed. Change every [...] diabetes mellitus with diabetic cataract, unspecified whether longterm insulin use (HCC) Inject 10 mg under the skin once a week. 2 mL 11 01/17/20 24 025 Active OneTouch Verio In Vitro Strip (Glucose Blood)Indications:Type 2 diabetes mellitus with hemoglobin A1c goal of less than 7.0% ([facility]) TEST 3 TIMES A DAY DIRECTED 300 Strip 3 02/16/20 24 Active Ezetimibe 10 MG Oral Tablet (Zetia)Indications:Pure hypercholesterolemia TAKE 1 TABLET BY MOUTH EVERY DAY IN THE MORNING 90 Tablet 3 03/06/20 24 Active Ezetimibe 10 MG Oral Tablet (Zetia)Indications:Pure hypercholesterolemia Take 1 Tablet by mouth in the morning. 90 Tablet 3 03/26/20 23 024 Discontinued documented as of this encounter (statuses as of 03/06/2024) Active Problems Problem Noted Date Diagnosed Date Type 2 diabetes mellitus with diabetic cataract 07/17/2022 Benign prostatic hyperplasia with lower urinary tract symptoms 03/25/2022 Age-related nuclear cataract, bilateral 03/25/20 Recurrent major depressive disorder, in full rem ission 03/25/2022 LINDA (obstructive sleep apnea) 01/17/2022 MARU (generalized anxiety disorder) 11/11/2019 Ophthalmoplegic migraine, not intractable 2019 Coronary artery disease invo lving [place] coronary artery of [place] heart without angina pectoris 05/20/2018 Abnormal stress [...] as of this encounter (statuses as of 03/06/2024) Resolved Problems Problem Noted Date Diagnosed Date [...] as of this encounter (statuses as of 03/06/2024) Immunizations Name Administration Dates Next Due COVID-19 mRNA, LNP-s, No Pre serve, 2-Dose Series ([employer] 03/03/2021,02/03/2021 Hepatitis B, 20+ yrs 09/17/2019,10/07/2018,04/22 Pneumococcal [...] encounter Miscellaneous Notes * Telephone Encounter - Gaby Monahan CMA - 03/06/2024 1:31 PM EDTPending Prescriptions: Disp Refills Ezetimibe 10 MG Oral Tablet [Pharmacy Med *90 Tab*3 Sig: TAKE 1 TABLET BY MOUTH EVERY DAY IN THE MORNING * Telephone Encounter - Gaby Monahan CMA - 03/06/2024 1:30 PM EDT Scheduling -- please contact pt for follow up. * Telephone Encounter - Gaby Monahan CMA - 03/06/2024 1:30 PM EDT Did you pend patient's preferred pharmacy and medication before forwarding?yes Pharmacy: [id number] [id number] [facility] Pending Prescriptions: Disp Refills Ezetimibe 10 MG Oral Tablet (Zetia) [Phar*90 Tab*3 Sig: TAKE 1 TABLET BY MOUTH EVERY DAY IN THE MORNING Last Visit: 03/14/2023 (in office), Visit date not found (telemedicine) Next Visit: Visit date not found If no future appointments scheduled, and last appointment is greater than a year ago, please schedule patient for a follow-up appointment Last date the medication was ordered: 03-26-2023 Is this request for a controlled substance?No [...] PM EDT Office Visit Pharmacy, [facility] [place] [address] [place] [address] Pharmacist1, [facility] [address] [place] [address] 04/22/2024 5:40 PM EDT Office Visit Family [facility] [address] [place] [address] Humphrey Kurtz MD [address] [place] [address] Scheduled Procedures Name Priority Associated Diagnoses Date/Ti [...] documented as of this encounter Care Teams Terra Cotta Roofer Helper Relationship Specialty Start Date End Date Humphrey Kurtz MD [address] [place] [address] PCP - General Family Medicine 10/09/23 documented as of this encounter
--- OUTSIDE RECORDS SUMMARY | 2024-06-27 03:04 | External Medical Summary | Summary of Care ---
Author Name Unknown Organization [facility] Address [address] [place] [address] Phone [phone] Care Team Providers Care Drafter Directional Survey Name Role Phone Humphrey Kurtz MD Primary Care Provider + Reason for Visit * Reason Comments Diabetes Follow-Up Dosage Adjustment In Person (Anticoag Cl inic) Encounter Details Date Type Department Care Team (Late st Contact Info) Description 01/17/2024 9:30 AM EDT Office Visit Pharmacy, [facility] [place] [address] [facility] [place] [address] Pharmacist1, [facility] [address] [facility] [place] [address] Type 2 diabetes mellitus with hemoglobin A1c goal of less than 7.0% (HCC)*; Type 2 diabetes mellitus with diabetic cataract, unspecified whether half-way insulin use (HCC) Allergies No known active allergiesdocumented as of this encounter (statuses as of 01/17/2024) Medications Medication Sig Dispensed Refills Start Date End Date Status Blood Glucose Monitoring Suppl (D-CARE GLUCOMETER) w/Device KITIndications:Type 2 diabetes mellitus with hemoglobin A1c goal of less than 7.0% (HCC) Use as directed. 1 Kit 0 9 [...] hemoglobin A1c goal of less than 7.0% ([facility]) CHECK BLOOD SUGAR 3 TIMES DAILY. 100 Each 6 1 Active Insulin Pen Needle 32G X 6 MMIndications:Type 2 diabetes mellitus with hemoglobin A1c goal of less than 7.0% ([facility]) Use with Victoza once daily. 100 Each 3 2 Active Aspirin Low Dose 81 MG Oral Tablet Delayed Release (aspirin enteric coated)Indications:DM type 2 nursing care encounter ([facility]) TAKE 1 TABLET BY [...] Active Additional Information Patient taking differently:800 mg ZagcV5G PRN, Pain, Breakthrough, Fever >38C(100.5F), with food for pain, Reported on 11/28/2023 Ezetimibe 10 MG Oral Tablet (Zetia)Indications:Pure hypercholesterolemia Take 1 Tablet by mouth in the morning. 90 Tablet 3 3 Active Atorvastatin Calcium 40 MG Oral Tablet (Lipitor)Indications:Pur e hypercholesterolemia TAKE 1 TABLET BY MOUTH EVERY DAY 90 Tablet 4 3 Active OneTouch Verio In Vitro Strip (Glucose Blood)Indications:Type 2 diabetes mellitus with hemoglobin A1c goal of less than 7.0% ([facility]) TEST DIRECTED 3 TIMES A DAY 300 Strip 3 3 Active Levalbuterol Tartrate 45 MCG/ACT Inhalation Aerosol (Xopenex HFA)Indications:Mild intermittent asthma without complication Inhale 1 Puff by mouth every 4 hours as needed for Wheezing. 15 g 12 3 Active FreeStyle Yuval 3 SensorIndications:Type 2 diabetes mellitus with hemoglobin A1c goal of less than 7.0% ([facility]) Use as directed. Change [...] AT BEDTIME 90 Tablet 3 3 Active tiZANidine HCl 4 MG Oral Tablet (Zanaflex)Indications:Sp asm of muscle TAKE 1 TABLET BY MOUTH EVERY 6 HOURS NEEDED FOR MUSCLE SPASMS. 30 Tablet 0 4 Active metFORMIN HCl 1000 MG Oral Tablet (Glucophage)Indications: Type 2 diabetes mellitus with hemoglobin A1c goal of less than 7.0% ([facility]) TAKE 1 TABLET BY MOUTH 2 TIMES A DAY WITH MORNING AND EVENING MEALS 180 Tablet 3 4 Active Mounjaro 10 MG/0.5ML Subcutaneous Solution Pen-injector (Tirzepatide)Indications :Type 2 diabetes mellitus with hemoglobin A1c goal of less than 7.0% ([facility]),Type 2 diabetes mellitus with diabetic cataract, unspecified whether exterminator helper termite insulin use (HCC) Inject 10 mg under the skin once a week. 2 mL 11 4 025 Active Mounjaro 7.5 MG/0.5ML Subcutaneous Solution Pen-injector (Tirzepatide)Indications :Type 2 diabetes mellitus with hemoglobin A1c goal of less than 7.0% ([facility]) Inject 7.5 mg under the skin once a week. 2 mL 12 3 024 Discontin ued(Medic ation/Dos e Changed) documented as of this encounter (statuses as of 01/17/2024) Active Problems Problem Noted Date Diagnosed Date Type 2 diabetes mellitus with diabetic cataract 07/17/2022 Benign prostatic hyperplasia with lower urinary tract symptoms 03/25/2022 Age-related nuclear cataract, bilateral 03/25/20 Recurrent major depressive disorder, in full rem ission 03/25/2022 LINDA (obstructive sleep apnea) 01/17/2022 MARU (generalized anxiety disorder) 11/11/2019 Ophthalmoplegic migraine, not intractable 2019 Coronary artery disease invo lving [place] coronary artery of [place] heart without angina pectoris 05/20/2018 Abnormal stress [...] as of this encounter (statuses as of 01/17/2024) Resolved Problems Problem Noted Date Diagnosed Date [...] as of this encounter (statuses as of 01/17/2024) Immunizations Name Administration Dates Next Due COVID-19 mRNA, LNP-s, No Pre serve, 2-Dose Series (aaTag) 03/03/2021,02/03/2021 Hepatitis B, 20+ yrs 09/17/2019,10/07/2018,04/22 Pneumococcal [...] this encounter Progress Notes * Jerome Waters, [facility] - 01/17/2024 9:27 AM EDT Images from the original note were not included. Medication Therapy Disease Management Clinic - Diabetes Management Progress Note Daniel Prajapati, identified by name and date of , is a 58 year old male being seen for diabetes management/education. Patient presents for return diabetic visit. DIABETES: Current diabetic medications: Metformin HCl 1000 mg BID INCREASE: Mounjaro 7.5 mg injection weekly Medication Injection Site: Abdomen Lifestyle: Diet: unchanged. Fasting for Ramadan starting 02/13 History of Treatment Barriers: Lifestyle: None Therapy considerations: None Medication: None Glucose Review/SMBG: Readings obtained from patient device Hypoglycemia: Does your blood sugar go below 70 mg/dL? No Hyperglycemia symptoms present: none Goal <7 Recent Labs Units 10/15/23 0940 07/16/23 0927 02/13/23 0946 HEMOGLOBIN A1C POCT - [facility] % 5.6 5.6 5.1 Recent Labs Units 04/17/23 1652 07/19/22 0918 [...] daily BP Readings from Last 3 Encounters: 11/28/23 104/72 10/09/23 120/76 08/28/23 132/80 Blood pressure at goal: yes HYPERLIPIDEMIA: Patient is taking moderate or high intensity statin: yes, Atorvastatin 40mg daily HEALTH MAINTENANCE REVIEW: Health Maintenance Due Topic Date Due Hepatitis C Screening Never done Diabetic Foot Exam 10/04/2022 Diabetic Eye Exam 06/29/2023 Influenza Vaccine (FLU shot) (1) 07/06/2023 COVID-19 Vaccine (3 - 2022- season) 2023 Albumin/Creatinine Ratio 04/16/2024 ASSESSMENT & PLAN: ICD-10-CM 1. Type 2 diabetes mellitus with hemoglobin A1c goal of less than 7.0% ([facility]) E11.9 2. Type 2 diabetes mellitus with diabetic cataract, unspecified whether exterminator helper termite insulin use ([facility])E11.36 BG Readings - Blood sugars controlled. No lows Medications - Reviewed current regimen, patient is adherent to regimen. He wants to increase Mounjaro again to lose weight Diet, Exercise, Lifestyle - No significant lifestyle changes since last visit. Discussed with patient today. Patient is agreeable to wear Yuval CGM. Patient aware to contact clinic if any hypoglycemia before next visit. MEDICATION CHANGES: yes, see below; preferred pharmacy: [facility] Diabetic Medications: Metformin HCl 1000 mg BID INCREASE: Mounjaro 10 mg injection weekly HEALTH MAINTENANCE INTERVENTIONS: Labs: Up to Date Immunizations: due for flu Foot Exam: due Eye Exam: due Annual Wellness Visit: N/A FOLLOW UP: Return to clinic in 3 months 04/21/2024 Jerome Villa RPh, HIRA Clinical Pharmacist - Metal Wire Technician Medication Therapy Management Clinic 01/17/2024, 9:27 AM documented in this encounter Plan of Treatment Upcoming Encounters Date Type Department Care Team (Late st Contact Info) Description 02/11/2024 2:30 PM EDT Nutrition Services Nutrition, [facility] [address] [address] Teri Lozoya RDN [address] [place] [address] 04/21/2024 3:30 PM EDT Office Visit Pharmacy, [place] Jana Kumar [address] [place] [address] Pharmacist1, [facility] [address] [place] [address] 04/22/2024 5:40 PM EDT Office Visit Family Practice [facility] [place] [address] [place] [address] Humphrey Kurtz MD [address] [place] [address] Scheduled Procedures Name Priority Associated Diagnoses Date/Ti [...] 03/03/2021, 02/03/2021 Influenza Vaccine (FLU shot) (#1) 2023 07/17/2022, 09/27/2021, 07/06/2020, Additional history exists Albumin/Creatinine Ratio 04/16/2024 023, 03/21/2022, 09/27/2021, Additional history exists B-12 04/17/2024 04/17/2023, 0606/2022, 08/18/2020, Additional history exists GFR 04/17/2024 04/17/2023, 07/06, 03/20/2022, Additional history exists HbA1c 07/19/2024 01/17/2024, 10/05, 07/16/2023, Additional history exists Depression Screening 10/09/2024 10/09/2023, 03/05/20 18 Colonoscopy 01/31/2028 01/30/2018, 01/30/2018 Colorectal Cancer Screening 01/31/2028 DTaP,Tdap,and Td Vaccines (2 - Td or Tdap) 03/05/2028 03/05/2018, 03/05/2018 Pneumococcal Vaccine: Pediatrics (0 to 5 Years) and At-Risk Patients (6 to 64 Years) (3 of 3 - PPSV23 or PCV20) 2032 09/17/2019, 01/14/2018 Hepatitis B Completed 09/17/2019, 12/0 01/2018, 04/22/2018 Zoster Vaccines Completed 01/12/2020, 11/11/2019 [...] Diagnosis Comments HEMOGLOBIN A1C, POINT OF CARE JOSÉ MANUEL 01/17/2024 8:45 AM EDT documented in this encounter Results * (ABNORMAL) HEMOGLOBIN A1C, POINT OF CARE (01/17/2024 8:45 AM EDT) Hemoglobin A1c 5.7(H) 4.0 - 5.6 % 01/17/2024 9:41 AM EDT [facility] 56-02 Blood 01/17/2024 8:45 AM EDT 01/17/2024 9:41 AM EDT [facility] Pharmacist1 LAB POINT OF C ARE TEST DOCKED DEVICE UNSOLICITED RESULTS [facility] [address] [place] [address] documented in this encounter Visit Diagnoses Diagnosis Type 2 diabetes mellitus with diabetic cataract, unspecified whether exterminator helper termite insulin use (HCC) documented in this encounter Additional Health Concerns Infection Onset Date Last Indicated Resolved Time COVID-19 (confirmed) 03/07/2022 03/07/2022 documented as of this encounter Care Teams Drafter Directional Survey Relationship Specialty Start Date End Date Humphery Kurtz MD [address] [place] [id number] PCP - General Family Medicine 10/09/23 documented as of this encounter
--- OUTSIDE RECORDS SUMMARY | 2024-06-27 03:04 | External Medical Summary ---
Author Name Unknown Address Unknown Organization K09:[facility] [place] [place] [address] Laboratory Report Ordering Provider Test Date Status MTTayla,PHARMACIST1 01/17/2024 08:45:25 Final Observation Date Value Abnormality Reference (Units ) Status HbA1C 01/17/2024 08:45:25 5.7 Above high normal 4. 0-5.6 (%) Final Performing Location [facility] [place] [address]
[2024-06-27 04:09] LABS: Hematocrit (blood only) 43.1 % (42.0-52.0); Hemoglobin 14.6 g/dl (14.0-18.0); Mean Corpuscular Hemoglobin 28.5 pg (25.0-34.0); Mean Corpuscular Hgb Conc 33.9 g/dL (32.0-36.0); Mean Platelet Volume 10.6 fL (9.4-12.4); Platelet Count 287 K/uL (130-400); RDW Coefficient of Variation 13.1 % (11.5-14.5); RDW Standard Deviation 40.5 fL (36.4-46.3); Red Blood Count 5.13 M/uL (4.70-6.10); White Blood Count 7.14 K/ul (4.8-10.8)
[2024-06-27 04:16] LABS: ANTI-Xa, UFH(UnfractionatedHep 0.14 IU/ml (0.3-0.7)
[2024-06-27 04:27] LABS: Calcium 9.1 mg/dl (8.6-10.3)
[2024-06-27 04:32] LABS: BUN Creatinine Ratio 25.4 (10-20); Creatinine Clr Calc Pharmacy 175.5 ml/min; Est GFR (African American) 124.5 ml/min; Est GFR (Non-African American) 107.4 ml/min
[2024-06-27] MEDS: HEPARIN SOD (PORCINE) 1000 UNIT/ML IV ONE (04:42)
[2024-06-27] MEDS: EZETIMIBE 10 MG TAB PO SCH (09:32)
[2024-06-27] MEDS: lisinopril 5 MG TAB PO SCH (09:33)
[2024-06-27 10:19] LABS: ANTI-Xa, UFH(UnfractionatedHep 0.44 IU/ml (0.3-0.7)
--- NOTE | 2024-06-27 11:46 | Cardiology Consultation ---
Date of Consultation June 27, 2024 Assessment & Plan (1) NSTEMI (non-ST elevated myocardial infarction): (2) CAD (coronary artery disease), agdaagux coronary artery: (3) Dyslipidemia, goal LDL below 70: (4) DM (diabetes mellitus), type 2: Plan 58-year-old male presents with NSTEMI. Currently pain-free on IV heparin. Bedside echocardiogram without regional wall motion abnormality. Risk, benefit, and alternative to cardiac catheterization with coronary angiography discussed. Patient agreeable to proceed. Prior films reviewed. All questions answered to patient's satisfaction. Continue aspirin, statin, Zetia, CHAN inhibitor, and beta-dallas as ordered. I spent a total of 60 minutes on the date of service in preparation, delivery, and documentation of the care provided to this patient, excluding any time spent in the performance of separately billed services. History of Present Illness Reason for Consultation: CP Requesting Physician: Val Schreiber PA-C Attending Physician: Gerardo Barrientos MD History of Present Illness 68-year-old male present to the emergency department with chest discomfort. Patient describes chest heaviness and tightness occurring 06/26/2024 while at work. Discomfort occurred while walking. Discomfort became severe, rated 10/10 in severity with associated shortness of breath. No radiation. 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 He he was referred to the ER for further evaluation and treatment. Mild discomfort noted on presentation which has resolved. ECG demonstrates diffuse nonspecific T wave abnormality, unchanged. Telemetry reveals sinus rhythm. Currently, resting comfortably. Denies recurrent chest pain overnight. Elevated high-sensitivity troponin. History of moderate mid LAD stenosis, not significant by FFR in 2018. Allergies Allergy/AdvReac Type Severity Reaction Status Date / Time No Known Allergies Allergy Verified 12/10/23 14:36 Home Medications Medication Instructions Recorded Confirmed Type aspirin 81 mg tablet,delayed 81 mg PO HS 08/31/18 06/26/24 History release atorvastatin 40 mg tablet (Lipitor) 40 mg PO HS 08/31/18 06/26/24 History meloxicam 15 mg tablet 15 mg PO HS 08/31/18 06/26/24 History metformin 1,000 mg tablet 1,000 mg PO BID 08/31/18 06/26/24 History metoprolol succinate 25 mg 25 mg PO HS 08/31/18 06/26/24 History tablet,extended release 24 hr omega [id number]-zez-[id number]-fish oil 1,000 mg 1,000 mg PO HS 08/31/18 06/26/24 History (120 mg-180 mg) capsule (Fish Oil) CPAP Machine #1 ea 11/03/19 06/26/24 Rx lidocaine 5 % topical patch 1 patch topical DAILY PRN pain #15 06/13/20 06/26/24 Rx (Lidoderm) ea ezetimibe 10 mg tablet 10 mg PO DAILY 06/26/24 06/26/24 History fluticasone propionate 50 2 spray intranasal DAILY PRN 06/26/24 06/26/24 History mcg/actuation nasal allergies spray,suspension lisinopril 5 mg tablet 5 mg PO DAILY 06/26/24 06/26/24 History tirzepatide 10 mg/0.5 mL 10 mg subcut WK 06/26/24 06/26/24 History subcutaneous pen injector (Rocky) tizanidine 4 mg tablet 4 mg PO Q6H PRN Muscle Spasm 06/26/24 06/26/24 History trazodone 50 mg tablet 50 mg PO HS 06/26/24 06/26/24 History Patient History Medical History BPH (benign prostatic hyperplasia) CAD (coronary artery disease) LINDA (obstructive sleep apnea) Abnormal stress echocardiogram Hypercholesterolemia PVCs (premature ventricular contractions) MDD (major depressive disorder) HTN (hypertension) Nocturnal hypoxemia Obesity Severe obstructive sleep apnea DM (diabetes mellitus), type 2 Nasal polyposis Arthritis Surgical History History of tonsillectomy History of knee surgery Family History Mother Arthritis Rheumatoid arthritis Aunt Breast cancer Family/Other Obstructive sleep apnea Social History Smoking Status: Never smoker Hx Alcohol Use: No Hx Substance Use: No Communication Ability: Effective 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: No Beliefs That Will Affect Care: None marital status: Single Current Living Situation: Alone current occupational status: employed Feels Safe at Home: Yes Safety Concerns: Feels Safe At This Time Dental Care, Regularly: No Physical Activity Frequency: 3-4 Times per Week Assistive Devices: CPAP Review of Systems Review of Systems: All systems reviewed & are unremarkable except as noted in Subjective Physical Exam Constitutional: well nourished; no acute distress Respiratory: normal respiratory effort; no respiratory distress, no labored breathing and no retractions Auscultation: no crackles, no rales, no rhonchi and no wheezes Cardiovascular: Rate/Rhythm: regular rate and regular rhythm Heart Sounds: normal S1 and normal S2; no murmur Vessels: femoral pulses present and radial pulses present; no JVD and no carotid bruit Extremities: no edema Gastrointestinal (Abdomen): Inspection/Auscultation: abdomen normal to inspection and normal bowel sounds; abdomen not distended Percussion/Palpation: abdomen soft; abdomen nontender, no guarding and abdomen not rigid Neurologic: CN's II-XI intact bilaterally and moves all extremities; no focal motor deficits Results & Data Vital Signs (Past 12 Hours) Vital Signs Pulse Resp BP Pulse Ox Pulse Ox O2 Del Method O2 Del Method 06/27/24 10:00 67 17 98 Room Air 06/27/24 09:06 70 19 99 Room Air 06/27/24 09:01 124/82 06/27/24 08:57 69 15 99 06/27/24 08:01 120/75 06/27/24 08:00 61 12 92 Room Air 06/27/24 07:22 70 06/27/24 07:06 67 16 118/79 100 Room Air 06/27/24 06:06 72 17 98 06/27/24 05:12 67 14 96 06/27/24 04:00 81 15 112/82 92 Room Air 06/27/24 03:00 70 14 108/74 92 Room Air 06/27/24 02:09 72 16 119/82 93 Room Air 06/27/24 01:36 63 12 92 Room Air 06/27/24 01:00 72 16 120/76 93 Room Air 06/27/24 00:50 94 Room Air 06/27/24 00:45 66 17 134/83 94 Room Air Laboratory Results Cardiac Enzymes 06/26/24 06/26/24 06/26/24 Range/Units 15:50 18:10 23:03 AST 22 (13-39) U/L Troponin I High Sens 23.1 H 64.3 H* D 94.1 H* D (0-20) pg/ml Coagulation 06/26/24 Range/Units 15:50 APTT 26 (21-31) Seconds CBC 06/26/24 06/27/24 Range/Units 15:50 02:49 WBC 7.18 7.14 (4.8-10.8) K/ul RBC 5.34 5.13 (4.70-6.10) M/uL Hgb 15.4 14.6 (14.0-18.0) g/dl Hct 44.4 43.1 (42.0-52.0) % Plt Count 311 287 (130-400) K/uL Neut # (Auto) 4.56 (1.40-6.50) K/uL Lymph # (Auto) 1.70 (1.20-3.40) K/uL Randall # (Auto) 0.49 (0.11-0.59) K/uL Eos # (Auto) 0.33 (0.00-0.50) K/uL Baso # (Auto) 0.06 (0.00-0.20) K/uL Comprehensive Metabolic Panel 06/26/24 06/27/24 Range/Units 15:50 02:49 Sodium 134 L 137 (136-145) mmol/L Potassium 4.1 4.0 (3.5-5.1) mmol/L Chloride 103 108 H (98-107) mmol/L Carbon Dioxide 24 25 (21-32) mmol/L BUN 20 17 (6-23) mg/dl Creatinine 0.67 0.67 (0.6-1.4) mg/dl Glucose 99 116 H (70-99(Fasting)) mg/dl Calcium 9.2 9.1 (8.6-10.3) mg/dl AST 22 (13-39) U/L ALT 26 (7-52) U/L Alkaline Phosphatase 76 (34-104) U/L Total Protein 7.3 (6.0-8.3) gm/dl Albumin 4.3 (3.4-5.0) gm/dl Intake and Output 06/26/24 06/27/24 06/27/24 22:59 06:59 14:59 Intake Total 159.333 / 159.333 Output Total 200 / 200 Balance -40.667 / -40.667 Intake: IV 159.333 / 159.333 Heparin Sodium/Dextrose 25,000 159.333 / 159.333 units In 500 ml @ 1,200 UNITS/ HR 24 mls/hr IV .[id number] [facility] Rx #:[id number] Output: Urine 200 / 200 Other: Weight 128.7 kg 127.2 kg Weight Measurement Method Built in [facility] Built in [facility] Patient Weight 06/28/24 06:59 Weight 127.2 kg (4) DM (diabetes mellitus), type 2 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
--- NOTE | 2024-06-27 11:49 | Pre Anesthesia Assessment ---
Date of Service June 27, 2024 Pre Sedation Assessment Vital Signs Temp Pulse Pulse Resp BP BP Pulse Ox 06/27/24 10:00 67 17 98 06/27/24 09:06 70 19 99 06/27/24 09:01 124/82 06/27/24 08:57 69 15 99 06/27/24 08:01 120/75 06/27/24 08:00 61 12 92 06/27/24 07:22 70 06/27/24 07:06 67 16 118/79 100 06/27/24 06:06 72 17 98 06/27/24 05:12 67 14 96 06/27/24 04:00 81 15 112/82 92 06/27/24 03:00 70 14 108/74 92 06/27/24 02:09 72 16 119/82 93 06/27/24 01:36 63 12 92 06/27/24 01:00 72 16 120/76 93 06/27/24 00:50 06/27/24 00:45 66 17 134/83 94 06/26/24 23:02 67 12 138/82 95 06/26/24 20:45 06/26/24 20:45 36.5 C 65 14 120/88 97 06/26/24 20:45 06/26/24 19:39 64 06/26/24 18:00 63 15 127/93 96 06/26/24 17:30 65 20 132/98 96 06/26/24 16:30 67 17 128/100 95 06/26/24 16:13 68 15 97 06/26/24 16:06 73 18 06/26/24 15:51 60 26 H 94 06/26/24 15:45 75 06/26/24 15:32 36.8 C 68 15 147/89 H 97 Pulse Ox O2 Del Method O2 Del Method 06/27/24 10:00 Room Air 06/27/24 09:06 Room Air 06/27/24 09:01 06/27/24 08:57 06/27/24 08:01 06/27/24 08:00 Room Air 06/27/24 07:22 06/27/24 07:06 Room Air 06/27/24 06:06 06/27/24 05:12 06/27/24 04:00 Room Air 06/27/24 03:00 Room Air 06/27/24 02:09 Room Air 06/27/24 01:36 Room Air 06/27/24 01:00 Room Air 06/27/24 00:50 94 Room Air 06/27/24 00:45 Room Air 06/26/24 23:02 Room Air 06/26/24 20:45 Room Air 06/26/24 20:45 Room Air 06/26/24 20:45 Room Air 06/26/24 19:39 06/26/24 18:00 06/26/24 17:30 06/26/24 16:30 06/26/24 16:13 Room Air 06/26/24 16:06 06/26/24 15:51 06/26/24 15:45 06/26/24 15:32 Room Air Cardiovascular + regular rate and + regular rhythm + S1 normal and + S2 normal; no murmur + femoral pulses present and + radial pulses present; no JVD and no carotid bruit no edema Respiratory no respiratory distress, no labored breathing and no retractions no crackles, no rales, no rhonchi and no wheezes Pre-Sedation Airway Assessment Smoking Status: Never smoker Hx Sleep Apnea: Yes Short, Thick Neck: No Thyromental Distance: > or= 3.5 Finger Breadths Oral Cavity: + WNL Mallampati Class: IV ASA: ASA3 NPO Status Date of Last Intake of Fluids: 06/27/24 Time of Last Intake of Fluids: 08:00 Last Oral Intake of Fluids Comment: sip with meds Date of Last Intake of Solid Food: 06/26/24 Procedure Planning Contraindications for Sedation: none Current Medications Reviewed: Yes Notes The planned sedation has been discussed with the patient. Informed Consent was obtained. I have identified the patient, determined the appropriateness of sedation and have assessed the patient immediately prior to the procedure. All medicine(s) and interventions are by my order.
[2024-06-27] MEDS: NITROGLYCERIN/D5W 100MCG/ML 20ML SYR ONE (13:02)
[2024-06-27] MEDS: niCARdipine HCL INJ 2.5 MG/ML 10 ML AMP ONE (13:02)
[2024-06-27] MEDS: fentaNYL citrate PF 100 MCG/2 ML VIAL ONE (13:28)
[2024-06-27] MEDS: MIDAZOLAM HCL 1 MG/ML 2ML VIAL ONE (13:28)
[2024-06-27] MEDS: OPTIRAY 350 ONE (13:28)
[2024-06-27] MEDS: HEPARIN (PORCINE) 1000 UNIT/ML 10 ML (CATH LAB USE ONLY) ONE (13:28)
[2024-06-27] MEDS: PHENYLEPHRINE 100MCG/ML 5ML SYR ONE (13:29)
--- NOTE | 2024-06-27 13:42 | Post Anesthesia Assessment ---
Date of Service June 27, 2024 Post Sedation Assessment Vital Signs Temp Pulse Pulse Resp BP BP BP 06/27/24 15:05 70 18 130/88 06/27/24 14:36 67 18 147/92 H 06/27/24 14:24 76 06/27/24 14:19 36.3 C L 60 16 145/93 H 06/27/24 13:57 79 16 127/91 06/27/24 13:45 79 16 126/84 06/27/24 10:00 67 17 06/27/24 09:06 70 19 06/27/24 09:01 124/82 06/27/24 08:57 69 15 06/27/24 08:01 120/75 06/27/24 08:00 61 12 06/27/24 07:22 70 06/27/24 07:06 67 16 118/79 06/27/24 06:06 72 17 06/27/24 05:12 67 14 06/27/24 04:00 81 15 112/82 06/27/24 03:00 70 14 108/74 06/27/24 02:09 72 16 119/82 06/27/24 01:36 63 12 06/27/24 01:00 72 16 120/76 06/27/24 00:50 06/27/24 00:45 66 17 134/83 06/26/24 23:02 67 12 138/82 06/26/24 20:45 06/26/24 20:45 36.5 C 65 14 120/88 06/26/24 20:45 06/26/24 19:39 64 06/26/24 18:00 63 15 127/93 06/26/24 17:30 65 20 132/98 06/26/24 16:30 67 17 128/100 Pulse Ox Pulse Ox O2 Del Method O2 Del Method 06/27/24 15:05 98 Room Air 06/27/24 14:36 98 Room Air 06/27/24 14:24 06/27/24 14:19 96 Room Air 06/27/24 13:57 97 Room Air 06/27/24 13:45 97 Room Air 06/27/24 10:00 98 Room Air 06/27/24 09:06 99 Room Air 06/27/24 09:01 06/27/24 08:57 99 06/27/24 08:01 06/27/24 08:00 92 Room Air 06/27/24 07:22 06/27/24 07:06 100 Room Air 06/27/24 06:06 98 06/27/24 05:12 96 06/27/24 04:00 92 Room Air 06/27/24 03:00 92 Room Air 06/27/24 02:09 93 Room Air 06/27/24 01:36 92 Room Air 06/27/24 01:00 93 Room Air 06/27/24 00:50 94 Room Air 06/27/24 00:45 94 Room Air 06/26/24 23:02 95 Room Air 06/26/24 20:45 Room Air 06/26/24 20:45 97 Room Air 06/26/24 20:45 Room Air 06/26/24 19:39 06/26/24 18:00 96 06/26/24 17:30 96 06/26/24 16:30 95 Recovery Score Respiration: Deep Breath/Cough Circulation: +/-20% PreAnes Value Consciousness: Arouseable (by name) Oxygen Saturation: > 92% On Room Air Discharge Sedation Level of Care: Phase I Post Sedation Plan On clinical assessment, the patient appears to have tolerated the sedation without complications. Patient is recovering as anticipated. Patient will continue to be monitored by nursing and may be discharged when sedation discharge criteria are met per below protocol. Upon Completions of procedure up to 15 minutes continue every 5 minute vital signs and the P.A.R. score; then discharge to a Phase I or Fast Track to Phase II per the following guidelines: * Discharge Patient to appropriate Phase II area if PAR is 8 or greater or return to pre- procedure baseline. The post - procedure orders will be as directed. * If PAR score is less than 8 or not return to pre-procedure baseline then patient will follow Phase I monitoring till PAR is reached for Phase II. The Phase I may be done in procedure room or may call to secure a Phase I area. * If naloxone or flumazenil are used for reversal, hold in Phase I for continued monitoring from when last reversal dose was given for a minimum of 60 minutes or longer pending the nurse and/or physician discretion of patient condition before discharge to Phase II. Please call the Sedation Physician to re-evaluate and complete post-note for discharge to Phase II area. Do NOT discharge from procedure sedation or Phase 1 until post- sedation evaluation note is complete by procedure /sedation MD Sedation Discharge Instructions to be given to the patient at discharge to home.
--- NOTE | 2024-06-27 13:53 | Cardiac Catheterization ---
Cardiac Cath Procedure Full Procedure Date June 27, 2024 Pre-Procedure Diagnosis Pre-Procedure Diagnosis: Non STEMI AUC Score AUC Score: 7 Post-Procedure Diagnosis Post-Procedure Diagnosis: Moderate CAD and Normal Intracardiac Pressures Procedure(s) Performed Procedure(s) Performed: Coronary Angiography and Left Heart Cath Porcelain Buildup Assistant Mika Stark DO Potato Sorter(s) Kaurr BREWERY WORKER Estimated Blood Loss Estimated Blood Loss: 5 cc Medication(s) Medication(s): Fentanyl, Heparin, Lidocaine 1%, Abundio-Synephrine, Nicardipine, Nitroglycerin and Versed Summary of Findings Diffuse area of mid LAD disease ranging 40-50% unchanged compared to prior catheterization. Hemodynamics Rest Ao:: 83/62/71 Final Ao: 88/57/72 LV: 84/-3/-2 Recommendations Recommendations: Medical Therapy and/or Counseling Specimens Specimens: None Radiation Exposure (mGy) 1579 Contrast (mls) 80 Fluids (cc crystalloids) Fluids (cc crystalloids): 400 Nss Drains Drains: N/A Anesthesia Moderate sedation. Start 1300, End 1331. Sedation monitor: Monique GIRALDO Procedural Complication(s) None Disposition General Merchandise Manager Holding/Recovery I attest to the content of the Intraoperative Record and any orders documented therein. Any exceptions are noted below. ACC Data: General Merchandise Manager Cardiac Status Clinical evaluation leading to the procedure 58-year-old male presented to the emergency department with chest discomfort and elevated high-sensitivity troponin. CAD Presenation: Non STEMI Coronary Anatomy Dominant: Left Left Main (% Stenosis): Normal LAD (% Stenosis): Mid (40-50%) D1 (% Stenosis): Normal D2 (% Stenosis): Normal Circumflex (% Stenosis): Normal OM1 (% Stenosis): Normal OM2 (% Stenosis): Normal L PL1 (% Stenosis): Normal L PDA (% Stenosis): Normal RCA (% Stenosis): Normal (small nondominant vessel) Ramus (% Stenosis): Normal (small vessel) Diagnostic Physicians Name: Mika Stark DO Closure Device Percutaneous Entry Location: Radial Closure Device: Radial Band Recommendations: Medical Therapy and/or Counseling Intraprocedure Events Significant Disection: No Perforation: No
--- NOTE | 2024-06-27 16:38 | Communication Note ---
Date of Service: June 27, 2024 Cardiac catheterization demonstrates stable, moderate coronary disease. No intervention performed. Will add low-dose isosorbide monohydrate. Recommend cardiology follow-up in 2 to 4 weeks. Postcardiac catheterization activity restrictions listed below. ACTIVITY RECOMMENDATIONS: Excess manipulation of the wrist should be avoided for the next 24-48 hours. * No lifting over 2 pounds (approximately a 1/2 gallon of milk) with the utilized arm for 24 hours. * No strenuous activity such as bowling or tennis for 3 days. * Keep the site of the procedure covered with a bandage for 24 hours. *You may shower the day after the procedure. Do not take a tub bath or submerge the puncture site in water for the next 3 days. *Do not operate any motorized equipment for 3 days. SPECIAL CARE INSTRUCTIONS: The site may be slightly bruised and sore following your procedure. Should any of the following occur, contact the Dr. who performed your procedure. 1. Redness/inflammation, swelling, chills, or fever, or colored drainage at procedure site within 3-7 days after your procedure. 2. Coldness, discoloration, ongoing numbness, severe pain, or swelling. Expect mild tingling of hand and tenderness at the puncture site for up to three days. If this persists beyond three days, or other symptoms develop, notify the Dr. who performed your procedure. BLEEDING: If the procedure site on your wrist begins to bleed, do not panic 1. Place 1 or 2 fingers firmly just slightly above the insertion site to stop the bleeding. You may be able to feel your pulse as you hold pressure. 2. Lift your finger after 5 minutes to see if the bleeding has stopped. 3. Once the bleeding has stopped, gently wipe the wrist area clean with a bandage. * If the bleeding from your wrist does not stop after 10 minutes, or if there is a large amount of bleeding or spurting, call 911 (do not drive yourself to the hospital). SKIN IRRITATION: * You may experience some redness and/or swelling in the area where radiation was administered. If any skin irritation occurs, please contact your family physician. FOLLOW UP VISIT: Keep any scheduled doctor appointments.
--- NOTE | 2024-06-27 17:07 | Hospitalist Progress Note ---
Date of Service June 27, 2024 delayed entry date of service noted above Assessment & Plan (1) NSTEMI (non-ST elevated myocardial infarction): Plan: per admitting service notes with addendum: This is a 58-year-old male with PMH of non-obstructive CAD, type 2 diabetes, hypertension, obesity, depression, anxiety, HLD, generalized anxiety disorder, LINDA, BPH and other medical problems listed below who presents from home after developing sudden onset chest pain this afternoon. Risk factors include DM II, HTN, obesity, HLD H/o abnormal stress in 2018 with diagnostic cardiac cath demonstrating moderate non obstructive CAD within the LAD, medically managed recommended EKG with normal sinus rhythm with sinus arrhythmia. Diffuse minor nonspecific T wave abnormality CXR with no significant change compared to the prior study. No acute process Initial troponin 23.1 -> 64.3 Check 2D echo Started on low dose IV heparin Continue aspirin, beta [place], statin NPO @ midnight, repeat EKG in am, trend troponin Cardiology consulted 06/27 s/p Cardiac cath Cardiac catheterization demonstrates stable, moderate coronary disease. No intervention performed. Will add low-dose isosorbide monohydrate. Recommend cardiology follow-up in 2 to 4 weeks. (2) DM (diabetes mellitus), type 2: Plan: A1c 5.9 in 04/28 Hold home metformin SSI while in-patient BSG AC HS (3) HTN (hypertension): Plan: Normotensive. Continue Toprol (4) Severe obstructive sleep apnea: Plan: CPAP HS DVT Ppx: SQ heparin Code status: FULL PCP: Jerardo Admission and Anticipated Discharge Date Admission Date: June 26, 2024 Subjective ff up for chest pain, etc seen resting in bed, comfortable states he feels fine overall chest pain resolved no chest pain, dyspnea, palpitations, dizziness no other symptoms Review of Systems Review of Systems: all noted and negative except for above Physical Exam Physical Exam: General- oriented x 3, not in distress, speaks in sentences with no effort or accessory muscle use Eyes- anicteric Neck- no JVD Lungs- clear breath sounds bilaterally, no rales/wheezes Heart- normal rate, regular rhythm; no murmurs Abdomen- normal bowel sounds, nondistended, soft, nontender Extremities- no pretibial edema, no calf tenderness Neuro- alert, oriented x 3; no gross focal neurologic deficits Skin- warm & dry Results & Data Results & Data Vital Signs (Past 12 Hours) Vital Signs Temp Pulse Pulse Resp BP BP BP 06/27/24 16:09 72 18 128/72 06/27/24 15:55 36.5 C 67 18 119/74 06/27/24 15:05 70 18 130/88 06/27/24 14:36 67 18 147/92 H 06/27/24 14:24 76 06/27/24 14:19 36.3 C L 60 16 145/93 H 06/27/24 13:57 79 16 127/91 06/27/24 13:45 79 16 126/84 06/27/24 10:00 67 17 06/27/24 09:06 70 19 06/27/24 09:01 124/82 06/27/24 08:57 69 15 06/27/24 08:01 120/75 06/27/24 08:00 61 12 06/27/24 07:22 70 06/27/24 07:06 67 16 118/79 06/27/24 06:06 72 17 06/27/24 05:12 67 14 Pulse Ox O2 Del Method 06/27/24 16:09 98 Room Air 06/27/24 15:55 97 Room Air 06/27/24 15:05 98 Room Air 06/27/24 14:36 98 Room Air 06/27/24 14:24 06/27/24 14:19 96 Room Air 06/27/24 13:57 97 Room Air 06/27/24 13:45 97 Room Air 06/27/24 10:00 98 Room Air 06/27/24 09:06 99 Room Air 06/27/24 09:01 06/27/24 08:57 99 06/27/24 08:01 06/27/24 08:00 92 Room Air 06/27/24 07:22 06/27/24 07:06 100 Room Air 06/27/24 06:06 98 06/27/24 05:12 96 all noted and reviewed including below (2) DM (diabetes mellitus), type 2 Diabetes mellitus complication status: without complication Diabetes mellitus terminal gauger insulin use: without senior living use Qualified Code(s): E11.9 - Type 2 diabetes mellitus without complications
[2024-06-27] MEDS: ACETAMINOPHEN 325 MG TAB PO PRN (19:07)
[2024-06-27] MEDS: ASPIRIN 81 MG ECTAB PO SCH (22:39)
[2024-06-28 03:36] VITALS: O2SAT 96
[2024-06-28 06:38] LABS: Hematocrit (blood only) 47.2 % (42.0-52.0); Hemoglobin 15.7 g/dl (14.0-18.0); Mean Corpuscular Hemoglobin 28.6 pg (25.0-34.0); Mean Corpuscular Hgb Conc 33.3 g/dL (32.0-36.0); Mean Corpuscular Volume 86.1 fL (80.0-100.0); Mean Platelet Volume 9.9 fL (9.4-12.4); Platelet Count 304 K/uL (130-400); RDW Coefficient of Variation 13.2 % (11.5-14.5); RDW Standard Deviation 41.1 fL (36.4-46.3); Red Blood Count 5.48 M/uL (4.70-6.10)
[2024-06-28 07:06] LABS: BUN Creatinine Ratio 20.8 (10-20); Calcium 8.9 mg/dl (8.6-10.3); Creatinine Clr Calc Pharmacy 151.9 ml/min; Est GFR (African American) 117.6 ml/min; Est GFR (Non-African American) 101.4 ml/min
[2024-06-28 07:24] VITALS: RESP 18; TEMP 98.4
[2024-06-28] MEDS: ISOSORBIDE MONO EXTENDED REL 30 MG TABCR PO SCH (08:01)
[2024-06-28] MEDS: lisinopril 2.5 MG TAB PO SCH (08:06)
--- NOTE | 2024-06-28 09:25 | Cardiology Progress Note ---
Date of Service June 28, 2024 Assessment & Plan (1) NSTEMI (non-ST elevated myocardial infarction): (2) CAD (coronary artery disease), [place] coronary artery: (3) Dyslipidemia, goal LDL below 70: (4) DM (diabetes mellitus), type 2: Plan 58-year-old male presents with NSTEMI. No significant obstructive CAD per cardiac catheterization. Stable, moderate mid LAD stenosis visualized. Echocardiogram demonstrates normal wall motion without dysrhythmia on telemetry. Recommend addition of low-dose isosorbide monohydrate. Reduce lisinopril to 2.5 mg daily to avoid hypotension. Continue aspirin, statin, Zetia, and beta- [place] as ordered. Postcardiac catheterization activity restrictions listed below. Outpatient cardiology follow-up in 3 to 4 weeks. ACTIVITY RECOMMENDATIONS: Excess manipulation of the wrist should be avoided for the next 24-48 hours. * No lifting over 2 pounds (approximately a 1/2 gallon of milk) with the utilized arm for 24 hours. * No strenuous activity such as bowling or tennis for 3 days. * Keep the site of the procedure covered with a bandage for 24 hours. *You may shower the day after the procedure. Do not take a tub bath or submerge the puncture site in water for the next 3 days. *Do not operate any motorized equipment for 3 days. SPECIAL CARE INSTRUCTIONS: The site may be slightly bruised and sore following your procedure. Should any of the following occur, contact the Dr. who performed your procedure. 1. Redness/inflammation, swelling, chills, or fever, or colored drainage at procedure site within 3-7 days after your procedure. 2. Coldness, discoloration, ongoing numbness, severe pain, or swelling. Expect mild tingling of hand and tenderness at the puncture site for up to three days. If this persists beyond three days, or other symptoms develop, notify the Dr. who performed your procedure. BLEEDING: If the procedure site on your wrist begins to bleed, do not panic 1. Place 1 or 2 fingers firmly just slightly above the insertion site to stop the bleeding. You may be able to feel your pulse as you hold pressure. 2. Lift your finger after 5 minutes to see if the bleeding has stopped. 3. Once the bleeding has stopped, gently wipe the wrist area clean with a bandage. * If the bleeding from your wrist does not stop after 10 minutes, or if there is a large amount of bleeding or spurting, call 911 (do not drive yourself to the hospital). SKIN IRRITATION: * You may experience some redness and/or swelling in the area where radiation was administered. If any skin irritation occurs, please contact your family physician. Admission and Anticipated Discharge Date Admission Date: June 27, 2024 Subjective 58-year-old male seen and examined at the bedside. Feeling well this morning. Reports brief episode of sharp, left-sided chest discomfort at approximately 5 AM lasting less than 1 minute. Discomfort unlike presenting symptoms. No dysrhythmia on telemetry. Tolerating current medications. Review of Systems Review of Systems: All systems reviewed & are unremarkable except as noted in Subjective Physical Exam Constitutional: well nourished; no acute distress ENMT: Mallampati Class: IV Respiratory: normal respiratory effort; no respiratory distress, no labored breathing and no retractions Auscultation: no crackles, no rales, no rhonchi and no wheezes Cardiovascular: Rate/Rhythm: regular rate and regular rhythm Heart Sounds: normal S1 and normal S2; no murmur Vessels: femoral pulses present and radial pulses present; no JVD and no carotid bruit Extremities: no edema Gastrointestinal (Abdomen): Inspection/Auscultation: abdomen normal to inspection and normal bowel sounds; abdomen not distended Percussion/Palpation: abdomen soft; abdomen nontender, no guarding and abdomen not rigid Neurologic: CN's II-XI intact bilaterally and moves all extremities; no focal motor deficits Results & Data Vital Signs (Past 12 Hours) Vital Signs Temp Pulse Pulse Resp BP Pulse Ox O2 Del Method 06/28/24 07:57 78 06/28/24 07:24 36.9 C 54 L 18 121/73 96 Room Air 06/28/24 03:05 36.4 C L 52 L 19 108/66 96 Room Air 06/27/24 23:00 36.4 C L 72 14 124/78 94 Room Air 06/27/24 22:38 68 106/66 06/27/24 21:54 75 (4) DM (diabetes mellitus), type 2 Diabetes mellitus longterm insulin use: without longterm use Diabetes mellitus complication status: without complication Qualified Code(s): E11.9 - Type 2 diabetes mellitus without complications
[2024-06-28 10:19] VITALS: BP 127/91; PULSE 78
--- NOTE | 2024-06-29 16:56 | Discharge Summary ---
Discharge Summary Date of Service June 29, 2024 delayed entry date of service June 28, 2024 Principal Dx & Hospital Course #1 = Principal Diagnosis (1) NSTEMI (non-ST elevated myocardial infarction): per admitting service notes with addendum: This is a 58-year-old male with PMH of non-obstructive CAD, type 2 diabetes, hypertension, obesity, depression, anxiety, HLD, generalized anxiety disorder, LINDA, BPH and other medical problems listed below who presents from home after developing sudden onset chest pain this afternoon. Risk factors include DM II, HTN, obesity, HLD H/o abnormal stress in 2018 with diagnostic cardiac cath demonstrating moderate non obstructive CAD within the LAD, medically managed recommended EKG with normal sinus rhythm with sinus arrhythmia. Diffuse minor nonspecific T wave abnormality CXR with no significant change compared to the prior study. No acute process Initial troponin 23.1 -> 64.3 Check 2D echo Started on low dose IV heparin Continue aspirin, beta [place], statin NPO @ midnight, repeat EKG in am, trend troponin Cardiology consulted 06/27 s/p Cardiac cath Cardiac catheterization demonstrates stable, moderate coronary disease. No intervention performed. Will add low-dose isosorbide monohydrate. Recommend cardiology follow-up in 2 to 4 weeks. (2) DM (diabetes mellitus), type 2: A1c 5.9 in 04/28 Hold home metformin SSI while in-patient BSG AC HS (3) HTN (hypertension): Normotensive. Continue Toprol (4) Severe obstructive sleep apnea: CPAP HS DVT Ppx: SQ heparin Code status: FULL PCP: Jerardo Admission HPI Per Admitting Provider This is a 58-year-old male with PMH of non-obstructive CAD, type 2 diabetes, hypertension, obesity, depression, anxiety, HLD, generalized anxiety disorder, LINDA, BPH and other medical problems listed below who presents from home after developing sudden onset chest pain this afternoon. Woke up in normal state of health and went to work as usual. Ate lunch inside the facility and then walked out to his car without issue. When walking back from your car to the building, developed sudden, severe "grabbing" chest pressure that was substernal and radiated up right side of neck with an associated headache, SOB. No nausea. Pain lasted for 30 minutes. Was given aspirin and brought in per EMS. By the time of arrival here, pain is a 3-4/10. No history of recent chest pain. Per outpatient cards note, does have history of an abnormal stress echo (03/21/18) leading to diagnostic cardiac catheterization (05/07/18, [facility], Dr. Stark) demonstrating moderate non obstructive CAD within the LAD. Medical management and risk factor optimization therefore recommended. Updated Medication List Medication Instructions Recorded Confirmed Type aspirin 81 mg tablet,delayed 81 mg PO HS 08/31/18 06/28/24 History release atorvastatin 40 mg tablet (Lipitor) 40 mg PO HS 08/31/18 06/28/24 History metformin 1,000 mg tablet 1,000 mg PO BID 08/31/18 06/28/24 History metoprolol succinate 25 mg 25 mg PO HS 08/31/18 06/28/24 History tablet,extended release 24 hr omega 8-pvk-qfq-fish oil 1,000 mg 1,000 mg PO HS 08/31/18 06/28/24 History (120 mg-180 mg) capsule (Fish Oil) CPAP Machine #1 ea 11/03/19 06/26/24 Rx lidocaine 5 % topical patch 1 patch topical DAILY PRN pain #15 06/13/20 06/28/24 Rx (Lidoderm) ea ezetimibe 10 mg tablet 10 mg PO DAILY 06/26/24 06/28/24 History fluticasone propionate 50 2 spray intranasal DAILY PRN 06/26/24 06/28/24 History mcg/actuation nasal allergies spray,suspension tirzepatide 10 mg/0.5 mL 10 mg subcut WK 06/26/24 06/28/24 History subcutaneous pen injector (Mounjaro) tizanidine 4 mg tablet 4 mg PO Q6H PRN Muscle Spasm 06/26/24 06/28/24 History trazodone 50 mg tablet 50 mg PO HS 06/26/24 06/28/24 History isosorbide mononitrate 30 mg 30 mg PO QAM 30 days #30 tabs 06/28/24 06/28/24 Rx tablet,extended release 24 hr lisinopril 5 mg tablet 2.5 mg (1/2 x 5 mg) PO DAILY #0 06/28/24 06/28/24 Rx tabs Hospital Stay Data Consultations 06/27/24 08:00 Consult Cardiology Routine Procedures Performed Operation Date: 06/27/24 11:00 Actual Procedures p Cineradiography w/Routine Exam - Mika Stark, p Cath, Left with Cors and Vent - Mika Stark, DO Diagnostic Imagining Performed 06/27/24 08:11 CL Cath Imgs for PACS use only Routine Pending Results Patient Have Any Pending Studies at Discharge: No Discharge Instructions Given to Patient (Per Discharging Provider) PLEASE REFER TO YOUR NEW MEDICATION LIST AND FOLLOW INSTRUCTIONS CAREFULLY. YOUR NEW MEDICATIONS INCLUDE: Isosorbide mononitrate 30mg daily Decrease Lisinopril to 2.5mg daily PLEASE CALL YOUR PRIMARY CARE PHYSICIAN OR RETURN TO THE ER IF WITH WORSENING OF SYMPTOMS, INCLUDING chest pain, shortness of breath, palpitations, dizziness, etc FOLLOW UP WITH PRIMARY CARE PHYSICIAN OUTLINED ABOVE. ACTIVITY RECOMMENDATIONS: Excess manipulation of the wrist should be avoided for the next 24-48 hours. * No lifting over 2 pounds (approximately a 1/2 gallon of milk) with the utilized arm for 24 hours. * No strenuous activity such as bowling or tennis for 3 days. * Keep the site of the procedure covered with a bandage for 24 hours. *You may shower the day after the procedure. Do not take a tub bath or submerge the puncture site in water for the next 3 days. *Do not operate any motorized equipment for 3 days. SPECIAL CARE INSTRUCTIONS: The site may be slightly bruised and sore following your procedure. Should any of the following occur, contact the Dr. who performed your procedure. 1. Redness/inflammation, swelling, chills, or fever, or colored drainage at procedure site within 3-7 days after your procedure. 2. Coldness, discoloration, ongoing numbness, severe pain, or swelling. Expect mild tingling of hand and tenderness at the puncture site for up to three days. If this persists beyond three days, or other symptoms develop, notify the Dr. who performed your procedure. BLEEDING: If the procedure site on your wrist begins to bleed, do not panic 1. Place 1 or 2 fingers firmly just slightly above the insertion site to stop the bleeding. You may be able to feel your pulse as you hold pressure. 2. Lift your finger after 5 minutes to see if the bleeding has stopped. 3. Once the bleeding has stopped, gently wipe the wrist area clean with a bandage. * If the bleeding from your wrist does not stop after 10 minutes, or if there is a large amount of bleeding or spurting, call 911 (do not drive yourself to the hospital). SKIN IRRITATION: * You may experience some redness and/or swelling in the area where radiation was administered. If any skin irritation occurs, please contact your family physician.
== END 2024-06-28 11:26 | disposition home or self-care (01) | DRG 282 ==
LOC: EDINP 15:32 → ED 15:32 → SUATTDRO 17:34 → EDINP 06-27 11:42 → 2S 06-27 14:21
DX: N40.0 Benign prostatic hyperplasia without lower urinary tract symptoms; Z79.899 Other long term (current) drug therapy; F32.A Depression, unspecified; Z68.35 Body mass index [BMI] 35.0-35.9, adult; E11.9 Type 2 diabetes mellitus without complications; F41.9 Anxiety disorder, unspecified; E66.9 Obesity, unspecified; G47.33 Obstructive sleep apnea (adult) (pediatric); Z79.84 Long term (current) use of oral hypoglycemic drugs; E78.5 Hyperlipidemia, unspecified; I25.10 Atherosclerotic heart disease of native coronary artery without angina pectoris; Z79.82 Long term (current) use of aspirin; I21.4 Non-ST elevation (NSTEMI) myocardial infarction

== ENCOUNTER 2024-06-28 12:09 | Inpatient (IN) ==
--- NOTE | 2024-06-28 12:53 | Emergency Department Note ---
Impression & Plan Chest pain ED Provider Note Provider: Alfred Andrade MD DATE OF SERVICE: 06/28/2024 CHIEF COMPLAINT: Chest pain HISTORY OF PRESENT ILLNESS: Patient is a 58-year-old gentleman history of type 2 diabetes and recent evaluation here for chest pain with cardiac catheterization yesterday presenting here after recurrence of some chest pressure this afternoon. Was discharged just over an hour ago. Was driving home from here stopped at the [facility] pharmacy and then was heading to his apartment and during this time while just resting in the car had experienced significant chest tightness similar to the first event. May be a touch of nausea. States all day has had a slight headache reportedly he believes from the isosorbide medication he was started on here. Was feeling fairly well otherwise today. Given recurrence of symptoms he called his bedside nurse upstairs who it just left from and came here for evaluation. Patient states symptoms have improved a good bit and there is only just slight discomfort and he does not feel quite right in his chest. Denies nausea currently or abdominal pain. Denies any pain or breathing pain. No pain in the arms. PAST MEDICAL HISTORY: As noted above MEDICATIONS: Home medications reviewed SOCIAL HISTORY: Non-smoker PHYSICAL EXAM: GENERAL: alert and oriented in no acute distress on stretcher Head: normocephalic and atraumatic EYES: No injection, discharge or icterus. EOMI. NECK: Trachea midline. ENT: Mucous membranes pink and moist. LUNGS: Airway patent. No retractions. Breath sounds clear with good air entry bilaterally. HEART: Regular rate and rhythm. No chest wall tenderness ABDOMEN: Soft and non-tender, without guarding or rebound. SKIN: Acyanotic, warm, dry, without rashes EXTREMITIES: Without swelling, tenderness or deformity bandage in place over the right radial artery site without significant swelling. NEUROLOGICAL: No focal deficits moving all extremities. No aphasia. No facial droop or slurred speech. Ambulatory. EK bpm normal sinus rhythm. No PVC or PAC. No acute ST segment elevation or depression with a QTc of 402. Some nonspecific inferior T wave changes compared to previous from 542 this morning appears similar. EK bpm sinus bradycardia. No PVC or PAC with some nonspecific inferior T wave changes and a QTc of 401. CONTINUOUS CARDIAC MONITORING: was ordered and showed a heart rate of 50s60s bpm in normal sinus rhythm Patient's laboratory studies and imaging reviewed. Differential includes Cardiac ischemia, aortic dissection, pulmonary embolism, pneumothorax, pneumonia, pericarditis, myocarditis, esophageal rupture, GERD, cholecystitis, pancreatitis, musculoskeletal, as well as other pathologies. IMPRESSION/MEDICAL DECISION MAKING: Patient with some nonexertional recurrence of chest pressure and tightness today. Seen by cardiology this morning and discharged after cardiac catheterization yesterday with mild troponin elevation during admission. States tightness today was similar to the one that brought him in. EKG chest x-ray and troponin from triage were obtained. EKG without significant symptoms and symptoms have improved a good bit. Was started on isosorbide this morning and slight headache. No other neurological deficits. No syncope. Reviewed the chest x-ray here without significant findings per my interpretation of pneumonia pneumothorax or effusion. Radiology report reviewed. Blood work here without anemia or leukocytosis. No significant lecture light abnormality signs of acute hepatitis or pancreatitis. Did have continued complaint of some chest pain and I did give a nitroglycerin tablet and repeat EKG without significant changes. Initial troponin here normal at 13. Repeat troponin after 2 hours was obtained. This was normal as well patient still with significant pain given some morphine which has helped some. Contacted [facility] cardiology who saw him this morning given the patient's continued pain and complaints given the reassuring workup they do not believe this is cardiac in nature.. Do not believe this represents dissection or cholecystitis. Possibly musculoskeletal and cannot exclude an esophageal component. Complains still of a bit of headache from the nitroglycerin. Discussed with the hospitalist given his ongoing pain complaints however and given a GI cocktail. DIAGNOSIS: Atypical chest pain DISPOSITION: Hospitalist will evaluate Patient was agreeable with this plan. Past Med/Surg History Problem List (Updated 06/28/24 @ 18:24 by Val Schreiber PA-C) DM (diabetes mellitus), type 2 Dyslipidemia, goal LDL below 70 CAD (coronary artery disease), [place] coronary artery Chest pain (Acute) Medical History (Updated 06/28/24 @ 18:24 by Val Schreiber PA-C) NSTEMI (non-ST elevated myocardial infarction) BPH (benign prostatic hyperplasia) CAD (coronary artery disease) LINDA (obstructive sleep apnea) Abnormal stress echocardiogram Hypercholesterolemia PVCs (premature ventricular contractions) MDD (major depressive disorder) HTN (hypertension) Nocturnal hypoxemia Obesity Severe obstructive sleep apnea Nasal polyposis Arthritis Surgical History History of tonsillectomy History of knee surgery Family History Mother Arthritis Rheumatoid arthritis Aunt Breast cancer Family/Other Obstructive sleep apnea Social History Smoking Status: Never smoker Hx Alcohol Use: No Hx Substance Use: No Preferred Language: Welsh Communication Ability: Effective [employer] Officer Required: No Beliefs That Will Affect Care: None marital status: Single Current Living Situation: Alone current occupational status: employed Feels Safe at Home: Yes Dental Care, Regularly: No Physical Activity Frequency: 3-4 Times per Week Assistive Devices: Glasses Allergies Allergies Allergy/AdvReac Type Severity Reaction Status Date / Time No Known Allergies Allergy Verified 12/10/23 14:36 Home Meds Home Medications Medication Instructions Recorded Confirmed aspirin 81 mg tablet,delayed 81 mg PO HS 08/31/18 06/28/24 release atorvastatin 40 mg tablet (Lipitor) 40 mg PO HS 08/31/18 06/28/24 metformin 1,000 mg tablet 1,000 mg PO BID 08/31/18 06/28/24 metoprolol succinate 25 mg 25 mg PO HS 08/31/18 06/28/24 tablet,extended release 24 hr omega 8-pmm-vut-fish oil 1,000 mg 1,000 mg PO HS 08/31/18 06/28/24 (120 mg-180 mg) capsule (Fish Oil) ezetimibe 10 mg tablet 10 mg PO DAILY 06/26/24 06/28/24 fluticasone propionate 50 2 spray intranasal DAILY PRN 06/26/24 06/28/24 mcg/actuation nasal allergies spray,suspension tirzepatide 10 mg/0.5 mL 10 mg subcut WK 06/26/24 06/28/24 subcutaneous pen injector (Rocky) tizanidine 4 mg tablet 4 mg PO Q6H PRN Muscle Spasm 06/26/24 06/28/24 trazodone 50 mg tablet 50 mg PO HS 06/26/24 06/28/24 Previous Rx's Medication Instructions Recorded CPAP Machine #1 ea 11/03/19 lidocaine 5 % topical patch 1 patch topical DAILY PRN pain #15 06/13/20 (Lidoderm) ea isosorbide mononitrate 30 mg 30 mg PO QAM 30 days #30 tabs 06/28/24 tablet,extended release 24 hr lisinopril 5 mg tablet 2.5 mg (1/2 x 5 mg) PO DAILY #0 06/28/24 tabs Results & Data (ED) Vital Signs Vital Signs - 24 hr 06/28/24 12:12 06/28/24 12:27 06/28/24 12:27 Temperature 36.4 C L Temperature Source Temporal Artery Scan Pulse Rate 67 54 L Pulse Rate [Apical] Respiratory Rate 20 16 Respiratory Effort / Characteristics Non-Labored Spontaneous Respiratory Depth Normal Blood Pressure 115/75 Blood Pressure [Right Arm] Blood Pressure Mean 88 Blood Pressure Mean [Right Arm] Pulse Oximetry 95 95 95 Oxygen Delivery Method Room Air Room Air Room Air Sepsis Recent Fever Within 48 Hours No Sepsis New/Unexplained Change in Mental Status N/A Sepsis Action Taken by Nursing No Action Required 06/28/24 14:00 06/28/24 15:40 06/28/24 17:00 Temperature Temperature Source Pulse Rate Pulse Rate [Apical] 54 L 55 L 51 L Respiratory Rate 14 24 14 Respiratory Effort / Characteristics Respiratory Depth Blood Pressure Blood Pressure [Right Arm] 105/74 98/62 L 109/68 Blood Pressure Mean Blood Pressure Mean [Right Arm] 84 74 81 Pulse Oximetry 98 96 94 Oxygen Delivery Method Room Air Room Air Room Air Sepsis Recent Fever Within 48 Hours Sepsis New/Unexplained Change in Mental Status Sepsis Action Taken by Nursing Laboratory Data 06/28/24 12:25 06/28/24 12:25 Lab Results 06/28/24 06/28/24 06/28/24 Range/Units 12:25 14:25 17:40 WBC 5.94 (4.8-10.8) K/ul RBC 5.47 (4.70-6.10) M/uL Hgb 15.5 (14.0-18.0) g/dl Hct 47.1 (42.0-52.0) % MCV 86.1 (80.0-100.0) fL MCH 28.3 (25.0-34.0) pg MCHC 32.9 (32.0-36.0) g/dL RDW Std Deviation 40.8 (36.4-46.3) fL RDW Coeff of Georgina 13.1 (11.5-14.5) % Plt Count 320 (130-400) K/uL MPV 10.0 (9.4-12.4) fL Immature Gran % (Auto) 0.7 % Neut % (Auto) 54.9 % Lymph % (Auto) 32.7 % Hancock % (Auto) 6.7 % Eos % (Auto) 4.2 % Baso % (Auto) 0.8 % Neut # (Auto) 3.26 (1.40-6.50) K/uL Lymph # (Auto) 1.94 (1.20-3.40) K/uL Hancock # (Auto) 0.40 (0.11-0.59) K/uL Eos # (Auto) 0.25 (0.00-0.50) K/uL Baso # (Auto) 0.05 (0.00-0.20) K/uL Immature Gran # (Auto) 0.04 (0.01-0.20) K/uL PT 11.3 (9.0-12.0) Seconds INR 1.0 (0.9-1.1) APTT 23 (21-31) Seconds PTT Ratio 0.9 D-Dimer 1150 H* (0-500) ug/L FEU Sodium 136 (136-145) mmol/L Potassium 3.9 (3.5-5.1) mmol/L Chloride 103 (98-107) mmol/L Carbon Dioxide 27 (21-32) mmol/L Anion Gap 6 (3-11) BUN 14 (6-23) mg/dl Creatinine 0.75 (0.6-1.4) mg/dl Est Cr Clr Drug Dosing 155.6 ml/min Est GFR ( Amer) 118.9 ml/min Est GFR (Non-Af Amer) 102.5 ml/min BUN/Creatinine Ratio 18.7 (10-20) Glucose 128 H (70-99(Fasting)) mg/dl Calcium 9.4 (8.6-10.3) mg/dl Total Bilirubin 0.7 (0.2-1.0) mg/dl AST 15 (13-39) U/L ALT 22 (7-52) U/L Alkaline Phosphatase 72 (34-104) U/L Troponin I High Sens 13.4 D 9.1 D (0-20) pg/ml Total Protein 7.3 (6.0-8.3) gm/dl Albumin 4.3 (3.4-5.0) gm/dl Globulin 3.0 (2.5-4.0) gm/dl Albumin/Globulin Ratio 1.4 (0.9-2) Lipase 26 (11-82) U/L Administered Medications Discontinued Medications Al Hydrox/Mg Hydrox/Simethicone (Aluminum/Magnesium Susp 30 Ml Udc) 30 ml PO NOW STA Stop: 06/28/24 16:56 Last Admin: 06/28/24 17:11 Dose: 30 ml Documented By: LEONEL Morphine Sulfate (Morphine Sulfate 4 Mg/Ml 1 Ml Carp\Vial) 4 mg IV NOW STA Stop: 06/28/24 14:54 Last Admin: 06/28/24 15:04 Dose: 4 mg Documented By: LEONEL Nitroglycerin (Nitroglycerin Sl 0.4 Mg/Tab Tab) 0.4 mg SL NOW STA Stop: 06/28/24 13:26 Last Admin: 06/28/24 13:33 Dose: 0.4 mg Documented By: JOSE Imaging Data Radiologist's Impression: Chest X-Ray 06/28/24 12:25 SINGLE VIEW CHEST CLINICAL HISTORY: Atypical chest pain FINDINGS: 2 AP, portable, upright chest radiographs are compared to study dated 06/26/2024. The cardiomediastinal silhouette is unremarkable. There is chronic elevation of the right hemidiaphragm with atelectasis of the right lower lung. This may represent diaphragmatic paralysis. The lungs and pleural spaces are otherwise clear. No pneumothorax is seen. The bony thorax is grossly intact. IMPRESSION: No acute cardiopulmonary abnormality. ACT 112: Negative or not required by law. Electronically signed by: Chuck Davis M.D. 06/28/2024 1:10 PM Discharge Plan Visit Data Chief Complaint: Cardiac Assessment Stated Complaint: D/C TODAY - CARDIAC SYMPTOMS RETURN ED Provider: Alfred Andrade Discharge Problem: Chest pain Patient Disposition: Being Evaluated by Hospitalist Forms Stand Alone Forms: My [facility] Prescriptions Prescriptions: No Action (DME) CPAP Machine Misc See Rx Instructions .ROUTE .MEDSUPPLY Qty: 1 0RF Rx Instructions: CPAP 9 cm water pressure C flex #3 with heated humidification, tubing, and supplies. DAVID: 99+ years. aspirin 81 mg Tablet,Delayed Release (Dr/Ec) 81 mg PO HS atorvastatin [Lipitor] 40 mg Tablet 40 mg PO HS metformin 1,000 mg Tablet 1,000 mg PO BID Hold Instructions: Resume on 06/29/24. omega 3-hul-skt-fish oil [Fish Oil] 1,000 mg (120 mg-180 mg) Capsule 1,000 mg PO HS metoprolol succinate 25 mg Tablet Extended Release 24 Hr 25 mg PO HS lidocaine [Lidoderm] 5 % adhesive patch,medicated 1 patch TOP DAILY PRN (Reason: pain) Qty: 15 0RF Rx Instructions: leave on most painful area for up to 12 hrs trazodone 50 mg tablet 50 mg PO HS tizanidine 4 mg tablet 4 mg PO Q6H PRN (Reason: Muscle Spasm) ezetimibe 10 mg tablet 10 mg PO DAILY Mounjaro 10 mg/0.5 mL pen injector 10 mg SUBCUT WK Rx Instructions: takes on Mondays fluticasone propionate 50 mcg/actuation spray,suspension 2 spray intranasal DAILY PRN (Reason: allergies) Rx Instructions: administer into each nostril before bedtime isosorbide mononitrate 30 mg Tablet Extended Release 24 Hr 30 mg PO QAM 30 Days Qty: 30 2RF lisinopril 5 mg tablet 2.5 mg PO DAILY Qty: 0 0RF Referrals Referrals: Humphrey Kurtz MD [Primary Care Provider] -
[2024-06-28 13:01] LABS: Basophils # (auto) 0.05 K/uL (0.00-0.20); Basophils % (auto) 0.8 %; Eosinophils # (auto) 0.25 K/uL (0.00-0.50); Eosinophils % (auto) 4.2 %; Hematocrit (blood only) 47.1 % (42.0-52.0); Hemoglobin 15.5 g/dl (14.0-18.0); Immature Granulocytes # (auto) 0.04 K/uL (0.01-0.20); Immature Granulocytes % (auto) 0.7 %; Lymphocytes # (auto) 1.94 K/uL (1.20-3.40); Lymphocytes % (auto) 32.7 %; Mean Corpuscular Hemoglobin 28.3 pg (25.0-34.0); Mean Corpuscular Hgb Conc 32.9 g/dL (32.0-36.0); Mean Corpuscular Volume 86.1 fL (80.0-100.0); Monocytes % (auto) 6.7 %; Neutrophils # (auto) 3.26 K/uL (1.40-6.50); Neutrophils % (auto) 54.9 %; Platelet Count 320 K/uL (130-400); RDW Coefficient of Variation 13.1 % (11.5-14.5); RDW Standard Deviation 40.8 fL (36.4-46.3); Red Blood Count 5.47 M/uL (4.70-6.10); White Blood Count 5.94 K/ul (4.8-10.8)
--- NOTE | 2024-06-28 13:12 | XRay Report ---
SINGLE VIEW CHEST CLINICAL HISTORY: Atypical chest pain FINDINGS: 2 AP, portable, upright chest radiographs are compared to study dated 06/26/2024. The cardio mediastinal silhouette is unremarkable. There is chronic elevation of the right hemidiaphragm with at electasis of the right lower lung. This may represent diaphragmatic paralysis. The lungs and pleural spaces are otherwise clear. No pneumothorax is seen. The bony thorax is grossly intact. IMPRESSION: No acute cardiopulmonary abnormality. ACT 112: Negative or not required by law. Electronically signed by: Chuck Davis M.D. 06/28/2024 1:10 PM
[2024-06-28 13:15] LABS: Partial Thromboplastin Ratio 0.9; Partial Thromboplastin Time 23 Seconds (21-31); Prothrombin Time 11.3 Seconds (9.0-12.0)
[2024-06-28 13:19] LABS: Albumin Globulin Ratio 1.4 (0.9-2); Albumin Level 4.3 gm/dl (3.4-5.0); BUN Creatinine Ratio 18.7 (10-20); Bilirubin,Total 0.7 mg/dl (0.2-1.0); Calcium 9.4 mg/dl (8.6-10.3); Creatinine Clr Calc Pharmacy 155.6 ml/min; Est GFR (African American) 118.9 ml/min; Est GFR (Non-African American) 102.5 ml/min; Potassium 3.9 mmol/L (3.5-5.1); Total Protein 7.3 gm/dl (6.0-8.3)
[2024-06-28 13:28] LABS: Troponin I High Sensitivity 13.4 pg/ml (0-20)
[2024-06-28] MEDS: NITROGLYCERIN SL 0.4 MG/TAB TAB SL STA (13:33)
[2024-06-28] MEDS: MoRPHine SULFATE 4 MG/ML 1 ML CARP\\VIAL IV STA (15:04)
[2024-06-28] MEDS: ALUMINUM/MAGNESIUM SUSP 30 ML UDC PO STA (17:11)
--- NOTE | 2024-06-28 17:40 | History & Physical Report ---
Date of Service June 28, 2024 Assessment & Plan (1) Chest pain: (2) DM (diabetes mellitus), type 2: (3) Dyslipidemia, goal LDL below 70: (4) CAD (coronary artery disease), [place] coronary artery: (5) Severe obstructive sleep apnea: (6) MDD (major depressive disorder): Plan This is a 58-year-old male with PMH of non-obstructive CAD, type 2 diabetes, hypertension, obesity, depression, anxiety, HLD, generalized anxiety disorder, LINDA, BPH who was discharged earlier today and then returned after developing sudden onset chest pain again this afternoon. Atypical chest pain Admitted 06/26 for NSTEMI and underwent diagnostic cardiac catheterization yesterday that demonstrated stable, moderate mid LAD stenosis Dr. Stark evaluated and recommends continuing asa, statin, Zetia and beta [place] with cardiac follow up in 3-4 weeks Had very similar episode of sudden onset central chest pain at rest earlier today after discharge home and returned to ED EKG without acute changes, HS troponin negative x 2 [place] pain worsened after ntg, improved with morphine Considering other causes of chest pain - pulmonary vs GI D-dimer positive, CTA chest ordered (cont. IV fluids overnight given recent contrast dye) Considering PUD vs gastritis given asa and nsaids at home. Adding IV Protonix BID, Carafate, routine GI consult for further eval Hold aspirin this evening DM (diabetes mellitus), type 2 A1c 5.9 in 04/28 Hold home metformin SSI while in-patient BSG AC HS HTN (hypertension) Normotensive. Continue Toprol Severe obstructive sleep apnea CPAP HS DVT Ppx: SCDs for now Code status: FULL PCP: Jerardo Dispo: observation med tele Patient seen in collaboration with Dr. Barrientos. Please see addendum. I spent a total of 75 minutes coordinating, documenting, and providing care for this patient excluding time spent in the performance of separately billed services. History of Present Illness Chief Complaint: CP Primary Care Provider: Humphrey Kurtz MD This is a 58-year-old male with PMH of non-obstructive CAD, type 2 diabetes, hypertension, obesity, depression, anxiety, HLD, generalized anxiety disorder, LINDA, BPH who was discharged earlier today and then returned after developing sudden onset chest pain again this afternoon. Underwent diagnostic cardiac catheterization yesterday that demonstrated stable, moderate mid LAD stenosis. Dr. Kopinski evaluated and recommends continuing asa, statin, Zetia and beta [place] with cardiac follow up in 3-4 weeks. 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 Pain is centrally located and non-radiating. Some associated nausea and SOB. Returned to ED for further evaluation. Was given ntg in ED which made discomfort worse. Morphine helped. And was given GI cocktail just now. No other new symptoms. Denies any recent major stressors or increased anxiety. Denies history of peptic ulcers or GERD. Has been taking aspirin as prescribed as well as Meloxicam HS. No tobacco or etoh use. Allergies Allergy/AdvReac Type Severity Reaction Status Date / Time No Known Allergies Allergy Verified 12/10/23 14:36 Home Medications Medication Instructions Recorded Confirmed Type aspirin 81 mg tablet,delayed 81 mg PO HS 08/31/18 06/28/24 History release atorvastatin 40 mg tablet (Lipitor) 40 mg PO HS 08/31/18 06/28/24 History metformin 1,000 mg tablet 1,000 mg PO BID 08/31/18 06/28/24 History metoprolol succinate 25 mg 25 mg PO HS 08/31/18 06/28/24 History tablet,extended release 24 hr omega 7-hsc-jeq-fish oil 1,000 mg 1,000 mg PO HS 08/31/18 06/28/24 History (120 mg-180 mg) capsule (Fish Oil) CPAP Machine #1 ea 11/03/19 06/26/24 Rx lidocaine 5 % topical patch 1 patch topical DAILY PRN pain #15 06/13/20 06/28/24 Rx (Lidoderm) ea ezetimibe 10 mg tablet 10 mg PO DAILY 06/26/24 06/28/24 History fluticasone propionate 50 2 spray intranasal DAILY PRN 06/26/24 06/28/24 History mcg/actuation nasal allergies spray,suspension tirzepatide 10 mg/0.5 mL 10 mg subcut WK 06/26/24 06/28/24 History subcutaneous pen injector (Rocky) tizanidine 4 mg tablet 4 mg PO Q6H PRN Muscle Spasm 06/26/24 06/28/24 History trazodone 50 mg tablet 50 mg PO HS 06/26/24 06/28/24 History isosorbide mononitrate 30 mg 30 mg PO QAM 30 days #30 tabs 06/28/24 06/28/24 Rx tablet,extended release 24 hr lisinopril 5 mg tablet 2.5 mg (1/2 x 5 mg) PO DAILY #0 06/28/24 06/28/24 Rx tabs Past Med/Surg History Problem List DM (diabetes mellitus), type 2 Dyslipidemia, goal LDL below 70 CAD (coronary artery disease), [place] coronary artery Chest pain (Acute) Medical History NSTEMI (non-ST elevated myocardial infarction) BPH (benign prostatic hyperplasia) CAD (coronary artery disease) LINDA (obstructive sleep apnea) Abnormal stress echocardiogram Hypercholesterolemia PVCs (premature ventricular contractions) MDD (major depressive disorder) HTN (hypertension) Nocturnal hypoxemia Obesity Severe obstructive sleep apnea Nasal polyposis Arthritis Surgical History History of tonsillectomy History of knee surgery Family History Mother Arthritis Rheumatoid arthritis Aunt Breast cancer Family/Other Obstructive sleep apnea Social History Smoking Status: Never smoker Hx Alcohol Use: No Hx Substance Use: No Preferred Language: Finnish Communication Ability: 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 Physical Exam Physical Exam: General Appearance: WD/WN, vitals as above, NAD, sitting up in bed, appears uncomfortable but pleasant Head: normocephalic, atraumatic Eyes: normal inspection, PERRL, conjunctivae normal, anicteric sclerae ENT: external ear and nose normal, oropharynx normal Neck: normal visual inspection, trachea midline, no thyromegaly Respiratory: normal respiratory effort, lungs clear to auscultation, no wheeze, rales, rhonchi. No accessory muscle use Cardiovascular: regular rate, rhythm, no murmur, normal peripheral pulses, no BLE edema. Vessels: no JVD Chest: normal inspection of chest Abdomen/GI: normal bowel sounds, soft, nontender, no hepatosplenomegaly Extremities/Musculoskeletal: no cyanosis or clubbing, extremities motor strength 5/5 Neurologic: PERRL, EOMI, accommodation nl, no face palsy, no dysarthria, CN's II-XI intact bilaterally and moves all extremities Psychiatric: A+Ox3, euthymic affect Skin: no rashes, normal color, warm/dry Results & Data Results & Data Vital Signs (Past 12 Hours) Vital Signs Temp Pulse Pulse Resp BP BP Pulse Ox 06/28/24 15:40 55 L 24 98/62 L 96 06/28/24 14:00 54 L 14 105/74 98 06/28/24 12:27 54 L 16 95 06/28/24 12:27 95 06/28/24 12:12 36.4 C L 67 20 115/75 95 O2 Del Method 06/28/24 15:40 Room Air 06/28/24 14:00 Room Air 06/28/24 12:27 Room Air 06/28/24 12:27 Room Air 06/28/24 12:12 Room Air Laboratory Results Short CBC 06/28/24 Range/Units 12:25 WBC 5.94 (4.8-10.8) K/ul Hgb 15.5 (14.0-18.0) g/dl Hct 47.1 (42.0-52.0) % Plt Count 320 (130-400) K/uL BMP 06/28/24 12:25 Sodium 136 Potassium 3.9 Chloride 103 Carbon Dioxide 27 BUN 14 Creatinine 0.75 Glucose 128 H Calcium 9.4 Liver Function 06/28/24 Range/Units 12:25 Total Bilirubin 0.7 (0.2-1.0) mg/dl AST 15 (13-39) U/L ALT 22 (7-52) U/L Alkaline Phosphatase 72 (34-104) U/L Albumin 4.3 (3.4-5.0) gm/dl Diagnostic Findings Chest X-Ray 06/28/24 12:25 SINGLE VIEW CHEST CLINICAL HISTORY: Atypical chest pain FINDINGS: 2 AP, portable, upright chest radiographs are compared to study dated 06/26/2024. The cardiomediastinal silhouette is unremarkable. There is chronic elevation of the right hemidiaphragm with atelectasis of the right lower lung. This may represent diaphragmatic paralysis. The lungs and pleural spaces are otherwise clear. No pneumothorax is seen. The bony thorax is grossly intact. IMPRESSION: No acute cardiopulmonary abnormality. ACT 112: Negative or not required by law. Electronically signed by: Chuck Davis M.D. 06/28/2024 1:10 PM Supervising Physician Co-Signing Physician Notes delayed entry date of service noted above Attending Addendum: Case reviewed with the advanced practitioner. I have personally performed a history and physical examination on the patient. I have reviewed the advanced practitioner's documentation on the date of service referenced in note, and I agree with, and take responsibility for the plan of care. please refer to her notes for full details patient seen and examined, records reviewed by myself as well other diagnoses and plan of care as per advanced practitioner's notes Gerardo Barrientos MD (2) DM (diabetes mellitus), type 2 Diabetes mellitus complication status: without complication Diabetes mellitus fdc insulin use: without fdc use Qualified Code(s): E11.9 - Type 2 diabetes mellitus without complications
[2024-06-28] MEDS ORDERED: GLUCOSE 40% GEL 15 GM TUBE PO PRN (18:12)
[2024-06-28] MEDS ORDERED: DEXTROSE 50% 50 ML SYRINGE IV PRN (18:12)
[2024-06-28] MEDS ORDERED: CARBOHYDRATES FOR HYPOGLYCEMIA PO PRN (18:12)
[2024-06-28] MEDS ORDERED: GLUCOSE 10 TAB/TUBE PO PRN (18:12)
[2024-06-28] MEDS ORDERED: GLUCAGON FOR INJ 1 MG VIAL SQ PRN (18:12)
[2024-06-28 18:13] LABS: D Dimer 1150 ug/L FEU (0-500)
[2024-06-28] MEDS: SODIUM CHLORIDE 0.9% 250 ML IV ONE (19:30)
[2024-06-28] MEDS: OPTIRAY 320 125ml IV ONE (19:44)
--- NOTE | 2024-06-28 20:04 | CT Scan Report ---
CT SCAN OF THE CHEST WITHOUT IV CONTRAST CLINICAL HISTORY: Atypical chest pain. Dyspnea. COMPARISON STUDY: Chest x-ray dated 06/28/2024. TECHNIQUE: CT scan of the thorax was performed from the thoracic inlet to the upper abdomen. Images are reviewed in the axial, sagittal, and coronal planes. IV contrast was not administered for this ex amination as per the referring clinician. A dose lowering technique was utilized ad[facility] to the [facility] [place] CT DOSE: 964.94 mGy.cm FINDINGS: Thyroid: Imaged portions of the thyroid gland are normal in size and attenuation. Thoracic aorta: The thoracic aorta is normal in caliber and demonstrates bovine variant arch anatomy. Heart: The heart is normal in size and without pericardial effusion. Lungs and pleural spaces: There is chronic elevation of the right hemidiaphragm with atelectasis of t he right lower lung, potentially secondary to diaphragmatic paralysis. There is no airspace consolida tion typical for pneumonia or pleural effusion. The trachea and central airways are clear. Mediastinum: There are calcifications containing mediastinal nodes. No mediastinal lymphadenopathy is seen. Patrizia: Not well assessed without IV contrast. Axillae: There is no axillary lymphadenopathy. Upper abdomen: There are calcified gallstones. Partially visualized upper abdominal viscera is otherw ise within normal limits. Skeletal structures: No lytic or blastic bony lesions are seen. Arthritic change is noted in the shou lders. IMPRESSION: 1. No active disease in the chest. 2. Chronic elevation of the right hemidiaphragm is similar to prior studies. 3. Cholelithiasis. 4. Additional findings above. ACT 112: Negative or not required by law. Electronically signed by: Chuck Davis M.D. 06/28/2024 8:03 PM
[2024-06-28] MEDS: SODIUM CHLORIDE 0.9% 1,000 ML IV SCH (20:45)
[2024-06-28] MEDS: INSULIN ASPART PER UNIT CHARGE SC SCH (21:16)
[2024-06-28] MEDS: SUCRALFATE 1 GM/10 ML UDC PO SCH (21:19)
[2024-06-28] MEDS: PANTOprazole 40 MG in SYRINGE 0 ML IV SCH (21:19)
--- NOTE | 2024-06-28 22:01 | CT Scan Report ---
Exam(s): CTA CHEST IV Amt: 117 ml optiray 320 EXAM: CT Angiography Chest With Intravenous Contrast CLINICAL HISTORY: Reason for exam: PE. TECHNIQUE: Axial computed tomographic angiography images of the chest with intravenous contrast. CTDI is 42.65 mGy and DLP is 989.07 mGy-cm. Automated exposure control was utilized for the study. A dose lowering technique was utilized adhering to the principles of ALARA. MIP reconstructed images were created and reviewed. COMPARISON: No relevant prior studies available. FINDINGS: Pulmonary arteries: No pulmonary embolism. Aorta: No acute findings. Normal caliber. No dissection. Lungs: Compressive atelectasis within the right lower lobe. No consolidation. Pleural space: Unremarkable. Heart: Unremarkable. Bones/joints: No acute fracture. Soft tissues: Unremarkable. Lymph nodes: Unremarkable. Gallbladder and bile ducts: Cholelithiasis. Upper abdomen: Elevated right hemidiaphragm. IMPRESSION: 1. No pulmonary embolism. 2. Elevated right hemidiaphragm. Electronically signed by: Odin Madison MD 06/28/24 21:59 PM
[2024-06-28] MEDS ORDERED: POLYETHYLENE (MIRALAX) 17 GM PACK PO PRN (22:44)
[2024-06-28] MEDS ORDERED: FLUTICASONE PROPIONATE NA SPR 16 GM BTL NAE PRN (22:44)
[2024-06-28] MEDS ORDERED: LIDOCAINE 5% 1 PATCH TD PRN (22:44)
[2024-06-28] MEDS ORDERED: ONDANSETRON INJ 2 MG/ML 2 ML VIAL IV PRN (22:44)
[2024-06-28] MEDS ORDERED: tiZANidine HCL 4 MG TABLET PO PRN (22:44)
[2024-06-28] MEDS: METOPROLOL SUCC 25MG EXT REL TAB PO SCH (23:23)
[2024-06-28] MEDS: traZODone HCL 50 MG TAB PO SCH (23:24)
[2024-06-28] MEDS: ATORVASTATIN 40 MG TAB PO SCH (23:24)
[2024-06-29] MEDS: lisinopril 2.5 MG TAB PO SCH (08:34)
[2024-06-29] MEDS: EZETIMIBE 10 MG TAB PO SCH (08:34)
[2024-06-29] MEDS: ISOSORBIDE MONO EXTENDED REL 30 MG TABCR PO SCH (08:34)
--- NOTE | 2024-06-29 10:32 | Gastrointestinal Consultation ---
Date of Consultation June 29, 2024 Assessment & Plan (1) Chest pain: He has episodic chest pain that did not improve with nitrates and required morphine to resolve. The location of the pain by his description is in mid chest and because of that I don't think it is ulcer disease. The episodic nature of it points against ulcer disease as well. Esophageal spasm can cause similar pain but this usually responds to nitrates. EGD for esophageal spasm is typically normal. He has no heartburn or indigestion or difficulty swallowing. This pain is also not suggestive of reflux type pain/heartburn. Of note, the only GI issue that typically causes episodic chest pain is biliary colic and he does have gallstones. Typically biliary pain is in the subxiphoid area and not in the mid chest though. It may be worthwhile to get a surgical consultation. I don't plan EGD now as I don't feel it will be overly productive but can do it if it is deemed necessary to rule out other issues as cause for his chest pain. History of Present Illness Reason for Consultation: chest pain Attending Physician: Gerardo Barrientos MD History of Present Illness 58 year old man who was in the hospital recently for chest pain evaluation. Underwent cardiac cath and found to have "stable CAD". Was sent home and returned after recurrence of his chest pain. He tells me the pain is in the center of his chest and feels like a "hard pain". He denies radiation to his back/shoulder blades/ or neck. He says he is not nauseated with it and there is no vomiting. He also does not feel short of breath with it. He has had reflux disease in the distant past but no longer has issues with heartburn. He has no abdominal pain nor issues eating. Prior to last he had never had pain like this before. In between episodes he feels well. He had a colonoscopy five years ago at [facility] but has not ever had an EGD. Allergies Allergy/AdvReac Type Severity Reaction Status Date / Time No Known Allergies Allergy Verified 12/10/23 14:36 Home Medications Medication Instructions Recorded Confirmed Type aspirin 81 mg tablet,delayed 81 mg PO HS 08/31/18 06/28/24 History release atorvastatin 40 mg tablet (Lipitor) 40 mg PO HS 08/31/18 06/28/24 History metformin 1,000 mg tablet 1,000 mg PO BID 08/31/18 06/28/24 History metoprolol succinate 25 mg 25 mg PO HS 08/31/18 06/28/24 History tablet,extended release 24 hr omega 0-bmf-lzl-fish oil 1,000 mg 1,000 mg PO HS 08/31/18 06/28/24 History (120 mg-180 mg) capsule (Fish Oil) CPAP Machine #1 ea 11/03/19 06/26/24 Rx lidocaine 5 % topical patch 1 patch topical DAILY PRN pain #15 06/13/20 06/28/24 Rx (Lidoderm) ea ezetimibe 10 mg tablet 10 mg PO DAILY 06/26/24 06/28/24 History fluticasone propionate 50 2 spray intranasal DAILY PRN 06/26/24 06/28/24 History mcg/actuation nasal allergies spray,suspension tirzepatide 10 mg/0.5 mL 10 mg subcut WK 06/26/24 06/28/24 History subcutaneous pen injector (Rocky) tizanidine 4 mg tablet 4 mg PO Q6H PRN Muscle Spasm 06/26/24 06/28/24 History trazodone 50 mg tablet 50 mg PO HS 06/26/24 06/28/24 History isosorbide mononitrate 30 mg 30 mg PO QAM 30 days #30 tabs 06/28/24 06/28/24 Rx tablet,extended release 24 hr lisinopril 5 mg tablet 2.5 mg (1/2 x 5 mg) PO DAILY #0 06/28/24 06/28/24 Rx tabs Patient History Medical History NSTEMI (non-ST elevated myocardial infarction) BPH (benign prostatic hyperplasia) CAD (coronary artery disease) LINDA (obstructive sleep apnea) Abnormal stress echocardiogram Hypercholesterolemia PVCs (premature ventricular contractions) MDD (major depressive disorder) HTN (hypertension) Nocturnal hypoxemia Obesity Severe obstructive sleep apnea Nasal polyposis Arthritis Surgical History History of tonsillectomy History of knee surgery Family History Mother Arthritis Rheumatoid arthritis Aunt Breast cancer Family/Other Obstructive sleep apnea Social History Smoking Status: Never smoker Hx Alcohol Use: No Hx Substance Use: No Preferred Language: Rw[place] Communication Ability: Effective Poultry Cutter Required: No Beliefs That Will Affect Care: None marital status: Single Current Living Situation: Alone current occupational status: employed Other Information That Helps Us Care for You: No Feels Safe at Home: Yes Safety Concerns: Feels Safe At This Time Dental Care, Regularly: No Physical Activity Frequency: 3-4 Times per Week Assistive Devices: Glasses Review of Systems Review of Systems: All systems reviewed & are unremarkable except as noted in HPI & below Physical Exam Constitutional: WD/WN, vitals as above Neck: trachea midline, no thyromegaly Respiratory: normal respiratory effort, lungs clear to auscultation Cardiovascular: RRR, no murmur, no edema Gastrointestinal (Abdomen): normal bowel sounds, soft, nontender, no hepatosplenomegaly Results & Data Vital Signs (Past 12 Hours) Vital Signs Temp Pulse Pulse Pulse Resp BP Pulse Ox 06/29/24 08:05 36.6 C 64 16 124/70 97 06/29/24 07:43 74 06/29/24 03:20 64 24 97 06/29/24 03:09 36.5 C 60 18 122/77 97 06/28/24 23:06 06/28/24 23:06 36.5 C 53 L 18 118/74 96 06/28/24 22:45 53 L 06/28/24 22:35 53 L 16 97 O2 Del Method 06/29/24 08:05 Room Air 06/29/24 07:43 06/29/24 03:20 06/29/24 03:09 Room Air 06/28/24 23:06 Room Air, CPAP 06/28/24 23:06 Room Air 06/28/24 22:45 06/28/24 22:35 Laboratory Results 06/29/24 06/29/24 06/28/24 Range/Units 09:45 08:18 20:59 WBC (4.8-10.8) K/ul RBC (4.70-6.10) M/uL Hgb (14.0-18.0) g/dl Hct (42.0-52.0) % MCV (80.0-100.0) fL MCH (25.0-34.0) pg MCHC (32.0-36.0) g/dL RDW Std Deviation (36.4-46.3) fL RDW Coeff of Georgina (11.5-14.5) % Plt Count (130-400) K/uL MPV (9.4-12.4) fL Immature Gran % (Auto) % Neut % (Auto) % Lymph % (Auto) % [place] % (Auto) % Eos % (Auto) % Baso % (Auto) % Neut # (Auto) (1.40-6.50) K/uL Lymph # (Auto) (1.20-3.40) K/uL [place] # (Auto) (0.11-0.59) K/uL Eos # (Auto) (0.00-0.50) K/uL Baso # (Auto) (0.00-0.20) K/uL Immature Gran # (Auto) (0.01-0.20) K/uL PT (9.0-12.0) Seconds INR (0.9-1.1) APTT (21-31) Seconds PTT Ratio D-Dimer (0-500) ug/L FEU Sodium Pending (136-145) mmol/L Potassium Pending (3.5-5.1) mmol/L Chloride Pending (98-107) mmol/L Carbon Dioxide Pending (21-32) mmol/L Anion Gap Pending (3-11) BUN Pending (6-23) mg/dl Creatinine Pending (0.6-1.4) mg/dl Est Cr Clr Drug Dosing Pending ml/min Est GFR ( Amer) Pending ml/min Est GFR (Non-Af Amer) Pending ml/min BUN/Creatinine Ratio Pending (10-20) Glucose Pending (70-99(Fasting)) mg/dl POC Glucose 126 H 161 H (70-99) mg/dl Calcium Pending (8.6-10.3) mg/dl Total Bilirubin (0.2-1.0) mg/dl AST (13-39) U/L ALT (7-52) U/L Alkaline Phosphatase (34-104) U/L Troponin I High Sens (0-20) pg/ml Total Protein (6.0-8.3) gm/dl Albumin (3.4-5.0) gm/dl Globulin (2.5-4.0) gm/dl Albumin/Globulin Ratio (0.9-2) Lipase (11-82) U/L 06/28/24 06/28/24 06/28/24 Range/Units 18:54 17:40 14:25 WBC (4.8-10.8) K/ul RBC (4.70-6.10) M/uL Hgb (14.0-18.0) g/dl Hct (42.0-52.0) % MCV (80.0-100.0) fL MCH (25.0-34.0) pg MCHC (32.0-36.0) g/dL RDW Std Deviation (36.4-46.3) fL RDW Coeff of Georgina (11.5-14.5) % Plt Count (130-400) K/uL MPV (9.4-12.4) fL Immature Gran % (Auto) % Neut % (Auto) % Lymph % (Auto) % [place] % (Auto) % Eos % (Auto) % Baso % (Auto) % Neut # (Auto) (1.40-6.50) K/uL Lymph # (Auto) (1.20-3.40) K/uL [place] # (Auto) (0.11-0.59) K/uL Eos # (Auto) (0.00-0.50) K/uL Baso # (Auto) (0.00-0.20) K/uL Immature Gran # (Auto) (0.01-0.20) K/uL PT (9.0-12.0) Seconds INR (0.9-1.1) APTT (21-31) Seconds PTT Ratio D-Dimer 1150 H* (0-500) ug/L FEU Sodium (136-145) mmol/L Potassium (3.5-5.1) mmol/L Chloride (98-107) mmol/L Carbon Dioxide (21-32) mmol/L Anion Gap (3-11) BUN (6-23) mg/dl Creatinine (0.6-1.4) mg/dl Est Cr Clr Drug Dosing ml/min Est GFR ( Amer) ml/min Est GFR (Non-Af Amer) ml/min BUN/Creatinine Ratio (10-20) Glucose (70-99(Fasting)) mg/dl POC Glucose 122 H (70-99) mg/dl Calcium (8.6-10.3) mg/dl Total Bilirubin (0.2-1.0) mg/dl AST (13-39) U/L ALT (7-52) U/L Alkaline Phosphatase (34-104) U/L Troponin I High Sens 9.1 D (0-20) pg/ml Total Protein (6.0-8.3) gm/dl Albumin (3.4-5.0) gm/dl Globulin (2.5-4.0) gm/dl Albumin/Globulin Ratio (0.9-2) Lipase (11-82) U/L 06/28/24 Range/Units 12:25 WBC 5.94 (4.8-10.8) K/ul RBC 5.47 (4.70-6.10) M/uL Hgb 15.5 (14.0-18.0) g/dl Hct 47.1 (42.0-52.0) % MCV 86.1 (80.0-100.0) fL MCH 28.3 (25.0-34.0) pg MCHC 32.9 (32.0-36.0) g/dL RDW Std Deviation 40.8 (36.4-46.3) fL RDW Coeff of Georgina 13.1 (11.5-14.5) % Plt Count 320 (130-400) K/uL MPV 10.0 (9.4-12.4) fL Immature Gran % (Auto) 0.7 % Neut % (Auto) 54.9 % Lymph % (Auto) 32.7 % [place] % (Auto) 6.7 % Eos % (Auto) 4.2 % Baso % (Auto) 0.8 % Neut # (Auto) 3.26 (1.40-6.50) K/uL Lymph # (Auto) 1.94 (1.20-3.40) K/uL [place] # (Auto) 0.40 (0.11-0.59) K/uL Eos # (Auto) 0.25 (0.00-0.50) K/uL Baso # (Auto) 0.05 (0.00-0.20) K/uL Immature Gran # (Auto) 0.04 (0.01-0.20) K/uL PT 11.3 (9.0-12.0) Seconds INR 1.0 (0.9-1.1) APTT 23 (21-31) Seconds PTT Ratio 0.9 D-Dimer (0-500) ug/L FEU Sodium 136 (136-145) mmol/L Potassium 3.9 (3.5-5.1) mmol/L Chloride 103 (98-107) mmol/L Carbon Dioxide 27 (21-32) mmol/L Anion Gap 6 (3-11) BUN 14 (6-23) mg/dl Creatinine 0.75 (0.6-1.4) mg/dl Est Cr Clr Drug Dosing 155.6 ml/min Est GFR ( Amer) 118.9 ml/min Est GFR (Non-Af Amer) 102.5 ml/min BUN/Creatinine Ratio 18.7 (10-20) Glucose 128 H (70-99(Fasting)) mg/dl POC Glucose (70-99) mg/dl Calcium 9.4 (8.6-10.3) mg/dl Total Bilirubin 0.7 (0.2-1.0) mg/dl AST 15 (13-39) U/L ALT 22 (7-52) U/L Alkaline Phosphatase 72 (34-104) U/L Troponin I High Sens 13.4 D (0-20) pg/ml Total Protein 7.3 (6.0-8.3) gm/dl Albumin 4.3 (3.4-5.0) gm/dl Globulin 3.0 (2.5-4.0) gm/dl Albumin/Globulin Ratio 1.4 (0.9-2) Lipase 26 (11-82) U/L Diagnostic Findings Chest X-Ray 06/28/24 12:25 SINGLE VIEW CHEST CLINICAL HISTORY: Atypical chest pain FINDINGS: 2 AP, portable, upright chest radiographs are compared to study dated 06/26/2024. The cardiomediastinal silhouette is unremarkable. There is chronic elevation of the right hemidiaphragm with atelectasis of the right lower lung. This may represent diaphragmatic paralysis. The lungs and pleural spaces are otherwise clear. No pneumothorax is seen. The bony thorax is grossly intact. IMPRESSION: No acute cardiopulmonary abnormality. ACT 112: Negative or not required by law. Electronically signed by: Chuck Davis M.D. 06/28/2024 1:[address] 06/28/24 17:42 CT SCAN OF THE CHEST WITHOUT IV CONTRAST CLINICAL HISTORY: Atypical chest pain. Dyspnea. COMPARISON STUDY: Chest x-ray dated 06/28/2024. TECHNIQUE: CT scan of the thorax was performed from the thoracic inlet to the upper abdomen. Images are reviewed in the axial, sagittal, and coronal planes. IV contrast was not administered for this examination as per the referring clinician. A dose lowering technique was utilized adhering to the principles of ALARA. CT DOSE: 964.94 mGy.cm FINDINGS: Thyroid: Imaged portions of the thyroid gland are normal in size and attenuation. Thoracic aorta: The thoracic aorta is normal in caliber and demonstrates bovine variant arch anatomy. Heart: The heart is normal in size and without pericardial effusion. Lungs and pleural spaces: There is chronic elevation of the right hemidiaphragm with atelectasis of the right lower lung, potentially secondary to diaphragmatic paralysis. There is no airspace consolidation typical for pneumonia or pleural effusion. The trachea and central airways are clear. Mediastinum: There are calcifications containing mediastinal nodes. No mediastinal lymphadenopathy is seen. Patrizia: Not well assessed without IV contrast. Axillae: There is no axillary lymphadenopathy. Upper abdomen: There are calcified gallstones. Partially visualized upper abdominal viscera is otherwise within normal limits. Skeletal structures: No lytic or blastic bony lesions are seen. Arthritic change is noted in the shoulders. IMPRESSION: 1. No active disease in the chest. 2. Chronic elevation of the right hemidiaphragm is similar to prior studies. 3. Cholelithiasis. 4. Additional findings above. ACT 112: Negative or not required by law. Electronically signed by: Chuck Davis M.D. 06/28/2024 8:03 PM Chest CTA 06/28/24 18:57 Exam(s): CTA CHEST IV Amt: 117 ml optiray 320 EXAM: CT Angiography Chest With Intravenous Contrast CLINICAL HISTORY: Reason for exam: PE. TECHNIQUE: Axial computed tomographic angiography images of the chest with intravenous contrast. CTDI is 42.65 mGy and DLP is 989.07 mGy-cm. Automated exposure control was utilized for the study. A dose lowering technique was utilized adhering to the principles of ALARA. MIP reconstructed images were created and reviewed. COMPARISON: No relevant prior studies available. FINDINGS: Pulmonary arteries: No pulmonary embolism. Aorta: No acute findings. Normal caliber. No dissection. Lungs: Compressive atelectasis within the right lower lobe. No consolidation. Pleural space: Unremarkable. Heart: Unremarkable. Bones/joints: No acute fracture. Soft tissues: Unremarkable. Lymph nodes: Unremarkable. Gallbladder and bile ducts: Cholelithiasis. Upper abdomen: Elevated right hemidiaphragm. IMPRESSION: 1. No pulmonary embolism. 2. Elevated right hemidiaphragm. Electronically signed by: Odin Madison MD 06/28/24 21:59 PM
[2024-06-29 10:42] LABS: BUN Creatinine Ratio 14.3 (10-20); Calcium 8.6 mg/dl (8.6-10.3); Creatinine Clr Calc Pharmacy 166.7 ml/min; Est GFR (African American) 122.3 ml/min; Est GFR (Non-African American) 105.5 ml/min; Potassium 3.7 mmol/L (3.5-5.1)
--- NOTE | 2024-06-29 13:30 | CT Scan Report ---
ABDOMEN AND PELVIS CT WITHOUT CONTRAST CT DOSE: 1648.11 mGy.cm HISTORY: elevated d dimer, r/o mass TECHNIQUE: Multiaxial CT images of the abdomen and pelvis were performed without contrast. A dose lo wering technique was utilized adhering to the principles of ALARA. COMPARISON STUDY: None. FINDINGS: Elevated right hemidiaphragm with right basilar linear densities consistent with subsegment al atelectasis. No pneumoperitoneum. No pneumatosis. No suspicious lytic or blastic osseous lesions. Hyperdense/calcified mediastinal and hilar lymph nodes are noted. There is a 3 cm duodenal diverticul um. There is a 1 cm gallstone. No gallbladder wall thickening. The unenhanced liver, spleen, pancreas , and adrenal glands are unremarkable. No renal stones or hydronephrosis. There is a 3.9 cm hypodense lesion within the right kidney. This likely represents a cyst. No retroperitoneal or pelvic lymphade nopathy. Normal caliber abdominal aorta. Normal bladder. Suboptimal evaluation for bowel pathology du e to the lack of intravenous and oral contrast. However, there is no definite bowel wall thickening o r obstruction. Colonic diverticulosis. No evidence for acute diverticulitis. Normal appendix. IMPRESSION: 1. No bowel wall thickening or obstruction. 2. Colonic diverticulosis. No evidence for acute diverticulitis. 3. No hydronephrosis. 4. Cholelithiasis. No gallbladder wall thickening. 5. Additional findings as described above ACT 112: Negative or not required by law. Electronically signed by: Leno Bradley M.D. 06/29/2024 1:29 PM
--- NOTE | 2024-06-29 14:31 | Hospitalist Progress Note ---
Date of Service June 29, 2024 Assessment & Plan (1) Chest pain: (2) DM (diabetes mellitus), type 2: (3) Dyslipidemia, goal LDL below 70: (4) CAD (coronary artery disease), [place] coronary artery: (5) Severe obstructive sleep apnea: (6) MDD (major depressive disorder): Plan Per admitting service notes with addendum: This is a 58-year-old male with PMH of non-obstructive CAD, type 2 diabetes, hypertension, obesity, depression, anxiety, HLD, generalized anxiety disorder, LINDA, BPH who was discharged earlier today and then returned after developing sudden onset chest pain again this afternoon. Atypical chest pain Admitted 06/26 for NSTEMI and underwent diagnostic cardiac catheterization yesterday that demonstrated stable, moderate mid LAD stenosis Dr. Stark evaluated and recommends continuing asa, statin, Zetia and beta [place] with cardiac follow up in 3-4 weeks Had very similar episode of sudden onset central chest pain at rest earlier today after discharge home and returned to ED EKG without acute changes, HS troponin negative x 2 [place] pain worsened after ntg, improved with morphine Considering other causes of chest pain - pulmonary vs GI D-dimer positive, CTA chest ordered (cont. IV fluids overnight given recent contrast dye) Considering PUD vs gastritis given asa and nsaids at home. Adding IV Protonix BID, Carafate, routine GI consult for further eval Hold aspirin this evening 06/29 Chest pain resolved D-dimer 1150 CT chest: No acute PE, dissection Check Doppler ultrasound to rule out DVT Check CT abdomen pelvis without contrast to rule out mass GI consulted-possible esophageal spasm, may need EGD if symptoms persist CT abdomen and pelvis showing gallbladder stone Recommending general surgery evaluation Status post cardiac cath June 27, 2024 Nonobstructive CAD noted Imdur started, patient not tolerating due to persistent headache Patient's chest pain was not relieved by nitro Will DC Imdur for now Resume lisinopril 5 mg p.o. daily Monitor closely DM (diabetes mellitus), type 2 A1c 5.9 in 04/28 Hold home metformin SSI while in-patient BSG AC HS HTN (hypertension) Normotensive. Continue Toprol Severe obstructive sleep apnea CPAP HS DVT Ppx: SCDs for now Code status: FULL PCP: Jerardo Dispo: Anticipate return to home when medically Admission and Anticipated Discharge Date Admission Date: June 28, 2024 Subjective Follow-up for chest pain, etc. Seen sitting up in bed, comfortable, not in distress No recurrence of chest pain while admitted No nausea or vomiting, tolerating clear liquids well Reports headache since starting Imdur No neurologic symptoms No shortness of breath, palpitations, dizziness No other symptoms noted Review of Systems Review of Systems: all noted and negative except for above Physical Exam Physical Exam: General- oriented x 3, not in distress, speaks in sentences with no effort or accessory muscle use Eyes- anicteric Neck- no JVD Lungs- clear breath sounds bilaterally, no rales/wheezes Heart- normal rate, regular rhythm; no murmurs Abdomen- normal bowel sounds, nondistended, soft, nontender Extremities- no pretibial edema, no calf tenderness Neuro- alert, oriented x 3; no gross focal neurologic deficits Skin- warm & dry Results & Data Results & Data Vital Signs (Past 12 Hours) Vital Signs Temp Pulse Pulse Resp BP BP Pulse Ox 06/29/24 12:35 36.6 C 54 L 18 143/84 H 98 06/29/24 08:05 36.6 C 64 16 124/70 97 06/29/24 07:43 74 06/29/24 03:20 64 24 97 06/29/24 03:09 36.5 C 60 18 122/77 97 O2 Del Method 06/29/24 12:35 Room Air 06/29/24 08:05 Room Air 06/29/24 07:43 06/29/24 03:20 06/29/24 03:09 Room Air all noted and reviewed including below (2) DM (diabetes mellitus), type 2 Diabetes mellitus complication status: without complication 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
--- NOTE | 2024-06-29 14:51 | Ultrasound Report ---
BILATERAL LOWER EXTREMITY VENOUS DOPPLER HISTORY: elevated ddimer, r/o DVT COMPARISON STUDY: None. FINDINGS: There is normal compressibility, flow, and augmentation within the bilateral lower extremit y deep venous systems. Bilateral popliteal cysts are noted. There are few calcifications within the l eft popliteal cyst. IMPRESSION: No DVT within the right or left lower extremity. ACT 112: Negative or not required by law. Electronically signed by: Leno Bradley M.D. 06/29/2024 2:50 PM
[2024-06-29] MEDS: ASPIRIN 81 MG ECTAB PO SCH (21:35)
[2024-06-30 07:37] LABS: BUN Creatinine Ratio 11.3 (10-20); Calcium 8.6 mg/dl (8.6-10.3); Creatinine Clr Calc Pharmacy 166.9 ml/min; Est GFR (African American) 121.6 ml/min; Est GFR (Non-African American) 104.9 ml/min; Potassium 3.9 mmol/L (3.5-5.1)
[2024-06-30] MEDS: lisinopril 5 MG TAB PO SCH (09:13)
--- NOTE | 2024-06-30 09:58 | Surgery Consultation ---
Date of Consultation June 30, 2024 Assessment & Plan (1) Chest pain: Does not appear his chest pain is related to cholelithiasis. Per patient, he is scheduled to get upper endoscopy today. If patient continues to have symptoms and no other etiology is identified, he can follow-up as an outpatient. No surgical intervention indicated at this time Surgery will follow peripherally, call with questions or concerns If symptoms recur while an inpatient, would recommend right upper quadrant ultrasound and HIDA scan Can follow-up as outpatient if no other etiology is identified Educated on signs symptoms of cholecystitis and choledocholithiasis (2) CAD (coronary artery disease), [place] coronary artery: (3) DM (diabetes mellitus), type 2: (4) Cholelithiasis without cholecystitis: (5) Obesity: (6) Severe obstructive sleep apnea: History of Present Illness Attending Physician: Gerardo Barrientos MD History of Present Illness Admitted with 2 episodes of significant chest pain over the weekend. Workup unremarkable, recent cardiac cath with mild coronary artery disease not requiring intervention. He does not relate the pain that he experienced any type of foods that he ate. He has not had episodes like this before. No prior abdominal surgeries. Patient takes Mounjaro. Denies any associated symptoms. No blood thinners. He did have breakfast this morning with no recurrence of his symptoms Allergies Allergy/AdvReac Type Severity Reaction Status Date / Time No Known Allergies Allergy Verified 12/10/23 14:36 Home Medications Medication Instructions Recorded Confirmed Type aspirin 81 mg tablet,delayed 81 mg PO HS 08/31/18 06/28/24 History release atorvastatin 40 mg tablet (Lipitor) 40 mg PO HS 08/31/18 06/28/24 History metformin 1,000 mg tablet 1,000 mg PO BID 08/31/18 06/28/24 History metoprolol succinate 25 mg 25 mg PO HS 08/31/18 06/28/24 History tablet,extended release 24 hr omega 5-gol-qft-fish oil 1,000 mg 1,000 mg PO HS 08/31/18 06/28/24 History (120 mg-180 mg) capsule (Fish Oil) CPAP Machine #1 ea 11/03/19 06/26/24 Rx lidocaine 5 % topical patch 1 patch topical DAILY PRN pain #15 06/13/20 06/28/24 Rx (Lidoderm) ea ezetimibe 10 mg tablet 10 mg PO DAILY 06/26/24 06/28/24 History fluticasone propionate 50 2 spray intranasal DAILY PRN 06/26/24 06/28/24 History mcg/actuation nasal allergies spray,suspension tirzepatide 10 mg/0.5 mL 10 mg subcut WK 06/26/24 06/28/24 History subcutaneous pen injector (Mounjaro) tizanidine 4 mg tablet 4 mg PO Q6H PRN Muscle Spasm 06/26/24 06/28/24 History trazodone 50 mg tablet 50 mg PO HS 06/26/24 06/28/24 History isosorbide mononitrate 30 mg 30 mg PO QAM 30 days #30 tabs 06/28/24 06/28/24 Rx tablet,extended release 24 hr lisinopril 5 mg tablet 2.5 mg (1/2 x 5 mg) PO DAILY #0 06/28/24 06/28/24 Rx tabs Patient History Medical History NSTEMI (non-ST elevated myocardial infarction) BPH (benign prostatic hyperplasia) CAD (coronary artery disease) LINDA (obstructive sleep apnea) Abnormal stress echocardiogram Hypercholesterolemia PVCs (premature ventricular contractions) MDD (major depressive disorder) HTN (hypertension) Nocturnal hypoxemia Obesity Severe obstructive sleep apnea Nasal polyposis Arthritis Surgical History History of tonsillectomy History of knee surgery Family History Mother Arthritis Rheumatoid arthritis Aunt Breast cancer Family/Other Obstructive sleep apnea Social History Smoking Status: Never smoker Hx Alcohol Use: No Hx Substance Use: No Preferred Language: Pashto Communication Ability: Effective Relationship Assoc Required: No Beliefs That Will Affect Care: None marital status: Single Current Living Situation: Alone current occupational status: employed Other Information That Helps Us Care for You: No Feels Safe at Home: Yes Safety Concerns: Feels Safe At This Time Dental Care, Regularly: No Physical Activity Frequency: 3-4 Times per Week Assistive Devices: CPAP and Glasses Review of Systems Review of Systems: All systems reviewed & are unremarkable except as noted in HPI & below Physical Exam Constitutional: WD/WN, vitals as above + obese Respiratory: normal respiratory effort, lungs clear to auscultation Cardiovascular: RRR, no murmur, no edema Gastrointestinal (Abdomen): normal bowel sounds, soft, nontender, no hepatosplenomegaly Results & Data Vital Signs (Past 12 Hours) Vital Signs Temp Pulse Resp BP Pulse Ox O2 Del Method 06/30/24 08:10 97.9 F 55 L 18 154/87 H 98 CPAP 06/30/24 03:47 12 06/30/24 03:38 97.3 F L 52 L 20 133/74 99 Room Air 06/29/24 23:36 97.5 F L 52 L 20 138/80 96 Room Air 06/29/24 22:[address] personally reviewed and interpreted and agree with the assessment of cholelithiasis with no gallbladder wall thickening, no other abnormalities noted. ABDOMEN AND PELVIS CT WITHOUT CONTRAST CT DOSE: 1648.11 mGy.cm HISTORY: elevated d dimer, r/o mass TECHNIQUE: Multiaxial CT images of the abdomen and pelvis were performed without contrast. A dose lowering technique was utilized adhering to the principles of ALARA. COMPARISON STUDY: None. FINDINGS: Elevated right hemidiaphragm with right basilar linear densities consistent with subsegmental atelectasis. No pneumoperitoneum. No pneumatosis. No suspicious lytic or blastic osseous lesions. Hyperdense/calcified mediastinal and hilar lymph nodes are noted. There is a 3 cm duodenal diverticulum. There is a 1 cm gallstone. No gallbladder wall thickening. The unenhanced liver, spleen, pancreas, and adrenal glands are unremarkable. No renal stones or hydronephrosis. There is a 3.9 cm hypodense lesion within the right kidney. This likely represents a cyst. No retroperitoneal or pelvic lymphadenopathy. Normal caliber abdominal aorta. Normal bladder. Suboptimal evaluation for bowel pathology due to the lack of intravenous and oral contrast. However, there is no definite bowel wall thickening or obstruction. Colonic diverticulosis. No evidence for acute diverticulitis. Normal appendix. IMPRESSION: 1. No bowel wall thickening or obstruction. 2. Colonic diverticulosis. No evidence for acute diverticulitis. 3. No hydronephrosis. 4. Cholelithiasis. No gallbladder wall thickening. 5. Additional findings as described above ACT 112: Negative or not required by law. Electronically signed by: Leno Bradley M.D. 06/29/2024 1:29 PM PG Care Time/CCT Total # of Minutes Spent Total Time Spent with Patient: Total time spent is greater than 50% in coordination of care (as documented) at patient's floor/unit and/or counseling patient: Coding Level of Care Code 08797 IN/OBS CONSULT LVL 3,45M Diagnoses Chest pain R07.9 CAD (coronary artery disease), [place] coronary artery I25.10 Type 2 diabetes mellitus without complication, without long-term current use of insulin E11.9 Diabetes mellitus terminal operations supervisor insulin use: without terminal operations supervisor use Diabetes mellitus complication status: without complication Cholelithiasis without cholecystitis K80.20 Obesity E66.9 Severe obstructive sleep apnea G47.33 (3) DM (diabetes mellitus), type 2 Diabetes mellitus usp insulin use: without terminal operations supervisor use Diabetes mellitus complication status: without complication Qualified Code(s): E11.9 - Type 2 diabetes mellitus without complications
--- NOTE | 2024-06-30 10:11 | Gastroenterology Progress Note ---
Date of Service June 30, 2024 Assessment & Plan (1) Chest pain: Plan: Patient has not had any further reoccurrence of his pain since admission. He does not feel like it is related to acid or foods. - continue with protonix 40mg IV bid and carafate gm qid. - can await surgical consult for opinion on gallbladder. - he may need an EGD to further evaluate symptoms, will discuss case further with Dr. Burks, further recommendations to follow. Admission and Anticipated Discharge Date Admission Date: June 28, 2024 Supervising Physician Co-Signing Physician Notes I saw and examined this patient with our nurse practitioner and agree with her assessment and plan. Patient with atypical nonspecific chest pain etiology unclear. Likely cardiac at this point based on cardiology evaluation. Need to consider esophageal spasm and possibly biliary colic in light of the gallstones noted on his imaging. Likely causal disease to explain these episodes however we could consider doing an endoscopy to rule out such pathology if cleared by cardiology. Await surgical input regarding cholelithiasis. Subjective Patient is a 58 year old man who was in the hospital recently on 06/26 for NSTEMI and had a cath showing moderate mid LAD stenosis. He tells me that he started with chest pain last week prior to that admission after eating a lunch of sausage, onions, and hot sauce. During that admission, his symptoms improved and he was sent home. He tells me that on the drive home that he developed pain again in his chest that was not related to eating and he returned to the hospital. he tells me he has a history of reflux in the distant past but none recently. no nsaid use. he denies any nausea, vomiting, dysphagia, abdominal pain, or changes in bowels. he does not feel like his symptoms are related to eating. He has had no further chest pain since admission. CT 06/29 shown cholelithiasis and diverticulosis. surgery is consulted to see patient for an opinion on the gallbladder. colonoscopy done at [facility] in 2018 shown diverticulosis. he has never had an EGD. Review of Systems Review of Systems: All systems reviewed & are unremarkable except as noted in HPI & below Physical Exam Constitutional: WD/WN, vitals as above Respiratory: normal respiratory effort, lungs clear to auscultation Cardiovascular: Rate/Rhythm: regular rate and regular rhythm Gastrointestinal (Abdomen): normal bowel sounds, soft, nontender, no hepatosplenomegaly Psychiatric: Orientation: alert and oriented x 3 Affect: euthymic affect Results & Data Results & Data Vital Signs (Past 12 Hours) Vital Signs Temp Pulse Resp BP Pulse Ox O2 Del Method 06/30/24 08:10 97.9 F 55 L 18 154/87 H 98 CPAP 06/30/24 03:47 12 06/30/24 03:38 97.3 F L 52 L 20 133/74 99 Room Air 06/29/24 23:36 97.5 F L 52 L 20 138/80 96 Room Air 06/29/24 22:34 12 Coding Level of Care Code 24528 SUB INP/OBS CARE 11/29MIN Diagnoses Chest pain R07.9
[2024-06-30] MEDS ORDERED: hydrALAZINE HCL 20 MG/ML VIAL IV PRN (13:44)
--- NOTE | 2024-06-30 17:50 | Hospitalist Progress Note ---
Date of Service June 30, 2024 delayed entry date of service noted above Assessment & Plan (1) Chest pain: (2) DM (diabetes mellitus), type 2: (3) Dyslipidemia, goal LDL below 70: (4) CAD (coronary artery disease), [place] coronary artery: (5) Severe obstructive sleep apnea: (6) MDD (major depressive disorder): Plan Per admitting service notes with addendum: This is a 58-year-old male with PMH of non-obstructive CAD, type 2 diabetes, hypertension, obesity, depression, anxiety, HLD, generalized anxiety disorder, LINDA, BPH who was discharged earlier today and then returned after developing sudden onset chest pain again this afternoon. Atypical chest pain Admitted 06/26 for NSTEMI and underwent diagnostic cardiac catheterization yesterday that demonstrated stable, moderate mid LAD stenosis Dr. Stark evaluated and recommends continuing asa, statin, Zetia and beta [place] with cardiac follow up in 3-4 weeks Had very similar episode of sudden onset central chest pain at rest earlier today after discharge home and returned to ED EKG without acute changes, HS troponin negative x 2 [place] pain worsened after ntg, improved with morphine Considering other causes of chest pain - pulmonary vs GI D-dimer positive, CTA chest ordered (cont. IV fluids overnight given recent contrast dye) Considering PUD vs gastritis given asa and nsaids at home. Adding IV Protonix BID, Carafate, routine GI consult for further eval Hold aspirin this evening 06/29 Chest pain resolved D-dimer 1150 CT chest: No acute PE, dissection Check Doppler ultrasound to rule out DVT Check CT abdomen pelvis without contrast to rule out mass GI consulted-possible esophageal spasm, may need EGD if symptoms persist CT abdomen and pelvis showing gallbladder stone Recommending general surgery evaluation 06/30 evaluated by Cardio Trop and EKG ordered Trop elevated, with EKG changes Heparin drip started and Amlodipine Status post cardiac cath June 27, 2024 Nonobstructive CAD noted Imdur started, patient not tolerating due to persistent headache Patient's chest pain was not relieved by nitro Will DC Imdur for now Resume lisinopril 5 mg p.o. daily Monitor closely DM (diabetes mellitus), type 2 A1c 5.9 in 04/28 Hold home metformin SSI while in-patient BSG AC HS HTN (hypertension) Normotensive. Continue Toprol Severe obstructive sleep apnea CPAP HS DVT Ppx: SCDs for now Code status: FULL PCP: Jerardo Dispo: Anticipate return to home when medically Admission and Anticipated Discharge Date Admission Date: June 28, 2024 Subjective ff up for chest pain, etc seen resting in bed, comfortable feels ok overall no chest pain, nausea, vomiting, shortness of breath no other symptoms Review of Systems Review of Systems: all noted and negative except for above Physical Exam Physical Exam: General- oriented x 3, not in distress, speaks in sentences with no effort or accessory muscle use Eyes- anicteric Neck- no JVD Lungs- clear breath sounds bilaterally, no crackles or wheezing Heart- normal rate, regular rhythm; no murmurs Abdomen- normal bowel sounds, nondistended, soft, no tenderness Extremities- no pretibial edema, no calf tenderness Neuro- alert, oriented x 3; no gross focal neurologic deficits Skin- warm & dry Results & Data Results & Data Vital Signs (Past 12 Hours) Vital Signs Temp Pulse Resp BP Pulse Ox O2 Del Method 06/30/24 16:04 36.6 C 53 L 18 148/82 H 97 Room Air 06/30/24 11:39 36.7 C 55 L 19 162/91 H 99 Room Air 06/30/24 08:10 36.6 C 55 L 18 154/87 H 98 CPAP all noted and reviewed including below (2) DM (diabetes mellitus), type 2 Diabetes mellitus complication status: without complication Diabetes mellitus moth exterminator insulin use: without moth exterminator use Qualified Code(s): E11.9 - Type 2 diabetes mellitus without complications
--- NOTE | 2024-06-30 17:52 | Cardiology Consultation ---
Date of Consultation June 30, 2024 Assessment & Plan (1) Chest pain: (2) Preoperative cardiovascular examination: Recommend repeating a high-sensitivity troponin x 1 and a repeat EKG. If stable findings, would recommend proceeding with EGD if felt to be indicated without further cardiac testing. It is noted that when the patient presented on 06/28/2024 he did receive sublingual nitroglycerin and he did not think this improved his discomfort. Continue current cardiac medications including aspirin, lisinopril 5 mg daily, metoprolol succinate 25 mg at bedtime withholds, and atorvastatin 40 mg daily. Agree with IV Protonix and Carafate pending further assessment. Further recommendations be forthcoming after the repeat EKG and troponin are available. History of Present Illness Attending Physician: Gerardo Barrientos MD History of Present Illness Daniel Guevara is a 58 year old male seen in cardiology consultation per the request of Dr Barrientos for the evaluation of chest discomfort and preoperative evaluation prior to proposed EGD. Patient is known to the [facility]. In Mar, 2018 he had undergone a stress echocardiogram which was abnormal and a follow-up diagnostic cardiac catheterization revealed nonobstructive disease in the LAD that was not hemodynamically significant by FFR assessment and ongoing medical management and risk factor modification was recommended at that time. He presented again last week initially on 06/26/2024 after chest discomfort that started at rest while he was sitting at his desk at work. His initial high-sensitivity troponin that day was mildly elevated 23.1 PG per mL and peaked at 94.1 PG per mL before trending down. An EKG revealed mild nonspecific repolarization abnormalities with T wave flattening in low amplitude T wave inversion noted in the lateral precordial leads. This however was not significantly changed compared to 2019. Echocardiogram performed 06/27/2024 revealed normal left ventricular wall motion, LVEF in the range of 60-65% with no significant valvular pathology. No pericardial effusion was observed. He was seen in cardiology consultation by Dr. Mika Stark of our practice and underwent invasive coronary angiography on 06/27/2024 with findings of moderate stenosis of the mid LAD in the range of 40 to 50% visually. No significant disease is noted elsewhere. This was felt to be unchanged compared to the 2018 cardiac catheterization and ongoing medical management of what was felt to be a non-ST segment elevation myocardial infarction was recommended. He was discharged on 06/28/2024 with the addition of isosorbide mononitrate to his medication regimen. 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 Tomorrow EKG tracings were performed on 06/28/2024 without significant change compared to the previous. Repeat high-sensitivity troponin levels had continued to trend down to 13.4 and 9.1 PG per mL. Additional testing including a CT angiogram of the chest, CT abdomen pelvis, and lower extremity venous duplex were all negative. He was seen by general surgery and GI, and an EGD is tentatively being considered for tomorrow. During my assessment, the patient was in no distress. He states he has not had any recurrence of his discomfort since 2 days ago. He believes maybe he felt some midline chest discomfort while having a [employer] beverage in the hospital which is not part of his usual routine. Telemetry reveals sinus bradycardia in the 50s. Allergies Allergy/AdvReac Type Severity Reaction Status Date / Time No Known Allergies Allergy Verified 12/10/23 14:36 Home Medications Medication Instructions Recorded Confirmed Type aspirin 81 mg tablet,delayed 81 mg PO HS 08/31/18 06/28/24 History release atorvastatin 40 mg tablet (Lipitor) 40 mg PO HS 08/31/18 06/28/24 History metformin 1,000 mg tablet 1,000 mg PO BID 08/31/18 06/28/24 History metoprolol succinate 25 mg 25 mg PO HS 08/31/18 06/28/24 History tablet,extended release 24 hr omega [id number]-ytw-fish oil 1,000 mg 1,000 mg PO HS 08/31/18 06/28/24 History (120 mg-180 mg) capsule (Fish Oil) CPAP Machine #1 ea 11/03/19 06/26/24 Rx lidocaine 5 % topical patch 1 patch topical DAILY PRN pain #15 06/13/20 06/28/24 Rx (Lidoderm) ea ezetimibe 10 mg tablet 10 mg PO DAILY 06/26/24 06/28/24 History fluticasone propionate 50 2 spray intranasal DAILY PRN 06/26/24 06/28/24 History mcg/actuation nasal allergies spray,suspension tirzepatide 10 mg/0.5 mL 10 mg subcut WK 06/26/24 06/28/24 History subcutaneous pen injector (Rocky) tizanidine 4 mg tablet 4 mg PO Q6H PRN Muscle Spasm 06/26/24 06/28/24 History trazodone 50 mg tablet 50 mg PO HS 06/26/24 06/28/24 History isosorbide mononitrate 30 mg 30 mg PO QAM 30 days #30 tabs 06/28/24 06/28/24 Rx tablet,extended release 24 hr lisinopril 5 mg tablet 2.5 mg (1/2 x 5 mg) PO DAILY #0 06/28/24 06/28/24 Rx tabs Patient History Medical History NSTEMI (non-ST elevated myocardial infarction) BPH (benign prostatic hyperplasia) CAD (coronary artery disease) LINDA (obstructive sleep apnea) Abnormal stress echocardiogram Hypercholesterolemia PVCs (premature ventricular contractions) MDD (major depressive disorder) HTN (hypertension) Nocturnal hypoxemia Obesity Severe obstructive sleep apnea Nasal polyposis Arthritis Surgical History History of tonsillectomy History of knee surgery Family History Mother Arthritis Rheumatoid arthritis Aunt Breast cancer Family/Other Obstructive sleep apnea Social History Smoking Status: Never smoker Hx Alcohol Use: No Hx Substance Use: No Preferred Language: German Communication Ability: Effective Material Planning Analyst Required: No Beliefs That Will Affect Care: None marital status: Single Current Living Situation: Alone current occupational status: employed Other Information That Helps Us Care for You: No Feels Safe at Home: Yes Safety Concerns: Feels Safe At This Time Dental Care, Regularly: No Physical Activity Frequency: 3-4 Times per Week Assistive Devices: CPAP and Glasses Review of Systems Review of Systems: All systems reviewed & are unremarkable except as noted in HPI & below Physical Exam Physical Exam: General: no acute distress and stated age Eyes: conjunctiva are pink and non-injected, sclera clear Neck: normal jugular venous pulse, no hepatojugular reflux Chest: normal shape and normal respiratory effort Lungs: clear to auscultation and percussion Cardiac Exam: - regular heart sounds, no murmurs, rubs, or gallops, no jugular venous distention Abdomen: abdomen soft, non-tender, no abnormal masses and no hepatosplenomegaly Musculoskeletal: no gait disturbance, no weakness Extremities: no edema and no cyanosis Neuro:awake, conversant, follows commands, no focal motor deficits Results & Data Vital Signs (Past 12 Hours) Vital Signs Temp Pulse Resp BP Pulse Ox O2 Del Method 06/30/24 16:04 36.6 C 53 L 18 148/82 H 97 Room Air 06/30/24 11:39 36.7 C 55 L 19 162/91 H 99 Room Air 06/30/24 08:10 36.6 C 55 L 18 154/87 H 98 CPAP Laboratory Results Comprehensive Metabolic Panel 06/30/24 Range/Units 06:04 Sodium 141 (136-145) mmol/L Potassium 3.9 (3.5-5.1) mmol/L Chloride 107 (98-107) mmol/L Carbon Dioxide 30 (21-32) mmol/L BUN 8 (6-23) mg/dl Creatinine 0.71 (0.6-1.4) mg/dl Glucose 104 H (70-99(Fasting)) mg/dl Calcium 8.6 (8.6-10.3) mg/dl Intake and Output 06/30/24 06/30/24 06/30/24 06:59 14:59 22:59 Intake Total 473 / 2983 480 / 480 Balance 473 / 2483 480 / 480 Intake: Oral 473 / 1982 480 / 480 Other: Weight 127.2 kg Weight Measurement Method [facility]
[2024-06-30] MEDS ORDERED: Heparin IV Adult Wt-Based Standard w/ INITIAL Bolus Protocol IV STA (19:15)
--- NOTE | 2024-06-30 19:20 | Communication Note ---
Date of Service: June 30, 2024 Troponin has trended up to 2,867 pg/ ml. EKG reveals new inferior T wave inversions. Lateral T wave changes slightly more prominent. Reviewed images of catheterization films. Certainly not culprit stenosis noted at that time. Both episodes of chest pain happened at rest. Question if coronary vasospasm playing a role. There was concern pt did not tolerated Imdur. Plan: Repeat troponin at 2300 and in am. Add amlodipine 5 mg daily for vasospasm, first dose now. Reduce Toprol to 12.5 mg at bedtime due to relative bradycardia Add UF heparin infusion. NPO after midnight pending further assessment and troponin levels. Hold of on EGD. Reviewed with Dr Barrientos.
[2024-06-30 20:03] LABS: Basophils # (auto) 0.07 K/uL (0.00-0.20); Eosinophils # (auto) 0.18 K/uL (0.00-0.50); Eosinophils % (auto) 2.5 %; Hematocrit (blood only) 47.2 % (42.0-52.0); Hemoglobin 16.4 g/dl (14.0-18.0); Immature Granulocytes # (auto) 0.04 K/uL (0.01-0.20); Immature Granulocytes % (auto) 0.6 %; Lymphocytes # (auto) 2.24 K/uL (1.20-3.40); Lymphocytes % (auto) 31.4 %; Mean Corpuscular Hgb Conc 34.7 g/dL (32.0-36.0); Mean Corpuscular Volume 83.5 fL (80.0-100.0); Neutrophils % (auto) 57.5 %; Platelet Count 327 K/uL (130-400); RDW Coefficient of Variation 12.8 % (11.5-14.5); RDW Standard Deviation 38.6 fL (36.4-46.3); Red Blood Count 5.65 M/uL (4.70-6.10); White Blood Count 7.13 K/ul (4.8-10.8)
[2024-06-30 21:01] LABS: INR 1.1 (0.9-1.1); Partial Thromboplastin Time 28 Seconds (21-31); Prothrombin Time 11.5 Seconds (9.0-12.0)
[2024-06-30] MEDS: METOPROLOL SUCC 25MG EXT REL TAB PO SCH (21:26)
[2024-06-30] MEDS: amLODIPine BESYLATE 5 MG TAB PO ONE (22:18)
[2024-06-30] MEDS: HEPARIN SOD (PORCINE) 1000 UNIT/ML IV ONE (22:21)
[2024-06-30] MEDS: HEPARIN SODIUM/DEXTROSE 25,000 UNITS/500 ML BAG IV SCH (22:23)
[2024-07-01 05:30] LABS: ANTI-Xa, UFH(UnfractionatedHep > 1.50 IU/ml (0.3-0.7)
[2024-07-01 07:33] LABS: ANTI-Xa, UFH(UnfractionatedHep 1.03 IU/ml (0.3-0.7)
[2024-07-01] MEDS: amLODIPine BESYLATE 5 MG TAB PO SCH (09:11)
[2024-07-01 11:22] LABS: BUN Creatinine Ratio 11.4 (10-20); Calcium 9.2 mg/dl (8.6-10.3); Creatinine Clr Calc Pharmacy 152.6 ml/min; Est GFR (African American) 116.3 ml/min; Est GFR (Non-African American) 100.4 ml/min; Potassium 3.8 mmol/L (3.5-5.1)
--- NOTE | 2024-07-01 11:25 | Cardiology Progress Note ---
Date of Service July 01, 2024 Assessment & Plan (1) NSTEMI (non-ST elevated myocardial infarction): Plan: HS troponin had been normal on 06/28/24 x 2 measurements Repeat levels overnight and this am 2,865-->2,736-->2,598 pg/ml. EKG evening of 06/30 and again am of 07/01 with new inferior T wave inversions (new compared to 06/28/24), and T wave inversions in lateral precordial leads (more prominent compared to 06/28/24). Limited echo this am reveals normal LV wall motion and normal LVEF. No pericardial effusion. Catheterization films from 06/27/24 reviewed personally without culprit. Question if a small subbranch was occluded that could not be visualized, coronary vasospasm also a possibility, versus other. For now, advance diet today. Continue UF heparin infusion, ASA, metoprolol, lisinopril, atorvastatin, ezetimibe and amlodipine. NPO after midnight. Depending on how pt feels , repeat diagnositc cardiac catheterization will be considered. Admission and Anticipated Discharge Date Admission Date: June 28, 2024 Subjective Patient seen in cardiology follow up. Denies shortness of breath. Perhaps has some mild chest discomfort with deep breathing , but he is not sure. Telemetry reveals SR in the 60s to 70s. Review of Systems Review of Systems: All systems reviewed & are unremarkable except as noted in HPI & below Physical Exam Physical Exam: General: no acute distress and stated age Eyes: conjunctiva are pink and non-injected, sclera clear Neck: normal jugular venous pulse, no hepatojugular reflux Chest: normal shape and normal respiratory effort Lungs: clear to auscultation and percussion Cardiac Exam: - regular heart sounds, no murmurs, rubs, or gallops, no jugular venous distention Abdomen: abdomen soft, non-tender, no abnormal masses and no hepatosplenomegaly Musculoskeletal: no gait disturbance, no weakness Extremities: no edema and no cyanosis Neuro:awake, conversant, follows commands, no focal motor deficits Results & Data Vital Signs (Past 12 Hours) Vital Signs Temp Pulse Pulse Resp BP Pulse Ox O2 Del Method 07/01/24 08:13 36.9 C 64 18 131/70 98 Room Air 07/01/24 07:27 63 07/01/24 03:39 14 07/01/24 02:45 70 18 112/69 95 Room Air, CPAP Laboratory Results Cardiac Enzymes 06/30/24 06/30/24 07/01/24 Range/Units 17:14 22:54 04:56 Troponin I High Sens 2865.7 H* 2736.1 H* 2598.2 H* (0-20) pg/ml Coagulation 06/30/24 Range/Units 19:50 PT 11.5 (9.0-12.0) Seconds APTT 28 (21-31) Seconds CBC 06/30/24 Range/Units 19:50 WBC 7.13 (4.8-10.8) K/ul RBC 5.65 (4.70-6.10) M/uL Hgb 16.4 (14.0-18.0) g/dl Hct 47.2 (42.0-52.0) % Plt Count 327 (130-400) K/uL Neut # (Auto) 4.10 (1.40-6.50) K/uL Lymph # (Auto) 2.24 (1.20-3.40) K/uL [place] # (Auto) 0.50 (0.11-0.59) K/uL Eos # (Auto) 0.18 (0.00-0.50) K/uL Baso # (Auto) 0.07 (0.00-0.20) K/uL Intake and Output 06/30/24 07/01/24 07/01/24 22:59 06:59 14:59 Intake Total 360 / 1108.25 268.25 / 1108.25 0 / 0 Output Total 400 / 400 Balance 360 / 708.25 -131.75 / 708.25 0 / 0 Intake: IV 268.25 / 268.25 0 / 0 Heparin Sodium/Dextrose 25,000 268.25 / 268.25 0 / 0 units In 500 ml @ 0 UNITS/HR IV .Q0M [facility] Rx#:[id number] Oral 360 / 840 Output: Urine 400 / 400 Other: Other Intake Source npo Weight 131.5 kg Weight Measurement Method Built in [facility]
[2024-07-01 12:13] LABS: Basophils # (auto) 0.08 K/uL (0.00-0.20); Basophils % (auto) 1.2 %; Eosinophils # (auto) 0.16 K/uL (0.00-0.50); Eosinophils % (auto) 2.3 %; Hematocrit (blood only) 44.5 % (42.0-52.0); Hemoglobin 15.4 g/dl (14.0-18.0); Immature Granulocytes # (auto) 0.02 K/uL (0.01-0.20); Immature Granulocytes % (auto) 0.3 %; Lymphocytes # (auto) 1.79 K/uL (1.20-3.40); Lymphocytes % (auto) 26.1 %; Mean Corpuscular Hemoglobin 28.7 pg (25.0-34.0); Mean Corpuscular Hgb Conc 34.6 g/dL (32.0-36.0); Mean Corpuscular Volume 82.9 fL (80.0-100.0); Mean Platelet Volume 10.6 fL (9.4-12.4); Monocytes % (auto) 7.3 %; Neutrophils # (auto) 4.31 K/uL (1.40-6.50); Neutrophils % (auto) 62.8 %; Platelet Count 325 K/uL (130-400); RDW Coefficient of Variation 12.8 % (11.5-14.5); RDW Standard Deviation 38.7 fL (36.4-46.3); Red Blood Count 5.37 M/uL (4.70-6.10); White Blood Count 6.86 K/ul (4.8-10.8)
[2024-07-01 16:03] LABS: ANTI-Xa, UFH(UnfractionatedHep 0.42 IU/ml (0.3-0.7)
--- NOTE | 2024-07-01 16:32 | Hospitalist Progress Note ---
Date of Service July 01, 2024 Assessment & Plan (1) Chest pain: (2) DM (diabetes mellitus), type 2: (3) Dyslipidemia, goal LDL below 70: (4) CAD (coronary artery disease), [place] coronary artery: (5) Severe obstructive sleep apnea: (6) MDD (major depressive disorder): Plan Per admitting service notes with addendum: This is a 58-year-old male with PMH of non-obstructive CAD, type 2 diabetes, hypertension, obesity, depression, anxiety, HLD, generalized anxiety disorder, LINDA, BPH who was discharged earlier today and then returned after developing sudden onset chest pain again this afternoon. Atypical chest pain Admitted 06/26 for NSTEMI and underwent diagnostic cardiac catheterization yesterday that demonstrated stable, moderate mid LAD stenosis Dr. Stark evaluated and recommends continuing asa, statin, Zetia and beta [place] with cardiac follow up in 3-4 weeks Imdur started, patient not tolerating due to persistent headache Had very similar episode of sudden onset central chest pain at rest earlier today after discharge home and returned to ED EKG without acute changes, HS troponin negative x 2 [place] pain worsened after ntg, improved with morphine Considering other causes of chest pain - pulmonary vs GI D-dimer positive, CTA chest ordered (cont. IV fluids overnight given recent contrast dye) Considering PUD vs gastritis given asa and nsaids at home. Adding IV Protonix BID, Carafate, routine GI consult for further eval Hold aspirin this evening 06/29 Chest pain resolved D-dimer 1150 CT chest: No acute PE, dissection Doppler Lower Ext: no DVT CT abdomen pelvis without contrast: No bowel wall thickening or obstruction, 1 cm gallstone General Surgery consulted-gallbladder stone unlikely the cause for persistent chest pain GI consulted-possible esophageal spasm vs. esophageal ulcer, EGD Planned 06/30 Cardiology service consulted for pre-EGD evaluation Repeat troponin 2800 EKG more pronounced T wave depressions inferior leads Heparin drip started, amlodipine 5 mg also started 07/01 Troponin trended down slightly, last 2500 Cardiology recommending to continue with heparin drip, amlodipine p.o. Depending on patient's symptoms tomorrow, may need repeat cardiac cath N.p.o. postmidnight DM (diabetes mellitus), type 2 A1c 5.9 in 04/28 Hold home metformin SSI while in-patient BSG AC HS HTN (hypertension) Blood pressure elevated Amlodipine 5 mg p.o. added Continue lisinopril and metoprolol Severe obstructive sleep apnea CPAP HS DVT Ppx: SCDs for now Code status: FULL PCP: Jerardo Dispo: Anticipate return to home when medically Admission and Anticipated Discharge Date Admission Date: June 28, 2024 Subjective Follow-up for chest pain, etc. Patient seen resting in bed, comfortable Had a couple of intermittent chest discomfort today, very mild, short episodes Otherwise feels fine overall No other new symptoms Review of Systems Review of Systems: all noted and negative except for above Physical Exam Physical Exam: General- oriented x 3, not in distress, speaks in sentences with no effort or accessory muscle use Eyes- anicteric Neck- no JVD Lungs- clear breath sounds bilaterally, no rales/wheezes Heart- normal rate, regular rhythm; no murmurs Abdomen- normal bowel sounds, nondistended, soft, nontender Extremities- no pretibial edema, no calf tenderness Neuro- alert, oriented x 3; no gross focal neurologic deficits Skin- warm & dry Results & Data Results & Data Vital Signs (Past 12 Hours) Vital Signs Temp Pulse Pulse Resp BP Pulse Ox O2 Del Method 07/01/24 16:03 36.7 C 58 L 18 126/81 95 Room Air 07/01/24 15:26 76 07/01/24 11:33 37.2 C 59 L 18 125/81 96 Room Air 07/01/24 08:13 36.9 C 64 18 131/70 98 Room Air 07/01/24 07:27 63 all noted and reviewed including below (2) DM (diabetes mellitus), type 2 Diabetes mellitus intermediate insulin use: without intermediate use Diabetes mellitus complication status: without complication Qualified Code(s): E11.9 - Type 2 diabetes mellitus without complications
[2024-07-02] MEDS ORDERED: oxyCODONE HCL IR 5 MG TAB (IMMEDIATE RELEASE) PO PRN (03:27)
[2024-07-02] MEDS ORDERED: NITROGLYCERIN SL 0.4 MG/TAB TAB SL PRN (03:27)
[2024-07-02] MEDS: MoRPHine SULFATE 4 MG/ML 1 ML CARP\\VIAL IV PRN (03:36)
[2024-07-02] MEDS: NITROGLYCERIN SL 0.4 MG/TAB TAB SL PRN (03:58)
[2024-07-02] MEDS: NITROGLYCERIN SL 0.4 MG/TAB TAB SL STA (03:58)
--- NOTE | 2024-07-02 04:06 | Communication Note ---
Date of Service: July 02, 2024 Patient with substernal pain complaints as per RN. EKG as per my interpretation rate 70, NSR, LAD, LAFB, T wave abnormalities inferior and anterolateral leads Incomplete relief after morphine administration as per RN. Nitroglycerin subsequently administered by RN. SBP later noted to be 70s. Patient complaining of lightheadedness symptoms. Code purple called. SBP 80s after fluid bolus AP Hypotension likely secondary to morphine and nitroglycerin administration Ongoing chest pain PCU transfer Continue fluid bolus Decrease beta-[place] dose for now Hold amlodipine and lisinopril until BP stable Maintain n.p.o. status until patient seen by cardiology in a.m. in anticipation of ischemic workup
[2024-07-02 04:28] LABS: Basophils # (auto) 0.07 K/uL (0.00-0.20); Eosinophils # (auto) 0.21 K/uL (0.00-0.50); Eosinophils % (auto) 2.9 %; Hematocrit (blood only) 44.1 % (42.0-52.0); Hemoglobin 15.4 g/dl (14.0-18.0); Immature Granulocytes # (auto) 0.03 K/uL (0.01-0.20); Immature Granulocytes % (auto) 0.4 %; Lymphocytes # (auto) 2.66 K/uL (1.20-3.40); Lymphocytes % (auto) 36.4 %; Mean Corpuscular Hemoglobin 29.3 pg (25.0-34.0); Mean Corpuscular Hgb Conc 34.9 g/dL (32.0-36.0); Mean Corpuscular Volume 83.8 fL (80.0-100.0); Mean Platelet Volume 10.4 fL (9.4-12.4); Monocytes # (auto) 0.54 K/uL (0.11-0.59); Monocytes % (auto) 7.4 %; Neutrophils % (auto) 51.9 %; Platelet Count 331 K/uL (130-400); RDW Coefficient of Variation 12.9 % (11.5-14.5); RDW Standard Deviation 38.7 fL (36.4-46.3); Red Blood Count 5.26 M/uL (4.70-6.10); White Blood Count 7.31 K/ul (4.8-10.8)
[2024-07-02 04:36] LABS: ANTI-Xa, UFH(UnfractionatedHep 0.63 IU/ml (0.3-0.7)
[2024-07-02 04:49] LABS: Calcium 8.8 mg/dl (8.6-10.3); Est GFR (African American) 107.4 ml/min; Est GFR (Non-African American) 92.6 ml/min; Potassium 3.9 mmol/L (3.5-5.1)
[2024-07-02] MEDS: LACTATED RINGER'S 1,000 ML IV ONE (04:54)
[2024-07-02 05:35] LABS: Troponin I High Sensitivity 645.5 pg/ml (0-20)
--- NOTE | 2024-07-02 06:15 | Electrocardiogram Report ---
Test Reason : Blood Pressure : */* mmHG Vent. Rate : 55 BPM Atrial Rate : 55 BPM P-R Int : * ms QRS Dur : 110 ms QT Int : 428 ms P-R-T Axes : * -11 67 degrees QTcB Int : 410 ms Poor data quality, interpretation may be adversely affected Sinus bradycardia Significant artifact Abnormal ECG When compared with ECG of 28-Jun-2024 13:24, Significant artifact is now present Confirmed by Narciso Stark ([id number]) on 07/02/2024 6:14:38 AM Referred By: REFERRED SELF Confirmed By: Narciso Stark
[2024-07-02] MEDS ORDERED: MoRPHine SULFATE 4 MG/ML 1 ML CARP\\VIAL IV PRN (07:49)
--- NOTE | 2024-07-02 09:28 | Cardiology Progress Note ---
Date of Service July 02, 2024 Assessment & Plan (1) NSTEMI (non-ST elevated myocardial infarction): Plan: HS troponin had been normal on 06/28/24 x 2 measurements Repeat levels overnight and this am 2,865-->2,736-->2,598 As of 07/01/2024--> 645 pg/ml on 07/02/24 EKG evening of 06/30 and again am of 07/01 with new inferior T wave inversions (new compared to 06/28/24), and T wave inversions in lateral precordial leads (more prominent compared to 06/28/24 A repeat EKG was performed at around 3:30 AM however I cannot find a paper copy or an electronic copy. Repeat tracing performed this morning 07/02/2024 at 7:31 AM revealed sinus bradycardia 59 bpm with T wave versions in the inferior leads as well as the precordial leads V3 to V6 relatively unchanged compared to previous. Limited echo this am of 07/01/24 revealed normal LV wall motion and normal LVEF. No pericardial effusion. Catheterization films from 06/27/24 reviewed personally without culprit. Question if a small subbranch was occluded that could not be visualized, coronary vasospasm also a possibility, versus other. Hold UF heparin. Patient received 81 mg of aspirin last night, will proceed with 81 mg x 4 tablets to chew now in preparation for Repeat cardiac catheterization today. Amlodipine on hold. Continue metoprolol succinate 12.5 mg daily, atorvastatin, ezetimibe. Patient agreeable to cardiac catheterization. Case reviewed with the patient's nurse. Admission and Anticipated Discharge Date Admission Date: June 28, 2024 Subjective Patient seen and cardiology follow-up of chief complaint of chest discomfort. Patient recurrent discomfort at 3 AM. He received 4 mg of IV morphine at 3:36 AM with partial palliation of his discomfort and this was followed by a sublingual nitroglycerin. Patient subsequently became dizzy and transiently hypotensive with systolic blood pressure in the 70s. A code purple was called and he was transferred from room 276 to room 222 in the PCU. At present, he notes ongoing vague mild chest discomfort that persists. Telemetry reveals sinus rhythm in the 60s. Sinus tachycardia noted transiently at just after 2100 last night with heart rate as high as 140s. Review of Systems Review of Systems: All systems reviewed & are unremarkable except as noted in HPI & below Physical Exam Physical Exam: General: no acute distress and stated age Eyes: conjunctiva are pink and non-injected, sclera clear Neck: normal jugular venous pulse, no hepatojugular reflux Chest: normal shape and normal respiratory effort Lungs: clear to auscultation and percussion Cardiac Exam: - regular heart sounds, no murmurs, rubs, or gallops, no jugular venous distention Abdomen: abdomen soft, non-tender, no abnormal masses and no hepatosplenomegaly Musculoskeletal: no gait disturbance, no weakness Extremities: no edema and no cyanosis Neuro:awake, conversant, follows commands, no focal motor deficits Results & Data Vital Signs (Past 12 Hours) Vital Signs Temp Pulse Pulse Resp BP BP Pulse Ox 07/02/24 07:15 36.9 C 63 18 126/75 97 07/02/24 05:44 59 L 123/78 07/02/24 05:23 07/02/24 04:39 114/71 07/02/24 03:56 68 104/66 07/02/24 03:25 65 16 128/84 94 07/02/24 02:45 36.9 C 61 18 105/67 95 07/01/24 23:56 66 16 94 07/01/24 23:35 36.6 C 75 18 109/71 97 07/01/24 21:46 124 H O2 Del Method 07/02/24 07:15 Room Air 07/02/24 05:44 07/02/24 05:23 Room Air 07/02/24 04:39 07/02/24 03:56 07/02/24 03:25 Room Air 07/02/24 02:45 Room Air 07/01/24 23:56 07/01/24 23:35 CPAP 07/01/24 21:46 Laboratory Results Cardiac Enzymes 07/02/24 07/02/24 Range/Units 04:15 04:15 Troponin I High Sens 645.5 H* D Cancelled (0-20) pg/ml CBC 07/01/24 07/02/24 Range/Units 10:48 04:15 WBC 6.86 7.31 (4.8-10.8) K/ul RBC 5.37 5.26 (4.70-6.10) M/uL Hgb 15.4 15.4 (14.0-18.0) g/dl Hct 44.5 44.1 (42.0-52.0) % Plt Count 325 331 (130-400) K/uL Neut # (Auto) 4.31 3.80 (1.40-6.50) K/uL Lymph # (Auto) 1.79 2.66 (1.20-3.40) K/uL [place] # (Auto) 0.50 0.54 (0.11-0.59) K/uL Eos # (Auto) 0.16 0.21 (0.00-0.50) K/uL Baso # (Auto) 0.08 0.07 (0.00-0.20) K/uL Comprehensive Metabolic Panel 07/01/24 07/02/24 Range/Units 10:48 04:15 Sodium 140 137 (136-145) mmol/L Potassium 3.8 3.9 (3.5-5.1) mmol/L Chloride 105 104 (98-107) mmol/L Carbon Dioxide 29 27 (21-32) mmol/L BUN 9 11 (6-23) mg/dl Creatinine 0.79 0.92 (0.6-1.4) mg/dl Glucose 110 H 143 H (70-99(Fasting)) mg/dl Calcium 9.2 8.8 (8.6-10.3) mg/dl Intake and Output 07/01/24 07/02/24 07/02/24 22:59 06:59 14:59 Intake Total 511.150 / 1299.517 308.367 / 5032.997 5269 / 1000 Balance 511.150 / 1299.517 308.367 / 5154.525 8727 / 1000 Intake: IV 271.150 / 579.517 308.367 / 419.210 4367 / 1000 Heparin Sodium/Dextrose 25,000 271.150 / 579.517 308.367 / 579.517 units In 500 ml @ 1,450 UNITS/ HR 29 mls/hr IV .[id number] [facility] Rx #:[id number] Lactated Ringer's 1,000 ml @ 1000 / 1000 500 mls/hr IV .Q2H [facility] Rx#: [id number] Oral 240 / 720
[2024-07-02] MEDS: ASPIRIN 81 MG CHEW PO ONE (09:35)
--- NOTE | 2024-07-02 09:41 | Hospitalist Progress Note ---
Date of Service July 02, 2024 Assessment & Plan (1) Chest pain: (2) DM (diabetes mellitus), type 2: (3) Dyslipidemia, goal LDL below 70: (4) CAD (coronary artery disease), [place] coronary artery: (5) Severe obstructive sleep apnea: (6) MDD (major depressive disorder): Plan This is a 58-year-old male with PMH of non-obstructive CAD, type 2 diabetes, hypertension, obesity, depression, anxiety, HLD, generalized anxiety disorder, LINDA, BPH who was discharged earlier today and then returned after developing sudden onset chest pain again this afternoon. NSTEMI Admitted 06/26 for NSTEMI and underwent diagnostic cardiac catheterization on 06/27 that demonstrated stable, moderate mid LAD stenosis Dr. Stark evaluated and recommends continuing asa, statin, Zetia and beta [place] with cardiac follow up in 3-4 weeks Had very similar episode of sudden onset central chest pain at rest earlier today after discharge home and returned to ED EKG without acute changes, HS troponin negative x 2 [place] pain worsened after ntg, improved with morphine CT chest: No acute PE, dissection Doppler Lower Ext: no DVT CT abdomen pelvis without contrast: No bowel wall thickening or obstruction, 1 cm gallstone. General Surgery consulted-gallbladder stone unlikely the cause for persistent chest pain Repeat high-sensitivity troponin was found to be elevated to 2800 on 06/30. EKG showed more pronounced T wave depression in inferior leads. Patient was started on heparin drip. Patient planned for repeat left heart cath on today DM (diabetes mellitus), type 2 A1c 5.9 in 04/28 Hold home metformin SSI while in-patient BSG AC HS HTN (hypertension) Blood pressure elevated Blood pressure meds on hold due to hypotension overnight Severe obstructive sleep apnea CPAP HS DVT Ppx: SCDs for now Code status: FULL PCP: Jerardo Dispo: Anticipate return to home when medically . Patient to undergo cardiac cath today Time spent evaluating patient, direct bedside care, chart review, placing orders, interpretation of diagnostic studies, discussion with consultants, patient, and family members, as well as other required patient management activities is 50 minutes Please note the above document was generated using voice recognition software. It may contain grammatical, syntax or spelling errors. Any formal questions or concerns about the content, text or information contained within the body of this dictation should be directly addressed to the provider for clarification Admission and Anticipated Discharge Date Admission Date: June 28, 2024 Subjective Overnight, patient reported chest discomfort for which he was given sublingual nitrate. Blood pressure decreased; patient reported dizziness for which he was given IV fluid boluses. He continues to report intermittent chest pain. Review of Systems Review of Systems: All systems reviewed & are unremarkable except as noted in Subjective Physical Exam Physical Exam: General- oriented x 3, not in distress, speaks in sentences with no effort or accessory muscle use Eyes- anicteric Neck- no JVD Lungs- clear breath sounds bilaterally, no rales/wheezes Heart- normal rate, regular rhythm; no murmurs Abdomen- normal bowel sounds, nondistended, soft, nontender Extremities- no pretibial edema, no calf tenderness Neuro- alert, oriented x 3; no gross focal neurologic deficits Skin- warm & dry Results & Data Results & Data Vital Signs (Past 12 Hours) Vital Signs Temp Pulse Pulse Resp BP BP Pulse Ox 07/02/24 07:15 36.9 C 63 18 126/75 97 07/02/24 05:44 59 L 123/78 07/02/24 05:23 07/02/24 04:39 114/71 07/02/24 03:56 68 104/66 07/02/24 03:25 65 16 128/84 94 07/02/24 02:45 36.9 C 61 18 105/67 95 07/01/24 23:56 66 16 94 07/01/24 23:35 36.6 C 75 18 109/71 97 07/01/24 21:46 124 H O2 Del Method 07/02/24 07:15 Room Air 07/02/24 05:44 07/02/24 05:23 Room Air 07/02/24 04:39 07/02/24 03:56 07/02/24 03:25 Room Air 07/02/24 02:45 Room Air 07/01/24 23:56 07/01/24 23:35 CPAP 07/01/24 21:46 (2) DM (diabetes mellitus), type 2 Diabetes mellitus complication status: without complication Diabetes mellitus termite helper insulin use: without termite helper use Qualified Code(s): E11.9 - Type 2 diabetes mellitus without complications
--- NOTE | 2024-07-02 12:47 | Pre Anesthesia Assessment ---
Date of Service July 02, 2024 Pre Sedation Assessment Vital Signs Temp Pulse Pulse Resp BP BP Pulse Ox 07/02/24 12:05 72 18 147/87 H 97 07/02/24 10:59 97.9 F 55 L 18 156/92 H 99 07/02/24 08:00 66 07/02/24 07:15 98.4 F 63 18 126/75 97 07/02/24 05:44 59 L 123/78 07/02/24 05:23 07/02/24 04:39 114/71 07/02/24 03:56 68 104/66 07/02/24 03:25 65 16 128/84 94 07/02/24 02:45 98.4 F 61 18 105/67 95 07/01/24 23:56 66 16 94 07/01/24 23:35 97.9 F 75 18 109/71 97 07/01/24 21:46 124 H 07/01/24 19:40 98.1 F 79 18 133/81 96 07/01/24 16:03 98.1 F 58 L 18 126/81 95 07/01/24 15:26 76 O2 Del Method 07/02/24 12:05 Room Air, Nasal Cannula 07/02/24 10:59 Room Air 07/02/24 08:00 07/02/24 07:15 Room Air 07/02/24 05:44 07/02/24 05:23 Room Air 07/02/24 04:39 07/02/24 03:56 07/02/24 03:25 Room Air 07/02/24 02:45 Room Air 07/01/24 23:56 07/01/24 23:35 CPAP 07/01/24 21:46 07/01/24 19:40 Room Air 07/01/24 16:03 Room Air 07/01/24 15:26 Cardiovascular + regular rate Respiratory + respiratory effort normal Pre-Sedation Airway Assessment Smoking Status: Never smoker Hx Sleep Apnea: Yes Hx Difficult Intubation: No Short, Thick Neck: No Thyromental Distance: < 3.5 Finger Breadths Oral Cavity: + Dental Abnormalities and + WNL Mallampati Class: III ASA: ASA3 NPO Status Date of Last Intake of Fluids: 07/01/24 Time of Last Intake of Fluids: 23:30 Date of Last Intake of Solid Food: 07/01/24 Time of Last Intake of Solid Foods: 23:30 Procedure Planning Contraindications for Sedation: none Current Medications Reviewed: Yes Notes The planned sedation has been discussed with the patient. Informed Consent was obtained. I have identified the patient, determined the appropriateness of sedation and have assessed the patient immediately prior to the procedure. All medicine(s) and interventions are by my order.
[2024-07-02] MEDS: fentaNYL citrate PF 100 MCG/2 ML VIAL ONE (13:27)
[2024-07-02] MEDS: MIDAZOLAM HCL 1 MG/ML 2ML VIAL ONE ×2 (13:28→14:39)
[2024-07-02] MEDS: niCARdipine HCL INJ 2.5 MG/ML 10 ML AMP ONE (13:28)
[2024-07-02] MEDS: OPTIRAY 350 ONE (13:32)
[2024-07-02] MEDS: NITROGLYCERIN/D5W 100MCG/ML 20ML SYR ONE (13:33)
--- NOTE | 2024-07-02 14:32 | Post Anesthesia Assessment ---
Date of Service July 02, 2024 Post Sedation Assessment Vital Signs Temp Pulse Pulse Resp BP BP Pulse Ox 07/02/24 13:52 69 12 131/88 97 07/02/24 13:40 69 12 135/91 96 07/02/24 12:05 72 18 147/87 H 97 07/02/24 10:59 97.9 F 55 L 18 156/92 H 99 07/02/24 08:00 66 07/02/24 07:15 98.4 F 63 18 126/75 97 07/02/24 05:44 59 L 123/78 07/02/24 05:23 07/02/24 04:39 114/71 07/02/24 03:56 68 104/66 07/02/24 03:25 65 16 128/84 94 07/02/24 02:45 98.4 F 61 18 105/67 95 07/01/24 23:56 66 16 94 07/01/24 23:35 97.9 F 75 18 109/71 97 07/01/24 21:46 124 H 07/01/24 19:40 98.1 F 79 18 133/81 96 07/01/24 16:03 98.1 F 58 L 18 126/81 95 07/01/24 15:26 76 O2 Del Method 07/02/24 13:52 Room Air 07/02/24 13:40 Room Air 07/02/24 12:05 Room Air, Nasal Cannula 07/02/24 10:59 Room Air 07/02/24 08:00 07/02/24 07:15 Room Air 07/02/24 05:44 07/02/24 05:23 Room Air 07/02/24 04:39 07/02/24 03:56 07/02/24 03:25 Room Air 07/02/24 02:45 Room Air 07/01/24 23:56 07/01/24 23:35 CPAP 07/01/24 21:46 07/01/24 19:40 Room Air 07/01/24 16:03 Room Air 07/01/24 15:26 Recovery Score Activity: Moves 4 extremities Respiration: Deep Breath/Cough Circulation: +/-20% PreAnes Value Consciousness: Fully Awake Oxygen Saturation: O2 needed for >90% Discharge Sedation Level of Care: Fast Track Phase II Post Sedation Plan On clinical assessment, the patient appears to have tolerated the sedation without complications. Patient is recovering as anticipated. Patient will continue to be monitored by nursing and may be discharged when sedation discharge criteria are met per below protocol. Upon Completions of procedure up to 15 minutes continue every 5 minute vital signs and the P.A.R. score; then discharge to a Phase I or Fast Track to Phase II per the following guidelines: * Discharge Patient to appropriate Phase II area if PAR is 8 or greater or return to pre- procedure baseline. The post - procedure orders will be as directed. * If PAR score is less than 8 or not return to pre-procedure baseline then patient will follow Phase I monitoring till PAR is reached for Phase II. The Phase I may be done in procedure room or may call to secure a Phase I area. * If naloxone or flumazenil are used for reversal, hold in Phase I for continued monitoring from when last reversal dose was given for a minimum of 60 minutes or longer pending the nurse and/or physician discretion of patient condition before discharge to Phase II. Please call the Sedation Physician to re-evaluate and complete post-note for discharge to Phase II area. Do NOT discharge from procedure sedation or Phase 1 until post- sedation evaluation note is complete by procedure /sedation MD Sedation Discharge Instructions to be given to the patient at discharge to home.
--- NOTE | 2024-07-02 14:33 | Cardiac Catheterization ---
[facility] Data: Assistant Media Planner Cardiac Status Clinical evaluation leading to the procedure CAD Presenation: Non STEMI Anginal Classification: CCS IV Diagnostic Physicians Name: Gagandeep Cedeno MD Closure Device Recommendations: Medical Therapy and/or Counseling Cardiac Cath Procedure Full Procedure Date July 02, 2024 Pre-Procedure Diagnosis Pre-Procedure Diagnosis: Non STEMI AUC Score AUC Score: 7 Post-Procedure Diagnosis Post-Procedure Diagnosis: Moderate CAD and Normal Intracardiac Pressures Procedure(s) Performed Procedure(s) Performed: Coronary Angiography and Left Heart Cath Electric Utility Lineworker Gagandeep Cedeno MD Filling Operator(s) Wrapping Machine Helper Estimated Blood Loss Estimated Blood Loss: None Medication(s) Medication(s): Fentanyl, Heparin, Lidocaine 1%, Nicardipine, Nitroglycerin and Versed Summary of Findings Indication: NSTEMI Access: 6 Fr right radial artery Catheters: [place], diagnostic JL 3.5, EBU 3.0 guide Findings: LM -Short, almost separate ostium, normal caliber, no significant disease LAD -medium caliber, 25% ostial stenosis. Mid segment with 40-50% disease in myocardial bridging. Distal vessel extends to apex. Medium D1, D2 without significant disease. Circumflex -dominant, large caliber, no significant disease. Gives off a large OM 2 without significant disease. Small left PLB2 with moderate up to 50% mid to distal disease. Left PDA without significant disease. RCA -small, nondominant LVEDP -10 Arterial Closure: TR band Summary: 1. Mild to moderate nonobstructive coronary artery disease -40-50% mid LAD with myocardial bridging. Small left PLB to with 50% disease 2. Normal intracardiac filling pressure Recommendations: No obvious high risk disease to explain patient's recurrent symptoms. Possibly had transient obstructive disease in left PLB 2 DAPT with aspirin, clopidogrel, coronary vasodilators and continued ASCVD risk factor modification per Dr. Gonzalez Hemodynamics Rest Ao:: 106/74/80 Final Ao: 104/74/86 LV: 105/8 Recommendations Recommendations: Medical Therapy and/or Counseling Specimens Specimens: None Radiation Exposure (mGy) 2843 Contrast (mls) 120 Anesthesia Moderate [id number] Procedural Complication(s) None Disposition PCU I attest to the content of the Intraoperative Record and any orders documented therein. Any exceptions are noted below. [facility] Card Cath Procedure Codes Cardiac Catheterization Procedure 1: Cardiovascular Cath Procedures: 58916 Coronaries and LHC (+/-LV) Moderate Sedation Procedure 1: Sedation/Anesthesia: 67797 Mod Sedation by the same physician;Init15 Min Child Age 5 & Up Procedure 2: Sedation/Anesthesia: 85672 Mod Sedation by the same physician; Ea [id number] Minutes PG Care Time/CCT Total # of Minutes Spent Total Time Spent with Patient: Total time spent is greater than 50% in coordination of care (as documented) at patient's floor/unit and/or counseling patient:
[2024-07-02] MEDS: CLOPIDOGREL BISULFATE 300 MG TAB PO STA (14:34)
[2024-07-02] MEDS: HEPARIN (PORCINE) 1000 UNIT/ML 10 ML (CATH LAB USE ONLY) ONE (14:39)
[2024-07-02] MEDS: SODIUM CHLORIDE 0.9% 1,000 ML IV SCH (15:34)
--- NOTE | 2024-07-02 15:41 | Electrocardiogram Report ---
Test Reason : Blood Pressure : */* mmHG Vent. Rate : 60 BPM Atrial Rate : 60 BPM P-R Int : 184 ms QRS Dur : 102 ms QT Int : 402 ms P-R-T Axes : 61 -25 -18 degrees QTcB Int : 402 ms Normal sinus rhythm Nonspecific T wave abnormality Abnormal ECG When compared with ECG of 28-Jun-2024 05:42, (unconfirmed) No significant change was found Confirmed by Rashmi Blancas (Bravo) on 06/28/2024 2:34:07 PM Referred By: REFERRED SELF Confirmed By: Rashmi Blancas
--- NOTE | 2024-07-02 15:41 | Electrocardiogram Report ---
Test Reason : Blood Pressure : */* mmHG Vent. Rate : 55 BPM Atrial Rate : 55 BPM P-R Int : 186 ms QRS Dur : 102 ms QT Int : 420 ms P-R-T Axes : 68 -17 -45 degrees QTcB Int : 401 ms Sinus bradycardia left atrial abnormality Nonspecific T wave abnormality Abnormal ECG When compared with ECG of 28-Jun-2024 12:21, (unconfirmed) No significant change was found Confirmed by Rashmi Blancas (Bravo) on 06/28/2024 2:37:32 PM Referred By: REFERRED SELF Confirmed By: Rashmi Blancas
--- NOTE | 2024-07-02 23:12 | Electrocardiogram Report ---
Test Reason : Blood Pressure : */* mmHG Vent. Rate : 58 BPM Atrial Rate : 58 BPM P-R Int : 174 ms QRS Dur : 112 ms QT Int : 418 ms P-R-T Axes : -28 -32 -74 degrees QTcB Int : 410 ms Sinus bradycardia Left axis deviation Possible Inferior infarct T wave abnormality, consider inferolateral ischemia Abnormal ECG When compared with ECG of 30-Jun-2024 18:07, Artifact is no longer present Confirmed by Narciso Stark ([id number]) on 07/02/2024 11:11:57 PM Referred By: REFERRED SELF Confirmed By: Narciso Stark
[2024-07-03 06:05] LABS: ANTI-Xa, UFH(UnfractionatedHep < 0.10 IU/ml (0.3-0.7)
--- NOTE | 2024-07-03 06:35 | Electrocardiogram Report ---
Test Reason : Blood Pressure : */* mmHG Vent. Rate : 63 BPM Atrial Rate : 63 BPM P-R Int : 182 ms QRS Dur : 100 ms QT Int : 410 ms P-R-T Axes : 66 -28 -54 degrees QTcB Int : 419 ms Normal sinus rhythm with sinus arrhythmia Inferior infarct , age undetermined Abnormal ECG When compared with ECG of 30-Jun-2024 18:09, No significant change was found Confirmed by Narciso Stark ([id number]) on 07/03/2024 6:35:11 AM Referred By: REFERRED SELF Confirmed By: Narciso Stark
[2024-07-03] MEDS: CLOPIDOGREL BISULFATE 75 MG TAB PO SCH (09:30)
[2024-07-03] MEDS: ENOXAPARIN INJ 40 MG/0.4 ML SYR SQ SCH (09:30)
--- NOTE | 2024-07-03 09:35 | Hospitalist Progress Note ---
Date of Service July 03, 2024 Assessment & Plan (1) Chest pain: (2) DM (diabetes mellitus), type 2: (3) Dyslipidemia, goal LDL below 70: (4) CAD (coronary artery disease), [place] coronary artery: (5) Severe obstructive sleep apnea: (6) MDD (major depressive disorder): Plan This is a 58-year-old male with PMH of non-obstructive CAD, type 2 diabetes, hypertension, obesity, depression, anxiety, HLD, generalized anxiety disorder, LINDA, BPH who was discharged on 06/28 and then returned after developing sudden onset chest pain again on same day. NSTEMI Admitted 06/26 for NSTEMI and underwent diagnostic cardiac catheterization on 06/27 that demonstrated stable, moderate mid LAD stenosis Cardiology evaluated and recommends continuing asa, statin, Zetia and beta [place] with cardiac follow up in 3-4 weeks. Discharge on 06/28 Patient Had very similar episode of sudden onset central chest pain at rest after discharge home and returned to ED on the same day EKG without acute changes, HS troponin negative x 2 [place] pain worsened after ntg, improved with morphine CT chest: No acute PE, dissection Doppler Lower Ext: no DVT CT abdomen pelvis without contrast: No bowel wall thickening or obstruction, 1 cm gallstone. General Surgery consulted-gallbladder stone unlikely the cause for persistent chest pain Repeat high-sensitivity troponin was found to be elevated to 2800 on 06/30. EKG showed more pronounced T wave depression in inferior leads. Patient was started on heparin drip. Patient underwent left heart cath again on 07/02-mild to moderate nonobstructive CAD, normal intracardiac filling pressure. Currently on aspirin, Plavix, Lipitor, metoprolol and lisinopril. Imdur added DM (diabetes mellitus), type 2 A1c 5.9 in 04/28 Hold home metformin SSI while in-patient BSG AC HS HTN (hypertension) Continue metoprolol, lisinopril and imdur. Severe obstructive sleep apnea CPAP HS DVT Ppx: lovenox Code status: FULL PCP: Jerardo Dispo: Anticipate return to home when medically . Time spent evaluating patient, direct bedside care, chart review, placing orders, interpretation of diagnostic studies, discussion with consultants, patient, and family members, as well as other required patient management activities is 50 minutes Please note the above document was generated using voice recognition software. It may contain grammatical, syntax or spelling errors. Any formal questions or concerns about the content, text or information contained within the body of this dictation should be directly addressed to the provider for clarification Admission and Anticipated Discharge Date Admission Date: June 28, 2024 Subjective Patient seen and examined at bedside. Comfortable; not in distress. Reported chest pain again dioramist, resolved spontaneously. Review of Systems Review of Systems: All systems reviewed & are unremarkable except as noted in Subjective Physical Exam Physical Exam: General- oriented x 3, not in distress, speaks in sentences with no effort or accessory muscle use Eyes- anicteric Neck- no JVD Lungs- clear breath sounds bilaterally, no rales/wheezes Heart- normal rate, regular rhythm; no murmurs Abdomen- normal bowel sounds, nondistended, soft, nontender Extremities- no pretibial edema, no calf tenderness Neuro- alert, oriented x 3; no gross focal neurologic deficits Skin- warm & dry Results & Data Results & Data Vital Signs (Past 12 Hours) Vital Signs Temp Pulse Pulse Resp BP Pulse Ox O2 Del Method 07/03/24 07:27 36.7 C 64 18 120/77 97 Room Air 07/03/24 03:45 82 24 95 07/03/24 03:11 36.7 C 75 18 157/85 H 97 CPAP 07/02/24 23:20 98 H 23 99 07/02/24 22:24 67 07/02/24 21:52 36.8 C 62 18 147/95 H 97 Room Air (2) DM (diabetes mellitus), type 2 Diabetes mellitus complication status: without complication Diabetes mellitus care home insulin use: without care home use Qualified Code(s): E11.9 - Type 2 diabetes mellitus without complications
--- NOTE | 2024-07-03 11:06 | Cardiology Progress Note ---
Date of Service July 03, 2024 Assessment & Plan (1) NSTEMI (non-ST elevated myocardial infarction): Plan: HS troponin had been normal on 06/28/24 x 2 measurements Repeat levels overnight and this am 2,865-->2,736-->2,598 As of 07/01/2024--> 645 pg/ml on 07/02/24 EKG evening of 06/30 and again am of 07/01 with new inferior T wave inversions (new compared to 06/28/24), and T wave inversions in lateral precordial leads (more prominent compared to 06/28/24) Patient underwent repeat invasive coronary angiography on 07/02/2024. No obvious high risk disease to explain patient's recurrent symptoms. Possibly had transient obstructive disease in left PLB 2. Continue medical management including aspirin (81 mg daily, lifelong therapy), clopidogrel 75 mg daily (1 year therapy), atorvastatin 40 mg daily, ezetimibe 10 mg daily. Blood pressure stable today. Add back isosorbide mononitrate 30 mg daily for suspected microvascular dysfunction perhaps vasospasm. Increase activity as tolerated. Admission and Anticipated Discharge Date Admission Date: June 28, 2024 Subjective Patient seen in cardiology follow up. [place] well during my assessment. Transient chest discomfort at around 5 AM that resolved spontaneously. Telemetry reveals sinus rhythm in the 60s to 70s. Physical Exam Physical Exam: General: no acute distress and stated age Eyes: conjunctiva are pink and non-injected, sclera clear Neck: normal jugular venous pulse, no hepatojugular reflux Chest: normal shape and normal respiratory effort Lungs: clear to auscultation and percussion Cardiac Exam: - regular heart sounds, no murmurs, rubs, or gallops, no jugular venous distention Abdomen: abdomen soft, non-tender, no abnormal masses and no hepatosplenomegaly Musculoskeletal: no gait disturbance, no weakness Extremities: no edema and no cyanosis Neuro:awake, conversant, follows commands, no focal motor deficits Results & Data Vital Signs (Past 12 Hours) Vital Signs Temp Pulse Pulse Resp BP Pulse Ox O2 Del Method 07/03/24 07:27 36.7 C 64 18 120/77 97 Room Air 07/03/24 03:45 82 24 95 07/03/24 03:11 36.7 C 75 18 157/85 H 97 CPAP 07/02/24 23:20 98 H 23 99 Laboratory Results Intake and Output 07/02/24 07/03/24 07/03/24 22:59 06:59 14:59 Intake Total 300 / 2909.233 1500 / 2909.233 Balance 300 / 2909.233 1500 / 2909.233 Intake: IV 1500 / 2609.233 Sodium Chloride 0.9% 1,000 ml @ 1500 / 1500 100 mls/hr IV .Q10H BRAD Rx#: [id number] Oral 300 / 300 Other: Other Intake Source NPO # Unmeasured Voids 2 2 Weight 131 kg Weight Measurement Method Built in [facility] Diagnostic Findings EKG performed this morning 07/03/2024 and interpreted independently: Sinus rhythm at 62 bpm, H interment anterior infarct pattern with T wave inversions in inferior leads, low amplitude T wave versions in the lateral leads, unchanged compared to previous.
[2024-07-03 11:43] LABS: BUN Creatinine Ratio 12.8 (10-20); Calcium 8.8 mg/dl (8.6-10.3); Creatinine Clr Calc Pharmacy 139.9 ml/min; Est GFR (African American) 112.4 ml/min; Est GFR (Non-African American) 96.9 ml/min; Potassium 4.1 mmol/L (3.5-5.1)
[2024-07-03] MEDS: ISOSORBIDE MONO EXTENDED REL 30 MG TABCR PO SCH (12:08)
[2024-07-03] MEDS: ACETAMINOPHEN 325 MG TAB PO PRN (20:39)
--- NOTE | 2024-07-03 20:51 | Electrocardiogram Report ---
Test Reason : Blood Pressure : */* mmHG Vent. Rate : 70 BPM Atrial Rate : 70 BPM P-R Int : 190 ms QRS Dur : 100 ms QT Int : 400 ms P-R-T Axes : 68 -36 -19 degrees QTcB Int : 432 ms Normal sinus rhythm Left axis deviation Inferior infarct (cited on or before 01-Jul-2024) Abnormal ECG When compared with ECG of 01-Jul-2024 09:51, Nonspecific T wave abnormality, worse in Lateral leads Confirmed by Narciso Stark ([id number]) on 07/03/2024 8:50:44 PM Referred By: REFERRED SELF Confirmed By: Narciso Stark
--- NOTE | 2024-07-03 20:52 | Electrocardiogram Report ---
Test Reason : Blood Pressure : */* mmHG Vent. Rate : 59 BPM Atrial Rate : 59 BPM P-R Int : 182 ms QRS Dur : 102 ms QT Int : 416 ms P-R-T Axes : 65 -17 -25 degrees QTcB Int : 411 ms Sinus bradycardia T wave abnormality, consider anterior ischemia Possible Inferior infarct Abnormal ECG When compared with ECG of 02-Jul-2024 03:48, No significant change was found Confirmed by Narciso Stark ([id number]) on 07/03/2024 8:51:33 PM Referred By: REFERRED SELF Confirmed By: Narciso Stark
--- NOTE | 2024-07-03 20:52 | Electrocardiogram Report ---
Test Reason : Blood Pressure : */* mmHG Vent. Rate : 62 BPM Atrial Rate : 62 BPM P-R Int : 184 ms QRS Dur : 98 ms QT Int : 386 ms P-R-T Axes : 70 -19 -46 degrees QTcB Int : 391 ms Normal sinus rhythm Inferior infarct , age undetermined Cannot rule out Anterior infarct , age undetermined T wave abnormality, consider inferolateral ischemia Abnormal ECG When compared with ECG of 02-Jul-2024 07:31, Nonspecific T wave abnormality has replaced inverted T waves in Anterior leads Confirmed by Narciso Stark ([id number]) on 07/03/2024 8:52:01 PM Referred By: REFERRED SELF Confirmed By: Narciso Stark
[2024-07-04 07:05] LABS: Basophils # (auto) 0.04 K/uL (0.00-0.20); Basophils % (auto) 0.5 %; Eosinophils # (auto) 0.31 K/uL (0.00-0.50); Eosinophils % (auto) 3.8 %; Hematocrit (blood only) 42.4 % (42.0-52.0); Hemoglobin 14.4 g/dl (14.0-18.0); Immature Granulocytes # (auto) 0.03 K/uL (0.01-0.20); Immature Granulocytes % (auto) 0.4 %; Lymphocytes # (auto) 1.68 K/uL (1.20-3.40); Lymphocytes % (auto) 20.7 %; Mean Corpuscular Hemoglobin 28.4 pg (25.0-34.0); Mean Corpuscular Volume 83.6 fL (80.0-100.0); Mean Platelet Volume 10.4 fL (9.4-12.4); Monocytes % (auto) 11.1 %; Neutrophils # (auto) 5.17 K/uL (1.40-6.50); Neutrophils % (auto) 63.5 %; Platelet Count 279 K/uL (130-400); RDW Coefficient of Variation 13.1 % (11.5-14.5); RDW Standard Deviation 39.8 fL (36.4-46.3); Red Blood Count 5.07 M/uL (4.70-6.10); White Blood Count 8.13 K/ul (4.8-10.8)
[2024-07-04 07:34] LABS: BUN Creatinine Ratio 15.2 (10-20); Calcium 8.5 mg/dl (8.6-10.3); Creatinine Clr Calc Pharmacy 152.8 ml/min; Est GFR (African American) 116.3 ml/min; Est GFR (Non-African American) 100.4 ml/min
[2024-07-04 08:52] VITALS: RESP 18
[2024-07-04] MEDS: amLODIPine BESYLATE 5 MG TAB PO SCH (09:34)
--- NOTE | 2024-07-04 13:02 | Cardiology Progress Note ---
Date of Service July 04, 2024 Assessment & Plan (1) NSTEMI (non-ST elevated myocardial infarction): Plan: HS troponin had been normal on 06/28/24 x 2 measurements Repeat levels overnight and this am 2,865-->2,736-->2,598 As of 07/01/2024--> 645 pg/ml on 07/02/24 EKG evening of 06/30 and again am of 07/01 with new inferior T wave inversions (new compared to 06/28/24), and T wave inversions in lateral precordial leads (more prominent compared to 06/28/24) Patient underwent repeat invasive coronary angiography on 07/02/2024. No obvious high risk disease to explain patient's recurrent symptoms. Possibly had transient obstructive disease in left PLB 2. Continue medical management including aspirin (81 mg daily, lifelong therapy), clopidogrel 75 mg daily (1 year therapy), atorvastatin 40 mg daily, ezetimibe 10 mg daily. Blood pressure stable today. Imdur discontinued due to headache. Amlodipine re-started. Pt to go for a walk. If does well, OK for discharge. Admission and Anticipated Discharge Date Admission Date: June 28, 2024 Subjective Patient seen in cardiology follow up. No additional chest pain. Telemetry reveals SR in the 60s to 70s. Review of Systems Review of Systems: All systems reviewed & are unremarkable except as noted in HPI & below Physical Exam Physical Exam: General: no acute distress and stated age Eyes: conjunctiva are pink and non-injected, sclera clear Neck: normal jugular venous pulse, no hepatojugular reflux Chest: normal shape and normal respiratory effort Lungs: clear to auscultation and percussion Cardiac Exam: - regular heart sounds, no murmurs, rubs, or gallops, no jugular venous distention Abdomen: abdomen soft, non-tender, no abnormal masses and no hepatosplenomegaly Musculoskeletal: no gait disturbance, no weakness Extremities: no edema and no cyanosis Neuro:awake, conversant, follows commands, no focal motor deficits Results & Data Vital Signs (Past 12 Hours) Vital Signs Temp Pulse Pulse Resp BP Pulse Ox O2 Del Method 07/04/24 11:49 37.1 C 67 18 122/76 97 Room Air 07/04/24 07:25 37.1 C 80 18 112/69 95 Room Air 07/04/24 07:00 67 07/04/24 03:48 86 20 95 07/04/24 03:02 36.5 C 65 18 106/67 95 CPAP Laboratory Results CBC 07/04/24 Range/Units 06:33 WBC 8.13 (4.8-10.8) K/ul RBC 5.07 (4.70-6.10) M/uL Hgb 14.4 (14.0-18.0) g/dl Hct 42.4 (42.0-52.0) % Plt Count 279 (130-400) K/uL Neut # (Auto) 5.17 (1.40-6.50) K/uL Lymph # (Auto) 1.68 (1.20-3.40) K/uL [place] # (Auto) 0.90 H (0.11-0.59) K/uL Eos # (Auto) 0.31 (0.00-0.50) K/uL Baso # (Auto) 0.04 (0.00-0.20) K/uL Comprehensive Metabolic Panel 07/04/24 Range/Units 06:33 Sodium 138 (136-145) mmol/L Potassium 4.0 (3.5-5.1) mmol/L Chloride 104 (98-107) mmol/L Carbon Dioxide 26 (21-32) mmol/L BUN 12 (6-23) mg/dl Creatinine 0.79 (0.6-1.4) mg/dl Glucose 122 H (70-99(Fasting)) mg/dl Calcium 8.5 L (8.6-10.3) mg/dl Intake and Output 07/03/24 07/04/24 07/04/24 22:59 06:59 14:59 Intake Total 300 / 840 300 / 840 Balance 300 / 840 300 / 840 Intake: Oral 300 / 840 300 / 840 Other: # Unmeasured Voids 2 2 Weight 132 kg Weight Measurement Method Built in [facility]
[2024-07-04 14:55] VITALS: PULSE 80; TEMP 98.1; O2SAT 96
--- NOTE | 2024-07-04 15:31 | Discharge Summary ---
Date of Service July 04, 2024 Admission HPI Per Admitting Provider This is a 58-year-old male with PMH of non-obstructive CAD, type 2 diabetes, hypertension, obesity, depression, anxiety, HLD, generalized anxiety disorder, LINDA, BPH who was discharged earlier today and then returned after developing sudden onset chest pain again this afternoon. Underwent diagnostic cardiac catheterization yesterday that demonstrated stable, moderate mid LAD stenosis. Dr. Stark evaluated and recommends continuing asa, statin, Zetia and beta [place] with cardiac follow up in 3-4 weeks. 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 Pain is centrally located and non-radiating. Some associated nausea and SOB. Returned to ED for further evaluation. Was given ntg in ED which made discomfort worse. Morphine helped. And was given GI cocktail just now. No other new symptoms. Denies any recent major stressors or increased anxiety. Denies history of peptic ulcers or GERD. Has been taking aspirin as prescribed as well as Meloxicam HS. No tobacco or etoh use. Admission Exam Per Admitting Provider General Appearance: WD/WN, vitals as above, NAD, sitting up in bed, appears uncomfortable but pleasant Head: normocephalic, atraumatic Eyes: normal inspection, PERRL, conjunctivae normal, anicteric sclerae ENT: external ear and nose normal, oropharynx normal Neck: normal visual inspection, trachea midline, no thyromegaly Respiratory: normal respiratory effort, lungs clear to auscultation, no wheeze, rales, rhonchi. No accessory muscle use Cardiovascular: regular rate, rhythm, no murmur, normal peripheral pulses, no BLE edema. Vessels: no JVD Chest: normal inspection of chest Abdomen/GI: normal bowel sounds, soft, nontender, no hepatosplenomegaly Extremities/Musculoskeletal: no cyanosis or clubbing, extremities motor strength 5/5 Neurologic: PERRL, EOMI, accommodation nl, no face palsy, no dysarthria, CN's II-XI intact bilaterally and moves all extremities Psychiatric: A+Ox3, euthymic affect Skin: no rashes, normal color, warm/dry Principal Diagnosis NSTEMI Discharge Exam General- oriented x 3, not in distress, speaks in sentences with no effort or accessory muscle use Eyes- anicteric Neck- no JVD Lungs- clear breath sounds bilaterally, no rales/wheezes Heart- normal rate, regular rhythm; no murmurs Abdomen- normal bowel sounds, nondistended, soft, nontender Extremities- no pretibial edema, no calf tenderness Neuro- alert, oriented x 3; no gross focal neurologic deficits Skin- warm & dry Discharge Data Allergies Allergy/AdvReac Type Severity Reaction Status Date / Time No Known Allergies Allergy Verified 12/10/23 14:36 Consultations 06/28/24 17:18 ED Decision to Admit Stat 06/28/24 18:12 Consult Gastroenterology Routine 06/30/24 07:33 Consult General Surgery Routine 06/30/24 16:35 Consult Cardiology Routine Procedures Performed Operation Date: 07/02/24 12:37 Actual Procedures p Cineradiography w/Routine Exam - Gagandeep Cedeno MD p Cath, Left with Cors and Vent - Gagandeep Cedeno MD Ordered Studies 06/28/24 17:42 CT chest diagnostic wo con Routine 06/28/24 18:57 CT angio chest PE protocol Stat 06/29/24 10:38 CT Abd and Pelvis [CT abd pelvis wo con] Routine US venous doppler LE BI Routine 07/02/24 12:30 CL Cath Imgs for PACS use only Routine Hospital Course (1) Chest pain: (2) DM (diabetes mellitus), type 2: (3) Dyslipidemia, goal LDL below 70: (4) CAD (coronary artery disease), [place] coronary artery: (5) Severe obstructive sleep apnea: (6) MDD (major depressive disorder): Plan This is a 58-year-old male with PMH of non-obstructive CAD, type 2 diabetes, hypertension, obesity, depression, anxiety, HLD, generalized anxiety disorder, LINDA, BPH who was discharged on 06/28 and then returned after developing sudden onset chest pain again on same day. NSTEMI Admitted 06/26 for NSTEMI and underwent diagnostic cardiac catheterization on 06/27 that demonstrated stable, moderate mid LAD stenosis Cardiology evaluated and recommends continuing asa, statin, Zetia and beta [place] with cardiac follow up in 3-4 weeks. Discharge on 06/28 Patient Had very similar episode of sudden onset central chest pain at rest after discharge home and returned to ED on the same day EKG without acute changes, HS troponin negative x 2 Bennet pain worsened after ntg, improved with morphine CT chest: No acute PE, dissection Doppler Lower Ext: no DVT CT abdomen pelvis without contrast: No bowel wall thickening or obstruction, 1 cm gallstone. General Surgery consulted-gallbladder stone unlikely the cause for persistent chest pain Repeat high-sensitivity troponin was found to be elevated to 2800 on 06/30. EKG showed more pronounced T wave depression in inferior leads. Patient was started on heparin drip. Patient underwent left heart cath again on 07/02-mild to moderate nonobstructive CAD, normal intracardiac filling pressure. The patient's symptoms were thought secondary to transient obstructive disease and left PLB 2 Patient was discharged on aspirin, Plavix, Lipitor, amlodipine. Imdur was discontinued due to headache. Patient to follow-up with PCP, cardiology as outpatient. Please note the above document was generated using voice recognition software. It may contain grammatical, syntax or spelling errors. Any formal questions or concerns about the content, text or information contained within the body of this dictation should be directly addressed to the provider for clarification Total Time Total Time Spent Total Time Spent (In Minutes): 35 Total Time Includes: Examination of the Patient, Discharge Planning, Medication Reconciliation, Communication With Other Providers and Other Discharge Plan Discharge Items Patient Disposition: Home - Self-Care Reason For Visit: CHEST/EPIGASTRIC PAIN Discharge Diagnosis: NSTEMI Activity: Resume your previous activity Non-emergency contact: Primary Care Provider Call non-emergency contact if: you have any medication questions and your symptoms worsen Follow-up/Referrals: Humphrey Kurtz MD [Primary Care Provider] - 07/10/24 10:40 am (Date & Time 07/10/2024 10:40 AM Provider Humphrey Kurtz MD Department [facility] ) Diet: Regular Addtl Attending Provider Instructions: You were admitted to the hospital due to chest pain. You had a repeat cardiac cath which did not show any obvious high risks disease to explain the symptoms. There is a possibility of transient obstrcution in one of your heart vessel. Following changes have been made to your medication regimen; 1) Start taking Plavix 75 mg once a day. You should take for 1 year. You will have to take aspirin lifelong. 2) Start taking amlodipine 5 mg once a day. 3) Decrease the dose of metoprolol to 12.5 milligram at night. 4) Imdur, lisinopril has been stopped. 5) Pepcid 20mg once a day. Continue to take your other medication as prescribed before. Pending Studies at Discharge: No Stand-Alone Forms: My [facility], Smoking Cessation Medications and DC Order Prescriptions: New clopidogrel 75 mg Tablet 75 mg PO QAM Qty: 30 0RF amlodipine [Norvasc] 5 mg Tablet 5 mg PO QAM Qty: 30 0RF metoprolol succinate 25 mg Tablet Extended Release 24 Hr 12.5 mg PO HS Qty: 30 0RF famotidine [Pepcid] 20 mg tablet 20 mg PO DAILY Qty: 30 0RF Continued (DME) CPAP Machine Misc See Rx Instructions .ROUTE .MEDSUPPLY Qty: 1 0RF Rx Instructions: CPAP 9 cm water pressure C flex #3 with heated humidification, tubing, and supplies. DAVID: 99+ years. aspirin 81 mg Tablet,Delayed Release (Dr/Ec) 81 mg PO HS atorvastatin [Lipitor] 40 mg Tablet 40 mg PO HS metformin 1,000 mg Tablet 1,000 mg PO BID Hold Instructions: Resume on 06/29/24. omega [id number] oil [Fish Oil] 1,000 mg (120 mg-180 mg) Capsule 1,000 mg PO HS lidocaine [Lidoderm] 5 % adhesive patch,medicated 1 patch TOP DAILY PRN (Reason: pain) Qty: 15 0RF Rx Instructions: leave on most painful area for up to 12 hrs trazodone 50 mg tablet 50 mg PO HS tizanidine 4 mg tablet 4 mg PO Q6H PRN (Reason: Muscle Spasm) ezetimibe 10 mg tablet 10 mg PO DAILY Mounjaro 10 mg/0.5 mL pen injector 10 mg SUBCUT WK Rx Instructions: takes on Mondays fluticasone propionate 50 mcg/actuation spray,suspension 2 spray intranasal DAILY PRN (Reason: allergies) Rx Instructions: administer into each nostril before bedtime Discontinued metoprolol succinate 25 mg Tablet Extended Release 24 Hr 25 mg PO HS isosorbide mononitrate 30 mg Tablet Extended Release 24 Hr 30 mg PO QAM 30 Days Qty: 30 2RF lisinopril 5 mg tablet 2.5 mg PO DAILY Qty: 0 0RF Discharge Orders: Discharge Order (Routine); Ordered 07/04/24 Ordered By: Kvng Salguero Admission Data Admit Date/Time: 06/28/24 18:09 Attending Provider: Kvng Salguero Admit Provider: Gerardo Barrientos Primary Care Provider: Humphrey Kurtz Other Providers: Gerardo Barrientos; Ivory Gilmore Jr; Anastasiya Bartlett; Julio Pérez; Bakari Quesada; Paxton Beck; Jm Seals; Kenya Glynn; Judd Reed; Casey Moreno; Earle Garcia; Jaspreet Hodge; Judith Plummer; Anselmo Gonzalez; Jorge A Xiong; Mika Stark; Stevie Juarez; Axel Milligan; Mary Carmen Tabor; Lyn Rajput; Oksana Valle; Judith Chris; Byron Palacio; Conrado Ware; Kenya Nathan; Janie Elizabeth; Susan Fierro; Oksana Marie; Alfonso Suarez; Bety Pal
[2024-07-04 17:12] VITALS: BP 107/69
== END 2024-07-04 17:19 | disposition home or self-care (01) | DRG 282 ==
LOC: ED 12:09 → 2N 18:09 → SUATTDRO 18:09 → 2N 22:15 → 2S 07-02 04:46